=== PATIENT | male | born 1990 | race Caucasian/White ===

== ENCOUNTER 2021-03-04 08:39 | Outpatient (REF) | payer OTHER, SELFPAY ==
[2021-03-04 09:51] LABS: Glucose Fasting 116 mg/dL (60-99)
[2021-03-04 10:16] LABS: Estimated Average Glucose 126 mg/dL
== END 2021-03-04 08:40 | disposition home or self-care (01) ==
LOC: HO.LAB 08:39
PROVIDERS: PCP Internal Medicine; Visit Provider Internal Medicine
DX: E66.9 Obesity, unspecified (principal); R73.02 Impaired glucose tolerance (oral)
CPT/HCPCS: 36415; 82947; 83036

== ENCOUNTER 2021-03-21 11:45 | Emergency (ER) | payer OTHER, SELFPAY ==
--- NOTE | 2021-03-21 11:58 | ECG_ITS ---
Test Reason : ABNORMAL EKG Blood Pressure : / mmHG Vent. Rate : 103 BPM Atrial Rate : 103 BPM P-R Int : 164 ms QRS Dur : 098 ms QT Int : 376 ms P-R-T Axes : 051 034 012 degrees QTc Int : 492 ms Sinus tachycardia Possible Left atrial enlargement Borderline ECG No previous ECGs available Referred By: Generic ED Physician Electronically Signed By:Manuel Colon
[2021-03-21 12:03] VITALS: BP 166/102; PULSE 109; RESP 18; TEMP 36.9; O2SAT 96; BMI 35.3
[2021-03-21 14:35] LABS: MANUAL DIFF FLAG NO
[2021-03-21 14:45] LABS: Basophils Percent Auto 0.2 % (0-2); Eosinophils Absolute Auto 0.1 X10*3/uL (0.0-0.4); Eosinophils Percent Auto 0.7 % (0-4); Hematocrit 51.6 % (42-52); Hemoglobin 16.9 g/dl (14.0-18.0); Imm Gran Abs Auto 0.02 X10*3/uL (0.00-0.03); Imm Gran Pct Auto 0.2 % (0.0-0.4); Lymphocytes Absolute Auto 2.7 X10*3/uL (1.2-4.9); Lymphocytes Percent Auto 31.2 % (20-40); Mean Corpuscular HGB Conc 32.8 g/dl (31.0-36.0); Mean Corpuscular Volume 79.4 fL (80-98); Mean Platelet Volume 8.7 fL (9.4-12.4); Monocytes Absolute Auto 0.5 X10*3/uL (0.1-1.2); Monocytes Percent Auto 5.9 % (2-11); Neutrophils Absolute Auto 5.3 X10*3/uL (2.0-8.3); Neutrophils Percent Auto 61.8 % (45-73); Platelet Count 260 X10*3/uL (160-400); Red Cell Distribution Width 13.2 % (11.0-16.0); White Blood Count 8.6 X10*3/uL (4.8-10.8)
[2021-03-21 14:55] LABS: Anion Gap 12 (12-20); Blood Urea Nitrogen 15 mg/dL (9-16); Calcium 9.5 mg/dL (8.4-10.2); Carbon Dioxide 28 mmol/L (22-29); Chloride 106 mmol/L (96-108); Creatinine Clr Calc Pharmacy 129.4; Estimated Glomerular Filt Rate > 60; Glucose Random 100 mg/dL (60-115); Potassium 3.9 mmol/L (3.3-5.1); Sodium 142 mmol/L (135-145)
--- NOTE | 2021-03-21 15:23 | ED_ITS ---
HPI - General Adult General Chief complaint: Recheck/Abnormal Lab/Rx Stated complaint: abnormal EKG Time Seen by Provider: 03/21/21 15:07 Source: patient Mode of arrival: ambulatory Limitations: no limitations History of Present Illness HPI narrative: 30 y/o male with history of HTN and pre-diabetes presents to the ER from his PCP office with high blood pressure associated with intermittent left sided chest pain and abnormal EKG. He reports he was started on blood pressure medication 1 month ago. His SBP has ranged mid-150s since then. He is compliant with his medication. He has had intermittent chest pains and SOB for a long time and it only occurs when his blood pressure is elevated. No headaches or vision changes. He denies any significant weight gain or salt intake. He currently has no chest pain. EKG at [facility] showed prolonged QTc. Provider there sent him for evaluation of symptomatic hypertension. MD complaint: chest pain & HTN Onset (ago): week(s) Location: chest Radiation: non-radiation Severity: moderate Severity scale (1-10): 6 Quality: aching Pain Consistency: intermittent Relieving factors: rest Exacerbating factors: movement Associated symptoms: denies other symptoms Treatments prior to arrival: none Related Data Previous Rx's Medication Instructions Recorded amlodipine 5 mg PO DAILY #30 tab 03/21/21 Allergies Allergy/AdvReac Type Severity Reaction Status Date / Time No Known Allergies Allergy Verified 03/21/21 14:04 Review of Systems Review of Systems: Constitutional: No Fever, No Chills ENT/Mouth: No sore throat, No Rhinorrhea, No Swallowing Difficulty Eyes: No Eye Pain, No Swelling, No Redness, No vision changes Cardiovascular: + Chest Pain, + SOB, No Orthopnea, No Edema Respiratory: No Cough, No Sputum, No Wheezing, No dyspnea Gastrointestinal: No Nausea, No Vomiting, No Diarrhea, No abdominal Pain, No Hematochezia, No Melena Genitourinary: No Dysuria, No Urinary Frequency, No Hematuria Musculoskeletal: No joint pain, No Myalgias Skin: No Skin Lesions, No rash Neuro: No Weakness, No Numbness, No Dizziness, No Headache Psych: No Anxiety/Panic, No Depression Heme/Lymph: No Bruising, No Lymphadenopathy Endocrine: No Polyuria, No Polydipsia PMFSH Past Medical History Medical History (Updated 03/21/21 @ 17:03 by CARO Randolph) HTN (hypertension) Social History Social History Advance Directives: No Advance Directives Information Provided: Yes Physical Exam Vital Signs: Vital Signs: Last Vital Signs Temp 98.5 F 03/21/21 12:03 Pulse 98 03/21/21 16:36 Resp 18 03/21/21 12:03 BP 157/113 H 03/21/21 16:36 Pulse Ox 96 03/21/21 12:03 Body Mass Index 35.3 Appearance: Alert. Oriented X3. No acute distress. Eyes: Pupils equal, round and reactive to light. ENT: Pharynx normal. Neck: Normal inspection. Neck supple. CVS: Normal heart rate and rhythm. Pulses normal. Mild left sided chest wall tenderness. Respiratory: No respiratory distress. Breath sounds normal. Abdomen: Soft and nontender. +BS x4 Skin: Skin warm and dry. Normal skin color. Normal skin turgor. No rashes. Extremities: No lower extremity edema. Negative Mendez's sign Neuro: Oriented X 3. No motor deficit. No sensory deficit. Course Course Course Narrative: 30 y/o male presenting with intermittent chest pain and SOB x1 month in the setting of poorly controlled HTN. Upon medication review it looks like he was started on lisinopril 10/HCTZ 12.5 in January and then was changed to HCTZ 25 mg daily. He is slightly tachycardic on arrival, no reported chest pain or SOB at this time. BP 166/102. Will give dose of PO lisinopril now. Reevaluation(s) Reevaluation #1: Patient reports the lisinopril he was on was stopped because it was making him shakey. He continued on HCTZ 25 mg alone. His BP has been poorly controlled with this regimen. Troponin 17 --> 16.8. DDIMER negative. Patient remains chest pain free. BP 15 0/113. No headache or vision changes. Will plan to start amlodipine 5 mg daily and have him f/u with his PCP for further management. He will continue to monitor BP at home and come back to the ER if chest pain worsens or returns. Medical Decision Making Lab Data Result diagrams: 03/21/21 14:30 03/21/21 14:30 Labs: Lab Results 03/21/21 03/21/21 03/21/21 Range/Units 14:30 14:30 14:30 WBC 8.6 (4.8-10.8) X10*3/uL RBC 6.50 H (4.60-5.80) X10*6/uL Hgb 16.9 (14.0-18.0) g/dl Hct 51.6 (42-52) % MCV 79.4 L (80-98) fL MCH 26.0 L (27.0-33.0) pg MCHC 32.8 (31.0-36.0) g/dl RDW 13.2 (11.0-16.0) % Plt Count 260 (160-400) X10*3/uL MPV 8.7 L (9.4-12.4) fL Immature Gran % (Auto) 0.2 (0.0-0.4) % Neut % (Auto) 61.8 (45-73) % Lymph % (Auto) 31.2 (20-40) % [place] % (Auto) 5.9 (2-11) % Eos % (Auto) 0.7 (0-4) % Baso % (Auto) 0.2 (0-2) % Lymph # (Auto) 2.7 (1.2-4.9) X10*3/uL [place] # (Auto) 0.5 (0.1-1.2) X10*3/uL Eos # (Auto) 0.1 (0.0-0.4) X10*3/uL Baso # (Auto) 0.0 (0.0-0.2) X10*3/uL Abs Immat Gran (auto) 0.02 (0.00-0.03) X10*3/uL Absolute Neuts (auto) 5.3 (2.0-8.3) X10*3/uL Absolute Nucleated RBC 0.000 (0.0-0.012) X10*3/uL Nucleated RBC % (auto) 0.0 (0.0-0.2) /100WBC D-Dimer NG/ML Sodium 142 (135-145) mmol/L Potassium 3.9 (3.3-5.1) mmol/L Chloride 106 (96-108) mmol/L Carbon Dioxide 28 (22-29) mmol/L Anion Gap 12 (12-20) BUN 15 (9-16) mg/dL Creatinine 1.16 (0.5-1.4) mg/dL Estim Creat Clear Calc 129.4 Estimated GFR > 60 Random Glucose 100 (60-115) mg/dL Calcium 9.5 (8.4-10.2) mg/dL Troponin I High Sens 17.0 (<3.5-35.0) ng/L 03/21/21 03/21/21 Range/Units 16:11 16:11 WBC (4.8-10.8) X10*3/uL RBC (4.60-5.80) X10*6/uL Hgb (14.0-18.0) g/dl Hct (42-52) % MCV (80-98) fL MCH (27.0-33.0) pg MCHC (31.0-36.0) g/dl RDW (11.0-16.0) % Plt Count (160-400) X10*3/uL MPV (9.4-12.4) fL Immature Gran % (Auto) (0.0-0.4) % Neut % (Auto) (45-73) % Lymph % (Auto) (20-40) % [place] % (Auto) (2-11) % Eos % (Auto) (0-4) % Baso % (Auto) (0-2) % Lymph # (Auto) (1.2-4.9) X10*3/uL [place] # (Auto) (0.1-1.2) X10*3/uL Eos # (Auto) (0.0-0.4) X10*3/uL Baso # (Auto) (0.0-0.2) X10*3/uL Abs Immat Gran (auto) (0.00-0.03) X10*3/uL Absolute Neuts (auto) (2.0-8.3) X10*3/uL Absolute Nucleated RBC (0.0-0.012) X10*3/uL Nucleated RBC % (auto) (0.0-0.2) /100WBC D-Dimer < 200 NG/ML Sodium (135-145) mmol/L Potassium (3.3-5.1) mmol/L Chloride (96-108) mmol/L Carbon Dioxide (22-29) mmol/L Anion Gap (12-20) BUN (9-16) mg/dL Creatinine (0.5-1.4) mg/dL Estim Creat Clear Calc Estimated GFR Random Glucose (60-115) mg/dL Calcium (8.4-10.2) mg/dL Troponin I High Sens 16.8 (<3.5-35.0) ng/L ECG Data Attestation: I personally reviewed and interpreted this ECG as follows: Interpretation: sinus tachycardia, HR 103 bpm, normal [place] interval, prolonged QTc 492, inverted t-wave in lead III alone, no ST segment elevations or depressions. Discharge Plan Discharge Clinical Impression: Hypertension Qualifiers: Hypertension type: unspecified Qualified Code(s): I10 - Essential (primary) hypertension Patient Disposition: Home, Self-Care Instructions: DASH Eating Plan (ED), Hypertension (ED) Additional Instructions: Your blood workup today was unremarkable. Your blood pressure was elevated. Recommend uptitrating your home blood pressure medication and following up with your doctor this week. A new prescription for your blood pressure was sent to your pharmacy, start taking this tomorrow along with the medication from your doctor. Monitor your blood pressure at home and bring a record to your doctor. If you have recurrence of chest pain or any other new or concerning symptom call 911 or come back to the ER for further evaluation. Crow an?lisis de jesse de jaylen no tuvo nada especial. Crow presi?n arterial estaba elevada. Recomiende aumentar la dosis de bernarda medicamentos para la presi?n arterial en el hogar y hacer un seguimiento con crow m?dico esta semana. Se envi? deshawn nueva receta para crow presi?n arterial a crow farmacia, comience a tomarla ma?sean junto con el medicamento de crow m?dico. Controle crow presi?n arterial en casa y lleve un registro a crow m?dico. Si tiene dolor de pecho recurrente o cualquier otro s?ntoma nuevo o preocupante, llame al 911 o regrese a la tyra de emergencias para deshawn evaluaci?n adicional. Prescriptions: New amlodipine 5 mg tablet 5 mg PO DAILY Qty: 30 RF: 0 Referrals: Chance Georges MD [Primary Care Provider] - 1 week Stand Alone Forms: Work/School Release Print Language: Macanese
[2021-03-21 16:28] LABS: D Dimer < 200 NG/ML
[2021-03-21 16:36] VITALS: BP 157/113; PULSE 98
[2021-03-21] MEDS: lisinopriL 10 MG TABLET PO (16:36)
[2021-03-21 16:51] LABS: Troponin-I High Sensitivity 16.8 ng/L (<3.5-35.0)
[2021-03-21 17:41] VITALS: BP 150/98; PULSE 90; RESP 18; O2SAT 98
== END 2021-03-21 17:42 | disposition home or self-care (01) ==
PROVIDERS: Physician Assistant; Emergency Provider Emergency Medicine Emergency Medical Services; PCP Internal Medicine
DX: I10 Essential (primary) hypertension (principal); Z79.899 Other long term (current) drug therapy
CPT/HCPCS: 36415; 80048; 84484; 85025; 85379; 93005; 99283

== ENCOUNTER → 2021-11-23 14:40 | Outpatient (BNVA) | payer OTHER, SELFPAY | PROVIDERS: PCP Internal Medicine; Referring Provider Internal Medicine; Visit Provider Surgery ==

== ENCOUNTER 2021-11-30 08:16 | Outpatient (REF) | payer OTHER, SELFPAY ==
--- NOTE | ~2021-11-30 | US_ITS ---
EXAMINATION: US ABDOMEN LIMITED CLINICAL INFORMATION: Ventral hernia. COMPARISON: None TECHNIQUE: Real-time imaging of the right lower quadrant abdominal viscera. US/US abdomen limited FINDINGS/IMPRESSION: No hernia identified in the right lower quadrant. No masses Unremarkable exam.
== END 2021-11-30 08:17 | disposition home or self-care (01) ==
LOC: HO.US 08:16
PROVIDERS: Visit Provider Nurse Practitioner Primary Care
DX: K43.9 Ventral hernia without obstruction or gangrene (principal)
CPT/HCPCS: 76705

== ENCOUNTER 2022-10-18 14:48 | Outpatient (REF) | payer OTHER, SELFPAY ==
--- NOTE | ~2022-10-18 | US_ITS ---
EXAMINATION: US RETROPERITONEAL LIMITED (RENAL ONLY) CLINICAL INFORMATION: Microscopic hematuria. COMPARISON: Ultrasound abdomen limited 11/30/2021 TECHNIQUE: Real-time imaging of the kidneys. FINDINGS: RIGHT KIDNEY: 12.9 x 5.8 x 6.3 cm (SAG x AP x TRV). The kidney is normal in size, contour, and echogenicity. Renal cortical thickness is normal. No calculi or focal parenchymal lesions. No hydronephrosis. LEFT KIDNEY: 12.6 x 6.0 x 7.1 cm (SAG x AP x TRV). The kidney is normal in size, contour, and echogenicity. Renal cortical thickness is normal. No calculi or focal parenchymal lesions. No hydronephrosis. US/US renal BI IMPRESSION: Normal renal ultrasound. No kidney stone or hydronephrosis, no renal mass, no ultrasound explanation for patient's hematuria, if persisted may consider correlation with follow-up CT urogram.
== END 2022-10-18 14:49 | disposition home or self-care (01) ==
LOC: HO.US 14:48
PROVIDERS: PCP Internal Medicine; Visit Provider Internal Medicine
DX: R31.29 Other microscopic hematuria (principal)
CPT/HCPCS: 76775

== ENCOUNTER 2022-11-12 12:48 | Outpatient (REF) | payer OTHER, SELFPAY ==
[2022-11-12 16:02] LABS: Urine Cytology See Pathology rpt
== END 2022-11-12 12:49 | disposition home or self-care (01) ==
LOC: HO.LAB 12:48
PROVIDERS: PCP Internal Medicine; Visit Provider Nurse Practitioner Family
DX: R31.29 Other microscopic hematuria (principal); Z79.899 Other long term (current) drug therapy
CPT/HCPCS: 88112

== ENCOUNTER → 2023-01-02 14:38 | Outpatient (BNVA) | payer OTHER, SELFPAY | PROVIDERS: PCP Internal Medicine; Visit Provider Urology | DX: N30.31 Trigonitis with hematuria (principal) | CPT/HCPCS: 52000 ==

== ENCOUNTER 2023-09-15 16:22 | Inpatient (IN) | payer OTHER, SELFPAY ==
[2023-09-15] VITALS (14 sets, daily range): BP systolic 129–153; BP diastolic 86–106; PULSE 112–121; RESP 22–47; TEMP 36.3–37.6; O2SAT 82–100
--- NOTE | ~2023-09-15 | CT_ITS ---
EXAMINATION: CT ANGIOGRAM OF THE CHEST WITH AND WITHOUT CONTRAST (CT PULMONARY ANGIOGRAM FOR PE) CLINICAL INFORMATION: Reason for Exam tachycardic, hypoxic, dimer + COMPARISON: Chest radiograph 09/15/2023. TECHNIQUE: Prior to contrast administration, noncontrast localization images were obtained. Subsequently, multidetector volumetric imaging was performed from the thoracic inlet to below the diaphragms following the administration of 100 mL Omnipaque 350 intravenous contrast. No contrast reaction reported Sagittal, coronal, and MIP oblique sagittal reformatted images were obtained on the CT workstation, uploaded to PACS, and reviewed. This CT examination was performed using dose optimization techniques as appropriate, variously including the following: *Automated exposure control *Adjustment of mA and/or kV according to patient size (this includes techniques or standardized protocols for targeted exams where dose is matched to indication/reason for exam; i.e. extremities or head) *Use of iterative reconstruction technique Total exam dose-length product 500 mGy-cm FINDINGS: QUALITY OF STUDY/CONTRAST BOLUS: Satisfactory. PULMONARY ARTERIES: No pulmonary emboli. THORACIC AORTA: No aneurysm. LUNG: Mild groundglass opacities and minimal scattered alveolar airspace type opacities are present in the left lung base posteriorly. Additionally, minimal subpleural posterior dependent opacities are present in the left lung base may represent additional minimal dependent compressive atelectasis. No endobronchial lesions identified. Mild attenuation of the upper lung zone pulmonary parenchyma is noted suspicious for mild centrilobular emphysema. PLEURA: A trace right pleural effusion (0 Hounsfield unit) is noted. MEDIASTINUM: Normal heart size. No pericardial effusion. No hilar or mediastinal lymphadenopathy. No evidence of septal bowing or right heart strain. The left atrium measures 5.6 cm in AP dimension. The left ventricle measures 7.5 cm transverse dimension. The right atrium measures 5 cm in AP dimension. The right ventricle measures 3.7 cm in AP dimension. No focal left ventricular mural thickening noted or dystrophic calcifications identified. CORONARY ARTERY CALCIFICATION: None visualized on this study. CHEST WALL/AXILLA: No axillary or internal mammary lymphadenopathy. OSSEOUS STRUCTURES: No acute or suspicious osseous abnormality. UPPER ABDOMEN: Unremarkable. Minimal reflux of contrast into the intrahepatic segment of the inferior vena cava and immediately adjacent hepatic veins. The inferior most image demonstrates a 1 mm punctate calcification within the left renal pelvis. CT/CT angio chest PE protocol IMPRESSION: 1. CT pulmonary angiogram negative for pulmonary emboli. 2. Mild groundglass opacities and minimal scattered alveolar airspace type opacities in the left lung base suspicious for mild aspiration pneumonitis or infection. Additionally, a trace right pleural effusion is present. Findings could also represent resolving pulmonary edema with asymmetric residual edema within the left lung base. 3. Mild centrilobular emphysema. 4. Four-chamber cardiomegaly. Minimal reflux of contrast into the intrahepatic segment of the inferior vena cava and immediately adjacent hepatic veins. Findings are suspicious for mild right heart failure. No evidence of right heart strain. 5. Partially visualized 1 mm punctate calculus within the left renal pelvis. VTE: negative.
--- NOTE | ~2023-09-15 | XR_ITS ---
EXAMINATION: XR CHEST CLINICAL INFORMATION: Shortness of breath. Left-sided pneumonia? COMPARISON: None available. TECHNIQUE: Frontal view of the chest was obtained. FINDINGS: EKG wires overlie the chest. Lungs are adequately expanded. The retrocardiac area of the left lower lobe is suboptimally evaluated on this single view anteroposterior chest radiograph. Cardiac silhouette and central pulmonary vessels are prominent. There appears to be a trace amount of fluid within the minor fissure. No overt consolidation (i.e., no overt pneumonia). The visualized bones and upper abdomen are unremarkable. XR/XR chest 1V IMPRESSION: Cardiomegaly and pulmonary vascular congestion without overt edema. Query if the patient has previously undergone echocardiography evaluation.
--- NOTE | 2023-09-15 16:41 | ECG_ITS ---
Test Reason : SOB Blood Pressure : / mmHG Vent. Rate : 116 BPM Atrial Rate : 116 BPM P-R Int : 176 ms QRS Dur : 110 ms QT Int : 314 ms P-R-T Axes : 056 089 -28 degrees QTc Int : 436 ms Sinus tachycardia T wave abnormality, consider inferior ischemia Abnormal ECG When compared with ECG of 21-MAR-2021 12:02, T wave inversion more evident in Inferior leads Referred By: Ann Alexander Electronically Signed By:Manuel Colon
[2023-09-15 16:52] LABS: MANUAL DIFF FLAG NO
--- NOTE | 2023-09-15 16:53 | ED_ITS ---
HPI - SOB/Dyspnea General Chief Complaint: Dyspnea Stated Complaint: Hard time breathing Time Seen by Provider: 09/15/23 16:35 Source: patient Mode of arrival: ambulatory Limitations: no limitations History of Present Illness HPI Narrative: Patient comes to the emergency room complaining of severe shortness of breath. Patient states that he has been feeling short of breath for about a week now. However, today patient started feeling more short of breath. Patient states that he has been coughing a bit, no fever or chills, no recent known exposures to COVID/influenza. Patient states that he has never been diagnosed with asthma. Patient denies any cardiac history. Denies smoking. Related Data Home Medications Medication Instructions Recorded Confirmed nifedipine 60 mg tablet,extended 60 mg PO DAILY 11/12/22 01/02/23 release 24 hr Previous Rx's Medication Instructions Recorded amlodipine 5 mg tablet 5 mg PO DAILY #30 tabs 03/21/21 trimethoprim 100 mg tablet 100 mg PO DAILY 90 days #90 tabs 01/02/23 Allergies Allergy/AdvReac Type Severity Reaction Status Date / Time No Known Allergies Allergy Verified 09/15/23 16:28 Review of Systems 2 Review of Systems: Constitutional : No Weight loss, No Fever, No Chills, No Night Sweats, No Fatigue, No Malaise ENT/Mouth : No Hearing loss, No Ear Pain, No Nasal Congestion, No Sinus Pain, No Hoarseness, No sore throat, No Rhinorrhea, No Swallowing Difficulty Eyes: No Eye Pain, No Swelling, No Redness, No Foreign Body, No Discharge, No Vision Changes Cardiovascular : No Chest Pain, No SOB, No Dyspnea on Exertion, No Orthopnea, No Edema, No Palpitations Respiratory : Mild cough, complaining of shortness of breath Gastrointestinal : No Nausea, No Vomiting, No Diarrhea, No Constipation, No abdominal Pain, No Hematochezia, No Melena Genitourinary : no irregular bleeding, No Dysuria, No Urinary Frequency, No Hematuria, No Urinary Incontinence, No Urgency, No Flank Pain, No Urinary Flow Changes, No Hesitancy Musculoskeletal : No joint pain, No Myalgias, No Joint Swelling Skin : No Skin Lesions, No rash Neuro : No Weakness, No Numbness, No Paresthesias, No Loss of Consciousness, No Dizziness, No Headache Psych : No Anxiety/Panic, No Depression, No SI/HI/AH/VH, No Social Issues, Heme/Lymph: No Bruising, No Bleeding,No Lymphadenopathy Endocrine : No Polyuria, No Polydipsia, No Temperature Intolerance [facility] Past Medical History Medical History HTN (hypertension) Surgical History History of umbilical hernia repair Social History Social History Alcohol intake: never Patient Tobacco Use Status: Never used Tobacco Smoked in Last 30 Days: No Use of substances other than those prescribed or required for medical reasons: No Advance Directives: No Advance Directives Information Provided: No Physical Exam 2 Vital Signs: Vital Signs: Last Vital Signs Temp 99.7 F 09/15/23 21:59 Pulse 112 H 09/15/23 22:00 Resp 40 H 09/15/23 22:00 BP 137/86 09/15/23 21:59 Pulse Ox 95 09/15/23 22:00 O2 Del Method High Flow Nasal C annula 09/15/23 22:00 O2 Flow Rate 60 09/15/23 22:00 FiO2 100 09/15/23 17:02 BMI result Body Mass Index 20.0 Const: Other: Appearance: Alert. Oriented X3. No acute distress. Eyes: Pupils equal, round and reactive to light. ENT: Pharynx normal. Neck: Normal inspection. Neck supple. No lymph nodes noted. No crepitus CVS: Normal heart rate and rhythm. Pulses normal. Normal S1 and S2 Respiratory: Patient is tachypneic, oxygen saturation initially 82% on room air, put on non-rebreather, improved to 95%. Still tachypneic Abdomen: Soft and nontender. No rigidity. No distention. Skin: Skin warm and dry. Normal skin color. Normal skin turgor. Extremities: +2 pitting edema bilaterally. No Lacerations. No Rash Neuro: Oriented X 3. No motor deficit. No sensory deficit. Moving all extremities. No slurred speech. CN 2 through 12 grossly intact Psych: calm, cooperative, anxious Medications Administered Discontinued Medications Generic Name Dose Route Start Last Admin Trade Name Freq PRN Reason Stop Dose Admin Dexamethasone Sodium Phosphate 6 mg 09/15/23 22:21 09/15/23 22:46 Dexamethasone Sod Phosphate 4 Mg/Ml Vial IVPUSH 09/15/23 22:22 6 mg ONCE ONE Administration Furosemide 40 mg 09/15/23 17:02 09/15/23 17:12 Furosemide 40 Mg/4 Ml Vial IVPUSH 09/15/23 17:03 40 mg ONCE ONE Administration Protocol Piperacillin Sod/Tazobactam 50 mls @ 100 mls/hr 09/15/23 22:26 09/15/23 23:16 Sod 3.375 gm/ Sodium Chloride IV 09/15/23 22:55 Infused ONCE ONE Infusion Iohexol 100 ml 09/15/23 20:32 09/15/23 20:32 Iohexol 350 Mg/Ml 100 Ml Infus..Btl IV 09/15/23 20:33 75 ml ONCE ONE Administration Lorazepam 1 mg 09/15/23 17:56 09/15/23 18:05 Lorazepam 2 Mg/Ml Vial IVPUSH 09/15/23 17:57 1 mg ONCE ONE Administration Lorazepam 1 mg 09/15/23 21:02 09/15/23 21:13 Lorazepam 2 Mg/Ml Vial IVPUSH 09/15/23 21:03 1 mg ONCE ONE Administration Medical Decision Making Medical Decision Making MDM Narrative: -patient arrived to triage saturating 80% on room air. Patient was placed on a non-rebreather. -we tried weaning the patient down to nasal cannula. Oxygen saturation dropped to 84% on 5 L. patient has crackles on the left lung, likely pneumonia. Patient has no wheezing, good air movement, Patient was switched to high-flow, patient saturating 94%. -bedside chest x-ray my interpretation: cardiomegaly, possible pneumonia in the left lung, possible left lower lobe small pleural effusion. -while we wait for the results, patient being given Lasix 40 mg IV -my interpretation of labs, normal white blood cell count, lactic acid 2.2 likely secondary to hypoxia, no significant electrolyte abnormalities. BNP 721 -my interpretation of chest x-ray, cardiomegaly, question infiltrate on the left lung versus pleural effusion? -patient was scanned for pulmonary embolism, negative for PE, no overt pulmonary edema, possible right heart strain? -patient's blood pressure stable, no hypotensive events. Patient still significantly tachycardic, no fever, sepsis is not suspected It is unclear why the patient is hypoxic, could be new onset CHF, pulmonary hypertension, pneumonitis, pneumonia? Viral serology negative for COVID influenza, respiratory panel pending. -prophylactically, patient was treated with IV antibiotics and Lasix, even on CTA it is unclear if patient has pneumonia, if he does, likely viral, some ground-glass opacities seen with no obvious infiltrate -patient is currently on high-flow, 60 L, 75% FiO2 saturating 94- 100%, patient breathing comfortably, patient tachypneic in the 40s. Patient given Ativan for anxiety. -I discussed the patient with Dr. Patino, who requested an ICU consult. I discussed the patient with Dr. Venegas, looks like patient has new onset CHF. We will diurese the patient more, patient needs PEEP which patient is getting with high-flow. 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 09/15/23 16:47 09/15/23 16:47 Labs: Lab Results 09/15/23 09/15/23 09/15/23 Range/Units 16:47 16:53 16:59 WBC 9.1 (4.8-10.8) X10*3/uL RBC 5.65 (4.60-5.80) X10*6/uL Hgb 14.0 (14.0-18.0) g/dl Hct 44.0 (42.0-52.0) % MCV 77.9 L (80.0-98.0) fL MCH 24.8 L (27.0-33.0) pg MCHC 31.8 (31.0-36.0) g/dl RDW 14.3 (11.0-16.0) % Plt Count 334 (160-400) X10*3/uL MPV 8.5 L (9.4-12.4) fL Immature Gran % (Auto) 0.5 H (0.0-0.4) % Neut % (Auto) 80.1 H (45-73) % Lymph % (Auto) 14.8 L (20-40) % [place] % (Auto) 3.5 (2-11) % Eos % (Auto) 0.8 (0-4) % Baso % (Auto) 0.3 (0-2) % Lymph # (Auto) 1.4 (1.2-4.9) X10*3/uL [place] # (Auto) 0.3 (0.1-1.2) X10*3/uL Eos # (Auto) 0.1 (0.0-0.4) X10*3/uL Baso # (Auto) 0.0 (0.0-0.2) X10*3/uL Abs Immat Gran (auto) 0.05 H (0.00-0.03) X10*3/uL Absolute Neuts (auto) 7.3 (2.0-8.3) x10*3/uL Absolute Nucleated RBC 0.000 (0.0-0.012) X10*3/uL Nucleated RBC % (auto) 0.0 (0.0-0.2) /100WBC PT 18.0 H (11.1-13.3) SEC INR 1.5 H (0.9-1.1) D-Dimer High Sensitivty 420 NG/ML VBG pH 7.38 (7.32-7.43) VBG pCO2 37 mmHg VBG pO2 40 mmHg VBG HCO3 22 (22-26) mmol/L VBG O2 Saturation 61.0 % VBG Base Excess -2.1 mmol/L Sodium 141 (135-145) mmol/L Potassium 3.8 (3.3-5.1) mmol/L Chloride 109 H (96-108) mmol/L Carbon Dioxide 21 L (22-29) mmol/L Anion Gap 15 (12-20) BUN 18 H (9-16) mg/dL Creatinine 1.16 (0.5-1.4) mg/dL Estim Creat Clear Calc 92.1 Estimated GFR > 60 Random Glucose 216 H (60-115) mg/dL Lactic Acid 2.2 H* (0.5-2.0) mmol/L Lactic Acid F/U @ 2Hr (0.5-2.0) mmol/L Calcium 9.1 (8.4-10.2) mg/dL Total Bilirubin 0.8 (0.0-1.0) mg/dL Direct Bilirubin 0.4 (0.0-0.5) mg/dL AST 31 (5-37) U/L ALT 35 (0-40) U/L Alkaline Phosphatase 189 H (39-117) U/L Total Creatine Kinase 123 (38-174) U/L Troponin I High Sens 11.3 (<3.5-35.0) ng/L B-Natriuretic Peptide 721 H (<100) pg/mL Total Protein 7.9 (6.5-8.0) g/dL Albumin 3.7 (3.5-5.0) g/dL COVID-19 (GAGE) (Negative) COVID-19 Clin Com Influenza Type A (SKYLAR) (Negative) Influenza Type B (SKYLAR) (Negative) Influenza A & B Note 09/15/23 09/15/23 Range/Units 19:10 21:23 WBC (4.8-10.8) X10*3/uL RBC (4.60-5.80) X10*6/uL Hgb (14.0-18.0) g/dl Hct (42.0-52.0) % MCV (80.0-98.0) fL MCH (27.0-33.0) pg MCHC (31.0-36.0) g/dl RDW (11.0-16.0) % Plt Count (160-400) X10*3/uL MPV (9.4-12.4) fL Immature Gran % (Auto) (0.0-0.4) % Neut % (Auto) (45-73) % Lymph % (Auto) (20-40) % [place] % (Auto) (2-11) % Eos % (Auto) (0-4) % Baso % (Auto) (0-2) % Lymph # (Auto) (1.2-4.9) X10*3/uL [place] # (Auto) (0.1-1.2) X10*3/uL Eos # (Auto) (0.0-0.4) X10*3/uL Baso # (Auto) (0.0-0.2) X10*3/uL Abs Immat Gran (auto) (0.00-0.03) X10*3/uL Absolute Neuts (auto) (2.0-8.3) x10*3/uL Absolute Nucleated RBC (0.0-0.012) X10*3/uL Nucleated RBC % (auto) (0.0-0.2) /100WBC PT (11.1-13.3) SEC INR (0.9-1.1) D-Dimer High Sensitivty NG/ML VBG pH (7.32-7.43) VBG pCO2 mmHg VBG pO2 mmHg VBG HCO3 (22-26) mmol/L VBG O2 Saturation % VBG Base Excess mmol/L Sodium (135-145) mmol/L Potassium (3.3-5.1) mmol/L Chloride (96-108) mmol/L Carbon Dioxide (22-29) mmol/L Anion Gap (12-20) BUN (9-16) mg/dL Creatinine (0.5-1.4) mg/dL Estim Creat Clear Calc Estimated GFR Random Glucose (60-115) mg/dL Lactic Acid (0.5-2.0) mmol/L Lactic Acid F/U @ 2Hr 1.4 (0.5-2.0) mmol/L Calcium (8.4-10.2) mg/dL Total Bilirubin (0.0-1.0) mg/dL Direct Bilirubin (0.0-0.5) mg/dL AST (5-37) U/L ALT (0-40) U/L Alkaline Phosphatase (39-117) U/L Total Creatine Kinase (38-174) U/L Troponin I High Sens (<3.5-35.0) ng/L B-Natriuretic Peptide (<100) pg/mL Total Protein (6.5-8.0) g/dL Albumin (3.5-5.0) g/dL COVID-19 (GAGE) Negative (Negative) COVID-19 Clin Com See Note Influenza Type A (SKYLAR) Negative (Negative) Influenza Type B (SKYLAR) Negative (Negative) Influenza A & B Note See Note Independent Interpretation I performed an independent interpretation of an: EKG, Plain X-Ray and CT Scan (Interpretation of CTA: No obvious pulmonary embolism, no obvious infiltrate, ground-glass opacities especially on the left lower lobe) Radiology Impression Discussion of test interpretation with radiology: I have reviewed the radiologist's reading. Radiologist Impression: FINDINGS: QUALITY OF STUDY/CONTRAST BOLUS: Satisfactory. PULMONARY ARTERIES: No pulmonary emboli. THORACIC AORTA: No aneurysm. LUNG: Mild groundglass opacities and minimal scattered alveolar airspace type opacities are present in the left lung base posteriorly. Additionally, minimal subpleural posterior dependent opacities are present in the left lung base may represent additional minimal dependent compressive atelectasis. No endobronchial lesions identified. Mild attenuation of the upper lung zone pulmonary parenchyma is noted suspicious for mild centrilobular emphysema. PLEURA: A trace right pleural effusion (0 Hounsfield unit) is noted. MEDIASTINUM: Normal heart size. No pericardial effusion. No hilar or mediastinal lymphadenopathy. No evidence of septal bowing or right heart strain. The left atrium measures 5.6 cm in AP dimension. The left ventricle measures 7.5 cm transverse dimension. The right atrium measures 5 cm in AP dimension. The right ventricle measures 3.7 cm in AP dimension. No focal left ventricular mural thickening noted or dystrophic calcifications identified. CORONARY ARTERY CALCIFICATION: None visualized on this study. CHEST WALL/AXILLA: No axillary or internal mammary lymphadenopathy. OSSEOUS STRUCTURES: No acute or suspicious osseous abnormality. UPPER ABDOMEN: Unremarkable. Minimal reflux of contrast into the intrahepatic segment of the inferior vena cava and immediately adjacent hepatic veins. The inferior most image demonstrates a 1 mm punctate calcification within the left renal pelvis. CT/CT angio chest PE protocol IMPRESSION: 1. CT pulmonary angiogram negative for pulmonary emboli. 2. Mild groundglass opacities and minimal scattered alveolar airspace type opacities in the left lung base suspicious for mild aspiration pneumonitis or infection. Additionally, a trace right pleural effusion is present. Findings could also represent resolving pulmonary edema with asymmetric residual edema within the left lung base. 3. Mild centrilobular emphysema. 4. Four-chamber cardiomegaly. Minimal reflux of contrast into the intrahepatic segment of the inferior vena cava and immediately adjacent hepatic veins. Findings are suspicious for mild right heart failure. No evidence of right heart strain. 5. Partially visualized 1 mm punctate calculus within the left renal pelvis. VTE: negative. Critical Care Time Critical Care Time Critical Care Time: Yes Total Critical Care Time: 90 Attestation: I have personally provided critical care time. Time includes review of lab data, radiology results, discussion with consultants, and monitoring for potential decompensation. Intervention performed as documented. Discharge Plan Discharge Clinical Impression: Pneumonitis, CHF (congestive heart failure), Hypoxia Patient Disposition: Admitted As Inpatient
[2023-09-15 16:55] LABS: Basophils Percent Auto 0.3 % (0-2); Eosinophils Absolute Auto 0.1 X10*3/uL (0.0-0.4); Eosinophils Percent Auto 0.8 % (0-4); Imm Gran Abs Auto 0.05 X10*3/uL (0.00-0.03); Imm Gran Pct Auto 0.5 % (0.0-0.4); Lymphocytes Absolute Auto 1.4 X10*3/uL (1.2-4.9); Lymphocytes Percent Auto 14.8 % (20-40); Mean Corpuscular HGB Conc 31.8 g/dl (31.0-36.0); Mean Corpuscular Hemoglobin 24.8 pg (27.0-33.0); Mean Corpuscular Volume 77.9 fL (80.0-98.0); Mean Platelet Volume 8.5 fL (9.4-12.4); Monocytes Absolute Auto 0.3 X10*3/uL (0.1-1.2); Monocytes Percent Auto 3.5 % (2-11); Neutrophils Absolute Auto 7.3 x10*3/uL (2.0-8.3); Neutrophils Percent Auto 80.1 % (45-73); Platelet Count 334 X10*3/uL (160-400); Red Blood Count 5.65 X10*6/uL (4.60-5.80); Red Cell Distribution Width 14.3 % (11.0-16.0); White Blood Count 9.1 X10*3/uL (4.8-10.8)
[2023-09-15 16:58] LABS: VBG Base Excess -2.1 mmol/L; VBG HCO3 22 mmol/L (22-26); VBG pCO2 37 mmHg; VBG pH 7.38 (7.32-7.43); VBG pO2 40 mmHg
[2023-09-15 16:59] LABS: Venous Blood Gas Refer to POC result
[2023-09-15 17:04] LABS: INTERNATIONAL NORM RATIO 1.5 (0.9-1.1)
[2023-09-15] MEDS: Furosemide 40 MG/4 ML VIAL IVPUSH (17:12)
[2023-09-15 17:15] LABS: Alanine Aminotransferase 35 U/L (0-40); Albumin Level 3.7 g/dL (3.5-5.0); Alkaline Phosphatase 189 U/L (39-117); Anion Gap 15 (12-20); Aspartate Amino Transferase 31 U/L (5-37); Bilirubin Direct 0.4 mg/dL (0.0-0.5); Bilirubin Total 0.8 mg/dL (0.0-1.0); Blood Urea Nitrogen 18 mg/dL (9-16); Calcium 9.1 mg/dL (8.4-10.2); Carbon Dioxide 21 mmol/L (22-29); Chloride 109 mmol/L (96-108); Creatinine Clr Calc Pharmacy 92.1; Estimated Glomerular Filt Rate > 60; Glucose Random 216 mg/dL (60-115); Potassium 3.8 mmol/L (3.3-5.1); Sodium 141 mmol/L (135-145); Total Protein 7.9 g/dL (6.5-8.0)
[2023-09-15 17:19] LABS: Lactic Acid 2.2 mmol/L (0.5-2.0)
[2023-09-15 17:20] LABS: D Dimer High Sensitivity 420 NG/ML
[2023-09-15 17:20] LABS: B Type Natriuretic Peptide 721 pg/mL (<100)
[2023-09-15 17:24] LABS: Troponin-I High Sensitivity 11.3 ng/L (<3.5-35.0)
[2023-09-15] MEDS: LORazepam 2 MG/ML VIAL 1 MG IVPUSH ×2 (18:05→21:13)
[2023-09-15 18:50] LABS: Reflex Lactate? Lactic Acid Added
--- NOTE | 2023-09-15 19:24 | PC.NURSE ---
this rn assumed care of pt. pt currently has CPAP in place, o2 at 30%. pt sating between 96-98% on the CPAP. pt comfortable in stretcher and denies pain.
[2023-09-15 19:27] LABS: ~Lactic Acid-LAB USE ONLY 1.4 mmol/L (0.5-2.0)
--- NOTE | 2023-09-15 20:17 | PC.NURSE ---
respiratory at bedside to transport pt to cat scan on cpap at this time.
--- NOTE | 2023-09-15 20:25 | PC.NURSE ---
pt voided 900ml of yellow urine into urinal at this time.
[2023-09-15] MEDS: iohexoL 350 MG/ML 100 ML INFUS..BTL IV (20:32)
--- NOTE | 2023-09-15 21:21 | PC.NURSE ---
respiratory at bedside changing pt to high flow nasal cannula at this time.
--- NOTE | 2023-09-15 21:54 | PC.NURSE ---
pt noted to have increased work of breathing, respiratory at bedside increasing pt highflow to 60%. pt sating between 90-93.
[2023-09-15 22:10] LABS: IDNOW Serial# 08D9AD1C; Influenza A Negative (Negative); Influenza B2 Negative (Negative)
[2023-09-15 22:11] LABS: COVID-19 Test Negative (Negative); IDNOW Serial# BCCEAD1C
[2023-09-15] MEDS: Piperacillin Sodium/Tazobactam 3.375 GM in 0.9 % Sodium Chloride 50 ML IV (22:46)
[2023-09-15] MEDS: dexAMETHasone sod phosphate 4 MG/ML VIAL 6 MG IVPUSH (22:46)
--- NOTE | 2023-09-15 22:48 | PC.NURSE ---
pt medicated per mar.
[2023-09-15] MEDS: Furosemide 100 MG/10 ML VIAL 80 MG IVPUSH (23:41)
--- NOTE | 2023-09-15 23:54 | PM.IMHP ---
History of Present Illness Date of Service: 09/15/23 Attending physician on admission: Julian Patino Chief Complaint: Difficulty breathing x 4 days Patient is a 33 year old obese Japanese speaking male with history of hypertension (on Nifedipine) who comes to the emergency room complaining of progressively worsening difficulty breathing for the last 3 days with an associated mild dry cough but no associated fevers, chills, chest pain, nausea, vomiting or diaphoresis. He also denies having orthopnea or PND. His symptoms were worse today prompting his presentation. He is a non-smoker and denied any recent travel or exposures to sick individuals. Initial work up done in the ED was notable for a mildly elevated BNP at 721 pg/mL and elevated lactic acid at 2.2 mmol/L. A chest x-ray done showed cardiomegaly and pulmonary vascular congestion without overt edema. A CT angiogram done was negative for pulmonary emboli but showed mild ground-glass opacities and minimal scattered in alveolar airspace type opacities in the left lung base suspicious for mild aspiration pneumonitis or infection and trace right pleural effusion that could also represent resolving pulmonary edema. He also has four-chamber cardiomegaly with findings suspicious for mild right heart failure with no evidence of right heart strain. On initial presentation, he was hypoxic and required high amounts of oxygen (60%0 via HFNC to maintain his oxygen saturation above 94%. He was also persistently tachycardic and tachypneic but with normal blood pressure. He was started on intravenous diuretics for concerns of pulmonary edema and admission requested for continued care. Review of Systems Review of Systems: Yes all other systems are reviewed and are negative [facility] Medical History HTN (hypertension) Functional capacity: independent ambulation Pertinent family history: This was reviewed with the patient and is not pertinent to current admission. There is no family history of premature coronary artery disease. Surgical History History of umbilical hernia repair Social History Household Members Other:: Mom Housing: House Do you presently have visiting nurse or other home services: No Alcohol intake: never Patient Tobacco Use Status: Never used Tobacco Smoked in Last 30 Days: No Use of substances other than those prescribed or required for medical reasons: No Have you been hit, kicked, punched, or otherwise hurt by someone within the past year? If so, by whom?: No Do you feel safe in your current relationship?: Yes Is there a partner from a previous relationship who is making you feel unsafe now?: No Are you made to feel afraid or neglected: No Advance Directives: No Advance Directives Information Provided: No Do you have thoughts of harming others: None Do you have a plan to hurt others: No Plan Recently lost weight without trying: No How much weight loss: 24-33 pounds Eating poorly because of decreased appetite: Yes Nutrition screen score: 4 Nutrition Risks: No Nutritional Risk Poor oral hygiene: No Meds Allergies Allergy/AdvReac Type Severity Reaction Status Date / Time No Known Allergies Allergy Verified 09/15/23 16:28 Home Medications Medication Instructions Recorded Confirmed Last Taken Type nifedipine 60 mg tablet,extended 60 mg PO DAILY 11/12/22 09/16/23 Unknown History release 24 hr albuterol sulfate 90 mcg/actuation 2 puff inhalation Q6H PRN wheezing 09/16/23 09/16/23 Unknown History aerosol inhaler Physical Exam Vital Signs and Narrative: Vital Signs: Last Vital Signs Temp 98.7 F 09/15/23 23:40 Pulse 115 H 09/15/23 23:40 Resp 41 H 09/15/23 23:40 BP 134/93 H 09/15/23 23:40 Pulse Ox 95 09/15/23 23:40 O2 Del Method High Flow Nasal C annula 09/15/23 23:40 O2 Flow Rate 60 09/15/23 23:40 FiO2 100 09/15/23 17:02 BMI result Body Mass Index 32.0 General: Well nourished male who appears his stated age. Awake, alert and oriented x 4. No apparent distress Eyes: No pallor or jaundice. PERRLA, EOMI HENT: Moist oral mucus membranes. No oropharyngeal lesions. Neck: Supple. No cervical adenopathy. No JVD Cardiovascular: Tachycardic but regular. Normal s1/s2. No murmurs, rubs or gallops. No JVD. 2+ bipedal pitting edema. Respiratory: Normal respiratory effort with no accessory muscle use. Few bibasilar rales. No wheezing Gastrointestinal: Abdomen is soft, non-tender, non-distended. NABS. No hepatosplenomegaly Extremities: No edema. No calf tenderness. Good peripheral pulses Skin: Warm/Dry. No rashes. No mottling. Capillary refill is < 2 seconds Neurological: AAOx4. Intact speech & cognition. Normal gait & balance. CN II - XII grossly intact but not individually tested. No motor or sensory deficits Hematologic: No bleeding. No ecchymosis. No swollen or tender lymph nodes. Psychiatric: Cooperative. Appropriate mood and affect. Results Labs 09/15/23 16:47 09/15/23 16:47 Labs: Laboratory Results - last 24 hr 09/15/23 09/15/23 09/15/23 16:47 16:53 16:59 MCV 77.9 L MCH 24.8 L MCHC 31.8 RDW 14.3 Plt Count 334 MPV 8.5 L Immature Gran % (Auto) 0.5 H Neut % (Auto) 80.1 H Lymph % (Auto) 14.8 L [place] % (Auto) 3.5 Eos % (Auto) 0.8 Baso % (Auto) 0.3 Lymph # (Auto) 1.4 [place] # (Auto) 0.3 Eos # (Auto) 0.1 Baso # (Auto) 0.0 Abs Immat Gran (auto) 0.05 H Absolute Neuts (auto) 7.3 Absolute Nucleated RBC 0.000 Nucleated RBC % (auto) 0.0 PT 18.0 H INR 1.5 H D-Dimer High Sensitivty 420 VBG pH 7.38 VBG pCO2 37 VBG pO2 40 VBG HCO3 22 VBG O2 Saturation 61.0 VBG Base Excess -2.1 Anion Gap 15 Estim Creat Clear Calc 92.1 Estimated GFR > 60 Random Glucose 216 H Lactic Acid 2.2 H* Lactic Acid F/U @ 2Hr Calcium 9.1 Total Bilirubin 0.8 Direct Bilirubin 0.4 AST 31 ALT 35 Alkaline Phosphatase 189 H Total Creatine Kinase 123 B-Natriuretic Peptide 721 H Total Protein 7.9 Albumin 3.7 COVID-19 (GAGE) COVID-19 Clin Com Influenza Type A (SKYLAR) Influenza Type B (SKYLAR) Influenza A & B Note 09/15/23 09/15/23 19:10 21:23 MCV MCH MCHC RDW Plt Count MPV Immature Gran % (Auto) Neut % (Auto) Lymph % (Auto) [place] % (Auto) Eos % (Auto) Baso % (Auto) Lymph # (Auto) [place] # (Auto) Eos # (Auto) Baso # (Auto) Abs Immat Gran (auto) Absolute Neuts (auto) Absolute Nucleated RBC Nucleated RBC % (auto) PT INR D-Dimer High Sensitivty VBG pH VBG pCO2 VBG pO2 VBG HCO3 VBG O2 Saturation VBG Base Excess Anion Gap Estim Creat Clear Calc Estimated GFR Random Glucose Lactic Acid Lactic Acid F/U @ 2Hr 1.4 Calcium Total Bilirubin Direct Bilirubin AST ALT Alkaline Phosphatase Total Creatine Kinase B-Natriuretic Peptide Total Protein Albumin COVID-19 (GAGE) Negative COVID-19 Clin Com See Note Influenza Type A (SKYLAR) Negative Influenza Type B (SKYLAR) Negative Influenza A & B Note See Note ECG ECG interpretation date: 09/16/23 ECG interpretation time: 05:07 Prior ECG tracings: available for review Interpretation: Sinus tachycardia at 116 with no acute ischemic changes. Imaging Radiologist's Impressions: Impressions Chest X-Ray 09/15/23 16:59 IMPRESSION: Cardiomegaly and pulmonary vascular congestion without overt edema. Query if the patient has previously undergone echocardiography evaluation. Chest CTA 09/15/23 20:36 IMPRESSION: 1. CT pulmonary angiogram negative for pulmonary emboli. 2. Mild groundglass opacities and minimal scattered alveolar airspace type opacities in the left lung base suspicious for mild aspiration pneumonitis or infection. Additionally, a trace right pleural effusion is present. Findings could also represent resolving pulmonary edema with asymmetric residual edema within the left lung base. 3. Mild centrilobular emphysema. 4. Four-chamber cardiomegaly. Minimal reflux of contrast into the intrahepatic segment of the inferior vena cava and immediately adjacent hepatic veins. Findings are suspicious for mild right heart failure. No evidence of right heart strain. 5. Partially visualized 1 mm punctate calculus within the left renal pelvis. VTE: negative. Assessment and Plan (1) CHF (congestive heart failure): Status: Acute (2) Acute hypoxemic respiratory failure: Status: Acute Plan 33 year old obese Japanese speaking male with history of hypertension here with 1. Acute hypoxic respiratory failure - likely due to decompensated heart failure - stable on HFNC though still requiring increased amounts of oxygen 2. Acute Pulmonary edema - seems to improve on diuretics - plan for 2 D echo in AM - consider Cardiology consult 3. Hyperglycemia - random blood sugar 216 mg/dl - check HgbA1c 4. Hypertension - resume Nifedipine Total time managing care of this patient today: 75 minutes. Quality Stroke Does the patient have a stroke diagnosis?: No VTE Prior VTE?: No VTE Risk Level:: Medical - moderate - high VTE Device Contraindication: N/A - Device Ordered VTE Drug Contraindication: N/A - Med Ordered
[2023-09-16] VITALS (10 sets, daily range): BP systolic 123–160; BP diastolic 75–106; PULSE 92–115; RESP 17–32; TEMP 36.1–36.7; O2SAT 91–99; BMI 32.1; BMI 32.0
[2023-09-16] MEDS: 0.9 % Sodium Chloride Flush 3 ML SYRINGE IVFLUSH ×3 (00:32→17:04)
--- NOTE | 2023-09-16 01:12 | PC.NURSE ---
wheel buffer at bedside. pt reports home medications include nifedipine and albuterol.
--- NOTE | 2023-09-16 03:23 | PC.NURSE ---
this rn and respiratory at bedside to transport pt to floor.
--- NOTE | 2023-09-16 07:00 | CA_ITS ---
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 Severely dilated left ventricular cavity with severely reduced LV ejection fraction of 10-15% 2. Mild biatrial enlargement 3. [id number] eccentric mitral regurgitation due to annular dilatation 4. Normal measured RV systolic pressure was significantly elevated right atrial pressures 5. No gross pericardial effusion Findings Procedure Information Contrast agent, definity, is being given per protocol without apparent complications. Left Ventricle Severely increased left ventricular cavity size. There is normal left ventricular wall thickness. The left ventricular systolic function is severely decreased. The visually estimated ejection fraction is between 10 15%. There is severe global hypokinesis. Diastolic function is indeterminate on the basis of available data. Right Ventricle Mildly increased right ventricular cavity size. There is normal right ventricular systolic function. Atria The left atrium is mildly dilated. There is no evidence of interatrial shunt. The right atrium is mildly dilated. Aortic Valve Normal aortic valve structure and function. There is no aortic valve stenosis. There is no aortic valve regurgitation. Mitral Valve There is mild anterior and posterior mitral leaflet thickening. The anterior mitral leaflet has restricted mobility and the posterior mitral leaflet has restricted mobility. There is mild to moderate mitral valve regurgitation. The mitral regurgitation jet is directed posteriorly. There is no mitral valve stenosis. There is moderate mitral annular dilatation. there is increased E point septal separation suggestive of low stroke volume. Pulmonic Valve The pulmonic valve is likely normal. There is trace pulmonic valve regurgitation. Tricuspid Valve Normal tricuspid valve structure. There is mild tricuspid valve regurgitation. Significantly elevated right atrial pressure. There is no evidence of pulmonary hypertension. Great Vessels All visible segments of the aorta are normal in size. The pulmonary artery was not well visualized. Venous The inferior vena cava is moderately dilated and does not collapse with inspiration. Pericardium/Pleural There is no evidence of pericardial effusion. Prior Study Comparison No prior study available for comparison. Measurements 2D Linear Measurements IVSd: 0.61 0.6-0.9/0.6-1.0 cm LVIDd: 8.01 3.9-5.3/4.2-5.9 cm LVIDd Index: 3.30 2.4-3.2/2.2-3.1 cm/m2 LVIDs: 7.34 2.0-3.6 cm LVPWd: 0.98 0.7-1.1 cm Ao Root: 3.10 2.1-3.5 cm LA Diam: 5.00 2.7-3.8/3.0-4.0 cm LAIDs Index: 2.06 1.5-2.3 cm/m2 LV Mass: 384.50 67-162/88-224 g LV Mass Index: 158.23 43-95/49-115 g/m2 LVOT Diam: 2.20 3.0+(-)1.3 cm 2D Volumes LA Vol: 42.40 2D Systolic Function EF 4C: 10.00 >55% EF 2C: 4.76 >55% EF BiP: 13.70 >55% Mitral Valve MV Pk E: 1.06 MV PK A: 0.35 MV Decel Time: 109.00 E/A: 3.10 E'Lateral: 9.57 E'Medial: 3.26 E/E' Med: 32.50 E/E' Lat: 11.10 PHT: 32.00 MVA PHT: 6.88 Decel Tate: 9.65 Aortic Valve AoV Pk Basilio: 1.12 AoV Mn Basilio: 0.78 AoV VTI: 0.17 AoV Pk Grad: 5.00 Aov Mn Grad: 3.00 SATNAM Cont.VTI: 2.10 LVOT LVOT Pk Basilio: 0.73 LVOT Mn Basilio: 0.51 LVOT VTI: 0.09 LVOT Pk Grad: 2.00 LVOT Mn Grad: 1.00 LVOT Diam: 2.20 LVOT Area: 3.80 Diastolic Function MV Pk E: 1.06 MV Pk A: 0.35 E/A: 3.10 E'Medial: 3.26 E/E' Med: 32.50 E' Laterial: 9.57 E/E' Lat: 11.10 Right Ventricle TAPSE (mm): 20.00 TVS' Basilio: 8.00 Tricuspid Valve TR Pk Basilio: 2.00 TR Pk Grad: 16.00 RA Press: 15.00 RVSP: 31.00 Great Vessels Aorta Ao Root-2D: 3.10 2.0-3.7 cm Ao Asc: 3.40 2.1-3.4 cm Updated in Other Vendor System with Status of Final Ashish Voss MD electronically signed on 09/16/2023 2:36:58 PM with status of Final
[2023-09-16 07:41] LABS: Basophils Percent Auto 0.2 % (0-2); Hemoglobin 14.4 g/dl (14.0-18.0); Imm Gran Abs Auto 0.06 X10*3/uL (0.00-0.03); Imm Gran Pct Auto 0.5 % (0.0-0.4); Lymphocytes Absolute Auto 0.8 X10*3/uL (1.2-4.9); Lymphocytes Percent Auto 5.9 % (20-40); MANUAL DIFF FLAG SCAN; Mean Corpuscular Hemoglobin 24.4 pg (27.0-33.0); Mean Corpuscular Volume 76.1 fL (80.0-98.0); Mean Platelet Volume 8.3 fL (9.4-12.4); Monocytes Absolute Auto 0.3 X10*3/uL (0.1-1.2); Monocytes Percent Auto 2.6 % (2-11); Neutrophils Absolute Auto 12.1 x10*3/uL (2.0-8.3); Neutrophils Percent Auto 90.8 % (45-73); Platelet Count 322 X10*3/uL (160-400); Red Blood Count 5.91 X10*6/uL (4.60-5.80); Red Cell Distribution Width 14.3 % (11.0-16.0); SCAN SMEAR FLAG 1; White Blood Count 13.3 X10*3/uL (4.8-10.8)
[2023-09-16 07:58] LABS: Estimated Average Glucose 128 mg/dL; Hemoglobin A1c % 6.1 % (<6.0)
[2023-09-16 08:07] LABS: Anion Gap 15 (12-20); Blood Urea Nitrogen 17 mg/dL (9-16); Calcium 9.4 mg/dL (8.4-10.2); Carbon Dioxide 22 mmol/L (22-29); Chloride 107 mmol/L (96-108); Cholesterol 101 mg/dL (<200); Creatinine Clr Calc Pharmacy 141.5; Estimated Glomerular Filt Rate > 60; Glucose Random 150 mg/dL (60-115); HDL Cholesterol 38 mg/dL (>40); LDL Cholesterol Calculated 54 mg/dL (<100); Magnesium 1.9 mg/dL (1.6-2.6); Potassium 3.7 mmol/L (3.3-5.1); Sodium 140 mmol/L (135-145); Triglycerides 46 mg/dL (<150)
[2023-09-16 08:21] LABS: Thyroid Stimulating Hormone 1.89 uIU/mL (0.32-4.0)
--- NOTE | 2023-09-16 08:21 | MHC.CM.PN ---
CM met with Patient at bedside. Patient lives in a house with his Mother and he was functionally independent [employer]ICAL [employer]OOF[employer]ER. Home/self care is the goal and CM has initiated and will follow for dc planning. PCP is Dr. Georges.
[2023-09-16 08:35] LABS: SLIDE REVIEW VERIFIED
[2023-09-16] MEDS: Enoxaparin Sodium 40 MG/0.4 ML SYRINGE SUBCUT (08:47)
[2023-09-16] MEDS: Docusate Sodium 100 MG CAPSULE PO ×2 (08:47→19:37)
[2023-09-16 09:24] LABS: Adenovirus PCR Not Detected (Not Detect.); Bordetella parapertussis PCR Not Detected (Not Detect.); Bordetella pertussis PCR Not Detected (Not Detect.); Chlamydia pneumoniae PCR Not Detected (Not Detect.); Coronavirus 229E PCR Not Detected (Not Detect.); Coronavirus HKU1 PCR Not Detected (Not Detect.); Coronavirus NL63 PCR Not Detected (Not Detect.); Coronavirus OC43 PCR Not Detected (Not Detect.); Human metapneumovirus PCR Not Detected (Not Detect.); Influenza A PCR Not Detected (Not Detect.); Influenza B PCR Not Detected (Not Detect.); Mycoplasma pneumoniae PCR Not Detected (Not Detect.); Parainfluenza 1 PCR Not Detected (Not Detect.); Parainfluenza 2 PCR Not Detected (Not Detect.); Parainfluenza 3 PCR Not Detected (Not Detect.); Parainfluenza 4 PCR Not Detected (Not Detect.); RSV PCR Not Detected (Not Detect.); Rhino/Enterovirus PCR Not Detected (Not Detect.)
[2023-09-16 09:45] LABS: SARS-CoV-2 PCR Not Detected (Not Detect.)
--- NOTE | 2023-09-16 09:45 | P.CONCA_ITS ---
History of Present Illness History of Present Illness Date of Service: 09/16/23 Requesting physician: Steph Emerson Consult reason: congestive heart failure Chief complaint: New CHF Narrative: I was consulted to see Angel a 33-year-old male with no significant past medical history for new onset congestive heart failure. 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 Patient denies any recent viral illness. Denies any fever or chills. No cough productive of sputum no upper respiratory infection. Patient came to the hospital was noted to be in hypoxemic respiratory failure with elevated BNP in the 700 range. Patient has diuresed. Chest x-ray finding consistent with congestive heart failure with cardiomegaly. Patient has no prior cardiac history. Denies any drug use or alcohol use. Denies any vlei-naq-vfinfiv medications. No family history of congestive heart failure to his knowledge although grandmother has some heart condition which he could not further described. Patient denies any chest pain, lightheadedness, syncope, prolonged palpitation irregular heartbeat. Review of Systems 2 Constitutional: Constitutional: Reports no additional constitutional complaints Eyes: Eyes: Reports no additional eye complaints Cardiovascular: Cardiovascular: Reports Abdominal Distension, Denies chest pain, Reports leg edema, Denies lightheadedness, Denies Loss of Consciousness, Denies palpitations, Reports dyspnea on exertion and Reports orthopnea Respiratory: Respiratory: Reports no additional respiratory complaints and Reports dyspnea on exertion Gastrointestinal: Gastrointestinal: Reports no additional gastrointestinal complaints Genitourinary: Genitourinary: Reports no additional male genitourinary complaints Musculoskeletal: Musculoskeletal: Reports no additional musculoskeletal complaints Integumentary/Breasts: Skin/Breast: Reports system reviewed and no additional complaints, except as docu Neurologic: Reports system reviewed and no additional complaints, except as documented Psychiatric: Psychiatric: Reports no additional psychiatric complaints Endocrine: Endocrine: Reports no additional endocrine complaints and Denies palpitations Hematologic/Lymphatic: Hematologic/Lymphatic: Reports no additional hematologic/lymphatic complaints Allergic/Immunologic: Allergic/Immunologic: Reports no additional allergic/immunologic complaints PMFSH Past Medical History Medical History HTN (hypertension) Surgical History Surgical History History of umbilical hernia repair Social History Social History Household Members Other:: Mom Housing: House Do you presently have visiting nurse or other home services: No Alcohol intake: never Patient Tobacco Use Status: Never used Tobacco Smoked in Last 30 Days: No Use of substances other than those prescribed or required for medical reasons: No Have you been hit, kicked, punched, or otherwise hurt by someone within the past year? If so, by whom?: No Do you feel safe in your current relationship?: Yes Is there a partner from a previous relationship who is making you feel unsafe now?: No Are you made to feel afraid or neglected: No Advance Directives: No Advance Directives Information Provided: No Do you have thoughts of harming others: None Do you have a plan to hurt others: No Plan Recently lost weight without trying: No How much weight loss: 24-33 pounds Eating poorly because of decreased appetite: Yes Nutrition screen score: 4 Nutrition Risks: No Nutritional Risk Poor oral hygiene: No service: No Meds Allergies Allergy/AdvReac Type Severity Reaction Status Date / Time No Known Allergies Allergy Verified 09/15/23 16:28 Active Medications: Current Medications Acetaminophen (Acetaminophen 325 Mg Tablet) 650 mg PO Q6H PRN PRN Reason: Pain, Mild (Pain Scale 1-3) Benzonatate (Benzonatate 100 Mg Capsule) 100 mg PO TID PRN PRN Reason: Cough Docusate Sodium (Docusate Sodium 100 Mg Capsule) 100 mg PO BID [facility] Last Admin: 09/16/23 08:47 Dose: 100 mg Enoxaparin Sodium (Enoxaparin Sodium 40 Mg/0.4 Ml Syringe) 40 mg SUBCUT Q24H [facility] Last Admin: 09/16/23 08:47 Dose: 40 mg Melatonin (Melatonin 3 Mg Tablet) 6 mg PO BEDTIME PRN PRN Reason: Insomnia Ondansetron HCl (Ondansetron Hcl 4 Mg/2 Ml Vial) 4 mg IVPUSH Q8H PRN PRN Reason: Nausea and Vomiting Senna (Sennosides 8.6 Mg Tablet) 17.2 mg PO BEDTIME PRN PRN Reason: Constipation Sodium Chloride (0.9 % Sodium Chloride Flush 3 Ml Syringe) 3 ml IVFLUSH QSHIFT [facility] Last Admin: 09/16/23 08:47 Dose: 3 ml Home Medications Medication Instructions Recorded Confirmed Last Taken Type nifedipine 60 mg tablet,extended 60 mg PO DAILY 11/12/22 01/02/23 Unknown History release 24 hr albuterol sulfate 90 mcg/actuation 2 puff inhalation Q6H PRN wheezing 09/16/23 Unknown History aerosol inhaler losartan 50 mg tablet 50 mg PO QAM 09/16/23 Unknown History Physical Exam 2 Vital Signs: Vital Signs: Last Vital Signs Temp 97.0 F 09/16/23 07:38 Pulse 115 H 09/16/23 07:38 Resp 26 H 09/16/23 08:40 BP 142/94 H 09/16/23 07:38 Pulse Ox 97 09/16/23 07:38 O2 Del Method High Flow Nasal C annula 09/16/23 07:38 O2 Flow Rate 32 09/16/23 07:38 FiO2 51 09/16/23 07:38 BMI result Body Mass Index 32.0 Const: General: cooperative, well developed, alert, awake and in distress mild and respiratory Nutritional Appearance: well nourished and overweight O rientation/consciousness: patient oriented x3 HEENT: Head: Yes normocephalic and Yes atraumatic Neck: Neck: Yes trachea midline, Yes supple and Yes JVD Resp: Effort & Inspection: normal respiratory effort Auscultation: rales bilateral at the base Cardio: Jugular venous distension: JVD Palpation: abnormal PMI displaced PMI Rate: tachycardic Rhythm: regular rhythm Heart sounds: S1 normal heart sound present, S2 normal heart sound present, no click, Gallop heart sound present S3 gallop, no murmurs and no rubs GI: Inspection: Yes distended Auscultation: normal bowel sounds Skin: General skin exam: no rashes or lesions noted Neuro: General: patient oriented x3 and no focal motor deficits Extrem: General: No clubbing, No cyanosis and Yes edema (2+) Psych: Affect: Anxious affect present Objective Labs and Meds 09/16/23 07:28 09/16/23 07:28 Lab results: Laboratory Results - last 24 hr 09/15/23 09/15/2323 16:47 16:53 16:59 WBC 9.1 RBC 5.65 Hgb 14.0 Hct 44.0 MCV 77.9 L MCH 24.8 L MCHC 31.8 RDW 14.3 Plt Count 334 MPV 8.5 L Immature Gran % (Auto) 0.5 H Neut % (Auto) 80.1 H Lymph % (Auto) 14.8 L Rabun % (Auto) 3.5 Eos % (Auto) 0.8 Baso % (Auto) 0.3 Lymph # (Auto) 1.4 Rabun # (Auto) 0.3 Eos # (Auto) 0.1 Baso # (Auto) 0.0 Abs Immat Gran (auto) 0.05 H Absolute Neuts (auto) 7.3 Absolute Nucleated RBC 0.000 Nucleated RBC % (auto) 0.0 Smear Tech's Comments PT 18.0 H INR 1.5 H D-Dimer High Sensitivty 420 VBG pH 7.38 VBG pCO2 37 VBG pO2 40 VBG HCO3 22 VBG O2 Saturation 61.0 VBG Base Excess -2.1 Sodium 141 Potassium 3.8 Chloride 109 H Carbon Dioxide 21 L Anion Gap 15 BUN 18 H Creatinine 1.16 Estim Creat Clear Calc 92.1 Estimated GFR > 60 Random Glucose 216 H Estimat Average Glucose Hemoglobin A1c % Lactic Acid 2.2 H* Lactic Acid F/U @ 2Hr Calcium 9.1 Magnesium Total Bilirubin 0.8 Direct Bilirubin 0.4 AST 31 ALT 35 Alkaline Phosphatase 189 H Total Creatine Kinase 123 Troponin I High Sens 11.3 B-Natriuretic Peptide 721 H Total Protein 7.9 Albumin 3.7 Triglycerides Cholesterol LDL Cholesterol, Calc HDL Cholesterol TSH COVID-19 ([facility]) COVID-19 Clin Com Influenza Type A (SKYLAR) Influenza Type B (SKYLAR) Influenza A & B Note 09/15/23 09/15/23 09/16/23 19:10 21:23 07:28 WBC 13.3 H RBC 5.91 H Hgb 14.4 Hct 45.0 MCV 76.1 L MCH 24.4 L MCHC 32.0 RDW 14.3 Plt Count 322 MPV 8.3 L Immature Gran % (Auto) 0.5 H Neut % (Auto) 90.8 H Lymph % (Auto) 5.9 L Rabun % (Auto) 2.6 Eos % (Auto) 0.0 Baso % (Auto) 0.2 Lymph # (Auto) 0.8 L Rabun # (Auto) 0.3 Eos # (Auto) 0.0 Baso # (Auto) 0.0 Abs Immat Gran (auto) 0.06 H Absolute Neuts (auto) 12.1 H Absolute Nucleated RBC 0.000 Nucleated RBC % (auto) 0.0 Smear Tech's Comments VERIFIED PT INR D-Dimer High Sensitivty VBG pH VBG pCO2 VBG pO2 VBG HCO3 VBG O2 Saturation VBG Base Excess Sodium 140 Potassium 3.7 Chloride 107 Carbon Dioxide 22 Anion Gap 15 BUN 17 H Creatinine 1.01 Estim Creat Clear Calc 141.5 Estimated GFR > 60 Random Glucose 150 H Estimat Average Glucose 128 Hemoglobin A1c % 6.1 H Lactic Acid Lactic Acid F/U @ 2Hr 1.4 Calcium 9.4 Magnesium 1.9 Total Bilirubin Direct Bilirubin AST ALT Alkaline Phosphatase Total Creatine Kinase Troponin I High Sens B-Natriuretic Peptide Total Protein Albumin Triglycerides 46 Cholesterol 101 LDL Cholesterol, Calc 54 HDL Cholesterol 38 L TSH 1.89 COVID-19 ([facility]) Negative COVID-19 Clin Com See Note Influenza Type A (SKYLAR) Negative Influenza Type B (SKYLAR) Negative Influenza A & B Note See Note EKG shows sinus tachycardia with nonspecific ST T wave changes Imaging Radiologist's impression: Impressions Chest X-Ray 09/15/23 16:59 IMPRESSION: Cardiomegaly and pulmonary vascular congestion without overt edema. Query if the patient has previously undergone echocardiography evaluation. Chest CTA 09/15/23 20:36 IMPRESSION: 1. CT pulmonary angiogram negative for pulmonary emboli. 2. Mild groundglass opacities and minimal scattered alveolar airspace type opacities in the left lung base suspicious for mild aspiration pneumonitis or infection. Additionally, a trace right pleural effusion is present. Findings could also represent resolving pulmonary edema with asymmetric residual edema within the left lung base. 3. Mild centrilobular emphysema. 4. Four-chamber cardiomegaly. Minimal reflux of contrast into the intrahepatic segment of the inferior vena cava and immediately adjacent hepatic veins. Findings are suspicious for mild right heart failure. No evidence of right heart strain. 5. Partially visualized 1 mm punctate calculus within the left renal pelvis. VTE: negative. Assessment and Plan (1) Decompensated heart failure: Status: Acute Patient present with classic symptoms of decompensated congestive heart failure which appears to be secondary to systolic dysfunction probably related dilated cardiomyopathy unclear etiology. Clinically still appears to be in heart failure with still having shortness of breath. Continue IV diuresis Lasix. I would switch is blood pressure medication for neurohormonal modulation with Entresto 24-26 mg b.i.d.. Would hold off on adding beta-blockers as he still appears to be in decompensated congestive heart failure and once he is euvolemic will slowly add beta-blockers for neurohormonal modulation. Can hold low does spironolactone 12.5 mg to his regimen. Strict intake and output chart needs to be pursued. Follow will BMP and BNP tomorrow and replace electrolytes as needed. Will need echocardiogram which is being done at currently. Further treatment based on the findings. Will eventually require ischemic workup and further workup for cardiomyopathy. Check for HIV and Lyme titers as well as SUSANNAH. Patient denies any drug abuse as well as no clear family history for cardiomyopathy. Will continue to follow with him. Thank you for allowing us to partake in his care Procedures Date of Service Date of Service: 09/16/23
--- NOTE | 2023-09-16 12:33 | PHA.MEDREC ---
Pharmacy Consult ? Medication Reconciliation Pharmacy has completed the medication reconciliation. spoke with patient to confirm medications.
--- NOTE | 2023-09-16 13:01 | HO.PM.IMPN ---
Subjective Subjective Date of Service: 09/16/23 Interval History: Seen and evaluated this morning in respiratory distress requiring high flow O2 making good amount of urine Review of Systems Review of Systems: Yes all other systems are reviewed and are negative Physical Exam Vital Signs: Vital Signs: Last Vital Signs Temp 97.3 F 09/16/23 11:38 Pulse 115 H 09/16/23 11:38 Resp 17 09/16/23 11:38 BP 160/97 H 09/16/23 11:38 Pulse Ox 93 09/16/23 11:38 O2 Del Method High Flow Nasal C annula 09/16/23 11:38 O2 Flow Rate 32 09/16/23 11:38 FiO2 29.8 09/16/23 11:38 BMI result Body Mass Index 32.0 Const: Other: Constitutional : Awake, interactive, not in distress Neck : Normal inspection, Supple Cardiovascular : RRR, elevated JVP, +1 lower extremity edema Respiratory : good bilateral air entry, basal fine crackles, no wheezes or rhonchi Gastrointestinal: soft, lax, Normal bowel sounds, Non tender Skin : Warm, Dry Neurological : Alert & oriented x3, No focal deficit Objective Data Active Medications Acetaminophen (Acetaminophen 325 Mg Tablet) 650 mg PO Q6H PRN PRN Reason: Pain, Mild (Pain Scale 1-3) Benzonatate (Benzonatate 100 Mg Capsule) 100 mg PO TID PRN PRN Reason: Cough Docusate Sodium (Docusate Sodium 100 Mg Capsule) 100 mg PO BID [facility] Last Admin: 09/16/23 08:47 Dose: 100 mg Documented By: ESDRAS Enoxaparin Sodium (Enoxaparin Sodium 40 Mg/0.4 Ml Syringe) 40 mg SUBCUT Q24H [facility] Last Admin: 09/16/23 08:47 Dose: 40 mg Documented By: ESDRAS Melatonin (Melatonin 3 Mg Tablet) 6 mg PO BEDTIME PRN PRN Reason: Insomnia Ondansetron HCl (Ondansetron Hcl 4 Mg/2 Ml Vial) 4 mg IVPUSH Q8H PRN PRN Reason: Nausea and Vomiting Senna (Sennosides 8.6 Mg Tablet) 17.2 mg PO BEDTIME PRN PRN Reason: Constipation Sodium Chloride (0.9 % Sodium Chloride Flush 3 Ml Syringe) 3 ml IVFLUSH QSHIFT [facility] Last Admin: 09/16/23 08:47 Dose: 3 ml Documented By: ESDRAS Labs 09/16/23 07:28 09/16/23 07:28 Labs: Laboratory Results - last 24 hr 09/15/23 09/15/23 09/15/23 16:47 16:53 16:59 MCV 77.9 L MCH 24.8 L MCHC 31.8 RDW 14.3 Plt Count 334 MPV 8.5 L Immature Gran % (Auto) 0.5 H Neut % (Auto) 80.1 H Lymph % (Auto) 14.8 L [place] % (Auto) 3.5 Eos % (Auto) 0.8 Baso % (Auto) 0.3 Lymph # (Auto) 1.4 [place] # (Auto) 0.3 Eos # (Auto) 0.1 Baso # (Auto) 0.0 Abs Immat Gran (auto) 0.05 H Absolute Neuts (auto) 7.3 Absolute Nucleated RBC 0.000 Nucleated RBC % (auto) 0.0 Smear Tech's Comments PT 18.0 H INR 1.5 H D-Dimer High Sensitivty 420 VBG pH 7.38 VBG pCO2 37 VBG pO2 40 VBG HCO3 22 VBG O2 Saturation 61.0 VBG Base Excess -2.1 Anion Gap 15 Estim Creat Clear Calc 92.1 Estimated GFR > 60 Random Glucose 216 H Estimat Average Glucose Hemoglobin A1c % Lactic Acid 2.2 H* Lactic Acid F/U @ 2Hr Calcium 9.1 Magnesium Total Bilirubin 0.8 Direct Bilirubin 0.4 AST 31 ALT 35 Alkaline Phosphatase 189 H Total Creatine Kinase 123 B-Natriuretic Peptide 721 H Total Protein 7.9 Albumin 3.7 Triglycerides Cholesterol LDL Cholesterol, Calc HDL Cholesterol TSH Respiratory Panel Hair Adenovirus (Rapid PCR) B.pert (TEM-PCR) B.parapertussis DNA PCR C. pneumoniae DNA (PCR) Coronavirus OC43 (PCR) Coronavirus HKU1 (PCR) Coronavirus 229E (PCR) COVID-19 (GAGE) COVID-19 Clin Com Coronavirus NL63 (PCR) Human Metapneumovir PCR Influenza Type A (SKYLAR) Influenza A (RT-PCR) Influenza Type B (SKYLAR) Influenza B (RT-PCR) Influenza A & B Note M. pneumoniae (PCR) Parainfluenza 1 (PCR) Parainfluenza 2 (PCR) Parainfluenza 3 (PCR) Parainfluenza 4 (PCR) RSV (PCR) Entero/Rhino (PCR) SARS-CoV-2 RNA (RT-PCR) 09/15/23 09/15/23 09/16/23 19:10 : 07:00 MCV MCH MCHC RDW Plt Count MPV Immature Gran % (Auto) Neut % (Auto) Lymph % (Auto) [place] % (Auto) Eos % (Auto) Baso % (Auto) Lymph # (Auto) [place] # (Auto) Eos # (Auto) Baso # (Auto) Abs Immat Gran (auto) Absolute Neuts (auto) Absolute Nucleated RBC Nucleated RBC % (auto) Smear Tech's Comments PT INR D-Dimer High Sensitivty VBG pH VBG pCO2 VBG pO2 VBG HCO3 VBG O2 Saturation VBG Base Excess Anion Gap Estim Creat Clear Calc Estimated GFR Random Glucose Estimat Average Glucose Hemoglobin A1c % Lactic Acid Lactic Acid F/U @ 2Hr 1.4 Calcium Magnesium Total Bilirubin Direct Bilirubin AST ALT Alkaline Phosphatase Total Creatine Kinase B-Natriuretic Peptide Total Protein Albumin Triglycerides Cholesterol LDL Cholesterol, Calc HDL Cholesterol TSH Respiratory Panel Hair See Note Adenovirus (Rapid PCR) Not Detected B.pert (TEM-PCR) Not Detected B.parapertussis DNA PCR Not Detected C. pneumoniae DNA (PCR) Not Detected Coronavirus OC43 (PCR) Not Detected Coronavirus HKU1 (PCR) Not Detected Coronavirus 229E (PCR) Not Detected COVID-19 (GAGE) Negative COVID-19 Clin Com See Note Coronavirus NL63 (PCR) Not Detected Human Metapneumovir PCR Not Detected Influenza Type A (SKYLAR) Negative Influenza A (RT-PCR) Not Detected Influenza Type B (SKYLAR) Negative Influenza B (RT-PCR) Not Detected Influenza A & B Note See Note M. pneumoniae (PCR) Not Detected Parainfluenza 1 (PCR) Not Detected Parainfluenza 2 (PCR) Not Detected Parainfluenza 3 (PCR) Not Detected Parainfluenza 4 (PCR) Not Detected RSV (PCR) Not Detected Entero/Rhino (PCR) Not Detected SARS-CoV-2 RNA (RT-PCR) Not Detected 09/16/23 07:28 MCV 76.1 L MCH 24.4 L MCHC 32.0 RDW 14.3 Plt Count 322 MPV 8.3 L Immature Gran % (Auto) 0.5 H Neut % (Auto) 90.8 H Lymph % (Auto) 5.9 L [place] % (Auto) 2.6 Eos % (Auto) 0.0 Baso % (Auto) 0.2 Lymph # (Auto) 0.8 L [place] # (Auto) 0.3 Eos # (Auto) 0.0 Baso # (Auto) 0.0 Abs Immat Gran (auto) 0.06 H Absolute Neuts (auto) 12.1 H Absolute Nucleated RBC 0.000 Nucleated RBC % (auto) 0.0 Smear Tech's Comments VERIFIED PT INR D-Dimer High Sensitivty VBG pH VBG pCO2 VBG pO2 VBG HCO3 VBG O2 Saturation VBG Base Excess Anion Gap 15 Estim Creat Clear Calc 141.5 Estimated GFR > 60 Random Glucose 150 H Estimat Average Glucose 128 Hemoglobin A1c % 6.1 H Lactic Acid Lactic Acid F/U @ 2Hr Calcium 9.4 Magnesium 1.9 Total Bilirubin Direct Bilirubin AST ALT Alkaline Phosphatase Total Creatine Kinase B-Natriuretic Peptide Total Protein Albumin Triglycerides 46 Cholesterol 101 LDL Cholesterol, Calc 54 HDL Cholesterol 38 L TSH 1.89 Respiratory Panel Hair Adenovirus (Rapid PCR) B.pert (TEM-PCR) B.parapertussis DNA PCR C. pneumoniae DNA (PCR) Coronavirus OC43 (PCR) Coronavirus HKU1 (PCR) Coronavirus 229E (PCR) COVID-19 (GAGE) COVID-19 Clin Com Coronavirus NL63 (PCR) Human Metapneumovir PCR Influenza Type A (SKYLAR) Influenza A (RT-PCR) Influenza Type B (SKYLAR) Influenza B (RT-PCR) Influenza A & B Note M. pneumoniae (PCR) Parainfluenza 1 (PCR) Parainfluenza 2 (PCR) Parainfluenza 3 (PCR) Parainfluenza 4 (PCR) RSV (PCR) Entero/Rhino (PCR) SARS-CoV-2 RNA (RT-PCR) Assessment and Plan (1) Decompensated heart failure: Status: Acute (2) Acute hypoxemic respiratory failure: Status: Acute (3) Hypoxia: Status: Acute Plan 33 year old obese Bhutanese speaking male with history of hypertension here with # Acute hypoxic respiratory failure 2/2 Pulmonary edema in state of new Systolic CHF exacerbation CXR showing edema Elevated BNP On HFNC Echo showed dilated cardiomyopathy with low EF IV Lasix follow I\O Cardiology consult , Start Entresto and Spironolactone check HIV\lyme\SUSANNAH Wean O2 down as tolerated # Hyperglycemia HgbA1c of 6.1 # Hypertension Hold Nifedipine DVT PPx Lovenox The patient will need overnight hospital stay of treatment of heart failure exacerbation with hypoxia pending titration down O2 to room air. Quality Stroke Does the patient have a stroke diagnosis?: No VTE Prior VTE?: No VTE Risk Level:: Medical - moderate - high VTE Device Contraindication: N/A - Device Ordered VTE Drug Contraindication: N/A - Med Ordered
[2023-09-16] MEDS: Sacubitril/Valsartan 24/26 1 TAB TABLET PO ×2 (14:14→19:37)
[2023-09-16] MEDS: Furosemide 40 MG/4 ML VIAL IVPUSH (14:14)
[2023-09-16] MEDS: Acetaminophen 325 MG TABLET 650 MG PO (19:37)
[2023-09-16 20:47] LABS: Appearance Urine Clear; Color Urine Dark Yellow; Glucose Urine UA Negative (Negative); Leukocyte Esterase Urine Negative (Negative); Nitrite Urine Negative (Negative); Specific Gravity - Urine 1.025 (1.005-1.025); UMIC TRIGGER UA YES; Urine Blood Negative (Negative); Urine Ketones Negative (Negative); Urine Protein 100 (2+) mg/dL (Neg-Trace)
[2023-09-16 20:53] LABS: Bacteria Urine None Seen (None Seen); Hyaline Casts Urine 0-2 /LPF (0-2); RBC Urine 0-2 /HPF (0-2); Squamous Epithelial Cell Urine 0-2 /HPF (0-2); WBC Urine 0-5 /HPF (0-5)
[2023-09-17 03:02] VITALS: BP 118/79; PULSE 93; RESP 20; TEMP 36.1; O2SAT 95
[2023-09-17 04:31] LABS: HIV AB/AG Nonreactive (Nonreactive); HIV Num 1 0.06 S/CO (0.00-0.99)
[2023-09-17 06:00] VITALS: BMI 31.5
[2023-09-17 06:10] LABS: B Type Natriuretic Peptide 729 pg/mL (<100)
[2023-09-17 06:12] LABS: Anion Gap 15 (12-20); Blood Urea Nitrogen 19 mg/dL (9-16); Calcium 9.3 mg/dL (8.4-10.2); Carbon Dioxide 22 mmol/L (22-29); Chloride 109 mmol/L (96-108); Creatinine Clr Calc Pharmacy 168.1; Estimated Glomerular Filt Rate > 60; Glucose Random 126 mg/dL (60-115); Potassium 3.7 mmol/L (3.3-5.1); Sodium 142 mmol/L (135-145)
--- NOTE | 2023-09-17 07:36 | PC.RT ---
Pt assessed. 98% on 2 lpm n/c. HFNC on standby. RN aware.
[2023-09-17 07:52] VITALS: BP 132/94; PULSE 116; RESP 20; TEMP 36.4; O2SAT 99
[2023-09-17 09:09] LABS: Lyme Abs Screen <0.90 index
[2023-09-17] MEDS: Sacubitril/Valsartan 24/26 1 TAB TABLET PO (09:36)
[2023-09-17] MEDS: Docusate Sodium 100 MG CAPSULE PO ×2 (09:36→21:01)
[2023-09-17] MEDS: Spironolactone 25 MG TABLET 12.5 MG PO (09:36)
[2023-09-17] MEDS: Enoxaparin Sodium 40 MG/0.4 ML SYRINGE SUBCUT (09:37)
[2023-09-17] MEDS: Furosemide 40 MG/4 ML VIAL IVPUSH (09:37)
[2023-09-17] MEDS: 0.9 % Sodium Chloride Flush 3 ML SYRINGE IVFLUSH ×2 (09:40→21:01)
--- NOTE | 2023-09-17 11:05 | P.PNIM_ITS ---
Subjective Subjective Date of Service: 09/17/23 Interval History: Seen and evaluated this morning Improving respiratory status, weaned down to 3L O2 edema improving making good amount of urine Review of Systems Review of Systems: Yes all other systems are reviewed and are negative Physical Exam 2 Vital Signs: Vital Signs: Last Vital Signs Temp 97.5 F 09/17/23 07:52 Pulse 116 H 09/17/23 07:52 Resp 20 09/17/23 07:52 BP 132/94 H 09/17/23 07:52 Pulse Ox 99 09/17/23 07:52 O2 Del Method Nasal Cannula 09/17/23 07:52 O2 Flow Rate 2 09/17/23 07:52 FiO2 29.8 09/16/23 11:38 BMI result Body Mass Index 31.5 Const: Other: Constitutional : Awake, interactive, not in distress Neck : Normal inspection, Supple Cardiovascular : RRR, elevated JVP, +1 lower extremity edema Respiratory : good bilateral air entry, basal fine crackles, no wheezes or rhonchi Gastrointestinal: soft, lax, Normal bowel sounds, Non tender Skin : Warm, Dry Neurological : Alert & oriented x3, No focal deficit Objective Data Active Medications Acetaminophen (Acetaminophen 325 Mg Tablet) 650 mg PO Q6H PRN PRN Reason: Pain, Mild (Pain Scale 1-3) Last Admin: 09/16/23 19:37 Dose: 650 mg Documented By: ALEJANDRA Benzonatate (Benzonatate 100 Mg Capsule) 100 mg PO TID PRN PRN Reason: Cough Docusate Sodium (Docusate Sodium 100 Mg Capsule) 100 mg PO BID [facility] Last Admin: 09/17/23 09:36 Dose: 100 mg Documented By: JESSICA Enoxaparin Sodium (Enoxaparin Sodium 40 Mg/0.4 Ml Syringe) 40 mg SUBCUT Q24H [facility] Last Admin: 09/17/23 09:37 Dose: 40 mg Documented By: JESSICA Furosemide (Furosemide 40 Mg/4 Ml Vial) 40 mg IVPUSH DAILY [facility]; Protocol Last Admin: 09/17/23 09:37 Dose: 40 mg Documented By: JESSICA Melatonin (Melatonin 3 Mg Tablet) 6 mg PO BEDTIME PRN PRN Reason: Insomnia Ondansetron HCl (Ondansetron Hcl 4 Mg/2 Ml Vial) 4 mg IVPUSH Q8H PRN PRN Reason: Nausea and Vomiting Sacubitril/Valsartan (Sacubitril/Valsartan 1 Tab Tablet) 1 tab PO BID [facility]; Protocol Last Admin: 09/17/23 09:36 Dose: 1 tab Documented By: JESSICA Senna (Sennosides 8.6 Mg Tablet) 17.2 mg PO BEDTIME PRN PRN Reason: Constipation Sodium Chloride (0.9 % Sodium Chloride Flush 3 Ml Syringe) 3 ml IVFLUSH QSHIFT [facility] Last Admin: 09/17/23 09:40 Dose: 3 ml Documented By: JESSICA Spironolactone (Spironolactone 25 Mg Tablet) 12.5 mg PO DAILY [facility]; Protocol Last Admin: 09/17/23 09:36 Dose: 12.5 mg Documented By: JESSICA Labs 09/16/23 07:28 09/17/23 05:26 Labs: Laboratory Results - last 24 hr 09/16/23 09/16/23 09/17/23 13:14 20:40 05:26 Anion Gap 15 Estim Creat Clear Calc 168.1 Estimated GFR > 60 Random Glucose 126 H Calcium 9.3 B-Natriuretic Peptide 729 H Urine Color Dark Yellow Urine Appearance Clear Urine pH 6.0 Ur Specific [place] 1.025 Urine Protein 100 (2+) H Urine Glucose (UA) Negative Urine Ketones Negative Urine Blood Negative Urine Nitrite Negative Ur Leukocyte Esterase Negative Urine RBC 0-2 Urine WBC 0-5 Ur Squamous Epith Cells 0-2 Urine Bacteria None Seen Hyaline Casts 0-2 Lyme Screen IgG & IgM <0.90 HIV 1&2 Ab/P24 Ag 4thGn Nonreactive Microbiology Microbiology Results: Microbiology 09/15/23 16:59 Blood Culture - Preliminary Blood - Venous No growth after 24 hours. 09/15/23 16:59 Blood Culture - Preliminary Blood - Venous No growth after 24 hours. Assessment and Plan (1) Decompensated heart failure: Status: Acute (2) Acute hypoxemic respiratory failure: Status: Acute Plan 33 year old obese Libyan speaking male with history of hypertension here with # Acute hypoxic respiratory failure 2/2 Pulmonary edema in state of new Systolic CHF exacerbation CXR showing edema Elevated BNP Echo showed dilated cardiomyopathy with low EF of 10-15% Increase IV Lasix to 40 mg bid follow I\O Cardiology consult , Start Entresto and Spironolactone Negative HIV\lyme, pending SUSANNAH Wean O2 down as tolerated # Hyperglycemia HgbA1c of 6.1 # Hypertension Hold Nifedipine DVT PPx Lovenox The patient will need overnight hospital stay of treatment of heart failure exacerbation with hypoxia pending titration down O2 to room air. Quality Stroke Does the patient have a stroke diagnosis?: No VTE Prior VTE?: No VTE Risk Level:: Medical - moderate - high VTE Device Contraindication: N/A - Device Ordered VTE Drug Contraindication: N/A - Med Ordered
[2023-09-17 11:21] VITALS: BP 126/87; PULSE 107; RESP 18; TEMP 36.3; O2SAT 96
--- NOTE | 2023-09-17 11:44 | P.PNCA_ITS ---
Subjective Subjective Date of Service: 09/17/23 Principal diagnosis: Decompensated congestive heart failure Interval history: Echo shows markedly dilated left ventricle with significantly reduced LV ejection fraction. Patient remain short of breath. Overall negative balance of only 500 cc. Blood pressure is elevated. Patient says he is breathing better. Review of Systems Constitutional: Reports no additional constitutional complaints Cardiovascular: Denies chest pain, Reports leg edema, Denies lightheadedness, Denies Loss of Consciousness, Denies palpitations and Reports dyspnea on exertion Respiratory: Reports dyspnea on exertion Endocrine: Denies palpitations Physical Exam Vital Signs: Last Vital Signs Temp 97.3 F 09/17/23 11:21 Pulse 107 H 09/17/23 11:21 Resp 18 09/17/23 11:21 BP 126/87 09/17/23 11:21 Pulse Ox 96 09/17/23 11:21 O2 Del Method Nasal Cannula 09/17/23 11:21 O2 Flow Rate 1 09/17/23 11:21 FiO2 29.8 09/16/23 11:38 BMI result Body Mass Index 31.5 Const General: cooperative, well developed, alert, awake and in distress mild and respiratory Nutritional Appearance: well nourished and overweight Orientation/consciousness: patient oriented x3 HEENT Head: Yes normocephalic and Yes atraumatic Neck Neck: Yes trachea midline, Yes supple and Yes JVD Resp Effort & Inspection: normal respiratory effort Auscultation: rales bilateral at the base Cardio Jugular venous distension: JVD Palpation: abnormal PMI displaced PMI Rate: tachycardic Rhythm: regular rhythm Heart sounds: S1 normal heart sound present, S2 normal heart sound present, no click, Gallop heart sound present S3 gallop, no murmurs and no rubs GI Inspection: Yes distended Auscultation: normal bowel sounds Skin General skin exam: no rashes or lesions noted Neuro General: patient oriented x3 and no focal motor deficits Extrem General: No clubbing, No cyanosis and Yes edema (2+) Psych Affect: Anxious affect present Objective Labs and Meds 09/16/23 07:28 09/17/23 05:26 Lab results: Laboratory Results - last 24 hr 09/16/23 09/16/23 09/17/23 13:14 20:40 05:26 Sodium 142 Potassium 3.7 Chloride 109 H Carbon Dioxide 22 Anion Gap 15 BUN 19 H Creatinine 0.85 Estim Creat Clear Calc 168.1 Estimated GFR > 60 Random Glucose 126 H Calcium 9.3 B-Natriuretic Peptide 729 H Urine Color Dark Yellow Urine Appearance Clear Urine pH 6.0 Ur Specific [place] 1.025 Urine Protein 100 (2+) H Urine Glucose (UA) Negative Urine Ketones Negative Urine Blood Negative Urine Nitrite Negative Ur Leukocyte Esterase Negative Urine RBC 0-2 Urine WBC 0-5 Ur Squamous Epith Cells 0-2 Urine Bacteria None Seen Hyaline Casts 0-2 Lyme Screen IgG & IgM <0.90 HIV 1&2 Ab/P24 Ag 4thGn Nonreactive Progress Note: A&P Assessment and plan (1) Decompensated heart failure: Status: Acute Assessment and Plan: Decompensated systolic heart failure which appears to be related to dilated cardiomyopathy of unclear etiology at this point time. Will require further workup as outpatient although still appears to be in decompensation. Not responding adequately to IV boluses of Lasix. Will consider switching to IV drip of Lasix. Strict intake and output chart needs to be pursued. Blood pressure is elevated further maximize Entresto as well as increase spironolactone. Can also consider addition of Jardiance 10 mg to his regimen. 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 Would continue to follow with him Time Spent With Patient Time: Total time managing care of this patient today ____ minutes. Progress Note: Quality Stroke Does the patient have a stroke diagnosis?: No Procedures Date of Service Date of Service: 09/17/23
[2023-09-17] MEDS: Furosemide 200 MG in 0.9 % Sodium Chloride 80 ML IVCONT (14:30)
[2023-09-17 15:02] VITALS: BP 119/84; PULSE 97; RESP 19; TEMP 36.9; O2SAT 95
[2023-09-17 19:15] VITALS: BP 136/66; PULSE 98; RESP 18; TEMP 36.7; O2SAT 97
[2023-09-17 20:57] VITALS: BP 116/82; PULSE 102
[2023-09-17] MEDS: Sacubitril/Valsartan 49/51 1 TAB TABLET PO (21:01)
[2023-09-18] VITALS: BP 118/80; PULSE 99; RESP 20; TEMP 36.1; O2SAT 95
[2023-09-18 03:25] VITALS: BP 121/82; PULSE 99; RESP 20; TEMP 36.1; O2SAT 98
[2023-09-18 05:55] VITALS: BMI 31.4
[2023-09-18 06:57] LABS: Hemoglobin 16.2 g/dl (14.0-18.0); Mean Corpuscular HGB Conc 32.4 g/dl (31.0-36.0); Mean Corpuscular Hemoglobin 24.9 pg (27.0-33.0); Mean Corpuscular Volume 76.8 fL (80.0-98.0); Mean Platelet Volume 8.5 fL (9.4-12.4); Platelet Count 385 X10*3/uL (160-400); Red Blood Count 6.51 X10*6/uL (4.60-5.80); Red Cell Distribution Width 15.1 % (11.0-16.0); White Blood Count 7.8 X10*3/uL (4.8-10.8)
[2023-09-18 07:09] LABS: Anion Gap 14 (12-20); Blood Urea Nitrogen 20 mg/dL (9-16); Calcium 9.1 mg/dL (8.4-10.2); Carbon Dioxide 22 mmol/L (22-29); Chloride 107 mmol/L (96-108); Creatinine Clr Calc Pharmacy 146.2; Estimated Glomerular Filt Rate > 60; Glucose Random 121 mg/dL (60-115); Potassium 3.6 mmol/L (3.3-5.1); Sodium 139 mmol/L (135-145)
[2023-09-18 07:32] VITALS: BP 114/84; PULSE 109; RESP 18; TEMP 36.1; O2SAT 95
[2023-09-18] MEDS: Enoxaparin Sodium 40 MG/0.4 ML SYRINGE SUBCUT (08:07)
[2023-09-18] MEDS: Spironolactone 25 MG TABLET PO (08:08)
[2023-09-18] MEDS: Sacubitril/Valsartan 49/51 1 TAB TABLET PO (08:08)
[2023-09-18] MEDS: 0.9 % Sodium Chloride Flush 3 ML SYRINGE IVFLUSH ×2 (08:14→15:39)
--- NOTE | 2023-09-18 10:16 | MHC.CM.PN ---
Per ROUNDS discussion, Patient is on IV Lasix and is not yet medically cleared for dc. Home is the goal and CM will continue to follow.
--- NOTE | 2023-09-18 10:30 | PM.DS ---
DS: Providers Provider Date of Service: 09/18/23 Date of admission: 09/15/23 23:51 Primary care physician: Chance Georges MD Consults: 09/16/23 08:09 Consult to Cardiology Routine Consulting Provider: [facility] Reason for consultation: new onset CHF DS: Diagnosis Discharge Diagnosis (1) Decompensated heart failure: Status: Acute DS: Summary Hospital Course Hospital Course: from initial hpi: 33 year old obese Lao speaking male with history of hypertension (on Nifedipine) who comes to the emergency room complaining of progressively worsening difficulty breathing for the last 3 days with an associated mild dry cough but no associated fevers, chills, chest pain, nausea, vomiting or diaphoresis. He also denies having orthopnea or PND. His symptoms were worse today prompting his presentation. He is a non-smoker and denied any recent travel or exposures to sick individuals. Initial work up done in the ED was notable for a mildly elevated BNP at 721 pg/mL and elevated lactic acid at 2.2 mmol/L. A chest x-ray done showed cardiomegaly and pulmonary vascular congestion without overt edema. A CT angiogram done was negative for pulmonary emboli but showed mild ground-glass opacities and minimal scattered in alveolar airspace type opacities in the left lung base suspicious for mild aspiration pneumonitis or infection and trace right pleural effusion that could also represent resolving pulmonary edema. He also has four-chamber cardiomegaly with findings suspicious for mild right heart failure with no evidence of right heart strain. On initial presentation, he was hypoxic and required high amounts of oxygen (60%0 via HFNC to maintain his oxygen saturation above 94%. He was also persistently tachycardic and tachypneic but with normal blood pressure. He was started on intravenous diuretics for concerns of pulmonary edema and admission requested for continued care. hospital course: Patient was admitted for acute hypoxic respiratory failure secondary to acute systolic CHF (newly diagnosed), echo showed dilated cardiomyopathy with EF of 10-15%. Patient was given IV Lasix and diuresed well. Was able to be weaned off oxygen and shortness of breath significantly improved. He was seen by Cardiology was started Entresto, spironolactone, Jardiance, carvedilol and set up with lifevest. Patient tested negative for HIV, Lyme and SUSANNAH still pending. He will continue outpatient workup with Cardiology. For hypertension nifedipine was discontinued to make room for neural hormonal medications. Patient noted to have pre diabetes with hyperglycemia with an A1c of 6.1. This should be monitored as outpatient. He is feeling better will be discharged home. Time Attestation Discharge coordination time: Greater than 30 minutes Quality: Safe Use of Opioids Does Pt have an Active Cancer Diagnosis on the Problem List?: No Quality: Stroke Does the patient have a stroke diagnosis?: No Physical Exam Vital Signs: Vital Signs: Last Vital Signs Temp 97.0 F 09/18/23 07:32 Pulse 109 H 09/18/23 07:32 Resp 18 09/18/23 07:32 BP 114/84 09/18/23 07:32 Pulse Ox 95 09/18/23 07:32 O2 Del Method Room Air 09/18/23 07:32 O2 Flow Rate 1 09/18/23 03:25 FiO2 29.8 09/16/23 11:38 BMI result Body Mass Index 31.4 General: AO X 3, no acute distress Resp: CTA bilateral, no accessory muscles used CVS: S1,S2,RRR GI: soft, non tender, non distended Neuro: motor grossly intact, alert Psych: appropriate affect, appropriate insight DS: Data Data Completed and Pending Labs on day of discharge: Laboratory Results - last 24 hr 09/16/23 09/18/23 13:14 06:33 WBC 7.8 RBC 6.51 H Hgb 16.2 Hct 50.0 MCV 76.8 L MCH 24.9 L MCHC 32.4 RDW 15.1 Plt Count 385 MPV 8.5 L Absolute Nucleated RBC 0.000 Nucleated RBC % (auto) 0.0 Sodium 139 Potassium 3.6 Chloride 107 Carbon Dioxide 22 Anion Gap 14 BUN 20 H Creatinine 0.97 Estim Creat Clear Calc 146.2 Estimated GFR > 60 Random Glucose 121 H Calcium 9.1 Lyme Progressive Test TNP Preliminary micro results at discharge 09/15/23 16:59 Blood Culture - Preliminary Blood - Venous No growth after 48 hours. 09/15/23 16:59 Blood Culture - Preliminary Blood - Venous No growth after 48 hours. Discharge Plan Discharge Anticipated Discharge Date/Time: 09/18/23 10:27 Patient Disposition: Home, Self-Care Discharge Diagnosis: chf Referrals: Chance Georges MD [Primary Care Provider] - 1 Week Discharge Medications: New Entresto 49-51 mg Tablet 1 tab PO BID Qty: 60 0RF Protocol: Hold for SBP< HOLD for SBP < : 90 spironolactone 25 mg Tablet 25 mg PO DAILY Qty: 30 0RF Protocol: Hold for SBP< HOLD for SBP < : 90 furosemide 40 mg tablet 40 mg PO DAILY Qty: 30 0RF Jardiance 25 mg tablet 25 mg PO DAILY Qty: 30 0RF Continued albuterol sulfate 90 mcg/actuation HFA aerosol inhaler 2 puff INHALATION Q6H PRN (Reason: wheezing) melatonin 5 mg tablet 5 mg PO BEDTIME PRN (Reason: insomnia) Discontinued nifedipine 60 mg tablet extended release 24hr 60 mg PO DAILY Discharge Orders: Discharge Order (Routine); Ordered 09/18/23 Ordered By: Mao Khan Diet: Advance to usual diet Activity on Discharge: As tolerated Stand Alone Forms: Patient Portal Discharge page, Work/School Release Care Plan Goals: recovery Health Concerns: chf Plan of Treatment: medications as prescribed, follow up with cardiology to continue work up and treatment, use lifevest Assessment: see above Patient Instructions: Heart Failure (DC)
--- NOTE | 2023-09-18 10:51 | MHC.CM.PN ---
Patient has been medically cleared for dc to home today, self care.
--- NOTE | 2023-09-18 11:05 | PM.PNCARD ---
Subjective Subjective Date of Service: 09/18/23 Principal diagnosis: Decompensated congestive heart failure Interval history: Patient is breathing a lot better. Feeling well. Denies any shortness of breath. No chest pain lightheadedness. No arrhythmias. Heart rate has improved. Review of Systems Constitutional: Reports no additional constitutional complaints Cardiovascular: Reports no additional cardiovascular complaints Respiratory: Reports no additional respiratory complaints Musculoskeletal: Reports no additional musculoskeletal complaints Reports system reviewed and no additional complaints, except as documented Psychiatric: Reports no additional psychiatric complaints Endocrine: Reports no additional endocrine complaints Physical Exam Vital Signs: Last Vital Signs Temp 97.0 F 09/18/23 07:32 Pulse 109 H 09/18/23 07:32 Resp 18 09/18/23 07:32 BP 114/84 09/18/23 07:32 Pulse Ox 95 09/18/23 07:32 O2 Del Method Room Air 09/18/23 07:32 O2 Flow Rate 1 09/18/23 03:25 FiO2 29.8 09/16/23 11:38 BMI result Body Mass Index 31.4 Const General: cooperative, comfortable, no acute distress, alert and awake Nutritional Appearance: well nourished and overweight Orientation/consciousness: patient oriented x3 Limitations: no limitations Neck Neck: Yes trachea midline, Yes supple and Yes no JVD Resp Effort & Inspection: normal respiratory effort Auscultation: clear to auscultation bilaterally Cardio Jugular venous distension: no JVD Palpation: abnormal PMI displaced PMI Rate: tachycardic Rhythm: regular rhythm Heart sounds: S1 normal heart sound present, S2 normal heart sound present, no click, no gallops and no murmurs GI Auscultation: normal bowel sounds Neuro General: patient oriented x3 and no focal motor deficits Extrem General: Yes no clubbing, cyanosis or edema Objective Labs and Meds 09/18/23 06:33 09/18/23 06:33 Lab results: Laboratory Results - last 24 hr 09/16/23 09/18/23 13:14 06:33 WBC 7.8 RBC 6.51 H Hgb 16.2 Hct 50.0 MCV 76.8 L MCH 24.9 L MCHC 32.4 RDW 15.1 Plt Count 385 MPV 8.5 L Absolute Nucleated RBC 0.000 Nucleated RBC % (auto) 0.0 Sodium 139 Potassium 3.6 Chloride 107 Carbon Dioxide 22 Anion Gap 14 BUN 20 H Creatinine 0.97 Estim Creat Clear Calc 146.2 Estimated GFR > 60 Random Glucose 121 H Calcium 9.1 [place] Progressive Test TNP Progress Note: A&P Assessment and plan (1) Decompensated heart failure: Status: Acute Assessment and Plan: Decompensated congestive heart failure, euvolemic and well compensated feeling really well at this point time. He has tolerated is on neurohormonal modulation. Continue Entresto, Aldactone and Jardiance. Will switch him to p.o. Lasix 40 mg daily. CHF education needs to be provided. Would start him on Coreg 3.125 mg b.i.d.. Probably can be discharged home later today after he has Vest defibrillator attached to him. Out of bed to chair and ambulate today as tolerated. Will pursue outpatient workup with cardiac MRI and cardiac catheterization in the near future. Follow up in the clinic in 10 days. Thank you for allowing me to partake in his care Time Spent With Patient Time: Total time managing care of this patient today ____ minutes. Progress Note: Quality Stroke Does the patient have a stroke diagnosis?: No Procedures Date of Service Date of Service: 09/18/23
[2023-09-18 11:38] VITALS: BP 106/80; PULSE 99; RESP 18; TEMP 36.1; O2SAT 96
--- NOTE | 2023-09-18 13:51 | HO.PM.IMPN ---
Subjective Subjective Date of Service: 09/18/23 Interval History: much improved Physical Exam Vital Signs: Vital Signs: Last Vital Signs Temp 97.0 F 09/18/23 11:38 Pulse 99 09/18/23 11:38 Resp 18 09/18/23 11:38 BP 106/80 09/18/23 11:38 Pulse Ox 96 09/18/23 11:38 O2 Del Method Room Air 09/18/23 07:32 O2 Flow Rate 1 09/18/23 03:25 FiO2 29.8 09/16/23 11:38 BMI result Body Mass Index 31.4 General: AO X 3, no acute distress Resp: CTA bilateral, no accessory muscles used CVS: S1,S2,RRR GI: soft, non tender, non distended Neuro: motor grossly intact, alert Psych: appropriate affect, appropriate insight Objective Data Active Medications Acetaminophen (Acetaminophen 325 Mg Tablet) 650 mg PO Q6H PRN PRN Reason: Pain, Mild (Pain Scale 1-3) Last Admin: 09/16/23 19:37 Dose: 650 mg Documented By: ALEJANDRA Benzonatate (Benzonatate 100 Mg Capsule) 100 mg PO TID PRN PRN Reason: Cough Docusate Sodium (Docusate Sodium 100 Mg Capsule) 100 mg PO BID [facility] Last Admin: 09/18/23 08:09 Dose: Not Given Documented By: GENESIS Non-Admin Reason: Patient Refused Comments: Patient reports having BM 09/17, does not need today Enoxaparin Sodium (Enoxaparin Sodium 40 Mg/0.4 Ml Syringe) 40 mg SUBCUT Q24H [facility] Last Admin: 09/18/23 08:07 Dose: 40 mg Documented By: GENESIS Furosemide 200 mg/ Sodium (Chloride) 100 mls @ 2.5 mls/hr IVCONT .Q24H [facility] Last Infusion: 09/18/23 10:30 Dose: Infused Documented By: GENESIS Melatonin (Melatonin 3 Mg Tablet) 6 mg PO BEDTIME PRN PRN Reason: Insomnia Ondansetron HCl (Ondansetron Hcl 4 Mg/2 Ml Vial) 4 mg IVPUSH Q8H PRN PRN Reason: Nausea and Vomiting Sacubitril/Valsartan (Sacubitril/Valsartan 49/51 1 Tab Tablet) 1 tab PO BID [facility]; Protocol Last Admin: 09/18/23 08:08 Dose: 1 tab Documented By: GENESIS Senna (Sennosides 8.6 Mg Tablet) 17.2 mg PO BEDTIME PRN PRN Reason: Constipation Sodium Chloride (0.9 % Sodium Chloride Flush 3 Ml Syringe) 3 ml IVFLUSH QSHIFT BETH Last Admin: 09/18/23 08:14 Dose: 3 ml Documented By: GENESIS Spironolactone (Spironolactone 25 Mg Tablet) 25 mg PO DAILY [facility]; Protocol Last Admin: 09/18/23 08:08 Dose: 25 mg Documented By: GENESIS Labs 09/18/23 06:33 09/18/23 06:33 Labs: Laboratory Results - last 24 hr 09/18/23 06:33 MCV 76.8 L MCH 24.9 L MCHC 32.4 RDW 15.1 Plt Count 385 MPV 8.5 L Absolute Nucleated RBC 0.000 Nucleated RBC % (auto) 0.0 Anion Gap 14 Estim Creat Clear Calc 146.2 Estimated GFR > 60 Random Glucose 121 H Calcium 9.1 Microbiology Microbiology Results: Microbiology 09/15/23 16:59 Blood Culture - Preliminary Blood - Venous No growth after 48 hours. 09/15/23 16:59 Blood Culture - Preliminary Blood - Venous No growth after 48 hours. Assessment and Plan (1) Decompensated heart failure: Status: Acute (2) Acute hypoxemic respiratory failure: Status: Acute Plan 33M PMH HTN, obesity, presented with sob, found to have new acute chf with reduced EF Acute hypoxic respiratory failure 2/2 Pulmonary edema in state of new Systolic CHF exacerbation diuresed well, now on lasix 40mg po maintenance coreg, jardiance, aldactone, entresto plan for lifevest, outpatient ischemic work up preDM with Hyperglycemia HgbA1c of 6.1 Hypertension dced nefedipine to make room for neurohormonal meds DVT PPx Lovenox full code reason for continued hospitalization:awaiting auth for lifevest Quality Stroke Does the patient have a stroke diagnosis?: No VTE Prior VTE?: No VTE Risk Level:: Medical - moderate - high VTE Device Contraindication: N/A - Device Ordered VTE Drug Contraindication: N/A - Med Ordered
--- NOTE | 2023-09-18 14:03 | MHC.CM.PN ---
DC for today has been cancelled.
[2023-09-18 15:20] VITALS: BP 114/76; PULSE 102; RESP 18; TEMP 36.1; O2SAT 96
[2023-09-19 15:59] LABS: Anti Nuclear Antibody Screen POSITIVE (NEGATIVE)
== END 2023-09-18 18:15 | disposition home or self-care (01) | DRG 194 ==
LOC: HO.ED 22:33 → HO.EDOVER 23:55 → HO.IMC 09-16 02:12
PROVIDERS: Student in an Organized Health Care Education/Training Program; Admitting Provider Internal Medicine; Emergency Provider Emergency Medicine; PCP Internal Medicine; Visit Provider Internal Medicine
DX: I11.0 Hypertensive heart disease with heart failure (principal); J96.01 Acute respiratory failure with hypoxia; I42.0 Dilated cardiomyopathy; E66.9 Obesity, unspecified; R73.03 Prediabetes; Z68.31 Body mass index [BMI] 31.0-31.9, adult; I50.21 Acute systolic (congestive) heart failure; Z20.822 Contact with and (suspected) exposure to COVID-19; Z79.899 Other long term (current) drug therapy
CPT/HCPCS: 36415; 71045; 71275; 80048; 80061; 80076; 81001; 82550; 82803; 83036; 83605; 83735; 83880; 84443; 84484; 85025; 85027; 85379; 85610; 86038; 86039; 86617; 86618; 87040; 87389; 87502; 87633; 87635; 93005; 93306; 99285; J1100; J1650; J1940; J2060; J2543; Q9957; Q9967

== ENCOUNTER → 2023-09-15 16:41 | Outpatient (BNV) | payer OTHER, SELFPAY | PROVIDERS: Emergency Provider Emergency Medicine; PCP Internal Medicine; Visit Provider Internal Medicine Cardiovascular Disease | DX: R00.0 Tachycardia, unspecified (principal) | CPT/HCPCS: 93010 ==

== ENCOUNTER 2023-09-15 23:51 | Outpatient (BNV) | payer OTHER, SELFPAY | END 2023-09-16 07:00 | PROVIDERS: Admitting Provider Internal Medicine; Emergency Provider Emergency Medicine; PCP Internal Medicine; Visit Provider Internal Medicine Cardiovascular Disease | DX: J96.01 Acute respiratory failure with hypoxia (principal) | CPT/HCPCS: 93306 ==

== ENCOUNTER → 2023-09-15 23:51 | Outpatient (BNV) | payer OTHER, SELFPAY | PROVIDERS: Admitting Provider Internal Medicine; Emergency Provider Emergency Medicine; PCP Internal Medicine; Visit Provider Internal Medicine Cardiovascular Disease | DX: I50.9 Heart failure, unspecified (principal) | CPT/HCPCS: 99222; 99233 ==

== ENCOUNTER → 2023-09-15 23:51 | Outpatient (BNV) | payer OTHER, SELFPAY | PROVIDERS: Admitting Provider Internal Medicine; Emergency Provider Emergency Medicine; PCP Internal Medicine; Visit Provider Internal Medicine | DX: I50.9 Heart failure, unspecified (principal); J96.01 Acute respiratory failure with hypoxia | CPT/HCPCS: 99223; 99232; 99233; 99239 ==

== ENCOUNTER 2023-09-23 10:45 | Inpatient (IN) | payer OTHER, SELFPAY ==
[2023-09-23] VITALS (7 sets, daily range): BP systolic 122–143; BP diastolic 83–102; PULSE 93–106; RESP 17–28; TEMP 35.8–36.7; O2SAT 96–99; BMI 32.3; BMI 33.3
--- NOTE | ~2023-09-23 | XR_ITS ---
EXAMINATION: XR chest 2V CLINICAL INFORMATION: Reason for Exam SOB COMPARISON: 09/15/2023 TECHNIQUE: XR chest 2V, 2 Views Lungs and Dora: Mild prominence of the pulmonary vasculature without neil failure. Pleura: Normal. Costophrenic angles are sharp. No pneumothorax. Heart: The heart is enlarged. Mediastinum: The mediastinum is within normal limits.. Bones: Skeletal structures included are normal for patient's age. XR/XR chest 2V IMPRESSION: * Mild vascular congestion without neil failure. * No pleural effusion. * Cardiomegaly.
--- NOTE | ~2023-09-23 | CT_ITS ---
EXAMINATION: CT ABDOMEN AND PELVIS WITH CONTRAST CLINICAL INFORMATION: Right lower quadrant pain COMPARISON: Ultrasound abdomen 10/18/2022. TECHNIQUE: Multidetector volumetric images were obtained from the superior aspect of the liver through the pubic symphysis following administration 85 mL of Omnipaque 350 intravenous contrast. Sagittal and coronal reformatted images were obtained on the technologist's workstation. Oral contrast: No This CT examination was performed using dose optimization techniques as appropriate, variously including the following: *Automated exposure control *Adjustment of mA and/or kV according to patient size (this includes techniques or standardized protocols for targeted exams where dose is matched to indication/reason for exam; i.e. extremities or head) *Use of iterative reconstruction technique DLP: 861 mGy-cm FINDINGS: LUNG BASES: The visualized lung bases are unremarkable. LIVER, GALLBLADDER, AND BILIARY TREE: The liver is normal in size, shape, and attenuation. No focal hepatic lesion or biliary ductal dilatation is present. The gallbladder is unremarkable with no evidence of radiopaque gallstones, gallbladder wall thickening, or obvious pericholecystic inflammatory changes. There is mild fluids in the right perihepatic space and fluid surrounding the gallbladder. PANCREAS: Unremarkable. SPLEEN: Unremarkable. ADRENAL GLANDS: Unremarkable. KIDNEYS AND URETERS: The kidneys are normal in size, shape, and attenuation. No hydronephrosis, hydroureter, or calculi seen. No perinephric stranding. There is a punctate 1 mm hyperdensity in the midpole left kidney axial image 35/3 and 1 mm hyperdensity in the midpole right kidney axial image 39/3. These are likely punctate calyceal opacifications from excreted urinary contrast. Tiny stone cannot be excluded. BLADDER: Unremarkable. GASTROINTESTINAL TRACT: The small and large bowel are unremarkable. The appendix is unremarkable. There is minimal right pericolic fluid collection. Appendix is normal caliber. ABDOMINAL WALL: No significant hernia is appreciated. LYMPH NODES: Normal. VASCULAR: Unremarkable. PELVIC VISCERA: There is a small amount of free fluid in the pelvis. OSSEOUS STRUCTURES: Likely intraosseous cyst or Schmorl's nodule L4 vertebra. No aggressive lytic or sclerotic process seen CT/CT abdomen pelvis w IV con IMPRESSION: No acute intra-abdominal process seen. However there is a small amount of free fluid in pelvis, right perihepatic space and around the gallbladder. The appendix is normal. Fleischner guidelines were followed.
--- NOTE | 2023-09-23 10:48 | ED_ITS ---
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 He reports chills but denies any chest pain. Related Data Home Medications Medication Instructions Recorded Confirmed albuterol sulfate 90 mcg/actuation 2 puff inhalation Q6H PRN wheezing 09/16/23 09/16/23 aerosol inhaler melatonin 5 mg tablet 5 mg PO BEDTIME PRN insomnia 09/16/23 09/16/23 Previous Rx's Medication Instructions Recorded carvedilol 3.125 mg tablet 3.125 mg PO BID #60 tabs 09/18/23 empagliflozin 25 mg tablet 25 mg PO DAILY #30 tabs 09/18/23 (Jardiance) furosemide 40 mg tablet 40 mg PO DAILY #30 tabs 09/18/23 sacubitril 49 mg-valsartan 51 mg 1 tab PO BID #60 tabs 09/18/23 tablet (Entresto) spironolactone 25 mg tablet 25 mg PO DAILY #30 tabs 09/18/23 Allergies Allergy/AdvReac Type Severity Reaction Status Date / Time No Known Allergies Allergy Verified 09/23/23 10:47 Review of Systems 2 Review of Systems: Pertinent positives and negatives as stated in HPI [facility] Past Medical History Source: nursing notes reviewed Medical History HTN (hypertension) Surgical History History of umbilical hernia repair Social History Social History Household Members Other:: Mom Housing: House Do you presently have visiting nurse or other home services: No Alcohol intake: never Comment: pt no longer on/requiring high flow O2. Patient Tobacco Use Status: Never used Tobacco Smoked in Last 30 Days: No Use of substances other than those prescribed or required for medical reasons: No Advance Directives: No Advance Directives Information Provided: No service: No Physical Exam ED Vital Signs: Vital Signs - 24 hr 09/23/23 10:47 09/23/23 11:19 09/23/23 11:58 Temperature 98.0 F Pulse Rate 106 H 104 H 102 H Respiratory Rate 18 22 H 28 H Blood Pressure 134/97 H 127/98 H Pulse Oximetry 97 96 97 Oxygen Delivery Method Room Air Room Air Room Air BMI result Body Mass Index 32.3 VITAL SIGNS: Reviewed. GENERAL: Well developed, well nourished, in no acute distress. HEAD: Normocephalic/atraumatic EYES: PERRLA, EOMI EARS: Ext canals without abnormality, TMs non-bulging and non-erythematous NOSE: Nares patent bilateral OROPHARYNX: no oral lesions noted, posterior pharynx clear and non-erythematous without noted tonsillar enlargement/erythema/exudates NECK: Supple, no adenopathy LUNGS: Normal breath sounds. No adventitious sounds or accessory muscle use. SpO2<97> CARDIOVASCULAR: Regular rate and rhythm without noted murmurs, no JVD or lower extremity edema. ABDOMEN: Soft, tenderness to palpation at right periumbilical and right lower quadrant without rebound, non-distended with bowel sounds. MUSCULOSKELETAL: No tenderness, deformities, or effusions noted on gross inspection. EXTREMITIES: No cyanosis, clubbing or edema. SKIN: Inspection of the skin reveals no rashes NEUROLOGIC: Alert and oriented x 4. Strength and sensation to light touch were grossly intact x 4. Course Course Course Narrative: This is an RME: Additional HPI, ROS, PE not included below will be deferred to primary provider. 33-year-old male history of hypertension, obesity, CHF with reduced EF. presents with shortness of breath for 2 days, patient was recently hospitalized from 09/15-09/18 for acute hypoxic respiratory failure. Patient has been using treatments at home with little to no relief. Plan labs, EKG Medications Administered Discontinued Medications Generic Name Dose Route Start Last Admin Trade Name Freq PRN Reason Stop Dose Admin Acetaminophen 975 mg 09/23/23 11:58 09/23/23 12:07 Acetaminophen 325 Mg Tablet PO 09/23/23 11:59 975 mg ONCE ONE Administration Furosemide 80 mg 09/23/23 12:07 09/23/23 12:16 Furosemide 100 Mg/10 Ml Vial IVPUSH 09/23/23 12:08 80 mg ONCE ONE Administration Protocol Iohexol 100 ml 09/23/23 12:51 09/23/23 12:52 Iohexol 350 Mg/Ml 100 Ml Infus..Btl IV 09/23/23 12:52 85 ml ONCE ONE Administration Medical Decision Making Medical Decision Making [facility] Narrative: 1145: 33-year-old male with history and clinical presentation, DDX: Acute decompensated heart failure, concern for possible underlying renal colic/appendicitis but lower clinical suspicion for urinary tract infection. Will also rule out viral infection. I reviewed all investigations and hematologic indices do not demonstrate a leukocytosis or left shift and patient is not noted to be febrile, there is no anemia or thrombocytopenia. Coagulation studies are consistent with underlying medication history. Chemistry indices do not demonstrate an RENA nor is there electrolyte or elevation of bilirubin. Patient's ALT and alkaline phosphatase are chronically elevated. I sensitivity troponin is demonstrated be 19.1 and suspect that this is secondary to type II and appears to be flat in comparison to prior troponin levels. BNP is demonstrated to be significantly elevated and consistent with chest x-ray findings and patient will receive 80 mg of Lasix. In addition, due to suspicion of symptoms and clinical findings will evaluate with CT of abdomen and pelvis to rule out likelihood of renal colic or appendicitis. Viral testing is negative for COVID/influenza. 1111: I discussed case with inpatient hospitalist who tentatively accepts admission pending CT of abdomen and pelvis. 1222: I discussed the case with cardiology who agrees with current diuresis and also agrees with transfer if intra-abdominal infection noted given the complex state of the patient. 1326: Although fluid noted around the gallbladder and a small amount in the pelvis on CT scan the appendix appears to be normal, no evidence of ureterolithiasis and fluid around the hepatobiliary system is likely secondary to hepatic congestion as patient has no epigastric/right upper quadrant pain. 1326: I communicated the findings to the inpatient hospitalist who accepts admission. Differential Diagnosis Differential Diagnoses: The differential diagnosis associated with the presentation includes Please see the discussion above Admission/Observation Consideration of admission/observation: Escalation of care including admission/observation considered Please see the discussion above Consult Healthcare Provider Management of the patient was discussed with: Hospitalist Please see the discussion above Lab Data [facility] Lab Attestation statement: I reviewed the patient's lab results. Please see the discussion above 09/23/23 11:17 09/23/23 11:17 Labs: Lab Results 09/23/23 09/23/23 09/23/23 Range/Units 11:17 11:57 12:29 WBC 8.1 (4.8-10.8) X10*3/uL RBC 5.96 H (4.60-5.80) X10*6/uL Hgb 14.7 (14.0-18.0) g/dl Hct 45.7 (42.0-52.0) % MCV 76.7 L (80.0-98.0) fL MCH 24.7 L (27.0-33.0) pg MCHC 32.2 (31.0-36.0) g/dl RDW 14.7 (11.0-16.0) % Plt Count 336 (160-400) X10*3/uL MPV 8.7 L (9.4-12.4) fL Immature Gran % (Auto) 0.5 H (0.0-0.4) % Neut % (Auto) 66.3 (45-73) % Lymph % (Auto) 24.6 (20-40) % [place] % (Auto) 8.0 (2-11) % Eos % (Auto) 0.2 (0-4) % Baso % (Auto) 0.4 (0-2) % Lymph # (Auto) 2.0 (1.2-4.9) X10*3/uL [place] # (Auto) 0.7 (0.1-1.2) X10*3/uL Eos # (Auto) 0.0 (0.0-0.4) X10*3/uL Baso # (Auto) 0.0 (0.0-0.2) X10*3/uL Abs Immat Gran (auto) 0.04 H (0.00-0.03) X10*3/uL Absolute Neuts (auto) 5.4 (2.0-8.3) x10*3/uL Absolute Nucleated RBC 0.000 (0.0-0.012) X10*3/uL Nucleated RBC % (auto) 0.0 (0.0-0.2) /100WBC PT 18.6 H (11.1-13.3) SEC INR 1.5 H (0.9-1.1) Sodium 142 (135-145) mmol/L Potassium 4.0 (3.3-5.1) mmol/L Chloride 110 H (96-108) mmol/L Carbon Dioxide 20 L (22-29) mmol/L Anion Gap 16 (12-20) BUN 27 H (9-16) mg/dL Creatinine 1.29 (0.5-1.4) mg/dL Estim Creat Clear Calc 111.4 Estimated GFR > 60 Random Glucose 147 H (60-115) mg/dL Lactic Acid 1.3 (0.5-2.0) mmol/L Calcium 9.5 (8.4-10.2) mg/dL Magnesium 2.3 (1.6-2.6) mg/dL Total Bilirubin 1.0 (0.0-1.0) mg/dL AST 37 (5-37) U/L ALT 42 H (0-40) U/L Alkaline Phosphatase 139 H (39-117) U/L Troponin I High Sens 19.1 D (<3.5-35.0) ng/L B-Natriuretic Peptide 2040 H (<100) pg/mL Total Protein 7.5 (6.5-8.0) g/dL Albumin 3.8 (3.5-5.0) g/dL Urine Color Dark Yellow Urine Appearance Clear Urine pH 5.5 (5.0-9.0) Ur Specific [place] 1.020 (1.005-1.025) Urine Protein 300 (3+) H (Neg-Trace) mg/dL Urine Glucose (UA) Negative (Negative) mg/dL Urine Ketones Trace (Negative) mg/dL Urine Blood Small (1+) H (Negative) Urine Nitrite Negative (Negative) Ur Leukocyte Esterase Trace H (Negative) Urine RBC 0-2 (0-2) /HPF Urine WBC 0-5 (0-5) /HPF Ur Squamous Epith Cells 0-2 (0-2) /HPF Urine Bacteria None Seen (None Seen) Hyaline Casts 6-10 (0-2) /LPF COVID-19 (GAGE) Negative (Negative) COVID-19 Clin Com See Note Influenza Type A (KSYLAR) Negative (Negative) Influenza Type B (SKYLAR) Negative (Negative) Influenza A & B Note See Note Independent Interpretation I performed an independent interpretation of an: EKG Interpretation: Sinus tachycardia, HR-103, no STEMI, global ST depression that appears to be somewhat change from prior, RI-184, QRS-106, QT and QTC are mildly prolonged from prior. Radiology Impression Discussion of test interpretation with radiology: I have reviewed the radiologist's reading. Radiologist Impression: Please see the discussion above External Record Review External record reviewed: Outpatient record, Prior outpatient labs and Prior outpatient radiology Chronic Conditions Patient?s care impacted by: Other Heart failure Critical Care Time Critical Care Time Critical Care Time: Yes Total Critical Care Time: 60 Attestation: I personally attest to this time spent taking care of the patient. Discharge Plan Discharge Clinical Impression: Shortness of breath, CHF exacerbation, Acute right lower quadrant pain Patient Disposition: Admitted As Inpatient
--- NOTE | 2023-09-23 10:49 | ECG_ITS ---
Test Reason : DYSPNEA Blood Pressure : / mmHG Vent. Rate : 103 BPM Atrial Rate : 103 BPM P-R Int : 184 ms QRS Dur : 106 ms QT Int : 380 ms P-R-T Axes : 059 052 046 degrees QTc Int : 497 ms Sinus tachycardia Left atrial enlargement Anterior infarct , age undetermined Abnormal ECG When compared with ECG of 15-SEP-2023 17:03, T wave inversion no longer evident in Inferior leads Referred By: Linda Cm Electronically Signed By:DIMAS GUTHRIE
--- NOTE | 2023-09-23 11:26 | PC.NURSE ---
pt aox4, ambulatory. comes in reporting difficulty breathing as well as abdomen pain. Pt points to LUQ and RUQ when asked to localize pain. labs drawn, ekg done, NSR on tele, 97% o2 saturation, IV placed. plan of care ongoing
[2023-09-23 11:31] LABS: MANUAL DIFF FLAG NO
[2023-09-23 11:34] LABS: Basophils Percent Auto 0.4 % (0-2); Eosinophils Percent Auto 0.2 % (0-4); Hematocrit 45.7 % (42.0-52.0); Hemoglobin 14.7 g/dl (14.0-18.0); Imm Gran Abs Auto 0.04 X10*3/uL (0.00-0.03); Imm Gran Pct Auto 0.5 % (0.0-0.4); Lymphocytes Percent Auto 24.6 % (20-40); Mean Corpuscular HGB Conc 32.2 g/dl (31.0-36.0); Mean Corpuscular Hemoglobin 24.7 pg (27.0-33.0); Mean Corpuscular Volume 76.7 fL (80.0-98.0); Mean Platelet Volume 8.7 fL (9.4-12.4); Monocytes Absolute Auto 0.7 X10*3/uL (0.1-1.2); Neutrophils Absolute Auto 5.4 x10*3/uL (2.0-8.3); Neutrophils Percent Auto 66.3 % (45-73); Platelet Count 336 X10*3/uL (160-400); Red Blood Count 5.96 X10*6/uL (4.60-5.80); Red Cell Distribution Width 14.7 % (11.0-16.0); White Blood Count 8.1 X10*3/uL (4.8-10.8)
[2023-09-23 11:43] LABS: INTERNATIONAL NORM RATIO 1.5 (0.9-1.1); Prothrombin Time 18.6 SEC (11.1-13.3)
[2023-09-23 11:54] LABS: Alanine Aminotransferase 42 U/L (0-40); Albumin Level 3.8 g/dL (3.5-5.0); Alkaline Phosphatase 139 U/L (39-117); Anion Gap 16 (12-20); Aspartate Amino Transferase 37 U/L (5-37); Blood Urea Nitrogen 27 mg/dL (9-16); Calcium 9.5 mg/dL (8.4-10.2); Carbon Dioxide 20 mmol/L (22-29); Chloride 110 mmol/L (96-108); Creatinine Clr Calc Pharmacy 111.4; Estimated Glomerular Filt Rate > 60; Glucose Random 147 mg/dL (60-115); Magnesium 2.3 mg/dL (1.6-2.6); Sodium 142 mmol/L (135-145); Total Protein 7.5 g/dL (6.5-8.0)
[2023-09-23 12:00] LABS: B Type Natriuretic Peptide 2040 pg/mL (<100)
[2023-09-23 12:02] LABS: Troponin-I High Sensitivity 19.1 ng/L (<3.5-35.0)
[2023-09-23 12:03] LABS: COVID-19 Test Negative (Negative); IDNOW Serial# BCCEAD1C
[2023-09-23 12:04] LABS: IDNOW Serial# 9DB6401D; Influenza A Negative (Negative); Influenza B2 Negative (Negative)
[2023-09-23] MEDS: Acetaminophen 325 MG TABLET 975 MG PO (12:07)
[2023-09-23] MEDS: Furosemide 100 MG/10 ML VIAL 80 MG IVPUSH (12:16)
--- NOTE | 2023-09-23 12:22 | PC.NURSE ---
pt resting comfortably, without signs of distress. Pt reports that difficulty breathing has mostly resolved. no accessory muscle use, and O2 satts remain high (97%) LSC throughout. Pt is consistently mildly tachycardic (low 100s), with high respiratory rate (22). medicated with lasix per MAR. urinal provided at bedside, pt is familiar with its use. tech with patient at the moment drawing follow up labs and blood cultures. CT scan pending. call ervin within reach, family member at bedside, plan of care ongoing.
[2023-09-23 12:23] LABS: Appearance Urine Clear; Color Urine Dark Yellow; Glucose Urine UA Negative (Negative); Leukocyte Esterase Urine Trace (Negative); Nitrite Urine Negative (Negative); PH 5.5 (5.0-9.0); UMIC TRIGGER UACC YES; Urine Blood Small (1+) (Negative); Urine Ketones Trace mg/dL (Negative); Urine Protein 300 (3+) mg/dL (Neg-Trace)
[2023-09-23 12:40] LABS: Bacteria Urine None Seen (None Seen); RBC Urine 0-2 /HPF (0-2); Squamous Epithelial Cell Urine 0-2 /HPF (0-2); WBC Urine 0-5 /HPF (0-5)
[2023-09-23] MEDS: iohexoL 350 MG/ML 100 ML INFUS..BTL IV (12:52)
[2023-09-23 12:53] LABS: Lactic Acid 1.3 mmol/L (0.5-2.0)
[2023-09-23] MEDS: Piperacillin Sodium/Tazobactam 3.375 GM in 0.9 % Sodium Chloride 50 ML IV (13:20)
[2023-09-23 13:55] LABS: Amphetamine Screen Urine Not Detected (Not Detect); Barbiturates, Urine Not Detected (Not Detect); Benzodiazepines Screen Urine Not Detected (Not Detect); Cannabinoid Screen Urine Not Detected (Not Detect); Cocaine Screen Urine Not Detected (Not Detect); Fentanyl, urine Not Detected (Not Detect); Opiate Screen Urine Not Detected (Not Detect); Phencyclidine Screen Urine Not Detected (Not Detect)
--- NOTE | 2023-09-23 14:08 | PHA.MEDREC ---
Pharmacy Consult ? Medication Reconciliation Pharmacy has completed the medication reconciliation. Patient knew medications but doesn't take nifedipine anymore. They have not started/picked up the entresto as it requires a pa
--- NOTE | 2023-09-23 14:15 | PM.IMHP ---
History of Present Illness Date of Service: 09/23/23 Attending physician on admission: Urmila Webb Chief Complaint: SOB Pt is a 33-year-old male with a PMH significant for?dilated cardiomyopathy and recently diagnosed HFrEF who presents to the ED with?worsening SOB, dyspnea, and lower abdominal pain x2 days. Patient was recently admitted to the hospital on 09/15 -09/18 and treated for hypoxic respiratory failure in the setting of new onset CHF. Echocardiogram on 09/16/2023 found severely dilated left ventricular cavity with severely reduced LVEF of 10-15%, mild biatrial enlargement, [id number] eccentric mitral regurgitation, and significantly elevated right atrial pressures. Patient denied taking any home or prescription medications, any alcohol or drug use or any known family history of CHF. Workup included negative HIV and Lyme titers, negative respiratory panel. He did test positive for SUSANNAH with ratio of 1:80 with an SUSANNAH pattern A. He was discharged on Entresto, spironolactone, Jardiance, furosemide, and carvedilol. Patient was fitted with a LifeVest defibrillator, and plan was for him to have additional outpatient workup for cardiomyopathy with a cardiac MRI and cardiac catheterization. Patient states after discharge he felt well the the next two days, however, on Saturday began to notice an increase in SOB, NAJERA, and orthopnea. Was having difficulty sleeping and developed a dry cough. On Saturday symptoms worsened and he also developed lower abdominal pain. This morning patient says that abdominal pain was worse and he felt like he could not breathe at so he decided to re-presented to the emergency department. Also endorses occasion is feeling like his heart is ?racing?, intermittent headache, photophobia, and blurry vision since Saturday. Denies lower leg edema. No chest pain/pressure. Denies fever, chills, nausea, vomiting, diarrhea. Denies any history of significant skin rash or nodules. No history of joint pain. In the ED pt was afebrile, tachycardic up to 106, tachypneic up to 28, mildly hypertensive up to 134/97, and satting at 97% on RA. Labs were significant for BUN 27 with creatinine 1.29 (up from 0.97 on 09/18/23), and BNP 2040 (up from 729 on 09/17). CXR showed cardiomegaly with mild vascular congestion without neil failure and no pleural effusion seen. CT?of abdomen and pelvis found normal-looking appendix and no acute intra-abdominal process, but did show a small amount of free fluid in pelvis, right perihepatic space, and around the gallbladder. EKG demonstrated sinus tachycardia of 103 no evidence of significant ST elevations or depressions. Pt was treated with acetaminophen, furosemide 80 mg IV, and Zosyn. Pt will be admitted to the hospital for treatment and further evaluation of acute CHF exacerbation. Review of Systems Review of Systems: SOB, dyspnea Orthopnea Dry cough Lower abdominal pain Intermittent racing heart Intermittent photophobia and headache since Saturday Denies fever, chills, nausea, vomiting, diarrhea No chest pain/pressure Denies lower leg edema [facility] Medical History HTN (hypertension) Surgical History History of umbilical hernia repair Social History Household Members: Family Household Members Other:: Mom Housing: House Do you presently have visiting nurse or other home services: No Alcohol intake: never Comment: pt no longer on/requiring high flow O2. Patient Tobacco Use Status: Never used Tobacco service: No Meds Allergies Allergy/AdvReac Type Severity Reaction Status Date / Time No Known Allergies Allergy Verified 09/23/23 10:47 Home Medications Medication Instructions Recorded Confirmed Last Taken Type albuterol sulfate 90 mcg/actuation 2 puff inhalation Q6H PRN wheezing 09/16/23 09/23/23 Unknown History aerosol inhaler melatonin 5 mg tablet 5 mg PO BEDTIME PRN insomnia 09/16/23 09/23/23 Unknown History Physical Exam Vital Signs and Narrative: Vital Signs: Last Vital Signs Temp 98.0 F 09/23/23 10:47 Pulse 102 H 09/23/23 11:58 Resp 28 H 09/23/23 11:58 BP 127/98 H 09/23/23 11:58 Pulse Ox 97 09/23/23 11:58 O2 Del Method Room Air 09/23/23 11:58 BMI result Body Mass Index 32.3 Constitutional: Alert, in no acute distress. Mental Status: Oriented to person, place and time. Eyes: Pupils are equal, round, and reactive to light. Ear, Nose, and Throat: Oropharynx clear, mucous membranes moist. Ears and nose without deformities. Trachea midline. Respiratory: Clear to auscultation bilaterally. No wheezing, rales, or rhonchi. Cardiovascular: S1, S2 regular. No murmurs, rubs, or gallops. Gastrointestinal: Abdomen soft, non-distended, with mild LUQ tenderness. Normal bowel sounds. Neurologic: Cranial nerves II-XII are grossly intact bilaterally. No focal neurological deficits. Moves all extremities spontaneously. Skin: Warm, dry. Musculoskeletal: No cyanosis or clubbing. Extremities: No edema. Psychiatric: Normal mood and affect. Results Labs 09/23/23 11:17 09/23/23 11:17 Labs: Laboratory Results - last 24 hr 09/23/23 09/23/23 09/23/23 11:17 11:57 12:29 MCV 76.7 L MCH 24.7 L MCHC 32.2 RDW 14.7 Plt Count 336 MPV 8.7 L Immature Gran % (Auto) 0.5 H Neut % (Auto) 66.3 Lymph % (Auto) 24.6 [place] % (Auto) 8.0 Eos % (Auto) 0.2 Baso % (Auto) 0.4 Lymph # (Auto) 2.0 [place] # (Auto) 0.7 Eos # (Auto) 0.0 Baso # (Auto) 0.0 Abs Immat Gran (auto) 0.04 H Absolute Neuts (auto) 5.4 Absolute Nucleated RBC 0.000 Nucleated RBC % (auto) 0.0 PT 18.6 H INR 1.5 H Anion Gap 16 Estim Creat Clear Calc 111.4 Estimated GFR > 60 Random Glucose 147 H Lactic Acid 1.3 Calcium 9.5 Magnesium 2.3 Total Bilirubin 1.0 AST 37 ALT 42 H Alkaline Phosphatase 139 H B-Natriuretic Peptide 2040 H Total Protein 7.5 Albumin 3.8 Urine Color Dark Yellow Urine Appearance Clear Urine pH 5.5 Ur Specific [place] 1.020 Urine Protein 300 (3+) H Urine Glucose (UA) Negative Urine Ketones Trace Urine Blood Small (1+) H Urine Nitrite Negative Ur Leukocyte Esterase Trace H Urine RBC 0-2 Urine WBC 0-5 Ur Squamous Epith Cells 0-2 Urine Bacteria None Seen Hyaline Casts 6-10 Urine Opiates Screen Urine Fentanyl Screen Ur Barbiturates Screen Ur Phencyclidine Scrn Ur Amphetamines Screen U Benzodiazepines Scrn Urine Cocaine Screen U Marijuana (THC) Screen COVID-19 (GAGE) Negative COVID-19 Clin Com See Note Influenza Type A (SKYLAR) Negative Influenza Type B (SKYLAR) Negative Influenza A & B Note See Note 09/23/23 13:20 MCV MCH MCHC RDW Plt Count MPV Immature Gran % (Auto) Neut % (Auto) Lymph % (Auto) [place] % (Auto) Eos % (Auto) Baso % (Auto) Lymph # (Auto) [place] # (Auto) Eos # (Auto) Baso # (Auto) Abs Immat Gran (auto) Absolute Neuts (auto) Absolute Nucleated RBC Nucleated RBC % (auto) PT INR Anion Gap Estim Creat Clear Calc Estimated GFR Random Glucose Lactic Acid Calcium Magnesium Total Bilirubin AST ALT Alkaline Phosphatase B-Natriuretic Peptide Total Protein Albumin Urine Color Urine Appearance Urine pH Ur Specific [place] Urine Protein Urine Glucose (UA) Urine Ketones Urine Blood Urine Nitrite Ur Leukocyte Esterase Urine RBC Urine WBC Ur Squamous Epith Cells Urine Bacteria Hyaline Casts Urine Opiates Screen Not Detected Urine Fentanyl Screen Not Detected Ur Barbiturates Screen Not Detected Ur Phencyclidine Scrn Not Detected Ur Amphetamines Screen Not Detected U Benzodiazepines Scrn Not Detected Urine Cocaine Screen Not Detected U Marijuana (THC) Screen Not Detected COVID-19 (GAGE) COVID-19 Clin Com Influenza Type A (SKYLAR) Influenza Type B (SKYLAR) Influenza A & B Note Imaging Radiologist's Impressions: Impressions Chest X-Ray 09/23/23 11:30 IMPRESSION: * Mild vascular congestion without neil failure. * No pleural effusion. * Cardiomegaly. Abdomen/Pelvis CT 09/23/23 12:50 IMPRESSION: No acute intra-abdominal process seen. However there is a small amount of free fluid in pelvis, right perihepatic space and around the gallbladder. The appendix is normal. Fleischner guidelines were followed. Assessment and Plan (1) CHF exacerbation: Status: Acute Plan Pt is a 33-year-old male with a PMH significant for?dilated cardiomyopathy and recently diagnosed HFrEF who presents to the ED with?worsening SOB, dyspnea, and lower abdominal pain x2 days. Patient was recently admitted to the hospital on 09/15 -09/18 and treated for hypoxic respiratory failure in the setting of new onset CHF. Pt will be admitted to the hospital for treatment and further evaluation of acute CHF exacerbation. Acute decompensated HFrEF exacerbation Patient with increased SOB, dyspnea, orthopnea, CXR with evidence of vascular congestion; no edema Unclear etiology: pt states compliant with home meds, no hx of alcohol or drug use, no recent illness, no known arrhythmia Patient given 80 mg Lasix IV in ED Will treat with Lasix 40 mg IV b.i.d. starting tomorrow Hold carvedilol, home furosemide Continue Entresto, spironolactone, Jardiance Follow lytes, mag, I/O Daily weights, low-salt diet Cardiology consult Monitor on telemetry Abdominal pain Pt complains of lower abdominal pain, denies nausea, vomiting, diarrhea Unclear etiology: CT of abdomen and pelvis negative for acute intra-abdominal process Analgesics for pain management Patient received Zosyn in ED, but no indication of infectious process, no indication for further antibiotics at this time Will monitor Dilated cardiomyopathy Unclear etiology: Infectious vs arrhythmia vs valvular vs ischemic vs hemochromatosis cardiomyopathy Drug-induced less likely: pt denies alcohol, cigarette, recreational drug, previous prescription or OTC drug use Rheumatological less likely: Patient denies history of rash or nodules, no joint pain, no known family history of lupus, amyloidosis, sarcoidosis SUSANNAH mildly positive: 1:80 with type A pattern, though CRP WNL Will check serum immunofixation, iron studies/ferritin, hemochromatosis DNA analysis Full Code Attending:?Dr. Webb DVT Prophylaxis: Lovenox Pt will require a hospitalization of at least two nights for treatment of?acute decompensated HFrEF exacerbation. Patient be treated with IV Lasix and receive close laboratory and cardiac monitoring and specialist consultation. Quality Stroke Does the patient have a stroke diagnosis?: No VTE Prior VTE?: No VTE Risk Level:: Medical - moderate - high VTE Device Contraindication: Treatment Not Indicated VTE Drug Contraindication: N/A - Med Ordered
[2023-09-23] MEDS: Enoxaparin Sodium 40 MG/0.4 ML SYRINGE SUBCUT (16:32)
[2023-09-23] MEDS: 0.9 % Sodium Chloride Flush 3 ML SYRINGE IVFLUSH ×2 (16:33→19:58)
[2023-09-24] VITALS (8 sets, daily range): BP systolic 126–144; BP diastolic 74–107; PULSE 88–99; RESP 18–20; TEMP 36–36.5; O2SAT 84–100
[2023-09-24] MEDS: Benzonatate 100 MG CAPSULE PO (00:22)
[2023-09-24] MEDS: Melatonin 3 MG TABLET 6 MG PO (00:22)
[2023-09-24] MEDS: LORazepam 1 MG TABLET PO ×2 (00:51→13:32)
[2023-09-24] MEDS: Furosemide 40 MG/4 ML VIAL IVPUSH (08:04)
[2023-09-24] MEDS: 0.9 % Sodium Chloride Flush 3 ML SYRINGE IVFLUSH ×2 (08:05→15:03)
--- NOTE | 2023-09-24 08:57 | HO.PM.IMPN ---
Subjective Subjective Date of Service: 09/24/23 Interval History: sob Physical Exam Vital Signs: Vital Signs: Last Vital Signs Temp 97.5 F 09/24/23 07:18 Pulse 99 09/24/23 07:18 Resp 20 09/24/23 07:18 BP 141/107 H 09/24/23 07:18 Pulse Ox 100 09/24/23 07:18 O2 Del Method Room Air 09/24/23 07:18 BMI result Body Mass Index 33.3 General: AO X 3, appears in some resp discomfort Resp: CTA bilateral, mild accessory muscles used CVS: S1,S2,RRR GI: soft, non tender, non distended Neuro: motor grossly intact, alert Psych: appropriate affect, appropriate insight Objective Data Active Medications Acetaminophen (Acetaminophen 325 Mg Tablet) 650 mg PO Q6H PRN PRN Reason: Pain, Mild (Pain Scale 1-3) Benzonatate (Benzonatate 100 Mg Capsule) 100 mg PO TID PRN PRN Reason: Cough Last Admin: 09/24/23 00:22 Dose: 100 mg Documented By: SRUTHI Docusate Sodium (Docusate Sodium 100 Mg Capsule) 100 mg PO DAILY PRN PRN Reason: Constipation Enoxaparin Sodium (Enoxaparin Sodium 40 Mg/0.4 Ml Syringe) 40 mg SUBCUT Q24H [facility] Last Admin: 09/23/23 16:32 Dose: 40 mg Documented By: SUNDAY Furosemide (Furosemide 40 Mg/4 Ml Vial) 40 mg IVPUSH BID@0900,1800 BETH; Protocol Last Admin: 09/24/23 08:04 Dose: 40 mg Documented By: KEATON Melatonin (Melatonin 3 Mg Tablet) 6 mg PO BEDTIME PRN PRN Reason: Insomnia Last Admin: 09/24/23 00:22 Dose: 6 mg Documented By: SRUTHI Ondansetron HCl (Ondansetron Hcl 4 Mg/2 Ml Vial) 4 mg IVPUSH Q8H PRN PRN Reason: Nausea and Vomiting Sodium Chloride (0.9 % Sodium Chloride Flush 3 Ml Syringe) 3 ml IVFLUSH QSHIFT [facility] Last Admin: 09/24/23 08:05 Dose: 3 ml Documented By: KEATON Labs 09/23/23 11:17 09/23/23 11:17 Labs: Laboratory Results - last 24 hr 09/23/23 09/23/23 09/23/23 11:17 11:57 12:29 MCV 76.7 L MCH 24.7 L MCHC 32.2 RDW 14.7 Plt Count 336 MPV 8.7 L Immature Gran % (Auto) 0.5 H Neut % (Auto) 66.3 Lymph % (Auto) 24.6 [place] % (Auto) 8.0 Eos % (Auto) 0.2 Baso % (Auto) 0.4 Lymph # (Auto) 2.0 [place] # (Auto) 0.7 Eos # (Auto) 0.0 Baso # (Auto) 0.0 Abs Immat Gran (auto) 0.04 H Absolute Neuts (auto) 5.4 Absolute Nucleated RBC 0.000 Nucleated RBC % (auto) 0.0 PT 18.6 H INR 1.5 H Anion Gap 16 Estim Creat Clear Calc 111.4 Estimated GFR > 60 Random Glucose 147 H Lactic Acid 1.3 Calcium 9.5 Magnesium 2.3 Total Bilirubin 1.0 AST 37 ALT 42 H Alkaline Phosphatase 139 H B-Natriuretic Peptide 2040 H Total Protein 7.5 Albumin 3.8 Urine Color Dark Yellow Urine Appearance Clear Urine pH 5.5 Ur Specific [place] 1.020 Urine Protein 300 (3+) H Urine Glucose (UA) Negative Urine Ketones Trace Urine Blood Small (1+) H Urine Nitrite Negative Ur Leukocyte Esterase Trace H Urine RBC 0-2 Urine WBC 0-5 Ur Squamous Epith Cells 0-2 Urine Bacteria None Seen Hyaline Casts 6-10 Urine Opiates Screen Urine Fentanyl Screen Ur Barbiturates Screen Ur Phencyclidine Scrn Ur Amphetamines Screen U Benzodiazepines Scrn Urine Cocaine Screen U Marijuana (THC) Screen COVID-19 (GAGE) Negative COVID-19 Clin Com See Note Influenza Type A (SKYLAR) Negative Influenza Type B (SKYLAR) Negative Influenza A & B Note See Note 09/23/23 13:20 MCV MCH MCHC RDW Plt Count MPV Immature Gran % (Auto) Neut % (Auto) Lymph % (Auto) [place] % (Auto) Eos % (Auto) Baso % (Auto) Lymph # (Auto) [place] # (Auto) Eos # (Auto) Baso # (Auto) Abs Immat Gran (auto) Absolute Neuts (auto) Absolute Nucleated RBC Nucleated RBC % (auto) PT INR Anion Gap Estim Creat Clear Calc Estimated GFR Random Glucose Lactic Acid Calcium Magnesium Total Bilirubin AST ALT Alkaline Phosphatase B-Natriuretic Peptide Total Protein Albumin Urine Color Urine Appearance Urine pH Ur Specific [place] Urine Protein Urine Glucose (UA) Urine Ketones Urine Blood Urine Nitrite Ur Leukocyte Esterase Urine RBC Urine WBC Ur Squamous Epith Cells Urine Bacteria Hyaline Casts Urine Opiates Screen Not Detected Urine Fentanyl Screen Not Detected Ur Barbiturates Screen Not Detected Ur Phencyclidine Scrn Not Detected Ur Amphetamines Screen Not Detected U Benzodiazepines Scrn Not Detected Urine Cocaine Screen Not Detected U Marijuana (THC) Screen Not Detected COVID-19 (GAGE) COVID-19 Clin Com Influenza Type A (SKYLAR) Influenza Type B (SKYLAR) Influenza A & B Note Assessment and Plan (1) CHF exacerbation: Status: Acute Plan 33M PMH recently diagnosis dilated cardiomyopathy (EF 10%), HTN, presented with sob and abd pain. acute on chronic chf with reduced EF iv lasix, continue entresto, aldactone, jardiance holding coreg (?forward failure issue) cardio eval abd pain likely due to hepatic congestion due to above htn entresto, aldactone dvt prophylaxis - lovenox full code reason for continued hospitalization:iv diuresis, still very symptomatic Quality Stroke Does the patient have a stroke diagnosis?: No VTE Prior VTE?: No VTE Risk Level:: Medical - moderate - high VTE Device Contraindication: Treatment Not Indicated VTE Drug Contraindication: N/A - Med Ordered
--- NOTE | 2023-09-24 09:18 | P.CONCA_ITS ---
History of Present Illness History of Present Illness Date of Service: 09/24/23 Chief complaint: Acute HFrEF exacerbation Narrative: This is a cardiology consultation regarding congestive heart failure. Patient was recently seen in consultation by Dr. Nolen for the same reason. At that time, echocardiogram at shown severely dilated LV with ejection fraction 10-15%. Etiology is unclear. He was supposed to undergo cardiac catheterization as well as cardiac MRI for further evaluation. He is on appropriate guideline based medical therapy. Current admission is again for shortness of breath. He states that with activity, he is feeling short of breath. Additionally, he is also had some abdominal pain upon arrival but then today he states pain itself is gone. He has been admitted for further evaluation. Currently, he is sitting in a chair and otherwise seems comfortable. Review of Systems 2 Review of Systems: Yes all other systems are reviewed and are negative Constitutional: Constitutional: Reports as per HPI and Reports no additional constitutional complaints Eyes: Eyes: Reports as per HPI and Denies no additional eye complaints ENT: Denies system reviewed and no additional complaints, except as documented and Reports as per HPI Cardiovascular: Cardiovascular: Reports as per HPI, Reports no additional cardiovascular complaints, Denies acrocyanosis, Denies cool extremities, Denies chest pain, Denies leg edema, Denies lightheadedness, Denies palpitations and Reports dyspnea Respiratory: Respiratory: Reports as per HPI, Denies no additional respiratory complaints and Reports dyspnea Gastrointestinal: Gastrointestinal: Reports as per HPI and Denies no additional gastrointestinal complaints Genitourinary: Genitourinary: Reports no additional male genitourinary complaints and Reports as per HPI Musculoskeletal: Musculoskeletal: Reports no additional musculoskeletal complaints and Reports as per HPI Integumentary/Breasts: Skin/Breast: Reports system reviewed and no additional complaints, except as docu Neurologic: Reports system reviewed and no additional complaints, except as documented and Reports as per HPI Psychiatric: Psychiatric: Reports no additional psychiatric complaints and Reports as per HPI Endocrine: Endocrine: Reports no additional endocrine complaints, Reports as per HPI and Denies palpitations Hematologic/Lymphatic: Hematologic/Lymphatic: Reports no additional hematologic/lymphatic complaints and Reports as per HPI Allergic/Immunologic: Allergic/Immunologic: Reports no additional allergic/immunologic complaints and Reports as per HPI [facility] Past Medical History Medical History HTN (hypertension) Family History Family History (Updated 09/24/23 @ 09:21 by John James MD) Unknown Enlarged heart Surgical History Surgical History History of umbilical hernia repair Social History Social History Household Members: Family Household Members Other:: Mom Housing: House Do you presently have visiting nurse or other home services: No Alcohol intake: never Comment: pt no longer on/requiring high flow O2. Patient Tobacco Use Status: Never used Tobacco Smoked in Last 30 Days: No Use of substances other than those prescribed or required for medical reasons: No Currently Displaying Signs/Symptoms of Drug Intoxication Withdrawal: No Advance Directives: No Advance Directives Information Provided: No Do you have thoughts of harming others: None Do you have a plan to hurt others: No Plan Nutrition Risks: No Nutritional Risk Poor oral hygiene: No service: No Meds Allergies Allergy/AdvReac Type Severity Reaction Status Date / Time No Known Allergies Allergy Verified 09/23/23 10:47 Active Medications: Current Medications Acetaminophen (Acetaminophen 325 Mg Tablet) 650 mg PO Q6H PRN PRN Reason: Pain, Mild (Pain Scale 1-3) Benzonatate (Benzonatate 100 Mg Capsule) 100 mg PO TID PRN PRN Reason: Cough Last Admin: 09/24/23 00:22 Dose: 100 mg Docusate Sodium (Docusate Sodium 100 Mg Capsule) 100 mg PO DAILY PRN PRN Reason: Constipation Empagliflozin (Empagliflozin 25 Mg Tablet) 25 mg PO DAILY [facility] Enoxaparin Sodium (Enoxaparin Sodium 40 Mg/0.4 Ml Syringe) 40 mg SUBCUT Q24H [facility] Last Admin: 09/23/23 16:32 Dose: 40 mg Furosemide (Furosemide 40 Mg/4 Ml Vial) 40 mg IVPUSH BID@0900,1800 [facility]; Protocol Last Admin: 09/24/23 08:04 Dose: 40 mg Melatonin (Melatonin 3 Mg Tablet) 6 mg PO BEDTIME PRN PRN Reason: Insomnia Last Admin: 09/24/23 00:22 Dose: 6 mg Ondansetron HCl (Ondansetron Hcl 4 Mg/2 Ml Vial) 4 mg IVPUSH Q8H PRN PRN Reason: Nausea and Vomiting Sacubitril/Valsartan (Sacubitril/Valsartan 49/51 1 Tab Tablet) 1 tab PO BID BETH; Protocol Sodium Chloride (0.9 % Sodium Chloride Flush 3 Ml Syringe) 3 ml IVFLUSH QSHIFT [facility] Last Admin: 09/24/23 08:05 Dose: 3 ml Spironolactone (Spironolactone 25 Mg Tablet) 25 mg PO DAILY BETH; Protocol Home Medications Medication Instructions Recorded Confirmed Last Taken Type albuterol sulfate 90 mcg/actuation 2 puff inhalation Q6H PRN wheezing 09/16/23 09/23/23 Unknown History aerosol inhaler melatonin 5 mg tablet 5 mg PO BEDTIME PRN insomnia 09/16/23 09/23/23 Unknown History Physical Exam 2 Vital Signs: Vital Signs: Last Vital Signs Temp 97.5 F 09/24/23 07:18 Pulse 99 09/24/23 07:18 Resp 20 09/24/23 07:18 BP 141/107 H 09/24/23 07:18 Pulse Ox 100 09/24/23 07:18 O2 Del Method Room Air 09/24/23 07:18 BMI result Body Mass Index 33.3 Const: General: comfortable and no acute distress O rientation/consciousness: patient oriented x3 HEENT: Other: Unremarkable Head: Yes normal to inspection Neck: Neck: Yes normal visual inspection Chest: Chest palpation & inspection: normal inspection of the chest Resp: Other: Difficult to listen with life vest on. No overt crackles. Cardio: Other: Limited auscultation due to lifevest. Seems to have essentially normal heart sounds. GI: Palpation (GI): Soft to palpation Back/Spine/Pelvis: Other: unremarkable Skin: General skin exam: no rashes or lesions noted Neuro: General: patient oriented x3 Extrem: General: Yes normal to inspection Psych: Mental Status: mental status grossly normal Objective Labs and Meds 09/23/23 11:17 09/23/23 11:17 Lab results: Laboratory Results - last 24 hr 09/23/23 09/23/23 09/23/23 11:17 11:57 12:29 WBC 8.1 RBC 5.96 H Hgb 14.7 Hct 45.7 MCV 76.7 L MCH 24.7 L MCHC 32.2 RDW 14.7 Plt Count 336 MPV 8.7 L Immature Gran % (Auto) 0.5 H Neut % (Auto) 66.3 Lymph % (Auto) 24.6 [place] % (Auto) 8.0 Eos % (Auto) 0.2 Baso % (Auto) 0.4 Lymph # (Auto) 2.0 [place] # (Auto) 0.7 Eos # (Auto) 0.0 Baso # (Auto) 0.0 Abs Immat Gran (auto) 0.04 H Absolute Neuts (auto) 5.4 Absolute Nucleated RBC 0.000 Nucleated RBC % (auto) 0.0 PT 18.6 H INR 1.5 H Sodium 142 Potassium 4.0 Chloride 110 H Carbon Dioxide 20 L Anion Gap 16 BUN 27 H Creatinine 1.29 Estim Creat Clear Calc 111.4 Estimated GFR > 60 Random Glucose 147 H Lactic Acid 1.3 Calcium 9.5 Magnesium 2.3 Total Bilirubin 1.0 AST 37 ALT 42 H Alkaline Phosphatase 139 H Troponin I High Sens 19.1 D B-Natriuretic Peptide 2040 H Total Protein 7.5 Albumin 3.8 Urine Color Dark Yellow Urine Appearance Clear Urine pH 5.5 Ur Specific [place] 1.020 Urine Protein 300 (3+) H Urine Glucose (UA) Negative Urine Ketones Trace Urine Blood Small (1+) H Urine Nitrite Negative Ur Leukocyte Esterase Trace H Urine RBC 0-2 Urine WBC 0-5 Ur Squamous Epith Cells 0-2 Urine Bacteria None Seen Hyaline Casts 6-10 Urine Opiates Screen Urine Fentanyl Screen Ur Barbiturates Screen Ur Phencyclidine Scrn Ur Amphetamines Screen U Benzodiazepines Scrn Urine Cocaine Screen U Marijuana (THC) Screen COVID-19 (GAGE) Negative COVID-19 Clin Com See Note Influenza Type A (SKYLAR) Negative Influenza Type B (SKYLAR) Negative Influenza A & B Note See Note 09/23/23 13:20 WBC RBC Hgb Hct MCV MCH MCHC RDW Plt Count MPV Immature Gran % (Auto) Neut % (Auto) Lymph % (Auto) [place] % (Auto) Eos % (Auto) Baso % (Auto) Lymph # (Auto) [place] # (Auto) Eos # (Auto) Baso # (Auto) Abs Immat Gran (auto) Absolute Neuts (auto) Absolute Nucleated RBC Nucleated RBC % (auto) PT INR Sodium Potassium Chloride Carbon Dioxide Anion Gap BUN Creatinine Estim Creat Clear Calc Estimated GFR Random Glucose Lactic Acid Calcium Magnesium Total Bilirubin AST ALT Alkaline Phosphatase Troponin I High Sens B-Natriuretic Peptide Total Protein Albumin Urine Color Urine Appearance Urine pH Ur Specific [place] Urine Protein Urine Glucose (UA) Urine Ketones Urine Blood Urine Nitrite Ur Leukocyte Esterase Urine RBC Urine WBC Ur Squamous Epith Cells Urine Bacteria Hyaline Casts Urine Opiates Screen Not Detected Urine Fentanyl Screen Not Detected Ur Barbiturates Screen Not Detected Ur Phencyclidine Scrn Not Detected Ur Amphetamines Screen Not Detected U Benzodiazepines Scrn Not Detected Urine Cocaine Screen Not Detected U Marijuana (THC) Screen Not Detected COVID-19 (GAGE) COVID-19 Clin Com Influenza Type A (SKYLAR) Influenza Type B (SKYLAR) Influenza A & B Note ECG Interpretation: EKG shows sinus tachycardia 103/Min; biatrial enlargement; cannot exclude old anterior infarct and nonspecific ST-T changes. Prolongation of corrected QT. Imaging Radiologist's impression: Impressions Chest X-Ray 09/23/23 11:30 IMPRESSION: * Mild vascular congestion without neil failure. * No pleural effusion. * Cardiomegaly. Abdomen/Pelvis CT 09/23/23 12:50 IMPRESSION: No acute intra-abdominal process seen. However there is a small amount of free fluid in pelvis, right perihepatic space and around the gallbladder. The appendix is normal. Fleischner guidelines were followed. Assessment and Plan (1) Acute on chronic systolic (congestive) heart failure: Status: Acute Plan Cardiac BNP is 2040. This is much higher than last week when it was 729. High sensitive troponin 19.1 which is within limits. Echocardiogram last week with LVEF of 10-15%. Severely dilated size. Mild biatrial enlargement. [id number] mitral regurgitation. Dilated, non collapsing IVC. Chest x-ray with mild vascular congestion. Cardiomegaly. Toxicology screen is negative. Abdomen CT scan shows no acute intra-abdominal process. Small amount of free fluid in the pelvis/right perihepatic space and gallbladder. Overall, suspect acute on chronic systolic heart failure. Unknown etiology. Per outpatient schedule, it seems that he was supposed to get cardiac catheterization this . We might transfer him as an inpatient to get this done and also consider advanced heart failure consultation. Cardiac MRI is also in process an outpatient. Otherwise as the creatinine is borderline, avoid aggressive diuretics pending catheterization. Discussed with Dr. Khan. Procedures Date of Service Date of Service: 09/24/23
[2023-09-24 09:20] LABS: Anion Gap 14 (12-20); Blood Urea Nitrogen 27 mg/dL (9-16); Calcium 9.8 mg/dL (8.4-10.2); Carbon Dioxide 24 mmol/L (22-29); Chloride 107 mmol/L (96-108); Creatinine Clr Calc Pharmacy 105.5; Estimated Glomerular Filt Rate 59; Glucose Random 190 mg/dL (60-115); Iron 55 mcg/dL (45-160); Magnesium 2.1 mg/dL (1.6-2.6); Percent Iron Saturation 16 % (15-50); Sodium 141 mmol/L (135-145); Total Iron Binding Capacity 344 mcg/dL (228-428); Unsaturated Iron Binding 289 ug/dL
[2023-09-24] MEDS: Sacubitril/Valsartan 49/51 1 TAB TABLET PO ×2 (09:25→20:14)
[2023-09-24] MEDS: Empagliflozin 25 MG TABLET PO (09:25)
[2023-09-24] MEDS: Spironolactone 25 MG TABLET PO (09:25)
[2023-09-24 09:28] LABS: B Type Natriuretic Peptide 1384 pg/mL (<100)
[2023-09-24 09:40] LABS: Ferritin 273 ng/mL (20-250)
--- NOTE | 2023-09-24 12:20 | MHC.CM.PN ---
Pt lives at home with his mother who will transport him home. Pt is self-care, he declines to complete a HCP at this time. PCP: Dr. Chance Georges
[2023-09-24] MEDS: Enoxaparin Sodium 40 MG/0.4 ML SYRINGE SUBCUT (15:03)
--- NOTE | 2023-09-24 22:35 | PC.NURSE ---
oxygen saturation 84% when pt is sleeping , DR Patino was notified , oxygen order obtained ,Oxygen 2L via NC applied , O@ sat 99% on 2lvia NC now
[2023-09-25 03:53] VITALS: BP 138/92; PULSE 89; RESP 20; TEMP 36.3; O2SAT 98
[2023-09-25 07:03] VITALS: BP 131/86; PULSE 100; RESP 18; TEMP 36.3; O2SAT 97
[2023-09-25] MEDS: Furosemide 40 MG TABLET PO (09:21)
[2023-09-25] MEDS: Empagliflozin 25 MG TABLET PO (09:21)
[2023-09-25] MEDS: Sacubitril/Valsartan 49/51 1 TAB TABLET PO (09:22)
[2023-09-25] MEDS: Spironolactone 25 MG TABLET PO (09:22)
[2023-09-25] MEDS: 0.9 % Sodium Chloride Flush 3 ML SYRINGE IVFLUSH (09:22)
[2023-09-25 09:34] LABS: Hematocrit 51.8 % (42.0-52.0); Hemoglobin 16.4 g/dl (14.0-18.0); Mean Corpuscular HGB Conc 31.7 g/dl (31.0-36.0); Mean Corpuscular Hemoglobin 24.8 pg (27.0-33.0); Mean Corpuscular Volume 78.4 fL (80.0-98.0); Mean Platelet Volume 9.2 fL (9.4-12.4); NRBC Pct Auto 0.2 /100WBC (0.0-0.2); Platelet Count 391 X10*3/uL (160-400); Red Blood Count 6.61 X10*6/uL (4.60-5.80); Red Cell Distribution Width 16.7 % (11.0-16.0); White Blood Count 8.5 X10*3/uL (4.8-10.8)
[2023-09-25 09:53] LABS: Anion Gap 15 (12-20); Blood Urea Nitrogen 21 mg/dL (9-16); Calcium 9.3 mg/dL (8.4-10.2); Carbon Dioxide 25 mmol/L (22-29); Chloride 106 mmol/L (96-108); Creatinine Clr Calc Pharmacy 115.6; Estimated Glomerular Filt Rate > 60; Glucose Fasting 98 mg/dL (60-99); Glucose Random 98 mg/dL (60-115); Magnesium 2.2 mg/dL (1.6-2.6); Potassium 3.9 mmol/L (3.3-5.1); Sodium 142 mmol/L (135-145)
--- NOTE | 2023-09-25 09:59 | PM.PNCARD ---
Subjective Subjective Date of Service: 09/25/23 Interval history: He states that he is feeling better but he is also not doing much. Mainly in bed. Review of Systems Review of Systems Yes all other systems are reviewed and are negative Constitutional: Reports as per HPI and Reports no additional constitutional complaints Eyes: Reports as per HPI and Denies no additional eye complaints Denies system reviewed and no additional complaints, except as documented and Reports as per HPI Cardiovascular: Reports as per HPI, Reports no additional cardiovascular complaints, Denies acrocyanosis, Denies cool extremities, Denies chest pain, Denies leg edema, Denies lightheadedness, Denies palpitations and Reports dyspnea Respiratory: Reports as per HPI, Denies no additional respiratory complaints and Reports dyspnea Gastrointestinal: Reports as per HPI and Denies no additional gastrointestinal complaints Genitourinary: Reports no additional male genitourinary complaints and Reports as per HPI Musculoskeletal: Reports no additional musculoskeletal complaints and Reports as per HPI Skin/Breast: Reports system reviewed and no additional complaints, except as docu Reports system reviewed and no additional complaints, except as documented and Reports as per HPI Psychiatric: Reports no additional psychiatric complaints and Reports as per HPI Endocrine: Reports no additional endocrine complaints, Reports as per HPI and Denies palpitations Hematologic/Lymphatic: Reports no additional hematologic/lymphatic complaints and Reports as per HPI Allergic/Immunologic: Reports no additional allergic/immunologic complaints and Reports as per HPI Physical Exam Vital Signs: Last Vital Signs Temp 97.3 F 09/25/23 07:03 Pulse 100 09/25/23 07:03 Resp 18 09/25/23 07:03 BP 131/86 09/25/23 07:03 Pulse Ox 97 09/25/23 07:03 O2 Del Method Room Air 09/25/23 07:03 O2 Flow Rate 2 09/25/23 03:53 BMI result Body Mass Index 33.3 Const General: comfortable and no acute distress Orientation/consciousness: patient oriented x3 HEENT Other: Unremarkable Head: Yes normal to inspection Neck Neck: Yes normal visual inspection Chest Chest palpation & inspection: normal inspection of the chest Resp Other: Difficult to listen with life vest on. No overt crackles. Cardio Other: Limited auscultation due to lifevest. Seems to have essentially normal heart sounds. GI Palpation (GI): Soft to palpation Back/Spine/Pelvis Other: unremarkable Skin General skin exam: no rashes or lesions noted Neuro General: patient oriented x3 Extrem General: Yes normal to inspection Psych Mental Status: mental status grossly normal Objective Labs and Meds 09/25/23 08:09 09/25/23 08:09 Lab results: Laboratory Results - last 24 hr 09/25/23 08:09 WBC 8.5 RBC 6.61 H Hgb 16.4 Hct 51.8 MCV 78.4 L MCH 24.8 L MCHC 31.7 RDW 16.7 H Plt Count 391 MPV 9.2 L Absolute Nucleated RBC 0.020 H Nucleated RBC % (auto) 0.2 Sodium 142 Potassium 3.9 Chloride 106 Carbon Dioxide 25 Anion Gap 15 BUN 21 H Creatinine 1.26 Estim Creat Clear Calc 115.6 Estimated GFR > 60 Random Glucose 98 Fasting Glucose 98 Calcium 9.3 Magnesium 2.2 Progress Note: A&P Assessment and plan (1) Acute on chronic systolic (congestive) heart failure: Status: Acute Plan Cardiac BNP is 2040. This is much higher than last week when it was 729. High sensitive troponin 19.1 which is within limits. Echocardiogram last week with LVEF of 10-15%. Left ventricular diastolic size was almost 8 cm and even systolic was more than 7 cm. Overall, severely dilated. Mild biatrial enlargement. [id number] mitral regurgitation. Dilated, non collapsing IVC. Chest x-ray with mild vascular congestion. Cardiomegaly. Toxicology screen is negative. Abdomen CT scan shows no acute intra-abdominal process. Small amount of free fluid in the pelvis/right perihepatic space and gallbladder. Overall, suspect acute on chronic systolic heart failure. Unknown etiology. He was supposed to get outpatient cardiac catheterization-left and right tomorrow. We can do this inpatient and we can transferred to [facility]. Consider also getting consultation from advanced heart failure team. Otherwise, he is on a reasonable regimen including carvedilol, Entresto, spironolactone, Jardiance and diuretics after started last week and these will need to be optimized further in due course. Time Spent With Patient Time: Total time managing care of this patient today ____ minutes. Progress Note: Quality Stroke Does the patient have a stroke diagnosis?: No Procedures Date of Service Date of Service: 09/25/23
--- NOTE | 2023-09-25 10:25 | MHC.CM.PN ---
EMR reviewed and per MD rounds, pt will be medically transferred to [facility] today for cardiac cath.
--- NOTE | 2023-09-25 10:53 | PM.DS ---
DS: Providers Provider Date of Service: 09/25/23 Date of admission: 09/23/23 15:38 Primary care physician: Chance Georges MD Consults: 09/23/23 17:14 Consult to Cardiology Routine Consulting Provider: [facility] Reason for consultation: Acute HFrEF exacerbation, discharged just 5 days prior DS: Diagnosis Discharge Diagnosis (1) Acute on chronic systolic (congestive) heart failure: Status: Acute (2) CHF exacerbation: Status: Acute DS: Summary Hospital Course Hospital Course: Admission note HPI Pt is a 33-year-old male with a PMH significant for?dilated cardiomyopathy and recently diagnosed HFrEF who presents to the ED with?worsening SOB, dyspnea, and lower abdominal pain x2 days. Patient was recently admitted to the hospital on 09/15 -09/18 and treated for hypoxic respiratory failure in the setting of new onset CHF. Echocardiogram on 09/16/2023 found severely dilated left ventricular cavity with severely reduced LVEF of 10-15%, mild biatrial enlargement, [id number] eccentric mitral regurgitation, and significantly elevated right atrial pressures. Patient denied taking any home or prescription medications, any alcohol or drug use or any known family history of CHF. Workup included negative HIV and Lyme titers, negative respiratory panel. He did test positive for SUSANNAH with ratio of 1:80 with an SUSANNAH pattern A. He was discharged on Entresto, spironolactone, Jardiance, furosemide, and carvedilol. Patient was fitted with a LifeVest defibrillator, and plan was for him to have additional outpatient workup for cardiomyopathy with a cardiac MRI and cardiac catheterization. Patient states after discharge he felt well the the next two days, however, on Saturday began to notice an increase in SOB, NAJERA, and orthopnea. Was having difficulty sleeping and developed a dry cough. On Saturday symptoms worsened and he also developed lower abdominal pain. This morning patient says that abdominal pain was worse and he felt like he could not breathe at so he decided to re-presented to the emergency department. Also endorses occasion is feeling like his heart is ?racing?, intermittent headache, photophobia, and blurry vision since Saturday. Denies lower leg edema. No chest pain/pressure. Denies fever, chills, nausea, vomiting, diarrhea. Denies any history of significant skin rash or nodules. No history of joint pain. In the ED pt was afebrile, tachycardic up to 106, tachypneic up to 28, mildly hypertensive up to 134/97, and satting at 97% on RA. Labs were significant for BUN 27 with creatinine 1.29 (up from 0.97 on 09/18/23), and BNP 2040 (up from 729 on 09/17). CXR showed cardiomegaly with mild vascular congestion without neil failure and no pleural effusion seen. CT?of abdomen and pelvis found normal-looking appendix and no acute intra-abdominal process, but did show a small amount of free fluid in pelvis, right perihepatic space, and around the gallbladder. EKG demonstrated sinus tachycardia of 103 no evidence of significant ST elevations or depressions. Pt was treated with acetaminophen, furosemide 80 mg IV, and Zosyn. Pt will be admitted to the hospital for treatment and further evaluation of acute CHF exacerbation. Hospital course The patient was admitted for acute on chronic chf with reduced EF. 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 To resume same medications upon discharge. Consider also getting consultation from advanced heart failure team. He is on a reasonable regimen including carvedilol, Entresto, spironolactone, Jardiance and diuretics and these will need to be optimized further Time Attestation Discharge coordination time: Greater than 30 minutes Quality: Safe Use of Opioids Does Pt have an Active Cancer Diagnosis on the Problem List?: No Quality: Stroke Does the patient have a stroke diagnosis?: No Physical Exam Vital Signs: Vital Signs: Last Vital Signs Temp 97.3 F 09/25/23 07:03 Pulse 100 09/25/23 07:03 Resp 18 09/25/23 07:03 BP 131/86 09/25/23 07:03 Pulse Ox 97 09/25/23 07:03 O2 Del Method Room Air 09/25/23 07:03 O2 Flow Rate 2 09/25/23 03:53 BMI result Body Mass Index 33.3 Const: Other: Constitutional : Awake, interactive, not in distress Neck : Normal inspection, Supple Cardiovascular : RRR, elevated JVP, +1 lower extremity edema Respiratory : good bilateral air entry, basal fine crackles, no wheezes or rhonchi Gastrointestinal: soft, lax, Normal bowel sounds, Non tender Skin : Warm, Dry Neurological : Alert & oriented x3, No focal deficit DS: Data Data Completed and Pending Completed studies during hospitalization [Text1]: Procedures Assistance with Respiratory Ventilation, Less than 24 Consecutive Hours, Continuous Positive Airway Pressure (09/15/23) Labs on day of discharge: Laboratory Results - last 24 hr 09/25/23 08:09 WBC 8.5 RBC 6.61 H Hgb 16.4 Hct 51.8 MCV 78.4 L MCH 24.8 L MCHC 31.7 RDW 16.7 H Plt Count 391 MPV 9.2 L Absolute Nucleated RBC 0.020 H Nucleated RBC % (auto) 0.2 Sodium 142 Potassium 3.9 Chloride 106 Carbon Dioxide 25 Anion Gap 15 BUN 21 H Creatinine 1.26 Estim Creat Clear Calc 115.6 Estimated GFR > 60 Random Glucose 98 Fasting Glucose 98 Calcium 9.3 Magnesium 2.2 Preliminary micro results at discharge 09/23/23 12:57 Blood Culture - Preliminary Blood - Venous No growth after 24 hours. 09/23/23 12:29 Blood Culture - Preliminary Blood - Venous No growth after 24 hours. Imaging Chest x-ray: Radiologist's impression: ITS Impressions Chest X-Ray 09/23/23 11:30 IMPRESSION: * Mild vascular congestion without neil failure. * No pleural effusion. * Cardiomegaly. Abdomen/Pelvis CT 09/23/23 12:50 IMPRESSION: No acute intra-abdominal process seen. However there is a small amount of free fluid in pelvis, right perihepatic space and around the gallbladder. The appendix is normal. Fleischner guidelines were followed. Discharge Plan Discharge Anticipated Discharge Date/Time: 09/25/23 10:48 Patient Disposition: Xfer Acute [facility] Discharge Diagnosis: Heart failure Referrals: Chance Georges MD [Primary Care Provider] - 1 Week Discharge Medications: Continued albuterol sulfate 90 mcg/actuation HFA aerosol inhaler 2 puff INHALATION Q6H PRN (Reason: wheezing) melatonin 5 mg tablet 5 mg PO BEDTIME PRN (Reason: insomnia) Entresto 49-51 mg Tablet 1 tab PO BID Qty: 60 0RF Protocol: Hold for SBP< HOLD for SBP < : 90 spironolactone 25 mg Tablet 25 mg PO DAILY Qty: 30 0RF Protocol: Hold for SBP< HOLD for SBP < : 90 furosemide 40 mg tablet 40 mg PO DAILY Qty: 30 0RF Jardiance 25 mg tablet 25 mg PO DAILY Qty: 30 0RF carvedilol 3.125 mg tablet 3.125 mg PO BID Qty: 60 0RF Rx Instructions: must administer with a meal/food Discharge Orders: Discharge Order (Routine); Ordered 09/25/23 Ordered By: Steph Emerson Diet: Advance to usual diet Activity on Discharge: As tolerated Stand Alone Forms: Patient Portal Discharge page Care Plan Goals: Read below Health Concerns: Read below Plan of Treatment: Read below Assessment: You were admitted for treatment of heart failure exacerbation. seen by Auto Former Machine Operator who recommended transfer to [facility] for cardiac work up. Discharge Date/Time: 09/25/23 16:48
[2023-09-25 10:56] LABS: B Type Natriuretic Peptide 686 pg/mL (<100)
[2023-09-25 11:24] VITALS: BP 123/85; PULSE 85; RESP 18; TEMP 36; O2SAT 96
[2023-09-25] MEDS: Acetaminophen 325 MG TABLET 650 MG PO (14:01)
[2023-09-25 15:50] VITALS: BP 114/79; PULSE 91; RESP 12; TEMP 36.1; O2SAT 97
[2023-09-26 13:04] LABS: IgA 560 mg/dL (47-310); IgG 1412 mg/dL (600-1640); IgM 115 mg/dL (50-300)
== END 2023-09-25 16:48 | disposition short-term general hospital (02) | DRG 194 ==
LOC: HO.ED 12:25 → HO.EDOVER 15:51 → HO.IMC 16:05
PROVIDERS: Internal Medicine; Physician Assistant; Admitting Provider Student in an Organized Health Care Education/Training Program; Emergency Provider Student in an Organized Health Care Education/Training Program; PCP Internal Medicine; Visit Provider Student in an Organized Health Care Education/Training Program
DX: I11.0 Hypertensive heart disease with heart failure (principal); I42.0 Dilated cardiomyopathy; I50.23 Acute on chronic systolic (congestive) heart failure; I34.0 Nonrheumatic mitral (valve) insufficiency; R10.9 Unspecified abdominal pain; Z20.822 Contact with and (suspected) exposure to COVID-19; Z79.899 Other long term (current) drug therapy
CPT/HCPCS: 36415; 71046; 74177; 80048; 80053; 80307; 81001; 81256; 82728; 82784; 83540; 83605; 83735; 83880; 84484; 85025; 85027; 85610; 86334; 87040; 87502; 87635; 93005; 99285; J1650; J1940; J2543; Q9967

== ENCOUNTER → 2023-09-23 15:38 | Outpatient (BNV) | payer OTHER, SELFPAY | PROVIDERS: Admitting Provider Student in an Organized Health Care Education/Training Program; Emergency Provider Student in an Organized Health Care Education/Training Program; PCP Internal Medicine; Visit Provider Student in an Organized Health Care Education/Training Program | DX: I50.23 Acute on chronic systolic (congestive) heart failure (principal) | CPT/HCPCS: 99223; 99233; 99239 ==

== ENCOUNTER → 2023-09-23 15:38 | Outpatient (BNV) | payer OTHER, SELFPAY | PROVIDERS: Admitting Provider Student in an Organized Health Care Education/Training Program; Emergency Provider Student in an Organized Health Care Education/Training Program; PCP Internal Medicine; Visit Provider Internal Medicine | DX: I50.23 Acute on chronic systolic (congestive) heart failure (principal); R00.0 Tachycardia, unspecified; R94.31 Abnormal electrocardiogram [ECG] [EKG] | CPT/HCPCS: 93010; 99222; 99233 ==

== ENCOUNTER → 2023-09-26 23:59 | Outpatient (BNV) | payer OTHER, SELFPAY | PROVIDERS: PCP Internal Medicine; Visit Provider Internal Medicine Cardiovascular Disease | DX: I50.20 Unspecified systolic (congestive) heart failure (principal); I42.9 Cardiomyopathy, unspecified | CPT/HCPCS: 93460; 99152 ==

== ENCOUNTER 2023-10-10 14:42 | Outpatient (REF) | payer OTHER, SELFPAY ==
[2023-10-10 16:37] LABS: Prothrombin Time 12.4 SEC (11.1-13.3)
[2023-10-10 16:49] LABS: Anion Gap 12 (12-20); Blood Urea Nitrogen 21 mg/dL (9-16); Calcium 9.7 mg/dL (8.4-10.2); Carbon Dioxide 25 mmol/L (22-29); Chloride 108 mmol/L (96-108); Estimated Glomerular Filt Rate > 60; Glucose Random 111 mg/dL (60-115); Potassium 4.3 mmol/L (3.3-5.1); Sodium 141 mmol/L (135-145)
== END 2023-10-10 14:43 | disposition home or self-care (01) ==
LOC: HO.HHCL 14:42
PROVIDERS: Visit Provider Internal Medicine
DX: I11.0 Hypertensive heart disease with heart failure (principal); I50.21 Acute systolic (congestive) heart failure
CPT/HCPCS: 36415; 80048; 84443; 85610

== ENCOUNTER 2023-10-14 08:37 | Outpatient (AMB) | payer OTHER, SELFPAY ==
--- NOTE | 2023-10-14 08:39 | A.OFFVIS_ITS ---
Intake Vital Signs 10/14/23 08:40 Height 6 ft 3 in Weight 255 lb BMI 31.9 BP 130/78 Blood Pressure Location Lt brachial Position Sitting Pulse 82 Intake [place] [facility] [place] req by PCP/ CHF Intake Note: [place] [facility] [place]F has a lifevest and had cardiac cath feeling good Subassemblies Wirer: Subassemblies Wirer Present Accompanied by: Spouse Allergies No Known Allergies Allergy (Verified 09/23/23 10:47) Medication List - Last Reconciled 10/14/23 by Ashish Voss MD albuterol sulfate 90 mcg/actuation 2 puffs inhalation Q6H PRN carvedilol 3.125 mg PO BID empagliflozin (Jardiance) 25 mg PO DAILY furosemide 40 mg PO DAILY melatonin 5 mg PO BEDTIME PRN sacubitril-valsartan 49-51 mg (Entresto) 1 tab See Protocol PO BID spironolactone 25 mg See Protocol PO DAILY HPI HPI Comments History of Present Illness Details Angel comes for follow-up after recent hospitalization and cardiac catheterization. He was recently diagnosed with severe LV systolic dysfunction and subsequent cardiac catheterization shows normal coronary artery consistent with nonischemic cardiomyopathy. He has been doing very well. He does notice shortness of breath when he pushes himself slightly. NYHA class 2. Denies any worsening shortness of breath with limited activity and or orthopnea. No leg edema. Weight has remained stable, 255 lb. Blood pressures been stable. Denies any lightheadedness, syncope. No prolonged palpitation irregular heartbeat. No arrhythmias noted on the external defibrillator. [facility] Medical History Nonischemic cardiomyopathy Heart failure with reduced ejection fraction Acute on chronic systolic (congestive) heart failure HTN (hypertension) Surgical History History of umbilical hernia repair Family History Unknown Enlarged heart Social History Household Members: Family Household Members Other:: Mom Housing: House Do you presently have visiting nurse or other home services: No Alcohol intake: never Comment: pt no longer on/requiring high flow O2. Patient Tobacco Use Status: Never used Tobacco service: No Review of Systems Const Denies chills, Denies fatigue, Denies fever(s), Denies frequent falls, Denies weakness, Denies weight gain and Denies weight loss ENT Denies dizziness Card Denies chest pain, Denies leg edema, Denies lightheadedness, Denies palpitations, Denies dyspnea, Denies dyspnea on exertion, Denies orthopnea and Denies other (loss of consciousness) Resp Denies cough, Denies dyspnea and Denies dyspnea on exertion GI Denies hematochezia and Denies change in stool character Musc Denies abnormal gait, Denies muscle weakness, Denies numbness, Denies radiating pain into limb and Denies tingling Neuro Denies abnormal gait, Denies dizziness, Denies frequent falls, Denies numbness, Denies tingling and Denies weakness Endo Denies fatigue and Denies palpitations Physical Exam Vital Signs: Last Vital Signs Pulse 82 10/14/23 08:40 BP 130/78 10/14/23 08:40 BMI result Body Mass Index 31.9 Const General: cooperative, comfortable, no acute distress, alert, awake and Physically active Nutritional Appearance: obese Orientation/consciousness: patient oriented x3 Neck Neck: Yes trachea midline, Yes supple and Yes no JVD Resp Effort & Inspection: normal respiratory effort Auscultation: clear to auscultation bilaterally Cardio Jugular venous distension: no JVD Palpation: abnormal PMI displaced PMI Rate: regular rate Rhythm: regular rhythm Heart sounds: S1 normal heart sound present, S2 normal heart sound present, no click, no gallops and no murmurs GI Auscultation: normal bowel sounds Skin General skin exam: no rashes or lesions noted Neuro General: patient oriented x3 and no focal motor deficits Extrem General: Yes no clubbing, cyanosis or edema Assessment & Plan Assessment & Plan (1) Heart failure with reduced ejection fraction: Code(s): I50.20 - Unspecified systolic (congestive) heart failure Plan: Patient with severe LV systolic dysfunction secondary to nonischemic cardiomyopathy with heart failure with NYHA class 2 symptoms. Doing well. Will refer him to phase 2 cardiac rehabilitation. Meanwhile will also up titrate his neurohormonal modulation and increase Entresto to 97-103 mg b.i.d. and Coreg to 6.25 mg b.i.d.. Continue to maximize it. Heart failure management was discussed again. Daily weight monitoring getting and avoidance of salt loading was discussed additional diuretics as needed. Continue current diuretic dose. Also continue neurohormonal modulation with spironolactone and Jardiance. Lab work today and in 4 weeks. Will follow up in 4 weeks time. Schedule for echocardiogram in mid November to assess any improvement in LV systolic function. If not then will require ICD for primary prevention. This was discussed with him. He may return to work with restrictions. Will follow up in the clinic in 4 weeks time, sooner p.r.n.. Thank you for allowing me to partake in his care Orders: Orders Cardiac Rehab Today I50.20 - Unspecified systolic (congestive) heart failure Basic Metabolic Panel Today I50.20 - Unspecified systolic (congestive) heart failure B Type Natriuretic Peptide Today I50.20 - Unspecified systolic (congestive) heart failure Magnesium Today I50.20 - Unspecified systolic (congestive) heart failure RT home sleep study Today I50.20 - Unspecified systolic (congestive) heart failure, R40.0 - Somnolence Basic Metabolic Panel 4 Weeks I50.20 - Unspecified systolic (congestive) heart failure CA echo limited 2 Months I42.9 - Cardiomyopathy, unspecified, I50.20 - Unspecified systolic (congestive) heart failure Medications: New sacubitril-valsartan 97-103 mg (Entresto) 1 tab PO BID 60 tabs 3RF carvedilol (Coreg) must administer with a meal/food 6.25 mg PO BID 60 tabs 3RF Discontinued sacubitril-valsartan 49-51 mg (Entresto) Discontinued Reason: Doctor's Order 1 tab See Protocol PO BID 60 tabs 0RF carvedilol must administer with a meal/food Discontinued Reason: Doctor's Order 3.125 mg PO BID 60 tabs 0RF Coding Level of Care Code Est Pt Level 4 (17497) Diagnoses Heart failure with reduced ejection fraction I50.20
[2023-10-14 08:40] VITALS: BP 130/78; PULSE 82; BMI 31.9
== END 2023-10-14 09:02 | disposition home or self-care (01) ==
PROVIDERS: PCP Internal Medicine; Visit Provider Internal Medicine Cardiovascular Disease
DX: I50.20 Unspecified systolic (congestive) heart failure (principal)
CPT/HCPCS: 99214

== ENCOUNTER 2023-10-14 08:37 | Outpatient (REF) | payer OTHER, SELFPAY ==
[2023-10-14 10:15] LABS: B Type Natriuretic Peptide 215 pg/mL (<100)
[2023-10-14 10:36] LABS: Anion Gap 10 (12-20); Blood Urea Nitrogen 20 mg/dL (9-16); Calcium 9.7 mg/dL (8.4-10.2); Carbon Dioxide 25 mmol/L (22-29); Chloride 109 mmol/L (96-108); Estimated Glomerular Filt Rate > 60; Glucose Random 151 mg/dL (60-115); Magnesium 2.1 mg/dL (1.6-2.6); Potassium 4.3 mmol/L (3.3-5.1); Sodium 140 mmol/L (135-145)
== END 2023-10-14 08:38 | disposition home or self-care (01) ==
LOC: HO.LAB 08:37
PROVIDERS: PCP Internal Medicine; Visit Provider Internal Medicine Cardiovascular Disease
DX: I50.20 Unspecified systolic (congestive) heart failure (principal)
CPT/HCPCS: 36415; 80048; 83735; 83880

== ENCOUNTER 2023-10-23 11:48 | Outpatient (REF) | payer OTHER, SELFPAY ==
[2023-10-23 13:46] LABS: MANUAL DIFF FLAG NO
[2023-10-23 14:06] LABS: Basophils Percent Auto 0.2 % (0-2); Eosinophils Absolute Auto 0.1 X10*3/uL (0.0-0.4); Eosinophils Percent Auto 0.5 % (0-4); Hematocrit 52.8 % (42.0-52.0); Hemoglobin 16.9 g/dl (14.0-18.0); Imm Gran Abs Auto 0.04 X10*3/uL (0.00-0.03); Imm Gran Pct Auto 0.4 % (0.0-0.4); Lymphocytes Absolute Auto 2.5 X10*3/uL (1.2-4.9); Lymphocytes Percent Auto 25.3 % (20-40); Mean Corpuscular Volume 78.1 fL (80.0-98.0); Mean Platelet Volume 9.4 fL (9.4-12.4); Monocytes Absolute Auto 0.8 X10*3/uL (0.1-1.2); Monocytes Percent Auto 8.1 % (2-11); Neutrophils Absolute Auto 6.4 x10*3/uL (2.0-8.3); Neutrophils Percent Auto 65.5 % (45-73); Platelet Count 313 X10*3/uL (160-400); Red Blood Count 6.76 X10*6/uL (4.60-5.80); Red Cell Distribution Width 15.8 % (11.0-16.0); White Blood Count 9.8 X10*3/uL (4.8-10.8)
== END 2023-10-23 11:49 | disposition home or self-care (01) ==
LOC: HO.HHCL 11:48
PROVIDERS: Visit Provider Internal Medicine
DX: J10.1 Influenza due to other identified influenza virus with other respiratory manifestations (principal)
CPT/HCPCS: 36415; 85025

== ENCOUNTER → 2023-11-20 16:20 | Outpatient (REF) | payer OTHER, SELFPAY | LOC: HO.SL 16:20 | PROVIDERS: PCP Internal Medicine; Visit Provider Internal Medicine Cardiovascular Disease | DX: G47.33 Obstructive sleep apnea (adult) (pediatric) (principal); R40.0 Somnolence | CPT/HCPCS: 95806 ==

== ENCOUNTER → 2023-11-20 16:25 | Outpatient (BNV) | payer OTHER, SELFPAY | PROVIDERS: PCP Internal Medicine; Visit Provider Internal Medicine | DX: G47.33 Obstructive sleep apnea (adult) (pediatric) (principal) | CPT/HCPCS: 95806 ==

== ENCOUNTER 2023-11-28 09:57 | Outpatient (RCR) | payer OTHER, SELFPAY | END 2023-12-10 11:25 | disposition home or self-care (01) | LOC: HO.CR 09:57 | PROVIDERS: PCP Internal Medicine; Visit Provider Internal Medicine Cardiovascular Disease | DX: I50.20 Unspecified systolic (congestive) heart failure (principal) | CPT/HCPCS: 93798 ==

== ENCOUNTER → 2023-11-29 12:54 | Outpatient (REF) | payer OTHER, SELFPAY ==
--- NOTE | 2023-11-29 12:57 | CA_ITS ---
Transthoracic Echocardiogram Patient (Last, First, Middle): Angel Kee, Gender: Male Date of : 1990 Age: 33 Procedure Date: 11/29/2023 Procedure Type: Transthoracic Echocardiogram Location: OP Height: 190.5 cm Weight: 115.67 kg BSA: 2.43 m2 Heart Rate: bpm BP: 102 / 80 mmHg Clinical Operations Leader: TO Referring MD: Ashish Voss MD Symptoms: I42.9 - Cardiomyopathy, unspecified Study Quality: Fair/Contrast ECG Rhythm: Sinus Conclusions: - Severely increased left ventricular cavity size. The left ventricular systolic function is severely decreased. The calculated ejection fraction is 12% by biplane method. Findings Procedure Information Contrast agent, definity, is being given per protocol without apparent complications. Left Ventricle Severely increased left ventricular cavity size. The left ventricular systolic function is severely decreased. The calculated ejection fraction is 12% by biplane method. There is severe global hypokinesis. Venous The inferior vena cava is mildly dilated and collapses greater than 50% with inspiration. Prior Study Comparison No significant change compared to prior study dated: 09/16/2023. Measurements 2D Linear Measurements IVSd: 1.00 0.6-0.9/0.6-1.0 cm LVIDd: 8.01 3.9-5.3/4.2-5.9 cm LVIDd Index: 3.30 2.4-3.2/2.2-3.1 cm/m2 LVIDs: 7.58 2.0-3.6 cm LVPWd: 1.00 0.7-1.1 cm LV Mass: 508.02 67-162/88-224 g LV Mass Index: 209.06 43-95/49-115 g/m2 LVOT Diam: 2.20 3.0+(-)1.3 cm 2D Systolic Function EF 4C: 17.40 >55% EF 2C: 7.71 >55% EF BiP: 12.40 >55% LVOT LVOT Pk Basilio: 0.76 LVOT Mn Basilio: 0.52 LVOT VTI: 0.14 LVOT Pk Grad: 2.00 LVOT Mn Grad: 1.00 LVOT Diam: 2.20 LVOT Area: 3.80 Tricuspid Valve RA Press: 8.00 Updated in Other Vendor System with Status of Final John James MD electronically signed on 12/01/2023 8:02:12 AM with status of Final
== END ==
LOC: HO.CARD 12:54
PROVIDERS: PCP Internal Medicine; Visit Provider Internal Medicine Cardiovascular Disease
DX: I42.9 Cardiomyopathy, unspecified (principal); I50.20 Unspecified systolic (congestive) heart failure
CPT/HCPCS: 93308; Q9957

== ENCOUNTER → 2023-11-29 12:57 | Outpatient (BNV) | payer OTHER, SELFPAY | PROVIDERS: PCP Internal Medicine; Visit Provider Internal Medicine | DX: I42.9 Cardiomyopathy, unspecified (principal) | CPT/HCPCS: 93308 ==

== ENCOUNTER 2023-12-03 13:22 | Outpatient (AMB) | payer OTHER, SELFPAY ==
[2023-12-03 13:27] VITALS: BP 100/60; PULSE 78; BMI 33.0
--- NOTE | 2023-12-03 13:27 | A.OFFVIS_ITS ---
Intake Vital Signs 12/03/23 13:27 Height 6 ft 3 in Weight 264 lb 1.82 oz BMI 33.0 BP 100/60 Blood Pressure Location Lt brachial Pulse 78 Pulse Source Pulse Oximeter Intake Visit Reasons: f/u after testing Manager Of Program Required: Yes Manager Of Program Language: Tobacco Drier Operator Name: fifi Allergies No Known Allergies Allergy (Verified 12/03/23 13:29) Medication List - Last Reconciled 12/03/23 by Betsy Clark STUDY ABROAD COORDINATOR-C albuterol sulfate 90 mcg/actuation 2 puffs inhalation Q6H PRN carvedilol (Coreg) 6.25 mg PO BID 30 days empagliflozin (Jardiance) 25 mg PO DAILY furosemide 40 mg PO DAILY melatonin 5 mg PO BEDTIME PRN sacubitril-valsartan 97-103 mg (Entresto) 1 tab PO BID 30 days spironolactone 25 mg See Protocol PO DAILY HPI f/u after testing HPI Details Angel is a 33-year-old male with past medical history of hypertension, [place] [facility] [place] Congestive heart [place], finding of cardiomyopathy who was started on appropriate medical management then underwent cardiac catheterization and now presents for follow-up. Today he reports he has been feeling well since his last visit in September. He does have shortness of breath with walking distances and climbing stairs. He has no shortness of breath at rest. He denies having PND, orthopnea or edema. No chest discomfort at rest or with activity. No heart palpitations, lightheadedness, presyncope, syncope, falls. 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 Does not do exertional work. In all meds as directed. Having trouble getting to cardiac rehab with his work schedule. [facility] Medical History (Updated 12/03/23 @ 16:23 by Betsy Clark, STUDY ABROAD COORDINATOR-C) Nonischemic cardiomyopathy Heart failure with reduced ejection fraction Acute on chronic systolic (congestive) heart failure HTN (hypertension) Surgical History (Updated 12/03/23 @ 18:00 by Betsy Clark, GIBSON-C) History of umbilical hernia repair Family History Unknown Enlarged heart Social History Household Members: Family Household Members Other:: Mom Housing: House Do you presently have visiting nurse or other home services: No Alcohol intake: never Comment: pt no longer on/requiring high flow O2. Patient Tobacco Use Status: Never used Tobacco service: No Review of Systems Const All systems reviewed & are unremarkable except as noted in HPI and below ENT Denies dizziness Card Denies chest pain, Denies chest pain at rest, Denies chest pain with activity, Denies rapid heart rate, Denies pedal edema, Denies edema, Denies leg edema, Denies lightheadedness, Denies palpitations, Denies dyspnea, Reports dyspnea on exertion and Denies orthopnea Resp Denies cough, Denies dyspnea and Reports dyspnea on exertion GI Denies hematochezia and Denies change in stool character Musc Denies abnormal gait, Denies limited range of motion, Denies muscle cramps, Denies muscle weakness, Denies numbness, Denies radiating pain into limb, Denies stiffness and Denies tingling Neuro Denies abnormal gait, Denies dizziness, Denies numbness and Denies tingling Endo Denies palpitations Physical Exam Vital Signs: Last Vital Signs Pulse 78 12/03/23 13:27 BP 100/60 12/03/23 13:27 BMI result Body Mass Index 33.0 Const General: cooperative, healthy appearing, comfortable and no acute distress Orientation/consciousness: patient oriented x3 Neck Neck: Yes normal visual inspection and Yes no JVD Resp Effort & Inspection: normal respiratory effort Auscultation: clear to auscultation bilaterally, no crackles, no rales, no rhonchi and no wheezes Cardio Jugular venous distension: no JVD Rate: regular rate Rhythm: regular rhythm Heart sounds: S1 normal heart sound present, S2 normal heart sound present, no murmurs and no rubs Neuro General: patient oriented x3 Extrem General: Yes normal to inspection, No no pedal edema and No calf tenderness Psych Appearance: grossly normal Mental Status: mental status grossly normal Speech and movement: Normal speech and movement present Office Procedures EKG Details: Today, read by me, normal sinus rhythm, biatrial enlargement, anterior q waves, T wave abn V5-V6, rate 77, QTc 461ms [id number], Complete Assessment & Plan Assessment & Plan (1) Nonischemic cardiomyopathy: Comment: Cardiac catheterization showing normal coronary arteries Code(s): I42.8 - Other cardiomyopathies Plan: Newer finding of nonischemic cardiomyopathy on initial echo 09/16/2023 showing EF 10-15%. He was treated for heart failure during that hospital admission. He was seen by Dr. Voss in consultation and started on appropriate neurohormonal modulation. A cardiac catheterization was done on 09/26/2023 showing normal coronary arteries. A limited echo was done on 11/29/2023 showing EF 12%. Today he reports shortness of breath with stair climbing and walking distances. No PND, orthopnea or edema. He is on carvedilol and Entresto for neurohormonal modulation. He is also on Jardiance, Aldactone, furosemide. On examination he has no signs of fluid overload. NYHA class 2. Unable to further titrate medications at this time as his blood pressure is 100/60. His repeat limited echo was done over 2 weeks early. Will then need to have another limited echocardiogram done after 12/16 which will be officially 3 months since the start of medical management. If EF remains less than 35% then ICD is indicated. Spent time reviewing this with patient in detail and he states understanding. At this time will start the process and refer him to Dr. Chambers for ICD evaluation and placement. Cardiology office visit in 2-3 months, sooner if ne eded. (2) Heart failure with reduced ejection fraction: Code(s): I50.20 - Unspecified systolic (congestive) heart failure Plan: As above (3) HTN (hypertension): Code(s): I10 - Essential (primary) hypertension Plan: As above (4) Hx of cardiac cath: Comment: 09/26/2023 normal coronaries Code(s): Z98.890 - Other specified postprocedural states Plan Time spent on chart review, documentation, interview and assessment Orders: Orders CA echo limited 12/18/23 I42.8 - Other cardiomyopathies Referrals Cardiac Electrophysiology Referral I42.8 - Other cardiomyopathies Coding Level of Care Code Est Pt Level 4 (55241) Diagnoses Nonischemic cardiomyopathy I42.8 Heart failure with reduced ejection fraction I50.20 HTN (hypertension) I10 Hx of cardiac cath Z98.890 CPT Codes EKG - CPT: 75523-[id number], Complete ([id number]) Time Spent (min) 30
== END 2023-12-03 14:09 | disposition home or self-care (01) ==
PROVIDERS: PCP Internal Medicine; Visit Provider Nurse Practitioner Family
DX: I42.8 Other cardiomyopathies (principal); I50.20 Unspecified systolic (congestive) heart failure; I10 Essential (primary) hypertension; Z98.890 Other specified postprocedural states
CPT/HCPCS: 93010; 99214

== ENCOUNTER → 2023-12-03 13:22 | Outpatient (BNVA) | payer OTHER, SELFPAY | PROVIDERS: PCP Internal Medicine; Visit Provider Nurse Practitioner Family | DX: I42.8 Other cardiomyopathies (principal); I11.0 Hypertensive heart disease with heart failure; I50.20 Unspecified systolic (congestive) heart failure; Z79.899 Other long term (current) drug therapy | CPT/HCPCS: 93005 ==

== ENCOUNTER → 2023-12-25 12:58 | Outpatient (REF) | payer OTHER, SELFPAY ==
--- NOTE | 2023-12-25 13:00 | CA_ITS ---
Transthoracic Echocardiogram Patient (Last, First, Middle): Angel Kee, Gender: Male Date of : 1990 Age: 33 Procedure Date: 12/25/2023 Procedure Type: Transthoracic Echocardiogram Location: OP Height: 190.5 cm Weight: 117.94 kg BSA: 2.45 m2 Heart Rate: 67 bpm BP: 102 / 64 mmHg Web Design Intern: RADHA Referring MD: Betsy Clark ARBORERMusaC Police Worker: Ashish Voss MD Symptoms: I42.8 - Other cardiomyopathies Study Quality: Adequate w contrast ECG Rhythm: Sinus Conclusions: - Severely dilated left ventricle with severely reduced LV ejection fraction of 15-20% with impaired relaxation filling pattern Findings Procedure Information Contrast agent, definity, is being given per protocol without apparent complications. The quality of the study was technically difficult. The study quality is limited by patients body habitus. Left Ventricle Severely increased left ventricular cavity size. The visually estimated ejection fraction is between 15-20%. There is severe global hypokinesis. Spectral Doppler is indicative of an impaired relaxation filling pattern. E/E prime ratio is between 8 and 15 consistent with indeterminate filling pressures. Prior Study Comparison Changes noted compared to prior study dated: 11/29/2023. LV ejection fraction is marginally improved Measurements 2D Linear Measurements IVSd: 0.65 0.6-0.9/0.6-1.0 cm LVIDd: 8.46 3.9-5.3/4.2-5.9 cm LVIDd Index: 3.45 2.4-3.2/2.2-3.1 cm/m2 LVIDs: 7.56 2.0-3.6 cm LVPWd: 0.94 0.7-1.1 cm LV Mass: 426.91 67-162/88-224 g LV Mass Index: 174.25 43-95/49-115 g/m2 LVOT Diam: 2.30 3.0+(-)1.3 cm Mitral Valve MV Pk E: 0.46 MV PK A: 0.81 MV Decel Time: 143.00 E/A: 0.60 E'Lateral: 2.61 E'Medial: 3.59 E/E' Med: 12.80 E/E' Lat: 17.50 PHT: 42.00 MVA PHT: 5.24 Decel Gibson: 3.21 LVOT LVOT Pk Basilio: 0.60 LVOT Mn Basilio: 0.41 LVOT VTI: 0.10 LVOT Pk Grad: 1.00 LVOT Mn Grad: 1.00 LVOT Diam: 2.30 LVOT Area: 4.15 Diastolic Function MV Pk E: 0.46 MV Pk A: 0.81 E/A: 0.60 E'Medial: 3.59 E/E' Med: 12.80 E' Laterial: 2.61 E/E' Lat: 17.50 Tricuspid Valve RA Press: 3.00 Updated in Other Vendor System with Status of Final Ashish Voss MD electronically signed on 12/25/2023 2:47:29 PM with status of Final
== END ==
LOC: HO.CARD 12:58
PROVIDERS: PCP Internal Medicine; Visit Provider Internal Medicine Cardiovascular Disease
DX: I42.8 Other cardiomyopathies (principal)
CPT/HCPCS: 93308; Q9957

== ENCOUNTER → 2023-12-25 13:00 | Outpatient (BNV) | payer OTHER, SELFPAY | PROVIDERS: PCP Internal Medicine; Visit Provider Internal Medicine Cardiovascular Disease | DX: I42.0 Dilated cardiomyopathy (principal) | CPT/HCPCS: 93308; 93321; 93325 ==

== ENCOUNTER 2024-01-01 14:07 | Outpatient (AMB) | payer OTHER, SELFPAY ==
--- NOTE | 2024-01-01 14:19 | MHC.OFFVIS ---
Intake Intake Visit Reasons: 1y follow up Intake Note: Patient presents today for follow up microhematuria Urology Medications: none Blood Thinner: none Clinical Research Management Associate Required: Yes Clinical Research Management Associate Name: GLO HAYWARD Accompanied by: Self / Same As Patient Allergies No Known Allergies Allergy (Verified 01/01/24 14:34) Medication List - Last Reconciled 01/01/24 by ORLANDO Guzman albuterol sulfate 90 mcg/actuation 2 puffs inhalation Q6H PRN carvedilol (Coreg) 6.25 mg PO BID 30 days empagliflozin (Jardiance) 25 mg PO DAILY furosemide 40 mg PO DAILY melatonin 5 mg PO BEDTIME PRN sacubitril-valsartan 49-51 mg (Entresto) 1 tab PO BID spironolactone 25 mg See Protocol PO DAILY HPI HPI Comments History of Present Illness Details Angel is a very pleasant 33-year-old Maltese-speaking male patient of Dr. Higginbotham. He has a past medical history of nonischemic cardiomyopathy, heart failure with reduced ejection fracture, and hypertension. He presents to the office today for follow-up. Of note, approximately 1 year ago patient underwent an office cystoscopy with Dr. Allen for ongoing lower urinary tract symptoms as well as microscopic hematuria. Cystoscopy noted trigonitis at which time patient was put on a 3 month daily trimethoprim dose. In discussion with the patient today he reports to have completed daily trimethoprim as prescribed by Dr. Allen. He reports having had no urological issues or concerns. He denies urinary urgency, urinary frequency, incontinence, nocturia, hematuria, dysuria, foul smelling urine, changes to urinary stream, flank pain, fever, and or chills. He is happy with his current voiding parameters. In office urinalysis results reviewed with the patient today. He discusses his ongoing cardiac issues and possibly needing a pacemaker. He otherwise offers no other issues or concerns at this time. 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 Patient Tobacco Use Status: Never used Tobacco service: No Review of Systems Const Reports as per HPI Eyes Reports no additional complaints ENT Reports no additional complaints Card Reports as per HPI Resp Reports no additional complaints GI Reports no additional complaints Reports no additional complaints Musc Reports no additional complaints Neuro Reports no additional complaints Psych Reports no additional complaints Endo Reports as per HPI Inder/Lymph Reports no additional complaints Aller/Immun Reports no additional complaints Physical Exam Const General: cooperative, healthy appearing, comfortable, no acute distress, well developed, alert and awake Nutritional Appearance: overweight Orientation/consciousness: patient oriented x3 Limitations: no limitations HEENT Head: Yes normal to inspection, Yes normocephalic and Yes atraumatic Ears: hearing grossly normal bilaterally Eyes General: appearance normal, both eyes and all related structures Neck Neck: Yes normal visual inspection and Yes trachea midline Chest Chest palpation & inspection: normal inspection of the chest Resp Effort & Inspection: normal respiratory effort and able to speak in complete sentences Cardio Rate: regular rate GI Inspection: Yes normal to inspection General: Yes no CVA tenderness Back/Spine/Pelvis Back: no CVA tenderness Skin General skin exam: no rashes or lesions noted Neuro General: patient oriented x3 Extrem General: Yes normal to inspection and Yes full ROM Psych Appearance: grossly normal and well kempt Mental Status: mental status grossly normal Speech and movement: Normal speech and movement present and Clear speech present Affect: normal affect Attitude: cooperative Thought process: Normal thought process present Thought content: Normal thought content present Insight: Fair insight present (Psych) Judgement: Fair judgement present (Psych) Results AMB Urinalysis, Automated UA Leukoctes 0 Nga/uL Last Edit by Milana Pedersen on 01/01/24 14:31 UA Nitrite Negative Last Edit by Milana Pedersen on 01/01/24 14:31 UA Urobilinogen 0.2 mg/dL Last Edit by Milana Pedersen on 01/01/24 14:31 UA Protein 0 mg/dL Last Edit by Milana Pedersen on 01/01/24 14:31 UA pH 5.5 Last Edit by Milana Pedersen on 01/01/24 14:31 UA Blood 0 Artem/uL Last Edit by Milana Pedersen on 01/01/24 14:31 UA Specific [place] 1.020 Last Edit by Milana Peedrsen on 01/01/24 14:31 UA Ketone Negative Last Edit by Milana Pedersen on 01/01/24 14:31 UA Bilirubin 0 mg/dL Last Edit by Milana Pedersen on 01/01/24 14:31 UA Glucose 1000 mg/dL Last Edit by Milana Pedersen on 01/01/24 14:31 Results Reviewed Results Reviewed: Laboratory Last Values Urine pH (Auto) 5.5 01/01/24 14:22 Specific [place] (Auto) 1.020 01/01/24 14:22 Urine Protein (Auto) 0 mg/dL 01/01/24 14:22 Glucose (UA)(Auto) 1000 mg/dL 01/01/24 14:22 Urine Ketones (Auto) Negative 01/01/24 14:22 Urine Blood (Auto) 0 Artem/uL 01/01/24 14:22 Urine Nitrite (Auto) Negative 01/01/24 14:22 Urine Bilirubin (Auto) 0 mg/dL 01/01/24 14:22 Urine Urobilinogen (Auto) 0.2 mg/dL 01/01/24 14:22 Leukocyte Esterase (Auto) 0 Nga/uL 01/01/24 14:22 Assessment & Plan Assessment & Plan (1) Microscopic hematuria: Code(s): R31.29 - Other microscopic hematuria Plan In office urinalysis results reviewed with the patient today; as noted above. Patient currently denies any bothersome urinary issues or concerns. He is happy with current voiding parameters. No microscopic hematuria noted on urinalysis today. Discussed at length potential causes of microscopic hematuria. Follow-up in 1 year; or sooner with any issues, concerns, and or questions. Orders: Orders AMB Urinalysis Automated Today Z13.9 - Encounter for screening, unspecified Patient Instructions: The patient had an opportunity to ask questions regarding the treatment plan. All questions were answered. Physical exam, labs, and imaging were discussed and reviewed in detail. As well as risks, benefits, and discussion of treatment choices. No major barriers to understanding were identified. The patient expressed understanding and agreement with the above treatment plan. The patient was made aware they should contact our office by phone for worsening of their current condition, the appearance of new symptoms, or with any questions or concerns. Compliance is encouraged with any medications and follow up testing that is ordered. It is a privilege to be allowed the opportunity to participate in? your urological care.? Again, if you have any questions or concerns If you have any questions or concerns please do not hesitate to contact me. The office is [phone]. This note is constructed using voice recognition software. While every effort has been made to ensure accuracy windows systems architect errors may have been included. Yours sincerely, ORLANDO Guzman Coding Level of Care Code Est Pt Level 3 (91423) Diagnoses Microscopic hematuria R31.29
== END 2024-01-01 14:41 | disposition home or self-care (01) ==
PROVIDERS: Visit Provider Nurse Practitioner Family
DX: R31.29 Other microscopic hematuria (principal)
CPT/HCPCS: 99213

== ENCOUNTER → 2024-01-01 14:07 | Outpatient (BNVA) | payer OTHER, SELFPAY | PROVIDERS: Visit Provider Nurse Practitioner Family | DX: R31.29 Other microscopic hematuria (principal) | CPT/HCPCS: 81003 ==

== ENCOUNTER 2024-01-27 08:18 | Outpatient (REF) | payer MEDICAID, SELFPAY ==
[2024-01-27 11:16] LABS: B Type Natriuretic Peptide 45 pg/mL (<100)
[2024-01-27 11:26] LABS: Anion Gap 14 (12-20); Blood Urea Nitrogen 18 mg/dL (9-16); Calcium 10.1 mg/dL (8.4-10.2); Carbon Dioxide 25 mmol/L (22-29); Chloride 106 mmol/L (96-108); Estimated Glomerular Filt Rate > 60; Glucose Random 115 mg/dL (60-115); Potassium 3.9 mmol/L (3.3-5.1); Sodium 141 mmol/L (135-145)
== END 2024-01-27 08:19 | disposition home or self-care (01) ==
LOC: HO.LAB 08:18
PROVIDERS: PCP Internal Medicine; Visit Provider Internal Medicine Cardiovascular Disease
DX: I50.20 Unspecified systolic (congestive) heart failure (principal)
CPT/HCPCS: 36415; 80048; 83880; 93005

== ENCOUNTER 2024-01-27 08:18 | Outpatient (AMB) | payer OTHER, SELFPAY ==
[2024-01-27 08:31] VITALS: BP 108/64; PULSE 81; BMI 33.6
--- NOTE | 2024-01-27 08:31 | A.OFFVIS_ITS ---
Vital Signs 01/27/24 08:31 Height 6 ft 3 in Weight 268 lb 15.423 oz BMI 33.6 BP 108/64 Blood Pressure Location Lt brachial Position Sitting Pulse 81 Intake Visit Reasons: follow-up Intake Note: Follow-up c/o increased sob Senior Commissary Agent Required: Yes Senior Commissary Agent Name: [facility] Allergies No Known Allergies Allergy (Verified 01/01/24 14:34) Medication List - Last Reconciled 01/27/24 by Ashish Voss MD albuterol sulfate 90 mcg/actuation 2 puffs inhalation Q6H PRN carvedilol (Coreg) 6.25 mg PO BID 30 days empagliflozin (Jardiance) 25 mg PO DAILY furosemide 40 mg PO DAILY melatonin 5 mg PO BEDTIME PRN sacubitril-valsartan 49-51 mg (Entresto) 1 tab PO BID spironolactone 25 mg See Protocol PO DAILY HPI Comments Details: Angel comes for follow-up. He continues to have exertional chest discomfort when he does heavy work. Also has exertional shortness of breath especially lifting heavy weight. He has been taking all his medications. He denies any orthopnea, PND, leg edema. Has been gradually gaining weight but does not think this is fluid overload, mostly thinks this is related to better eating. Denies any palpitations, lightheadedness, syncope. Wearing external vest defibrillator without any events. Echocardiogram shows persistent severe LV systolic dysfunction with LVEF of 10-15%. [facility] Medical History (Updated 01/27/24 @ 09:22 by Ashish Voss MD) Decompensated heart failure Nonischemic cardiomyopathy Heart failure with reduced ejection fraction Acute on chronic systolic (congestive) heart failure HTN (hypertension) Surgical History History of umbilical hernia repair Family History Unknown Enlarged heart Social History Household Members: Family Household Members Other:: Mom Housing: House Do you presently have visiting nurse or other home services: No Alcohol intake: never Comment: pt no longer on/requiring high flow O2. Patient Tobacco Use Status: Never used Tobacco service: No Review of Systems Const Denies chills, Denies fatigue, Denies fever(s), Denies frequent falls, Denies weakness, Denies weight gain and Denies weight loss ENT Denies dizziness Card Denies chest pain, Denies leg edema, Denies lightheadedness, Denies palpitations, Denies dyspnea, Denies dyspnea on exertion, Denies orthopnea and Denies other (loss of consciousness) Resp Denies cough, Denies dyspnea and Denies dyspnea on exertion GI Denies hematochezia and Denies change in stool character Musc Denies abnormal gait, Denies muscle weakness, Denies numbness, Denies radiating pain into limb and Denies tingling Neuro Denies abnormal gait, Denies dizziness, Denies frequent falls, Denies numbness, Denies tingling and Denies weakness Endo Denies fatigue and Denies palpitations Physical Exam Vital Signs: Last Vital Signs Pulse 81 01/27/24 08:31 BP 108/64 01/27/24 08:31 BMI result Body Mass Index 33.6 Const General: cooperative, healthy appearing, comfortable and no acute distress Orientation/consciousness: patient oriented x3 Neck Neck: Yes normal visual inspection and Yes no JVD Resp Effort & Inspection: normal respiratory effort Auscultation: clear to auscultation bilaterally, no crackles, no rales, no rhonchi and no wheezes Cardio Jugular venous distension: no JVD Rate: regular rate Rhythm: regular rhythm Heart sounds: S1 normal heart sound present, S2 normal heart sound present, no murmurs and no rubs Neuro General: patient oriented x3 Extrem General: Yes normal to inspection, No no pedal edema and No calf tenderness Psych Appearance: grossly normal Mental Status: mental status grossly normal Speech and movement: Normal speech and movement present Office Procedures EKG Details: EKG shows normal sinus rhythm with 89 beats per minute rightward axis with poor R-wave progression as well as diffuse ST T wave changes suggestive of repolarization abnormality unchanged from before 12422-[id number], Complete Assessment & Plan Assessment & Plan (1) Heart failure with reduced ejection fraction: Code(s): I50.20 - Unspecified systolic (congestive) heart failure Category: Medical Plan: Heart failure with reduced ejection fraction with severe LV systolic dysfunction, persistent despite guideline based medical therapy. He is currently wearing a vest defibrillator. Continues to NYHA class 2 symptoms and chest discomfort. Discussed with him with help of plastic sheets supervisor the limitation associated with severe cardiomyopathy. I am going to further uptitrate his carvedilol to 12.5 mg b.i.d.. Clinically appears to be euvolemic and well compensated although has worsening symptoms slightly. Will check BMP and BNP. Further adjust dose of Lasix as need be. Daily weight monitoring avoidance of salt loading was discussed. Additional diuretics as need be. He understands agrees. Continue current dose of Entresto, Jardiance as well as spironolactone. Advised to participate in phase 2 cardiac rehabilitation to improve exercise capacity. Following that and after completion of program will set him up for regular treadmill stress test to evaluate exercise capacity. If his markedly diminished exercise capacity will refer him for evaluation of cardiac transplant. This was discussed with him. Given his persistent severe cardiomyopathy and persistent symptoms despite guideline based medical therapy will refer him for placement of single-chamber ICD given that he does not have any significant left bundle morphology on his baseline EKG. This was discussed with him. The risks, benefits, alternatives were discussed with him. He understands and agrees. He is agreeable to pursue with this management plan. (2) Nonischemic cardiomyopathy: Comment: Cardiac catheterization showing normal coronary arteries Code(s): I42.8 - Other cardiomyopathies Category: Medical Plan: Severe persistent nonischemic cardiomyopathy of unclear etiology. Discussed with him about management in details as above. Will follow up in the clinic after ICD placement for wound check in his 6 weeks after ICD placement for device check. Greater than 40 minutes was spent in managing his complex care. Orders: Orders Basic Metabolic Panel Today I50.20 - Unspecified systolic (congestive) heart failure Cardiac Rehab 4 Weeks I50.20 - Unspecified systolic (congestive) heart failure B Type Natriuretic Peptide Today I50.20 - Unspecified systolic (congestive) heart failure Referrals Cardiac Electrophysiology Referral I50.20 - Unspecified systolic (congestive) heart failure Medications: New carvedilol (Coreg) must administer with a meal/food 12.5 mg PO BID 60 tabs 5RF Refilled furosemide 40 mg PO DAILY 30 tabs 0RF Discontinued carvedilol (Coreg) must administer with a meal/food Dr. Higginbotham to Rx for 340B qualification (Cost reduction) Discontinued Reason: Doctor's Order 6.25 mg PO BID 30 days 60 tabs 5RF Coding Level of Care Code Est Pt Level 5 (46819) Diagnoses Heart failure with reduced ejection fraction I50.20 Nonischemic cardiomyopathy I42.8 CPT Codes EKG - CPT: 04518-[id number], Complete ([id number])
== END 2024-01-27 09:02 | disposition home or self-care (01) ==
PROVIDERS: PCP Internal Medicine; Visit Provider Internal Medicine Cardiovascular Disease
DX: I50.20 Unspecified systolic (congestive) heart failure (principal); I42.8 Other cardiomyopathies
CPT/HCPCS: 93010; 99215

== ENCOUNTER → 2024-02-13 09:59 | Outpatient (BNVA) | payer OTHER, MEDICAID, SELFPAY | PROVIDERS: PCP Internal Medicine; Visit Provider Internal Medicine Cardiovascular Disease ==

== ENCOUNTER 2024-02-14 11:22 | Day surgery (SDC) | payer OTHER, SELFPAY ==
[2024-02-14] VITALS (12 sets, daily range): BP systolic 101–149; BP diastolic 55–90; PULSE 71–86; RESP 14–20; TEMP 36.1–36.9; O2SAT 94–99; BMI 34.6; BMI 34.5
--- NOTE | ~2024-02-14 | FL_ITS ---
EXAMINATION: XR FLUOROSCOPY WITH IMAGES CLINICAL INFORMATION: ICD insertion. COMPARISON: None available. TECHNIQUE: Fluoroscopy Supervised By: Dr. Eliot Chambers. Fluoroscopy Time: 0.0 minutes. Cumulative Dose: 1.56 mGy. DAP: 0.425 Gy-cm2. Images: 1. FINDINGS: Intraoperative fluoroscopy and spot films were performed during a procedure in the OR. A lead from an ICD device is seen overlying the mid heart. Approach is from the left chest wall. Please see Dr. Eliot Chambers's report for complete details. FL/FL guidance in OR IMPRESSION: Intraoperative fluoroscopy and spot films were obtained. Please see Dr. Eliot Chambers's report for complete details.
--- NOTE | ~2024-02-14 | XR_ITS ---
EXAMINATION: XR CHEST CLINICAL INFORMATION: Follow-up ICD placement. COMPARISON: Most recent chest radiograph dated 09/23/2023. TECHNIQUE: 2 views of the chest were obtained. FINDINGS: Left chest wall AICD with its lead overlying the heart. No pleural effusion or pneumothorax. Stable cardiomegaly. No new airspace consolidation. XR/XR chest 2V IMPRESSION: 1. Left chest wall AICD with its lead overlying the heart. 2. Stable cardiomegaly.
[2024-02-14 12:57] LABS: Glucose, Whole Blood 112 mg/dL (60-115)
[2024-02-14] MEDS: Lactated Ringers 500 ML 20 ML IVCONT (13:01)
--- NOTE | 2024-02-14 13:30 | P.CONAN_ITS ---
Documented by User: Alyssa Ricardo NP 02/13/24 09:34 HPI - Anesthesia Eval Consult details Narrative: 33yo M for ICD insertion Nonischemic cardiomyopathy of unclear etiology. EF 15-20%, no improvement on entresto since 08/2023. Anesthesia Pre-Procedure Meds Is the patient on any of the following meds?: SGLT2 Inhib PMFSH Active Problems Active Problems: All Active Problems Hx of cardiac cath (Acute) HTN (hypertension) (Acute) Nonischemic cardiomyopathy (Acute) Heart failure with reduced ejection fraction (Acute) Acute right lower quadrant pain (Acute) Shortness of breath (Acute) Trigonitis with hematuria (Acute) Microscopic hematuria (Acute) Lipoma of abdominal wall (Acute) Right lower quadrant pain (Acute) Past Medical History Medical History (Updated 02/14/24 @ 12:32 by Natalia Mcarthur RN) Diabetes Asthma Nonischemic cardiomyopathy Heart failure with reduced ejection fraction Acute on chronic systolic (congestive) heart failure Decompensated heart failure HTN (hypertension) Family History Family History Unknown Enlarged heart Surgical History Surgical History History of umbilical hernia repair Social History Social History Household Members: Family Household Members Other:: Mom Housing: House Do you presently have visiting nurse or other home services: No Alcohol intake: never Comment: pt no longer on/requiring high flow O2. Patient Tobacco Use Status: Never used Tobacco Use of substances other than those prescribed or required for medical reasons: No Are you DNR?: No Advance Directives: No Advance Directives Information Provided: Yes service: No Meds Allergies Allergy/AdvReac Type Severity Reaction Status Date / Time No Known Allergies Allergy Verified 01/01/24 14:34 Home Medications ?Medication ?Instructions ?Recorded ?Confirmed ?Last Taken ?Type albuterol sulfate 90 mcg/actuation 2 puff inhalation Q6H PRN wheezing 09/16/23 02/14/24 Unknown History aerosol inhaler melatonin 5 mg tablet 5 mg PO BEDTIME PRN insomnia 09/16/23 02/14/24 Unknown History sacubitril 49 mg-valsartan 51 mg 1 tab PO BID 01/01/24 02/14/24 Unknown History tablet (Entresto) nifedipine 60 mg tablet,extended 60 mg PO DAILY 02/14/24 02/14/24 Unknown History release 24 hr spironolactone 25 mg tablet 103 mg PO DAILY 02/14/24 02/14/24 Unknown History Exam Pertinent Lab Results Pertinent Lab Results: Laboratory Tests 10/23/23 01/27/24 11:50 09:36 WBC 9.8 Hgb 16.9 Hct 52.8 H Plt Count 313 Sodium 141 Potassium 3.9 Chloride 106 Carbon Dioxide 25 Anion Gap 14 BUN 18 H Creatinine 1.25 B-Natriuretic Peptide 45 Narrative Narrative: EKG 12/2023 normal sinus rhythm with 89 beats per minute rightward axis with poor R-wave progression as well as diffuse ST T wave changes suggestive of repolarization abnormality unchanged from before ECHO 11/2023 Conclusions: - Severely dilated left ventricle with severely reduced LV ejection fraction of 15-20% with impaired relaxation filling pattern Assessment and Plan Assessment Anesthesia Assessment: Chart Reviewed Documented by User: Charo Gupta DO 02/14/24 13:35 HPI - Anesthesia Eval Anesthesia Pre-Procedure Meds Is the patient on any of the following meds?: SGLT2 Inhib (Jardiance - last dose 02/08/24) If yes to any meds - educate patient: Pt education - increased risk of aspiration and/or euvolemic DKA [facility] Past Medical History Medical History (Updated 02/14/24 @ 12:32 by Natalia Mcarthur RN) Diabetes Asthma Nonischemic cardiomyopathy Heart failure with reduced ejection fraction Acute on chronic systolic (congestive) heart failure Decompensated heart failure HTN (hypertension) Family History Family History Unknown Enlarged heart Family history of problems with anesthesia: No Surgical History Surgical History History of umbilical hernia repair History of Problems with Anesthesia: No Social History Social History Household Members: Family Household Members Other:: Mom Housing: House Do you presently have visiting nurse or other home services: No Alcohol intake: never Comment: pt no longer on/requiring high flow O2. Patient Tobacco Use Status: Never used Tobacco Use of substances other than those prescribed or required for medical reasons: No Are you DNR?: No Advance Directives: No Advance Directives Information Provided: Yes service: No Meds Allergies Allergy/AdvReac Type Severity Reaction Status Date / Time No Known Allergies Allergy Verified 01/01/24 14:34 Home Medications ?Medication ?Instructions ?Recorded ?Confirmed ?Last Taken ?Type albuterol sulfate 90 mcg/actuation 2 puff inhalation Q6H PRN wheezing 09/16/23 02/14/24 Unknown History aerosol inhaler melatonin 5 mg tablet 5 mg PO BEDTIME PRN insomnia 09/16/23 02/14/24 Unknown History sacubitril 49 mg-valsartan 51 mg 1 tab PO BID 01/01/24 02/14/24 Unknown History tablet (Entresto) nifedipine 60 mg tablet,extended 60 mg PO DAILY 02/14/24 02/14/24 Unknown History release 24 hr spironolactone 25 mg tablet 103 mg PO DAILY 02/14/24 02/14/24 Unknown History Exam Exam Date and Time: February 14, 2024 1330 Height,Weight and Vital Signs: Height 6 ft 3 in Weight 125.645 kg Vital Signs Temperature 97.4 F 02/14/24 12:51 Pulse Rate 79 02/14/24 12:51 Respiratory Rate 16 02/14/24 12:51 Blood Pressure 120/65 02/14/24 12:51 Pulse Oximetry 97 02/14/24 12:51 Oxygen Delivery Method Room Air 02/14/24 12:51 Temperature 97.4 F 02/14/24 12:51 Pulse Rate 79 02/14/24 12:51 Respiratory Rate 16 02/14/24 12:51 Blood Pressure 120/65 02/14/24 12:51 Pulse Oximetry 97 02/14/24 12:51 Oxygen Delivery Method Room Air 02/14/24 12:51 Airway Mallampati Class: I TM Dist: >3cm Neck ROM: Full Loose/Missing/Broken Teeth: Yes (some broken teeth but patient denies any loose teeth) Heart: S1S2 Lungs: CTAB Assessment and Plan Assessment Anesthesia Assessment: Anesthesia Plan Discussed and Chart Reviewed Final Anesthetic Review Family History of Problems with Anesthesia: No History of Problems with Anesthesia: No NPO: Yes ASA Class: IV Final Preanesthetic Review: No Changes in Pt Med Stat, Meds/Allgs Chart Reviewed, Consent Obtained/Reviewed and Anes Risks/Benef Reviewed Patient Risk: High Procedure Risk: High Anesthetic Plan Anesthetic Plan: MAC: and Agree w/ Assess. and Plan Disposition: Standard PACU
--- NOTE | 2024-02-14 16:28 | W.PM.OPN ---
Operative Note Operative Note Date of Service: 02/14/24 Narrative: NAME OF PROCEDURE: ? Subcutaneous?ICD? INDICATION FOR PROCEDURE:??Primary prevention ICD for systolic heart failure ? ? SEDATION:??General anesthesia Description of Procedure:??Patient was identified brought to the electrophysiology laboratory in a postabsorptive state.??The left sided chest region extending laterally to the left posterior axillary line and through the left axilla. was prepped and draped in usual sterile fashion,?The initial incision was made lateral to the left of the pectoralis major muscle in a diagonal approach and was carried to the level of the pectoralis fascia in a diagonal approach and was carried to the level of the muscle.? Dissection was then carried down posteriorly along the thoracic cage deep to the latissimus dorsi muscle, where hemostasis was assured inside the pocket to accommodate the?ICD?pulse generator. The patient received IV Antibiotics prior to the case for surgical prophylaxis. Hemostasis was obtained with electrocautery. Substernal pocket was made and the lead was tunneled into the pocket and towards the midline. The ICD?pulse generator was programmed and was attached to the lead, with the lead being appropriately and fully inserted into the header of the device and the set screw was tightened using the torque wrench.? The?ICD?was then placed into the?ICD?pocket with the lead posterior to the pulse generator.? The head of the?ICD?was secured to the latissimus dorsi fascia using Ethibond suture.? The pockets were then closed with 3 layers of absorbable sutures.?? Patient tolerated the procedure well.??There were no complications. ? IMPRESSION: ? Subcutaneous?ICD?placement ([employer]) PLAN: ? 1.?Routine postprocedure monitoring. 2. ? ?Pain control with percocet? Post-op instructions. Do not shower 3 days Keep bandage on 5 days Please do not remove steristrips. Let them fall by themselves. Restriction of activity 4-6 weeks.?
--- NOTE | 2024-02-14 17:05 | PHA.MEDREC ---
Pharmacy Consult ? Medication Reconciliation Pharmacy has completed the medication reconciliation. Reviewed med rec done by nursing
--- NOTE | 2024-02-14 17:25 | PM.IMHP ---
History of Present Illness Date of Service: 02/14/24 Chief Complaint: Post ICD placement A 33 years old male with PMH of NICM w EF of 10%, HTN who presents to the hospital for elective ICD placement for primary prevention for systolic heart failure. He was seen post op in PACU. feels well but still little sleepy. denies any chest pain, palpitations, SOB, nausea, vomiting, diarrhea or urinary symptoms. He will be monitored overnight. Review of Systems Review of Systems: No fever, chills or weakness No chest pain, palpitation No shortness of breath or coughing No abdominal pain, nausea or vomiting No urinary symptoms No any rash or wounds PMFSH Medical History Diabetes Asthma Nonischemic cardiomyopathy Heart failure with reduced ejection fraction Acute on chronic systolic (congestive) heart failure Decompensated heart failure HTN (hypertension) Family History Unknown Enlarged heart Surgical History History of umbilical hernia repair Social History Household Members: Family Household Members Other:: Mom Housing: House Do you presently have visiting nurse or other home services: No Alcohol intake: never Comment: pt no longer on/requiring high flow O2. Patient Tobacco Use Status: Never used Tobacco Use of substances other than those prescribed or required for medical reasons: No Currently Displaying Signs/Symptoms of Drug Intoxication Withdrawal: No Have you been hit, kicked, punched, or otherwise hurt by someone within the past year? If so, by whom?: No Do you feel safe in your current relationship?: Yes Is there a partner from a previous relationship who is making you feel unsafe now?: No Are you made to feel afraid or neglected: No Are you DNR?: No Advance Directives: No Advance Directives Information Provided: Yes Do you have a plan to hurt others: No Plan Recently lost weight without trying: No Nutrition Risks: No Nutritional Risk Poor oral hygiene: No service: No Meds Allergies Allergy/AdvReac Type Severity Reaction Status Date / Time No Known Allergies Allergy Verified 01/01/24 14:34 Active Medications: Current Medications Acetaminophen (Acetaminophen 325 Mg Tablet) 650 mg PO Q6H PRN PRN Reason: Pain, Mild (Pain Scale 1-3) Albuterol Sulfate (Albuterol Sulfate 90 Mcg 8 Gm Inhaler) 2 puff INHALE Q6H PRN PRN Reason: wheezing Carvedilol (Carvedilol 12.5 Mg Tablet) 12.5 mg PO BID BETH; Protocol Empagliflozin (Empagliflozin 25 Mg Tablet) 25 mg PO DAILY BETH Fentanyl (Fentanyl Citrate/Pf 100 Mcg/2 Ml Vial) 25 mcg IVPUSH Q5M PRN; Protocol PRN Reason: Pain, Moderate(Pain Scale 4-6) Stop: 02/14/24 21:02 Furosemide (Furosemide 40 Mg Tablet) 40 mg PO DAILY BETH; Protocol Haloperidol Lactate (Haloperidol Lactate 5 Mg/Ml Vial) 1 mg IVPUSH ONCE PRN PRN Reason: Nausea and Vomiting Hydromorphone HCl (Hydromorphone Hcl 0.5 Mg/0.5 Ml Syringe) 0.5 mg IVPUSH Q5M PRN; Protocol PRN Reason: Pain, Severe (Pain Scale 7-10) Stop: 02/14/24 21:02 Lactated Ringer's (Lr) 500 mls @ 20 mls/hr IVCONT .Q24H BETH Last Admin: 02/14/24 13:01 Dose: 20 mls/hr Nifedipine (Nifedipine Er 60 Mg Tab.Er.24) 60 mg PO DAILY BETH; Protocol Non-Formulary Medication (Melatonin) 5 mg PO BEDTIME PRN PRN Reason: insomnia Ondansetron HCl (Ondansetron Hcl 4 Mg/2 Ml Vial) 4 mg IVPUSH Q8H PRN PRN Reason: Nausea and Vomiting Oxycodone HCl (Oxycodone Hcl Immed Release 5 Mg Tablet) 5 mg PO Q6H PRN PRN Reason: Pain, Severe (Pain Scale 7-10) Sacubitril/Valsartan (Sacubitril/Valsartan 49/51 1 Tab Tablet) 1 tab PO BID BETH; Protocol Sodium Chloride (0.9 % Sodium Chloride Flush 3 Ml Syringe) 3 ml IVFLUSH QSHIFT [facility] Spironolactone (Spironolactone 25 Mg Tablet) 103 mg PO DAILY BETH; Protocol Home Medications ?Medication ?Instructions ?Recorded ?Confirmed ?Last Taken ?Type albuterol sulfate 90 mcg/actuation 2 puff inhalation Q6H PRN wheezing 09/16/23 02/14/24 Unknown History aerosol inhaler melatonin 5 mg tablet 5 mg PO BEDTIME PRN insomnia 09/16/23 02/14/24 Unknown History sacubitril 49 mg-valsartan 51 mg 1 tab PO BID 01/01/24 02/14/24 Unknown History tablet (Entresto) nifedipine 60 mg tablet,extended 60 mg PO DAILY 02/14/24 02/14/24 Unknown History release 24 hr spironolactone 25 mg tablet 103 mg PO DAILY 02/14/24 02/14/24 Unknown History Physical Exam Vital Signs and Narrative: Vital Signs: Last Vital Signs Temp 97 F 02/14/24 16:38 Pulse 80 02/14/24 17:08 Resp 15 02/14/24 17:08 BP 149/84 H 02/14/24 17:08 Pulse Ox 98 02/14/24 17:08 O2 Del Method Nasal Cannula 02/14/24 17:08 O2 Flow Rate 2 02/14/24 17:08 BMI result Body Mass Index 34.6 Const: Other: Constitutional : Awake, interactive, not in distress Neck : Normal inspection, Supple Cardiovascular : RRR, no JVP, no lower extremity edema Respiratory : good bilateral air entry, no crackles, wheezes or rhonchi Gastrointestinal: soft, lax, Normal bowel sounds, Non tender Skin : Warm, Dry, gynecomastia Neurological : Alert & oriented x3, No focal deficit , CN 2-12 within normal Results Labs Labs: Laboratory Results - last 24 hr 02/14/24 12:53 POC Glucose 112 Assessment and Plan (1) Nonischemic cardiomyopathy: Status: Acute Plan A 33 years old male with PMH of NICM w EF of 10%, HTN who presents to the hospital for elective ICD placement for primary prevention for systolic heart failure. NICM post ICD placement For primary prevention PRN Oxycodone for pain keep on Tele HFrEF Not in exacerbation Continue home medications HTN Nifedipine DVT PPx, early ambulation. Full code Quality Stroke Does the patient have a stroke diagnosis?: No VTE Prior VTE?: No VTE Risk Level:: Medical - low VTE Device Contraindication: Treatment Not Indicated VTE Drug Contraindication: Treatment Not Indicated
[2024-02-14] MEDS: ondansetron HCL 4 MG/2 ML VIAL IVPUSH (18:01)
[2024-02-14 18:20] LABS: Glucose, Whole Blood 132 mg/dL (60-115)
[2024-02-14] MEDS: oxyCODONE HCl Immed Release 5 MG TABLET PO (20:09)
[2024-02-14] MEDS: Sacubitril/Valsartan 49/51 1 TAB TABLET PO (20:10)
[2024-02-14] MEDS: 0.9 % Sodium Chloride Flush 3 ML SYRINGE IVFLUSH (20:15)
[2024-02-14] MEDS: carvediloL 12.5 MG TABLET PO (20:15)
[2024-02-15] VITALS: BP 107/91; PULSE 81; RESP 20; TEMP 36.6; O2SAT 96
[2024-02-15 03:39] VITALS: BP 97/57; PULSE 73; RESP 20; TEMP 36.6; O2SAT 96
[2024-02-15] MEDS: oxyCODONE HCl Immed Release 5 MG TABLET PO (06:19)
[2024-02-15 07:42] VITALS: BP 109/63; PULSE 75; RESP 20; TEMP 36.3; O2SAT 96
[2024-02-15 07:51] LABS: Glucose, Whole Blood 146 mg/dL (60-115)
--- NOTE | 2024-02-15 09:19 | MHC.CM.PN ---
Pt self-care, lives at home with his mother and brother. Family will transport him home at discharge. HCP completed with pt, now on file. PCP: Dr. Chance Georges
[2024-02-15] MEDS: Spironolactone 25 MG TABLET 100 MG PO (10:03)
[2024-02-15] MEDS: carvediloL 12.5 MG TABLET PO (10:03)
[2024-02-15] MEDS: NIFEdipine ER 60 MG TAB.ER.24 PO (10:04)
[2024-02-15] MEDS: Empagliflozin 25 MG TABLET PO (10:04)
[2024-02-15] MEDS: Sacubitril/Valsartan 49/51 1 TAB TABLET PO (10:04)
[2024-02-15] MEDS: Furosemide 40 MG TABLET PO (10:08)
[2024-02-15] MEDS: 0.9 % Sodium Chloride Flush 3 ML SYRINGE IVFLUSH (10:09)
--- NOTE | 2024-02-15 10:44 | PM.DS ---
DS: Providers Provider Date of Service: 02/15/24 Primary care physician: Chance Georges MD DS: Diagnosis Discharge Diagnosis (1) Nonischemic cardiomyopathy: Status: Acute (2) ICD (implantable cardioverter-defibrillator) in place: Status: Acute DS: Summary Hospital Course Hospital Course: Admission note HPI A 33 years old male with PMH of NICM w EF of 10%, HTN who presents to the hospital for elective ICD placement for primary prevention for systolic heart failure. He was seen post op in PACU. feels well but still little sleepy. denies any chest pain, palpitations, SOB, nausea, vomiting, diarrhea or urinary symptoms. He will be monitored overnight. Hospital course The patient was kept in the hospital overnight for observation for NICM post ICD placement on Telemetry as ICD was placed For primary prevention. PRN Oxycodone for pain. To follow with cardiology as outpatient. No changes to his home medicaitons. Discharge plan Do not shower 3 days Keep bandage on 5 days Please do not remove steristrips. Let them fall by themselves. Restriction of activity 4-6 weeks.? Time Attestation Discharge Coordination Time (in mins): 31 Quality: Safe Use of Opioids Does Pt have an Active Cancer Diagnosis on the Problem List?: No Quality: Stroke Does the patient have a stroke diagnosis?: No Physical Exam Vital Signs: Vital Signs: Last Vital Signs Temp 97.4 F 02/15/24 07:42 Pulse 75 02/15/24 07:42 Resp 20 02/15/24 07:42 BP 109/63 02/15/24 07:42 Pulse Ox 96 02/15/24 07:42 O2 Del Method Room Air 02/15/24 07:42 O2 Flow Rate 1 02/15/24 03:39 BMI result Body Mass Index 34.5 Const: Other: Constitutional : Awake, interactive, not in distress Neck : Normal inspection, Supple Cardiovascular : RRR, no JVP, no lower extremity edema Respiratory : good bilateral air entry, no crackles, wheezes or rhonchi Gastrointestinal: soft, lax, Normal bowel sounds, Non tender Skin : Warm, Dry, site of implant clean with no erythema or drainage. Neurological : Alert & oriented x3, No focal deficit , CN 2-12 within normal DS: Data Data Completed and Pending Completed studies during hospitalization [Text1]: Procedures Assistance with Respiratory Ventilation, Less than 24 Consecutive Hours, Continuous Positive Airway Pressure (09/15/23) Labs on day of discharge: Laboratory Results - last 24 hr 02/14/24 02/14/24 02/15/24 12:53 18:14 07:45 POC Glucose 112 132 H 146 H Imaging Chest x-ray: Radiologist's impression: ITS Impressions Chest X-Ray 02/15/24 11:30 IMPRESSION: 1. Left chest wall AICD with its lead overlying the heart. 2. Stable cardiomegaly. Discharge Plan Discharge Patient Disposition: Home, Self-Care Referrals: Chance Georges MD [Primary Care Provider] - 1 Week Discharge Medications: New oxycodone 5 mg Tablet 5 mg PO Q6H PRN (Reason: Pain, Severe (Pain Scale 7-10)) Qty: 10 0RF Rx Instructions: Partial Fill upon patient request. Continued Jardiance 25 mg tablet 25 mg PO DAILY Qty: 30 5RF Rx Instructions: Dr. Higginbotham to Rx for 340B qualification nifedipine 60 mg tablet extended release 24hr 60 mg PO DAILY spironolactone 25 mg tablet 103 mg PO DAILY Protocol: Hold for SBP< HOLD for SBP < : 90 albuterol sulfate 90 mcg/actuation HFA aerosol inhaler 2 puff INHALATION Q6H PRN (Reason: wheezing) melatonin 5 mg tablet 5 mg PO BEDTIME PRN (Reason: insomnia) furosemide 40 mg tablet 40 mg PO DAILY Qty: 30 0RF carvedilol [Coreg] 12.5 mg tablet 12.5 mg PO BID Qty: 60 5RF Rx Instructions: must administer with a meal/food Entresto 49-51 mg tablet 1 tab PO BID Discharge Orders: Discharge Order (Routine); Ordered 02/15/24 Ordered By: Steph Emerson Patient Instructions: Pacemaker (DC) Activity Restrictions/Additional Instructions: Do not shower 3 days Keep bandage on 5 days Please do not remove steristrips. Let them fall by themselves. Restriction of activity 4-6 weeks.? Print Language: Fijian Discharge Date/Time: 02/15/24 13:20
[2024-02-15 10:49] VITALS: BP 127/67; PULSE 78; RESP 20; TEMP 36.4; O2SAT 97
[2024-02-15 10:55] LABS: Glucose, Whole Blood 161 mg/dL (60-115)
--- NOTE | 2024-02-15 11:01 | MHC.CM.PN ---
Pt is medically cleared for discharge home self-care, pts family to transport him home.
--- NOTE | 2024-02-15 14:44 | HO.POSTANES ---
Post Anesthesia Evaluation Post Anesthesia Evaluation Date of Service: 02/14/24 Vital Signs: Vital Signs Temp Pulse Resp BP Pulse Ox O2 Del Method O2 Flow Rate 02/15/24 10:49 97.5 F 78 20 127/67 97 Room Air 02/15/24 07:42 97.4 F 75 20 109/63 96 Room Air 02/15/24 03:39 97.8 F 73 20 97/57 L 96 Nasal Cannula 1 Anesthesia: General Mental Status: Awake Pain Control: Satisfactory Nausea/Vomiting: None Hydration: Adequate Anesthesia-Related Issues: No Anes. Related Issues
== END 2024-02-15 13:20 | disposition home or self-care (01) ==
LOC: HO.SSS 11:24 → HO.IMC 17:37
PROVIDERS: Internal Medicine Cardiovascular Disease; PCP Internal Medicine; Visit Provider Student in an Organized Health Care Education/Training Program
PROC: (CPT 33270; principal; 2024-02-14 14:00)
DX: I11.0 Hypertensive heart disease with heart failure (principal); I50.23 Acute on chronic systolic (congestive) heart failure; I50.20 Unspecified systolic (congestive) heart failure; I42.8 Other cardiomyopathies; Z95.810 Presence of automatic (implantable) cardiac defibrillator; Z79.84 Long term (current) use of oral hypoglycemic drugs; Z79.899 Other long term (current) drug therapy; Z98.890 Other specified postprocedural states
CPT/HCPCS: 33270; 71046; 82947; C1722; C1894; C1896; J0131; J0690; J1170; J2250; J2371; J2405; J2704; J2795; J3010; J3370

== ENCOUNTER → 2024-02-14 11:22 | Outpatient (BNV) | payer OTHER, SELFPAY | PROVIDERS: PCP Internal Medicine; Visit Provider Student in an Organized Health Care Education/Training Program | DX: I42.8 Other cardiomyopathies (principal); Z95.810 Presence of automatic (implantable) cardiac defibrillator | CPT/HCPCS: 99222; 99238 ==

== ENCOUNTER 2024-02-20 15:25 | Emergency (ER) | payer OTHER, SELFPAY ==
--- NOTE | 2024-02-20 | ECG_ITS ---
Test Reason : CP Blood Pressure : / mmHG Vent. Rate : 073 BPM Atrial Rate : 073 BPM P-R Int : 166 ms QRS Dur : 100 ms QT Int : 424 ms P-R-T Axes : 030 021 031 degrees QTc Int : 467 ms Normal sinus rhythm Cannot rule out Anterior infarct (cited on or before 23-SEP-2023) Abnormal ECG When compared with ECG of 23-SEP-2023 11:00, Inverted T waves have replaced nonspecific T wave abnormality in Lateral leads Referred By: Generic ED Physician Electronically Signed By:Manuel Colon
--- NOTE | ~2024-02-20 | XR_ITS ---
EXAMINATION: XR CHEST CLINICAL INFORMATION: Reason for Exam chest pain COMPARISON: Chest radiograph 02/15/2024 TECHNIQUE: 2 views of the chest FINDINGS: Lines and tubes: Left chest wall AICD overlies the left parasternal mediastinum in similar position. Clear lungs. No pleural effusion. No pneumothorax. Normal cardiomediastinal silhouette. XR/XR chest 2V IMPRESSION: * Clear lungs.
--- NOTE | 2024-02-20 15:34 | ED_ITS ---
HPI - General Adult General Chief complaint: Chest Pain Stated complaint: Chest pain - surgery few days ago Time Seen by Provider: 02/20/24 17:45 History of Present Illness HPI narrative: The patient is a 33-year-old male who was found a few months ago to have a nonischemic cardiomyopathy. He presented to the emergency room here in August of 2023, approximately 6 months ago, and was very short of breath. He was in congestive heart failure. Ultimately he was found to have a very poor ejection fraction. He has had a cardiac catheterization that showed no coronary disease. He was treated with neural hormonal therapies for his cardiomyopathy but his ejection fraction remained poor and so it was decided he was an appropriate candidate for an ICD device. Six days ago last Saturday he had an ICD placed in his left chest by Dr. Chambers. Patient has been taking oxycodone for pain on the left chest. Today his girlfriend changed the dressing and was concerned that there was some bloody drainage and possibly some yellowish drainage from the surgical site. She brought him to the hospital for evaluation. He is also complained of dizziness and left-sided chest pain. No definite fevers. Related Data Home Medications ?Medication ?Instructions ?Recorded ?Confirmed albuterol sulfate 90 mcg/actuation 2 puff inhalation Q6H PRN wheezing 09/16/23 02/14/24 aerosol inhaler melatonin 5 mg tablet 5 mg PO BEDTIME PRN insomnia 09/16/23 02/14/24 sacubitril 49 mg-valsartan 51 mg 1 tab PO BID 01/01/24 02/14/24 tablet (Entresto) nifedipine 60 mg tablet,extended 60 mg PO DAILY 02/14/24 02/14/24 release 24 hr spironolactone 25 mg tablet 103 mg PO DAILY 02/14/24 02/14/24 Previous Rx's ?Medication ?Instructions ?Recorded empagliflozin 25 mg tablet 25 mg PO DAILY #30 tabs 11/28/23 (Jardiance) carvedilol 12.5 mg tablet (Coreg) 12.5 mg PO BID #60 tabs 01/27/24 furosemide 40 mg tablet 40 mg PO DAILY #30 tabs 01/27/24 oxycodone 5 mg tablet 5 mg PO Q6H PRN Pain, Severe (Pain 02/15/24 Scale 7-10) #10 tabs cephalexin 500 mg capsule 500 mg PO QID #20 caps 02/20/24 oxycodone 5 mg capsule 5 mg PO Q6H PRN pain #12 caps 02/20/24 Allergies Allergy/AdvReac Type Severity Reaction Status Date / Time No Known Allergies Allergy Verified 02/20/24 15:35 Review of Systems 2 Review of Systems: Yes all other systems are reviewed and are negative [facility] Past Medical History Medical History Diabetes Asthma Nonischemic cardiomyopathy Heart failure with reduced ejection fraction Acute on chronic systolic (congestive) heart failure Decompensated heart failure HTN (hypertension) Surgical History History of umbilical hernia repair Family History Family History Unknown Enlarged heart Social History Social History Household Members: Family Household Members Other:: Mom Housing: House Do you presently have visiting nurse or other home services: No Alcohol intake: never Comment: pt no longer on/requiring high flow O2. Patient Tobacco Use Status: Never used Tobacco Smoked in Last 30 Days: No Use of substances other than those prescribed or required for medical reasons: No Advance Directives: No Advance Directives Information Provided: No Do you have a plan to hurt others: No Plan service: No Physical Exam ED Vital Signs: Vital Signs - 24 hr 02/20/24 15:35 02/20/24 17:47 02/20/24 19:30 Temperature 98.0 F 98.7 F Pulse Rate 75 67 65 Respiratory Rate 18 22 H 26 H Blood Pressure 124/69 100/63 115/63 Pulse Oximetry 96 97 97 Oxygen Delivery Method Room Air Room Air Room Air 02/20/24 20:52 Temperature 98.2 F Pulse Rate 69 Respiratory Rate 16 Blood Pressure 122/62 Pulse Oximetry 96 Oxygen Delivery Method Room Air BMI result Body Mass Index 33.9 Const Other: The patient is a well-developed 33-year-old male who was awake and alert and who does not appear in acute distress or seem acutely ill. HENIL Other: Face is unremarkable, face is symmetrical, mucous membranes moist Eyes Other: Pupils are round equal, conjunctivae clear Neck Neck: Yes no JVD Chest Other: The patient has a surgical wound on the left side of his chest. The wound is closed with Steri-Strips. Two Steri-Strips which were in the midportion of the wound were partially off. I removed these. This revealed a small portion of the wound edges. There was no erythema or other sign of infection. I was not able to express any purulence. Resp Effort & Inspection: normal respiratory effort Auscultation: clear to auscultation bilaterally Cardio Rate: regular rate Rhythm: regular rhythm Heart sounds: S1 normal heart sound present and S2 normal heart sound present Skin Other: The skin in the region of the surgical wound on the left side of his chest is mostly covered by Steri-Strips. The small portion of the wound that was visible did not reveal any obvious erythema. Elsewhere in the body the skin is normal. Neuro Other: The patient is awake, alert, appropriate with a normal mental status and a normal gait. Extrem Other: No peripheral edema Course Course Course Narrative: This is a Rapid Medical Examination (RME) performed by Smooth Patterson PA-C in triage. Full HPI, ROS, assessment and treatment plan per primary provider in the Main ED. 33 yo male hx of HTN, nonischemic cardiomyopathy, HF with reduced ejection fraction here for eval s/p pacemaker placement on 02/14/24. reports dizziness, chest pain, and pain and yellow/ red discharged from incision site along left lateral chest wall. pain now radiating down left arm with assoc numbness. Called [facility] today and upon hearing symptoms, was advised to come to the ED for further eval for concern of post-op infection. on exam, incision site covered with steristrips, noted dried blood. Plan: labs, ekg, cxr Medications Administered Discontinued Medications Generic Name Dose Route Start Last Admin Trade Name Freq PRN Reason Stop Dose Admin Acetaminophen 975 mg 02/20/24 19:34 02/20/24 19:40 Acetaminophen 325 Mg Tablet PO 02/20/24 19:35 975 mg ONCE ONE Administration Cephalexin HCl 1,000 mg 02/20/24 20:32 02/20/24 20:49 Cephalexin 500 Mg Capsule PO 02/20/24 20:33 1,000 mg ONCE ONE Administration Oxycodone HCl 5 mg 02/20/24 19:34 02/20/24 19:40 Oxycodone Hcl Immed Release 5 Mg Tablet PO 02/20/24 19:35 5 mg ONCE ONE Administration Medical Decision Making Medical Decision Making [facility] Narrative: The patient presents to the emergency room at of concern about the possibility of an infection at the surgical site wound where he had an ICD device placed in his left chest 6 days ago. The patient has an unremarkable chest x-ray, unremarkable CBC, and basic metabolic panel. There has been no fever. No obvious signs of infection on my inspection of the wound. I was unable to express any pus from the wound. I consulted Dr. Chambers of Cardiology who performed the procedure. He emergency room to see the patient and reviewed the wound. The patient will be discharged on a 5 day course of cephalexin. He was also given a prescription for additional oxycodone tablets. He should follow up as an outpatient in 10 days. Lab Data 02/20/24 15:50 02/20/24 15:50 Labs: Lab Results 02/20/24 Range/Units 15:50 WBC 8.1 (4.8-10.8) X10*3/uL RBC 5.69 (4.60-5.80) X10*6/uL Hgb 16.2 (14.0-18.0) g/dl Hct 46.5 (42.0-52.0) % MCV 81.7 (80.0-98.0) fL MCH 28.5 (27.0-33.0) pg MCHC 34.8 (31.0-36.0) g/dl RDW 13.3 (11.0-16.0) % Plt Count 288 (160-400) X10*3/uL MPV 8.3 L (9.4-12.4) fL Immature Gran % (Auto) 0.5 H (0.0-0.4) % Neut % (Auto) 61.1 (45-73) % Lymph % (Auto) 26.3 (20-40) % Story % (Auto) 9.7 (2-11) % Eos % (Auto) 2.0 (0-4) % Baso % (Auto) 0.4 (0-2) % Lymph # (Auto) 2.1 (1.2-4.9) X10*3/uL Story # (Auto) 0.8 (0.1-1.2) X10*3/uL Eos # (Auto) 0.2 (0.0-0.4) X10*3/uL Baso # (Auto) 0.0 (0.0-0.2) X10*3/uL Abs Immat Gran (auto) 0.04 H (0.00-0.03) X10*3/uL Absolute Neuts (auto) 4.9 (2.0-8.3) x10*3/uL Absolute Nucleated RBC 0.000 (0.0-0.012) X10*3/uL Nucleated RBC % (auto) 0.0 (0.0-0.2) /100WBC Sodium 141 (135-145) mmol/L Potassium 4.1 (3.3-5.1) mmol/L Chloride 107 (96-108) mmol/L Carbon Dioxide 25 (22-29) mmol/L Anion Gap 13 (12-20) BUN 19 H (9-16) mg/dL Creatinine 1.32 (0.5-1.4) mg/dL Estim Creat Clear Calc 111.3 Estimated GFR > 60 Random Glucose 95 (60-115) mg/dL Calcium 9.6 (8.4-10.2) mg/dL Magnesium 2.2 (1.6-2.6) mg/dL Total Bilirubin 0.4 (0.0-1.0) mg/dL AST 20 (5-37) U/L ALT 21 (0-40) U/L Alkaline Phosphatase 103 (39-117) U/L Troponin I High Sens 4.1 D (<3.5-35.0) ng/L Total Protein 8.0 (6.5-8.0) g/dL Albumin 4.2 (3.5-5.0) g/dL Lipase 21 (8-78) U/L Discharge Plan Discharge Clinical Impression: Visit for wound check Patient Disposition: Home, Self-Care Additional Instructions: Please take the antibiotic prescribed 4 times a day, approximately every 6 hours. I have sent a prescription for oxycodone which you may use as needed for pain. You may also use acetaminophen. Please stay in touch with the experimental physicist, Dr. Chambers, for additional advice as needed. I believe he plans on getting you into his office in approximately 10 days for a recheck. If significantly worse please return to the emergency department. Prescriptions: New cephalexin 500 mg capsule 500 mg PO QID Qty: 20 0RF oxycodone 5 mg capsule 5 mg PO Q6H PRN (Reason: pain) Qty: 12 0RF Rx Instructions: Partial Fill upon patient request. No Action Jardiance 25 mg tablet 25 mg PO DAILY Qty: 30 5RF Rx Instructions: Dr. Higginbotham to Rx for 340B qualification nifedipine 60 mg tablet extended release 24hr 60 mg PO DAILY spironolactone 25 mg tablet 103 mg PO DAILY Protocol: Hold for SBP< HOLD for SBP < : 90 oxycodone 5 mg Tablet 5 mg PO Q6H PRN (Reason: Pain, Severe (Pain Scale 7-10)) Qty: 10 0RF Rx Instructions: Partial Fill upon patient request. albuterol sulfate 90 mcg/actuation HFA aerosol inhaler 2 puff INHALATION Q6H PRN (Reason: wheezing) melatonin 5 mg tablet 5 mg PO BEDTIME PRN (Reason: insomnia) furosemide 40 mg tablet 40 mg PO DAILY Qty: 30 0RF carvedilol [Coreg] 12.5 mg tablet 12.5 mg PO BID Qty: 60 5RF Rx Instructions: must administer with a meal/food Entresto 49-51 mg tablet 1 tab PO BID Referrals: Eliot Chambers MD [Physician] - (wound check for ICD device insertion site) Interventions: ED Discharge Assessment Last Done: 02/20/24 20:52 Discharge Date/Time: 02/20/24 20:53 Print Language: Khmer
[2024-02-20 15:35] VITALS: BP 124/69; PULSE 75; RESP 18; TEMP 36.7; O2SAT 96; BMI 33.9
[2024-02-20 15:54] LABS: MANUAL DIFF FLAG NO
[2024-02-20 15:55] LABS: Basophils Percent Auto 0.4 % (0-2); Eosinophils Absolute Auto 0.2 X10*3/uL (0.0-0.4); Hematocrit 46.5 % (42.0-52.0); Hemoglobin 16.2 g/dl (14.0-18.0); Imm Gran Abs Auto 0.04 X10*3/uL (0.00-0.03); Imm Gran Pct Auto 0.5 % (0.0-0.4); Lymphocytes Absolute Auto 2.1 X10*3/uL (1.2-4.9); Lymphocytes Percent Auto 26.3 % (20-40); Mean Corpuscular HGB Conc 34.8 g/dl (31.0-36.0); Mean Corpuscular Hemoglobin 28.5 pg (27.0-33.0); Mean Corpuscular Volume 81.7 fL (80.0-98.0); Mean Platelet Volume 8.3 fL (9.4-12.4); Monocytes Absolute Auto 0.8 X10*3/uL (0.1-1.2); Monocytes Percent Auto 9.7 % (2-11); Neutrophils Absolute Auto 4.9 x10*3/uL (2.0-8.3); Neutrophils Percent Auto 61.1 % (45-73); Platelet Count 288 X10*3/uL (160-400); Red Blood Count 5.69 X10*6/uL (4.60-5.80); Red Cell Distribution Width 13.3 % (11.0-16.0); White Blood Count 8.1 X10*3/uL (4.8-10.8)
[2024-02-20 16:12] LABS: Alanine Aminotransferase 21 U/L (0-40); Albumin Level 4.2 g/dL (3.5-5.0); Alkaline Phosphatase 103 U/L (39-117); Anion Gap 13 (12-20); Aspartate Amino Transferase 20 U/L (5-37); Bilirubin Total 0.4 mg/dL (0.0-1.0); Blood Urea Nitrogen 19 mg/dL (9-16); Calcium 9.6 mg/dL (8.4-10.2); Carbon Dioxide 25 mmol/L (22-29); Chloride 107 mmol/L (96-108); Creatinine Clr Calc Pharmacy 111.3; Estimated Glomerular Filt Rate > 60; Glucose Random 95 mg/dL (60-115); Lipase 21 U/L (8-78); Magnesium 2.2 mg/dL (1.6-2.6); Potassium 4.1 mmol/L (3.3-5.1); Sodium 141 mmol/L (135-145)
[2024-02-20 16:19] LABS: Troponin-I High Sensitivity 4.1 ng/L (<3.5-35.0)
[2024-02-20 17:47] VITALS: BP 100/63; PULSE 67; RESP 22; O2SAT 97
--- NOTE | 2024-02-20 18:18 | PC.NURSE ---
met with pt and significant other at bedside, pt reporting 9/10pain at surgical sites (left anterior medial chest and left lateral chest) steri strips in tact over anterior chest, one seri strip on lateral chest removed by MD Burk, no active bleeding at this time, no drainage or foul smelling odor. pt on table attendant vss at this time.
[2024-02-20 19:30] VITALS: BP 115/63; PULSE 65; RESP 26; TEMP 37.1; O2SAT 97
--- NOTE | 2024-02-20 19:34 | PC.NURSE ---
Pt alert and oriented. Skin warm and dry, incision site of left lateral chest open, and partly bandaged. PT on equipment monitor phototypesetting 65bpm, NSR. PT reporting 9/10 pain. VSS. Girlfriend at bedside. Discussed pain mediation order with MD Ortiz. Awaiting new orders.
[2024-02-20] MEDS: oxyCODONE HCl Immed Release 5 MG TABLET PO (19:40)
[2024-02-20] MEDS: Acetaminophen 325 MG TABLET 975 MG PO (19:40)
[2024-02-20] MEDS: cephALEXin 500 MG CAPSULE 1000 MG PO (20:49)
[2024-02-20 20:52] VITALS: BP 122/62; PULSE 69; RESP 16; TEMP 36.8; O2SAT 96
== END 2024-02-20 20:53 | disposition home or self-care (01) ==
PROVIDERS: Physician Assistant Medical; Emergency Provider Emergency Medicine; PCP Internal Medicine
DX: R06.02 Shortness of breath (principal); R07.9 Chest pain, unspecified; I11.0 Hypertensive heart disease with heart failure; I50.23 Acute on chronic systolic (congestive) heart failure; E11.9 Type 2 diabetes mellitus without complications; Z95.0 Presence of cardiac pacemaker; Z48.00 Encounter for change or removal of nonsurgical wound dressing
CPT/HCPCS: 36415; 71046; 80053; 83690; 83735; 84484; 85025; 87040; 93005; 99283; 99285

== ENCOUNTER → 2024-02-20 15:29 | Outpatient (BNV) | payer OTHER, SELFPAY | PROVIDERS: Emergency Provider Emergency Medicine; PCP Internal Medicine; Visit Provider Internal Medicine Cardiovascular Disease | DX: R94.31 Abnormal electrocardiogram [ECG] [EKG] (principal) | CPT/HCPCS: 93010 ==

== ENCOUNTER 2024-03-05 15:04 | Outpatient (AMB) | payer OTHER, SELFPAY ==
--- NOTE | 2024-03-05 15:09 | MHC.OFFVIS ---
Vital Signs 03/05/24 15:11 Height 6 ft 3 in Weight 275 lb 9.245 oz BMI 34.4 BP 120/76 Blood Pressure Location Lt brachial Position Sitting Pulse 62 Intake Visit Reasons: 3 mth f/up/wound ck Intake Note: 3 month follow-up after implant [facility] Multiple Knife Edge Trimmer Operator Required: Yes Multiple Knife Edge Trimmer Operator Name: Nito calix Allergies No Known Allergies Allergy (Verified 02/20/24 15:35) Medication List - Last Reconciled 03/05/24 by Ashish Voss MD carvedilol (Coreg) 12.5 mg PO BID empagliflozin (Jardiance) 25 mg PO DAILY furosemide 40 mg PO DAILY melatonin 5 mg PO BEDTIME PRN nifedipine ER 60 mg PO DAILY oxycodone 5 mg PO Q6H PRN sacubitril-valsartan 49-51 mg (Entresto) 1 tab PO BID spironolactone 25 mg See Protocol PO DAILY HPI Comments Details: Angel comes for follow-up. History obtained with help of aerial photograph interpreter. Patient had recent subcutaneous ICD placement. Had some wound day since. He is being followed by Dr. Chambers. Besides some local pain he has no fever or chills. No wound discharge. Denies any heart failure symptoms. Takes all his medications regularly. Blood pressures been well optimized. No orthopnea, PND, leg edema, lightheadedness, syncope, palpitations. [facility] Medical History Diabetes Asthma Nonischemic cardiomyopathy Heart failure with reduced ejection fraction Acute on chronic systolic (congestive) heart failure Decompensated heart failure HTN (hypertension) Surgical History History of umbilical hernia repair Family History Unknown Enlarged heart Social History Household Members: Family Household Members Other:: Mom Housing: House Do you presently have visiting nurse or other home services: No Alcohol intake: never Comment: pt no longer on/requiring high flow O2. Patient Tobacco Use Status: Never used Tobacco service: No Review of Systems Const Denies chills, Denies fatigue, Denies fever(s), Denies frequent falls, Denies weakness, Denies weight gain and Denies weight loss ENT Denies dizziness Card Denies chest pain, Denies leg edema, Denies lightheadedness, Denies palpitations, Denies dyspnea, Denies dyspnea on exertion, Denies orthopnea and Denies other (loss of consciousness) Resp Denies cough, Denies dyspnea and Denies dyspnea on exertion GI Denies hematochezia and Denies change in stool character Musc Denies abnormal gait, Denies muscle weakness, Denies numbness, Denies radiating pain into limb and Denies tingling Neuro Denies abnormal gait, Denies dizziness, Denies frequent falls, Denies numbness, Denies tingling and Denies weakness Endo Denies fatigue and Denies palpitations Physical Exam Vital Signs: Last Vital Signs Pulse 62 03/05/24 15:11 BP 120/76 03/05/24 15:11 BMI result Body Mass Index 34.4 Const General: cooperative, healthy appearing, comfortable and no acute distress Orientation/consciousness: patient oriented x3 Neck Neck: Yes normal visual inspection and Yes no JVD Chest Chest palpation & inspection: other (Left thoracic cage defibrillator site appears stable with mild tenderness) Resp Effort & Inspection: normal respiratory effort Auscultation: clear to auscultation bilaterally, no crackles, no rales, no rhonchi and no wheezes Cardio Jugular venous distension: no JVD Rate: regular rate Rhythm: regular rhythm Heart sounds: S1 normal heart sound present, S2 normal heart sound present, no murmurs and no rubs Neuro General: patient oriented x3 Extrem General: Yes normal to inspection, No no pedal edema and No calf tenderness Psych Appearance: grossly normal Mental Status: mental status grossly normal Speech and movement: Normal speech and movement present Assessment & Plan Assessment & Plan (1) Heart failure with reduced ejection fraction: Code(s): I50.20 - Unspecified systolic (congestive) heart failure Category: Medical Plan: Heart failure with reduced ejection fraction with severe persistent LV systolic dysfunction. Will further uptitrate carvedilol to 25 mg b.i.d. and Entresto to 97-103 mg b.i.d. for neurohormonal modulation. Meanwhile will discontinue nifedipine therapy. Advised to monitor blood pressure at home maintain a log. Goal blood pressure less than 130/84. Continue current spironolactone therapy. Continue current diuretic regimen. Continue Jardiance therapy. Management of heart failure was discussed again. Daily weight monitoring avoidance of salt loading was discussed. Advised to call me with any worsening symptoms. (2) ICD (implantable cardioverter-defibrillator) in place: Code(s): Z95.810 - Presence of automatic (implantable) cardiac defibrillator Category: Medical Plan: ICD in place, subcutaneous [employer] ICD in place for primary prevention. ICD site appears adequate at this point time. No obvious signs of infection at this point time. Follow-up in office in next 6 weeks. Will monitor remotely as well. Follow up in the clinic in 6 weeks Medications: New carvedilol (Coreg) must administer with a meal/food 25 mg PO Q12H 60 tabs 5RF sacubitril-valsartan 97-103 mg (Entresto) 1 tab PO BID 60 tabs 5RF Changed From spironolactone 103 mg See Protocol PO DAILY To spironolactone 25 mg See Protocol PO DAILY Discontinued carvedilol (Coreg) must administer with a meal/food Discontinued Reason: Doctor's Order 12.5 mg PO BID 60 tabs 5RF Coding Level of Care Code Est Pt Level 4 (14380) Diagnoses Heart failure with reduced ejection fraction I50.20 ICD (implantable cardioverter-defibrillator) in place Z95.810
[2024-03-05 15:11] VITALS: BP 120/76; PULSE 62; BMI 34.4
== END 2024-03-05 15:32 | disposition home or self-care (01) ==
PROVIDERS: PCP Internal Medicine; Visit Provider Internal Medicine Cardiovascular Disease
DX: I50.20 Unspecified systolic (congestive) heart failure (principal); Z95.810 Presence of automatic (implantable) cardiac defibrillator
CPT/HCPCS: 99214

== ENCOUNTER → 2024-03-05 15:04 | Outpatient (BNVA) | payer OTHER, SELFPAY | PROVIDERS: PCP Internal Medicine; Visit Provider Internal Medicine Cardiovascular Disease ==

== ENCOUNTER 2024-03-07 22:33 | Inpatient (IN) | payer MEDICAID, SELFPAY ==
--- NOTE | 2024-03-07 | ECG_ITS ---
Test Reason : ARRHYTHMIA Blood Pressure : / mmHG Vent. Rate : 069 BPM Atrial Rate : 069 BPM P-R Int : 200 ms QRS Dur : 114 ms QT Int : 434 ms P-R-T Axes : 049 005 059 degrees QTc Int : 465 ms Normal sinus rhythm Anterior infarct (cited on or before 23-SEP-2023) Abnormal ECG When compared with ECG of 20-FEB-2024 15:29, No significant change was found Referred By: Generic ED Physician Electronically Signed By:DIMAS GUTHRIE
--- NOTE | ~2024-03-07 | XR_ITS ---
EXAMINATION: XR CHEST CLINICAL INFORMATION: ICD wire evaluation COMPARISON: 02/20/2024 TECHNIQUE: 2 views of the chest were obtained. FINDINGS: Generator device is present in the lateral left chest wall with lead extending along the anterior chest just to the left of midline, similar to prior. The lungs are clear with no focal consolidation. No evidence of pneumothorax, pulmonary edema, or pleural effusions. Cardiac silhouette appears mildly enlarged for technique. No acute osseous findings are seen. XR/XR chest 2V IMPRESSION: Generator device in the left chest wall with lead extending along the anterior chest just to the left of midline, similar to prior.
[2024-03-07 22:36] VITALS: BP 124/81; PULSE 73; RESP 20; TEMP 36.4; O2SAT 96; BMI 32.5
[2024-03-07 23:06] LABS: Basophils Percent Auto 0.3 % (0-2); Eosinophils Absolute Auto 0.1 X10*3/uL (0.0-0.4); Eosinophils Percent Auto 1.5 % (0-4); Hematocrit 45.8 % (42.0-52.0); Hemoglobin 15.9 g/dl (14.0-18.0); Imm Gran Abs Auto 0.04 X10*3/uL (0.00-0.03); Imm Gran Pct Auto 0.4 % (0.0-0.4); Lymphocytes Absolute Auto 3.3 X10*3/uL (1.2-4.9); Lymphocytes Percent Auto 36.8 % (20-40); MANUAL DIFF FLAG SCAN; Mean Corpuscular HGB Conc 34.7 g/dl (31.0-36.0); Mean Corpuscular Hemoglobin 28.2 pg (27.0-33.0); Mean Corpuscular Volume 81.2 fL (80.0-98.0); Mean Platelet Volume 8.4 fL (9.4-12.4); Monocytes Absolute Auto 0.7 X10*3/uL (0.1-1.2); Monocytes Percent Auto 7.7 % (2-11); Neutrophils Absolute Auto 4.7 x10*3/uL (2.0-8.3); Neutrophils Percent Auto 53.3 % (45-73); Platelet Count 260 X10*3/uL (160-400); Red Blood Count 5.64 X10*6/uL (4.60-5.80); Red Cell Distribution Width 12.8 % (11.0-16.0); SCAN SMEAR FLAG 1; White Blood Count 8.9 X10*3/uL (4.8-10.8)
--- NOTE | 2024-03-07 23:13 | PC.NURSE ---
Pt ca&ox4, no signs of distress Pt reports 6/10 mid chest pain, denies n/v reports dizziness Pt reports burning sensation in midchest onset 6am after getting back to bed from the bathroom. Pts family at bedside. Plan of care ongoing.
[2024-03-07 23:18] LABS: Alanine Aminotransferase 25 U/L (0-40); Albumin Level 4.3 g/dL (3.5-5.0); Alkaline Phosphatase 107 U/L (39-117); Anion Gap 14 (12-20); Aspartate Amino Transferase 22 U/L (5-37); Bilirubin Total 0.3 mg/dL (0.0-1.0); Blood Urea Nitrogen 21 mg/dL (9-16); Calcium 9.9 mg/dL (8.4-10.2); Carbon Dioxide 22 mmol/L (22-29); Chloride 109 mmol/L (96-108); Estimated Glomerular Filt Rate 43; Glucose Random 106 mg/dL (60-115); Sodium 141 mmol/L (135-145); Total Protein 7.9 g/dL (6.5-8.0)
[2024-03-07 23:25] LABS: Troponin-I High Sensitivity 6.4 ng/L (<3.5-35.0)
[2024-03-07 23:30] LABS: SLIDE REVIEW VERIFIED
[2024-03-07 23:33] LABS: Atypical Lymph Absolute Manual 0.6 x10*3/uL; Atypical Lymphs Percent Manual 7 % (0-6); Band Neutrophils Percent 1 % (3-5); Basophils Abs Manual 0.1 X10*3/uL (0.0-0.2); Basophils Percent Manual 1 % (0-2); Eosinophils Absolute Manual 0.1 X10*3/uL (0.0-0.4); Eosinophils Percent Manual 1 % (0-4); Lymphocytes Absolute Manual 2.1 X10*3/uL (1.2-4.9); Lymphocytes Percent Manual 24 % (20-40); Monocytes Absolute Manual 0.6 X10*3/uL (0.1-1.2); Monocytes Percent Manual 7 % (2-11); Neutrophils Absolute Manual 5.3 X10*3/uL (2.0-8.3); Neutrophils Percent Manual 59 % (45-73); Platelet Estimate NORMAL (NORMAL); RBC Morphology NOTED
[2024-03-07 23:34] LABS: Platelet Morphology Comment NORMAL; Rouleau PRESENT
--- NOTE | 2024-03-08 00:39 | ED_ITS ---
HPI - Arrhythmia/Palpitations General Chief Complaint: Arrhythmia/Palpitations Stated Complaint: pain from new pacemaker Time Seen by Provider: 03/07/24 23:09 Source: patient Mode of arrival: ambulatory History of Present Illness ED Provider: Dr Mortensen Related Data Home Medications ?Medication ?Instructions ?Recorded ?Confirmed melatonin 5 mg tablet 5 mg PO BEDTIME PRN insomnia 09/16/23 03/05/24 spironolactone 25 mg tablet 25 mg PO DAILY 03/05/24 03/05/24 Previous Rx's ?Medication ?Instructions ?Recorded empagliflozin 25 mg tablet 25 mg PO DAILY #30 tabs 11/28/23 (Jardiance) furosemide 40 mg tablet 40 mg PO DAILY #30 tabs 01/27/24 oxycodone 5 mg capsule 5 mg PO Q6H PRN pain #12 caps 02/20/24 carvedilol 25 mg tablet (Coreg) 25 mg PO Q12H #60 tabs 03/05/24 sacubitril 97 mg-valsartan 103 mg 1 tab PO BID #60 tabs 03/05/24 tablet (Entresto) Allergies Allergy/AdvReac Type Severity Reaction Status Date / Time No Known Allergies Allergy Verified 03/07/24 22:39 [facility] Past Medical History Medical History Diabetes Asthma Nonischemic cardiomyopathy Heart failure with reduced ejection fraction Acute on chronic systolic (congestive) heart failure Decompensated heart failure HTN (hypertension) Surgical History History of umbilical hernia repair Family History Family History Unknown Enlarged heart Social History Social History Household Members: Family Household Members Other:: Mom Housing: House Do you presently have visiting nurse or other home services: No Alcohol intake: never Comment: pt no longer on/requiring high flow O2. Patient Tobacco Use Status: Never used Tobacco Smoked in Last 30 Days: No Use of substances other than those prescribed or required for medical reasons: No Advance Directives: No Advance Directives Information Provided: No service: No Physical Exam 2 Vital Signs: Vital Signs: Last Vital Signs Temp 97.6 F 03/07/24 22:36 Pulse 73 06/08/24 22:36 Resp 20 03/07/24 22:36 BP 124/81 03/07/24 22:36 Pulse Ox 96 03/07/24 22:36 O2 Del Method Room Air 03/07/24 22:36 BMI result Body Mass Index 32.5 Medical Decision Making Medical Decision Making MDM Narrative: 33-year-old male with history and clinical presentation, DDX: Aberrant shock delivery, physiologic shock delivery. I was able to get the patient's ICD to communicate with his home lab to device and subsequently the data was transmitted to [employer]. However, patient states that when he attempted to do that this morning he got yellow lights and so came into the emergency room. 0139: I spoke with [employer] who informs me that our interrogation device here at [facility] does not support the latitude device that the patient contains, however the customer service representative teller states that she will have the emergency electromyographic technician return my call to inform me whether or not the patient actually received a shock this morning. 0143: [employer] reports that patient did receive improper shock this morning and needs to be re-evaluated, needs 2V to focus on the lead header connection, I spoke to Daina Johnson and needs to be seen by cmm programmer and alternate vector chosen...consider secondary because all other vectors share the same pin...thinking may be under inserted lead as number 1 possibility. I reviewed all investigations and hematologic indices are negative for leukocytosis/anemia/thrombocytopenia. Chemistry indices are demonstrating an RENA without electrolyte or liver enzyme derangements. I sensitivity troponin is detectable but not significantly elevated and patient has no chest pain. 0205: I discussed case with inpatient hospitalist who accepts admission. 0208: I discussed with Cardiology who has no further recommendations at this time and agrees with [employer] current recommendations for reassessment by cmm programmer from [employer] but does not feel that patient needs admission for this evaluation and that he is able to be discharged. However, patient also has an RENA and I did discuss this further with the inpatient hospitalist who accepts admission. Differential Diagnosis Differential Diagnoses: The differential diagnosis associated with the presentation includes Please see the discussion of Admission/Observation Consideration of admission/observation: Escalation of care including admission/observation considered Please see the discussion above Consult Healthcare Provider Management of the patient was discussed with: Hospitalist and Full Stack Software Engineer Please see the discussion above Lab Data [facility] Lab Attestation statement: I reviewed the patient's lab results. Please see the discussion above 03/07/24 22:56 03/07/24 22:56 Labs: Lab Results 03/07/24 Range/Units 22:56 WBC 8.9 (4.8-10.8) X10*3/uL RBC 5.64 (4.60-5.80) X10*6/uL Hgb 15.9 (14.0-18.0) g/dl Hct 45.8 (42.0-52.0) % MCV 81.2 (80.0-98.0) fL MCH 28.2 (27.0-33.0) pg MCHC 34.7 (31.0-36.0) g/dl RDW 12.8 (11.0-16.0) % Plt Count 260 (160-400) X10*3/uL MPV 8.4 L (9.4-12.4) fL Immature Gran % (Auto) 0.4 (0.0-0.4) % Neut % (Auto) 53.3 (45-73) % Lymph % (Auto) 36.8 (20-40) % Esmer[place]da % (Auto) 7.7 (2-11) % Eos % (Auto) 1.5 (0-4) % Baso % (Auto) 0.3 (0-2) % Lymph # (Auto) 3.3 (1.2-4.9) X10*3/uL Esmeralda # (Auto) 0.7 (0.1-1.2) X10*3/uL Eos # (Auto) 0.1 (0.0-0.4) X10*3/uL Baso # (Auto) 0.0 (0.0-0.2) X10*3/uL Abs Immat Gran (auto) 0.04 H (0.00-0.03) X10*3/uL Absolute Neuts (auto) 4.7 (2.0-8.3) x10*3/uL Absolute Nucleated RBC 0.000 (0.0-0.012) X10*3/uL Nucleated RBC % (auto) 0.0 (0.0-0.2) /100WBC Neutrophils % (Manual) 59 (45-73) % Band Neutrophils % 1 L (3-5) % Lymphocytes % (Manual) 24 (20-40) % Atypical Lymphs % (Man) 7 H (0-6) % Monocytes % (Manual) 7 (2-11) % Eosinophils % (Manual) 1 (0-4) % Basophils % (Manual) 1 (0-2) % Abs Neuts (Manual) 5.3 (2.0-8.3) X10*3/uL Lymphocytes # (Manual) 2.1 (1.2-4.9) X10*3/uL Atyp Lymphs # (Manual) 0.6 x10*3/uL Monocytes # (Manual) 0.6 (0.1-1.2) X10*3/uL Eosinophils # (Manual) 0.1 (0.0-0.4) X10*3/uL Basophils # (Manual) 0.1 (0.0-0.2) X10*3/uL Platelet Estimate NORMAL (NORMAL) Plt Morphology Comment NORMAL RBC Morphology NOTED Rouleaux PRESENT Smear Tech's Comments VERIFIED Sodium 141 (135-145) mmol/L Potassium 4.0 (3.3-5.1) mmol/L Chloride 109 H (96-108) mmol/L Carbon Dioxide 22 (22-29) mmol/L Anion Gap 14 (12-20) BUN 21 H (9-16) mg/dL Creatinine 1.80 H (0.5-1.4) mg/dL Estim Creat Clear Calc 80.0 Estimated GFR 43 Random Glucose 106 (60-115) mg/dL Calcium 9.9 (8.4-10.2) mg/dL Total Bilirubin 0.3 (0.0-1.0) mg/dL AST 22 (5-37) U/L ALT 25 (0-40) U/L Alkaline Phosphatase 107 (39-117) U/L Troponin I High Sens 6.4 D (<3.5-35.0) ng/L Total Protein 7.9 (6.5-8.0) g/dL Albumin 4.3 (3.5-5.0) g/dL Independent Interpretation I performed an independent interpretation of an: EKG Interpretation: Normal sinus rhythm, HR-69, no STEMI, NM/QTC are within normal limits. Radiology Impression Discussion of test interpretation with radiology: I have reviewed the radiologist's reading. External Record Review External record reviewed: Inpatient record, Outpatient record, Prior outpatient labs and Prior outpatient radiology Chronic Conditions Patient?s care impacted by: Hypertension Cardiomyopathy Critical Care Time Critical Care Time Critical Care Time: Yes Total Critical Care Time: 60 Attestation: I personally attest to this time spent taking care of the patient. Discharge Plan Discharge Clinical Impression: RENA (acute kidney injury), ICD (implantable cardioverter-defibrillator) malfunction Patient Disposition: Admitted As Inpatient Prescriptions: No Action Jardiance 25 mg tablet 25 mg PO DAILY Qty: 30 5RF Rx Instructions: Dr. Higginbotham to Rx for 340B qualification melatonin 5 mg tablet 5 mg PO BEDTIME PRN (Reason: insomnia) oxycodone 5 mg capsule 5 mg PO Q6H PRN (Reason: pain) Qty: 12 0RF Rx Instructions: Partial Fill upon patient request. spironolactone 25 mg tablet 25 mg PO DAILY Protocol: Hold for SBP< HOLD for SBP < : 90 Entresto 97-103 mg tablet 1 tab PO BID Qty: 60 5RF carvedilol [Coreg] 25 mg tablet 25 mg PO Q12H Qty: 60 5RF Rx Instructions: must administer with a meal/food furosemide 40 mg tablet 40 mg PO DAILY Qty: 30 0RF Print Language: Indonesian
--- NOTE | 2024-03-08 02:27 | PM.IMHP ---
History of Present Illness Date of Service: 03/08/24 Chief Complaint: Pacemaker issue This is a 33-year-old male with pertinent history of congestive heart failure with reduced ejection fraction status post ICD presents to the emergency department after aberrant shock from ICD. Patient states this happened on the day of presentation in a.m.. He has no other complaints. No dyspnea, orthopnea or PND. He is compliant with his medications. Fever, chills, nausea, vomiting. Adequate p.o. intake. His ICD was placed about a month ago. [employer] was contacted from the ER and they did say that patient received improper shock in the morning. Patient was also noted to have elevated creatinine and hospital medicine team contacted for admission. Review of Systems Constitutional: Constitutional: Reports no additional constitutional complaints Cardiovascular: Cardiovascular: Reports no additional cardiovascular complaints Respiratory: Respiratory: Reports no additional respiratory complaints Gastrointestinal: Gastrointestinal: Reports no additional gastrointestinal complaints Genitourinary: Genitourinary: Reports no additional male genitourinary complaints ON LICENSE OF [facility] Medical History Diabetes Asthma Nonischemic cardiomyopathy Heart failure with reduced ejection fraction Acute on chronic systolic (congestive) heart failure Decompensated heart failure HTN (hypertension) Family History Unknown Enlarged heart Surgical History History of umbilical hernia repair Social History Household Members: Family Household Members Other:: Mom Housing: House Do you presently have visiting nurse or other home services: No Alcohol intake: never Comment: pt no longer on/requiring high flow O2. Patient Tobacco Use Status: Never used Tobacco Smoked in Last 30 Days: No Use of substances other than those prescribed or required for medical reasons: No Advance Directives: No Advance Directives Information Provided: No service: No Meds Allergies Allergy/AdvReac Type Severity Reaction Status Date / Time No Known Allergies Allergy Verified 03/07/24 22:39 Home Medications ?Medication ?Instructions ?Recorded ?Confirmed ?Last Taken ?Type melatonin 5 mg tablet 5 mg PO BEDTIME PRN insomnia 09/16/23 03/05/24 Unknown History spironolactone 25 mg tablet 25 mg PO DAILY 03/05/24 03/05/24 Unknown History Physical Exam Vital Signs and Narrative: Vital Signs: Last Vital Signs Temp 97.6 F 03/07/24 22:36 Pulse 73 03/07/24 22:36 Resp 20 03/07/24 22:36 BP 124/81 03/07/24 22:36 Pulse Ox 96 03/07/24 22:36 O2 Del Method Room Air 03/07/24 22:36 BMI result Body Mass Index 32.5 Middle-aged male lying in bed in no distress Neck supple, no JVD Regular rate and rhythm, S1-S2 heard Regular breath sounds bilaterally, no wheezing or crackles appreciated Abdomen soft nontender, no guarding, no rigidity Patient is awake, alert and oriented to self, place, time and person ; no focal motor deficit Psych: Normal mood No pedal edema Results Labs 03/07/24 22:56 03/07/24 22:56 Labs: Laboratory Results - last 24 hr 03/07/24 22:56 MCV 81.2 MCH 28.2 MCHC 34.7 RDW 12.8 Plt Count 260 MPV 8.4 L Immature Gran % (Auto) 0.4 Neut % (Auto) 53.3 Lymph % (Auto) 36.8 [place] % (Auto) 7.7 Eos % (Auto) 1.5 Baso % (Auto) 0.3 Lymph # (Auto) 3.3 [place] # (Auto) 0.7 Eos # (Auto) 0.1 Baso # (Auto) 0.0 Abs Immat Gran (auto) 0.04 H Absolute Neuts (auto) 4.7 Absolute Nucleated RBC 0.000 Nucleated RBC % (auto) 0.0 Neutrophils % (Manual) 59 Band Neutrophils % 1 L Lymphocytes % (Manual) 24 Atypical Lymphs % (Man) 7 H Monocytes % (Manual) 7 Eosinophils % (Manual) 1 Basophils % (Manual) 1 Abs Neuts (Manual) 5.3 Lymphocytes # (Manual) 2.1 Atyp Lymphs # (Manual) 0.6 Monocytes # (Manual) 0.6 Eosinophils # (Manual) 0.1 Basophils # (Manual) 0.1 Platelet Estimate NORMAL Plt Morphology Comment NORMAL RBC Morphology NOTED Rouleaux PRESENT Smear Tech's Comments VERIFIED Anion Gap 14 Estim Creat Clear Calc 80.0 Estimated GFR 43 Random Glucose 106 Calcium 9.9 Total Bilirubin 0.3 AST 22 ALT 25 Alkaline Phosphatase 107 Troponin I High Sens 6.4 D Total Protein 7.9 Albumin 4.3 Assessment and Plan (1) RENA (acute kidney injury): Status: Acute (2) ICD (implantable cardioverter-defibrillator) malfunction: Status: Acute Plan This is a 33-year-old male with pertinent history of congestive heart failure with reduced ejection fraction status post ICD presents to the emergency department after aberrant shock from ICD. #. Acute kidney injury stage I, nonoliguric: Will resuscitate with IV crystalloids and hold diuretics. Urine studies pending. Avoid nephrotoxins #. Inappropriate ICD shock: [employer] was contacted from the ER who did report that patient received in proper shock in the morning. It is likely due to under inserted lead and will need to be seen by a linux programmer. Chest x-ray pending. Cardiology was consulted from the ER to arrange this. #. Congestive heart failure with reduced ejection fraction: No decompensation during admission. Hold diuretics the setting of RENA. On beta-obdulia, SGOT 2, ARB and aldosterone antagonist Med rec pending DVT prophylaxis: Lovenox Full code Admit as inpatient and will require two night minimum hospital stay for monitoring of kidney function (as above), which is not possible in a lesser acute setting. Quality Stroke Does the patient have a stroke diagnosis?: No VTE Prior VTE?: No VTE Risk Level:: Medical - moderate - high VTE Device Contraindication: Treatment Not Indicated VTE Drug Contraindication: N/A - Med Ordered
[2024-03-08] MEDS: 0.9 % Sodium Chloride 500 ML IV (02:59)
--- NOTE | 2024-03-08 03:07 | PC.NURSE ---
Pt medicated per nov. Pt requested and given pillow and lights dimmed. Plan of care ongoing.
[2024-03-08] MEDS: Enoxaparin Sodium 40 MG/0.4 ML SYRINGE SUBCUT (03:29)
--- NOTE | 2024-03-08 03:30 | PC.NURSE ---
Pt medicated per nov. Plan of care ongoing.
[2024-03-08 05:48] LABS: Basophils Percent Auto 0.4 % (0-2); Eosinophils Absolute Auto 0.2 X10*3/uL (0.0-0.4); Eosinophils Percent Auto 1.8 % (0-4); Hematocrit 44.9 % (42.0-52.0); Hemoglobin 15.2 g/dl (14.0-18.0); Imm Gran Abs Auto 0.04 X10*3/uL (0.00-0.03); Imm Gran Pct Auto 0.5 % (0.0-0.4); Lymphocytes Percent Auto 34.9 % (20-40); MANUAL DIFF FLAG SCAN; Mean Corpuscular HGB Conc 33.9 g/dl (31.0-36.0); Mean Corpuscular Hemoglobin 28.1 pg (27.0-33.0); Mean Platelet Volume 8.7 fL (9.4-12.4); Monocytes Absolute Auto 0.7 X10*3/uL (0.1-1.2); Monocytes Percent Auto 8.7 % (2-11); Neutrophils Absolute Auto 4.6 x10*3/uL (2.0-8.3); Neutrophils Percent Auto 53.7 % (45-73); Platelet Count 257 X10*3/uL (160-400); Red Blood Count 5.41 X10*6/uL (4.60-5.80); SCAN SMEAR FLAG 1; White Blood Count 8.5 X10*3/uL (4.8-10.8)
[2024-03-08 05:59] LABS: Anion Gap 10 (12-20); Blood Urea Nitrogen 25 mg/dL (9-16); Calcium 9.4 mg/dL (8.4-10.2); Carbon Dioxide 24 mmol/L (22-29); Chloride 110 mmol/L (96-108); Creatinine Clr Calc Pharmacy 108.3; Estimated Glomerular Filt Rate > 60; Glucose Random 111 mg/dL (60-115); Potassium 3.9 mmol/L (3.3-5.1); Sodium 140 mmol/L (135-145)
[2024-03-08 06:15] VITALS: BP 109/66; PULSE 63; RESP 18; TEMP 36.6; O2SAT 96
[2024-03-08 07:29] VITALS: BP 126/89; PULSE 72; RESP 19; O2SAT 99
--- NOTE | 2024-03-08 07:52 | PC.NURSE ---
patient is awake and alert, ambulated to bathroom for morning ADLS. patient respiration equal and unlabored, skin dry and intact. VSS
--- NOTE | 2024-03-08 07:56 | MHC.EDTECH ---
Patient ambulated to bathroom to wash up . Changed patient lines . patient am care done .
--- NOTE | 2024-03-08 08:57 | PHA.MEDREC ---
Pharmacy Consult ? Medication Reconciliation Pharmacy has completed the medication reconciliation. spoke with patient to confirm medications. He reports he has a new prescription for carvedilol 25mg BID at pharmacy but has not picked up yet (confirmed with [facility] as well), he is currently taking 12.5mg BID still. Patient last took linezolid yesterday and the rest of his medications on Saturday.
--- NOTE | 2024-03-08 09:36 | P.EN_ITS ---
Event Note Date of Service: 03/08/24 Event Note: Day hospitalist update S: no further shocks, SCr normalized, no chest pain or dyspnea This history was taken in Faroese from the patient. O: Temp Pulse Resp BP Pulse Ox O2 Del Method 97.9 F 72 19 126/89 99 Room Air 03/08/24 06:15 03/08/24 07:29 03/08/24 07:29 03/08/24 07:29 03/08/24 07:29 03/08/24 07:29 Gen: in no acute distress HEENT: sclera anicteric, moist mucus membranes Neck: supple Lungs: clear to auscultation bilaterally Heart: regular rate and rhythm, no murmurs Abd: soft, non-tender, non-distended Ext: no edema Skin: warm/well-perfused Neuro: alert and oriented x3, no focal findings Psych: appropriate affect A/P: d1 33yo M with dCM, HFrEF, recent AICD placement, admitted for inappropriate AICD shock AICD discharge - Cardiology consult/[employer] programming consult pending AICD site infection - continue linezolid HFrEF, chronic - continue carvedilol, empagliflozin, furosemide, Entresto, spironolactone VTE ppx - LMWH dispo - eventual home In my clinical judgment, the patient requires continued hospitalization for the following reasons: inappropriate AICD dshock Time Spent With Patient Time: Total time managing care of this patient today ____ minutes.
[2024-03-08] MEDS: Furosemide 40 MG TABLET PO (11:00)
[2024-03-08] MEDS: Sacubitril/Valsartan 97/103 1 TAB TABLET PO (11:00)
[2024-03-08] MEDS: Linezolid 600 MG TABLET PO (11:00)
[2024-03-08] MEDS: Empagliflozin 25 MG TABLET PO (11:00)
[2024-03-08] MEDS: carvediloL 12.5 MG TABLET PO (11:00)
[2024-03-08] MEDS: Spironolactone 25 MG TABLET PO (11:01)
--- NOTE | 2024-03-08 12:53 | PM.DS ---
DS: Providers Provider Date of Service: 03/08/24 Date of admission: 03/08/24 02:26 Date of discharge: 03/08/24 Primary care physician: Chance Georges MD Consults: 03/08/24 03:51 Consult to Cardiology Routine Consulting Provider: [facility] Reason for consultation: Inappropriate shock from ICD DS: Diagnosis Discharge Diagnosis (1) RENA (acute kidney injury): Status: Acute (2) ICD (implantable cardioverter-defibrillator) malfunction: Status: Acute DS: Summary Hospital Course Hospital Course: From the history and physical by the admitting hospitalist, Rito Negro MD, 03/08/24: This is a 33-year-old male with pertinent history of congestive heart failure with reduced ejection fraction status post ICD presents to the emergency department after aberrant shock from ICD. Patient states this happened on the day of presentation in a.m.. He has no other complaints. No dyspnea, orthopnea or PND. He is compliant with his medications. Fever, chills, nausea, vomiting. Adequate p.o. intake. His ICD was placed about a month ago. [employer] was contacted from the ER and they did say that patient received improper shock in the morning. Patient was also noted to have elevated creatinine and hospital medicine team contacted for admission. No further ICD shocks. Creatinine normalized after gentle IV hydration. Likely as his neurohormonal modulation kicks in, he does not need as much diuresis. Furosemide dose decreased from 40 to 20 mg daily. Entresto also decrease from 97/103 to 49/51 mg twice daily. Cardiology consulted and will arrange device reprogramming in-person through [employer] 03/09/24. It seems he had inappropriate ICD discharge related to either sensing issue, which would require reprogramming, or lead disconnection, which would require reoperation. He was discharged home with the above medication changes. It seems like by remote monitoring and checked by device company patient had inappropriate ICD discharge probably related to sensing issue or lead disconnection or inappropriate vector. ICD will need to be evaluated in person to evaluate for exact issue and then consider either reprogramming and/or re surgery to correct electrode situation. Time Attestation Discharge Coordination Time (in mins): 35 Quality: Safe Use of Opioids Does Pt have an Active Cancer Diagnosis on the Problem List?: No Quality: Stroke Does the patient have a stroke diagnosis?: No Physical Exam Vital Signs: Vital Signs: Last Vital Signs Temp 97.9 F 03/08/24 06:15 Pulse 72 03/08/24 07:29 Resp 19 03/08/24 07:29 BP 126/89 03/08/24 07:29 Pulse Ox 99 03/08/24 07:29 O2 Del Method Room Air 03/08/24 07:29 BMI result Body Mass Index 32.5 Gen: in no acute distress HEENT: sclera anicteric, moist mucus membranes Neck: supple Lungs: clear to auscultation bilaterally Heart: regular rate and rhythm, no murmurs Abd: soft, non-tender, non-distended Ext: no edema Skin: warm/well-perfused Neuro: alert and oriented x3, no focal findings Psych: appropriate affect DS: Data Data Completed and Pending Completed studies during hospitalization [Text1]: Laboratory Results - last 24 hr 03/07/24 03/08/24 22:56 05:19 WBC 8.9 8.5 RBC 5.64 5.41 Hgb 15.9 15.2 Hct 45.8 44.9 MCV 81.2 83.0 MCH 28.2 28.1 MCHC 34.7 33.9 RDW 12.8 13.0 Plt Count 260 257 MPV 8.4 L 8.7 L Immature Gran % (Auto) 0.4 0.5 H Neut % (Auto) 53.3 53.7 Lymph % (Auto) 36.8 34.9 [place] % (Auto) 7.7 8.7 Eos % (Auto) 1.5 1.8 Baso % (Auto) 0.3 0.4 Lymph # (Auto) 3.3 3.0 [place] # (Auto) 0.7 0.7 Eos # (Auto) 0.1 0.2 Baso # (Auto) 0.0 0.0 Abs Immat Gran (auto) 0.04 H 0.04 H Absolute Neuts (auto) 4.7 4.6 Absolute Nucleated RBC 0.000 0.000 Nucleated RBC % (auto) 0.0 0.0 Neutrophils % (Manual) 59 Band Neutrophils % 1 L Lymphocytes % (Manual) 24 Atypical Lymphs % (Man) 7 H Monocytes % (Manual) 7 Eosinophils % (Manual) 1 Basophils % (Manual) 1 Abs Neuts (Manual) 5.3 Lymphocytes # (Manual) 2.1 Atyp Lymphs # (Manual) 0.6 Monocytes # (Manual) 0.6 Eosinophils # (Manual) 0.1 Basophils # (Manual) 0.1 Platelet Estimate NORMAL Plt Morphology Comment NORMAL RBC Morphology NOTED Rouleaux PRESENT Smear Tech's Comments VERIFIED Sodium 141 140 Potassium 4.0 3.9 Chloride 109 H 110 H Carbon Dioxide 22 24 Anion Gap 14 10 L BUN 21 H 25 H Creatinine 1.80 H 1.33 Estim Creat Clear Calc 80.0 108.3 Estimated GFR 43 > 60 Random Glucose 106 111 Calcium 9.9 9.4 Total Bilirubin 0.3 AST 22 ALT 25 Alkaline Phosphatase 107 Troponin I High Sens 6.4 D Total Protein 7.9 Albumin 4.3 Discharge Plan Discharge Anticipated Discharge Date/Time: 03/08/24 12:49 Patient Disposition: Home, Self-Care Discharge Diagnosis: AICD malfunction acute kidney injury Referrals: Chance Georges MD [Primary Care Provider] - 1 Week Discharge Medications: New Entresto 49-51 mg tablet 1 tab PO BID Qty: 60 0RF Rx Instructions: Replaces prior dose of 97/103 mg twice daily furosemide 20 mg tablet 20 mg PO DAILY Qty: 30 0RF Rx Instructions: replaces prior dose of 40 mg daily Continued Jardiance 25 mg tablet 25 mg PO DAILY Qty: 30 5RF Rx Instructions: Dr. Higginbotham to Rx for 340B qualification oxycodone-acetaminophen 10-325 mg tablet 1 tab PO Q6H PRN (Reason: pain) linezolid 600 mg tablet 600 mg PO BID betamethasone, augmented 0.05 % ointment 1 appl topical BID albuterol sulfate 90 mcg/actuation HFA aerosol inhaler 2 puff INHALATION Q6H PRN (Reason: wheezing) carvedilol 12.5 mg tablet 12.5 mg PO BID spironolactone 25 mg tablet 25 mg PO DAILY Protocol: Hold for SBP< HOLD for SBP < : 90 Discontinued Entresto 97-103 mg tablet 1 tab PO BID Qty: 60 5RF furosemide 40 mg tablet 40 mg PO DAILY Qty: 30 0RF Discharge Orders: Discharge Order (Routine); Ordered 03/08/24 Ordered By: Zenaida Arroyo Diet: Low salt diet Activity on Discharge: As tolerated Stand Alone Forms: Patient Portal Discharge page Print Language: Indian Care Plan Goals: AICD functioning cardiac health Health Concerns: AICD malfunction acute kidney injury Plan of Treatment: Cardiology will arrange device reprogramming through [employer] 03/09/24 decrease furosemide from 40 to 20 mg daily decrease Entresto from 97/103 to 49/51 mg twice daily follow up with Cardiology in 1 week Please follow up with your primary care doctor within 1 week. Return to the hospital if you experience recurrent or worsening symptoms. Assessment: See Discharge Summary.
--- NOTE | 2024-03-08 13:09 | P.CONCA_ITS ---
History of Present Illness History of Present Illness Date of Service: 03/08/24 Requesting physician: Zenaida Arroyo Consult reason: congestive heart failure and other (ICD discharge) Chief complaint: pacemaker issue Narrative: I was consulted to see Angel in cardiology consultation today for ICD discharge. This has this happened yesterday, patient felt it. There was no reported palpitations, lightheadedness, syncope prior to it. Patient came to the emergency room and was anxious about it. Also was noted to have acute kidney injury. ED attending try to obtain device interrogation although this was only obtain remotely and was felt that there was inappropriate shock related to possibly inappropriate sensing. Requires full device interrogation, although being weekend this is not available. Patient has RENA improved with IV fluid. Recently I saw him in the office and had increased his Entresto and carvedilol which she has done and has stopped his nifedipine therapy. However he notice that at home his blood pressure was on the low side and he was lightheaded. He denies any other heart failure symptoms. He is anxious to go home Review of Systems 2 Constitutional: Constitutional: Reports no additional constitutional complaints Eyes: Eyes: Reports no additional eye complaints Cardiovascular: Cardiovascular: Denies chest pain, Denies syncope, Denies leg edema, Reports lightheadedness, Denies palpitations, Denies dyspnea and Reports other (ICD discharge) Respiratory: Respiratory: Reports no additional respiratory complaints and Denies dyspnea Musculoskeletal: Musculoskeletal: Reports other (Pain at the surgical site) Neurologic: Denies syncope Endocrine: Endocrine: Denies palpitations PMFSH Past Medical History Medical History Diabetes Asthma Nonischemic cardiomyopathy Heart failure with reduced ejection fraction Acute on chronic systolic (congestive) heart failure Decompensated heart failure HTN (hypertension) Family History Family History Unknown Enlarged heart Surgical History Surgical History History of umbilical hernia repair Social History Social History Household Members: Family Household Members Other:: Mom Housing: House Do you presently have visiting nurse or other home services: No Alcohol intake: never Comment: pt no longer on/requiring high flow O2. Patient Tobacco Use Status: Never used Tobacco Smoked in Last 30 Days: No Use of substances other than those prescribed or required for medical reasons: No Advance Directives: No Advance Directives Information Provided: No service: No Meds Allergies Allergy/AdvReac Type Severity Reaction Status Date / Time No Known Allergies Allergy Verified 03/07/24 22:39 Active Medications: Current Medications Acetaminophen (Acetaminophen 325 Mg Tablet) 650 mg PO Q6H PRN PRN Reason: Pain, Mild (Pain Scale 1-3) Albuterol Sulfate (Albuterol Sulfate 90 Mcg 8 Gm Inhaler) 2 puff INHALE Q6H PRN PRN Reason: wheezing Carvedilol (Carvedilol 12.5 Mg Tablet) 12.5 mg PO BID [facility]; Protocol Last Admin: 03/08/24 11:00 Dose: 12.5 mg Empagliflozin (Empagliflozin 25 Mg Tablet) 25 mg PO DAILY [facility] Last Admin: 03/08/24 11:00 Dose: 25 mg Enoxaparin Sodium (Enoxaparin Sodium 40 Mg/0.4 Ml Syringe) 40 mg SUBCUT Q24H [facility] Last Admin: 03/08/24 03:29 Dose: 40 mg Furosemide (Furosemide 40 Mg Tablet) 40 mg PO DAILY [facility]; Protocol Last Admin: 03/08/24 11:00 Dose: 40 mg Linezolid (Linezolid 600 Mg Tablet) 600 mg PO BID [facility] Last Admin: 03/08/24 11:00 Dose: 600 mg Melatonin (Melatonin 3 Mg Tablet) 6 mg PO BEDTIME PRN PRN Reason: Insomnia Ondansetron HCl (Ondansetron Hcl 4 Mg/2 Ml Vial) 4 mg IVPUSH Q8H PRN PRN Reason: Nausea and Vomiting Sacubitril/Valsartan (Sacubitril/Valsartan 97/103 1 Tab Tablet) 1 tab PO BID [facility]; Protocol Last Admin: 03/08/24 11:00 Dose: 1 tab Sodium Chloride (0.9 % Sodium Chloride Flush 3 Ml Syringe) 3 ml IVFLUSH QSHIFT [facility] Last Admin: 03/08/24 07:17 Dose: Not Given Spironolactone (Spironolactone 25 Mg Tablet) 25 mg PO DAILY [facility]; Protocol Last Admin: 03/08/24 11:01 Dose: 25 mg Home Medications ?Medication ?Instructions ?Recorded ?Confirmed ?Last Taken ?Type spironolactone 25 mg tablet 25 mg PO DAILY 03/05/24 03/08/24 03/06/24 History albuterol sulfate 90 mcg/actuation 2 puff inhalation Q6H PRN wheezing 03/08/24 03/08/24 Unknown History aerosol inhaler betamethasone, augmented 0.05 % 1 appl topical BID 03/08/24 03/08/24 03/06/24 History topical ointment carvedilol 12.5 mg tablet 12.5 mg PO BID 03/08/24 03/08/24 03/06/24 History linezolid 600 mg tablet 600 mg PO BID 03/08/24 03/08/24 03/07/24 History oxycodone-acetaminophen 10 mg-325 1 tab PO Q6H PRN pain 03/08/24 03/08/24 Unknown History mg tablet Physical Exam 2 Vital Signs: Vital Signs: Last Vital Signs Temp 97.9 F 03/08/24 06:15 Pulse 72 03/08/24 07:29 Resp 19 03/08/24 07:29 BP 126/89 03/08/24 07:29 Pulse Ox 99 03/08/24 07:29 O2 Del Method Room Air 03/08/24 07:29 BMI result Body Mass Index 32.5 Const: General: cooperative, comfortable, no acute distress, alert and awake Nutritional Appearance: overweight Orientation/consciousness: patient oriented x3 Limitations: no limitations HEENT: Head: Yes normocephalic and Yes atraumatic Neck: Neck: Yes trachea midline, Yes supple and Yes no JVD Resp: Effort & Inspection: normal respiratory effort Auscultation: clear to auscultation bilaterally Cardio: Jugular venous distension: no JVD Palpation: abnormal PMI displaced PMI Rate: regular rate Rhythm: regular rhythm Heart sounds: S1 normal heart sound present, S2 normal heart sound present, no click, no gallops, no murmurs and no rubs GI: Auscultation: normal bowel sounds Skin: General skin exam: no rashes or lesions noted Neuro: General: patient oriented x3 and no focal motor deficits Extrem: General: Yes no clubbing, cyanosis or edema Objective Labs and Meds 03/08/24 05:19 03/08/24 05:19 Lab results: Laboratory Results - last 24 hr 03/07/24 03/08/24 22:56 05:19 WBC 8.9 8.5 RBC 5.64 5.41 Hgb 15.9 15.2 Hct 45.8 44.9 MCV 81.2 83.0 MCH 28.2 28.1 MCHC 34.7 33.9 RDW 12.8 13.0 Plt Count 260 257 MPV 8.4 L 8.7 L Immature Gran % (Auto) 0.4 0.5 H Neut % (Auto) 53.3 53.7 Lymph % (Auto) 36.8 34.9 [place] % (Auto) 7.7 8.7 Eos % (Auto) 1.5 1.8 Baso % (Auto) 0.3 0.4 Lymph # (Auto) 3.3 3.0 [place] # (Auto) 0.7 0.7 Eos # (Auto) 0.1 0.2 Baso # (Auto) 0.0 0.0 Abs Immat Gran (auto) 0.04 H 0.04 H Absolute Neuts (auto) 4.7 4.6 Absolute Nucleated RBC 0.000 0.000 Nucleated RBC % (auto) 0.0 0.0 Neutrophils % (Manual) 59 Band Neutrophils % 1 L Lymphocytes % (Manual) 24 Atypical Lymphs % (Man) 7 H Monocytes % (Manual) 7 Eosinophils % (Manual) 1 Basophils % (Manual) 1 Abs Neuts (Manual) 5.3 Lymphocytes # (Manual) 2.1 Atyp Lymphs # (Manual) 0.6 Monocytes # (Manual) 0.6 Eosinophils # (Manual) 0.1 Basophils # (Manual) 0.1 Platelet Estimate NORMAL Plt Morphology Comment NORMAL RBC Morphology NOTED Rouleaux PRESENT Smear Tech's Comments VERIFIED Sodium 141 140 Potassium 4.0 3.9 Chloride 109 H 110 H Carbon Dioxide 22 24 Anion Gap 14 10 L BUN 21 H 25 H Creatinine 1.80 H 1.33 Estim Creat Clear Calc 80.0 108.3 Estimated GFR 43 > 60 Random Glucose 106 111 Calcium 9.9 9.4 Total Bilirubin 0.3 AST 22 ALT 25 Alkaline Phosphatase 107 Troponin I High Sens 6.4 D Total Protein 7.9 Albumin 4.3 Imaging Radiologist's impression: Impressions Chest X-Ray 03/08/24 02:10 IMPRESSION: Generator device in the left chest wall with lead extending along the anterior chest just to the left of midline, similar to prior. Assessment and Plan (1) Inappropriate shocks from ICD (implantable cardioverter-defibrillator): Status: Acute It seems like by remote monitoring and checked by device company patient had inappropriate ICD discharge probably related to sensing issue or lead disconnection or inappropriate vector. ICD will need to be evaluated in person to evaluate for exact issue and then consider either reprogramming and/or re surgery to correct electrode situation. (2) Heart failure with reduced ejection fraction: Status: Acute Heart failure with reduced ejection fraction with severe LV systolic dysfunction related to severe nonischemic cardiomyopathy. Recent increase in Entresto led to low blood pressure and lightheadedness probably causing his RENA. Will reduce Entresto back to 49-51 mg b.i.d.. Continue carvedilol as well as Jardiance and Lasix therapy. Heart failure management was discussed. Patient wants to proceed to be discharged home. Will schedule follow-up tomorrow in the clinic for device check Procedures Date of Service Date of Service: 03/08/24
--- NOTE | 2024-03-08 13:46 | MHC.CM.PN ---
Patient lives in a home w/ mother & siblings. Functionally independent. Denies use of services or DME. Reports he has a pacemaker. PCP Chance Dozier MD HCP on file and verified. DP: Medically cleared for dc home self care. Sister at beside to transport.
== END 2024-03-08 14:10 | disposition home or self-care (01) | DRG 206 ==
LOC: HO.ED 03-08 02:27 → HO.EDOVER 03-08 02:30
PROVIDERS: Admitting Provider Student in an Organized Health Care Education/Training Program; Emergency Provider Student in an Organized Health Care Education/Training Program; PCP Internal Medicine; Visit Provider Family Medicine
DX: T82.897A Other specified complication of cardiac prosthetic devices, implants and grafts, initial encounter (principal); I42.8 Other cardiomyopathies; N17.9 Acute kidney failure, unspecified; I50.22 Chronic systolic (congestive) heart failure; I11.0 Hypertensive heart disease with heart failure; Y71.8 Miscellaneous cardiovascular devices associated with adverse incidents, not elsewhere classified; Z79.899 Other long term (current) drug therapy
CPT/HCPCS: 36415; 71046; 80048; 80053; 84484; 85007; 85025; 93005; 99221; 99285; J1650

== ENCOUNTER → 2024-03-07 22:45 | Outpatient (BNV) | payer MEDICAID, SELFPAY | PROVIDERS: Admitting Provider Student in an Organized Health Care Education/Training Program; Emergency Provider Student in an Organized Health Care Education/Training Program; PCP Internal Medicine; Visit Provider Internal Medicine | DX: R94.31 Abnormal electrocardiogram [ECG] [EKG] (principal) | CPT/HCPCS: 93010 ==

== ENCOUNTER → 2024-03-08 02:26 | Outpatient (BNV) | payer MEDICAID, SELFPAY | PROVIDERS: Admitting Provider Student in an Organized Health Care Education/Training Program; Emergency Provider Student in an Organized Health Care Education/Training Program; PCP Internal Medicine; Visit Provider Internal Medicine Cardiovascular Disease | DX: T82.198A Other mechanical complication of other cardiac electronic device, initial encounter (principal); I50.20 Unspecified systolic (congestive) heart failure | CPT/HCPCS: 99222 ==

== ENCOUNTER → 2024-03-08 02:26 | Outpatient (BNV) | payer MEDICAID, SELFPAY | PROVIDERS: Admitting Provider Student in an Organized Health Care Education/Training Program; Emergency Provider Student in an Organized Health Care Education/Training Program; PCP Internal Medicine; Visit Provider Student in an Organized Health Care Education/Training Program | DX: N17.9 Acute kidney failure, unspecified (principal); T82.118A Breakdown (mechanical) of other cardiac electronic device, initial encounter | CPT/HCPCS: 99235; 99499 ==

== ENCOUNTER → 2024-03-09 14:05 | Outpatient (BNVA) | payer MEDICAID, SELFPAY | PROVIDERS: PCP Internal Medicine; Visit Provider Internal Medicine Cardiovascular Disease ==

== ENCOUNTER 2024-03-31 10:47 | Outpatient (REF) | payer MEDICAID, SELFPAY ==
[2024-03-31 13:40] LABS: Anion Gap 13 (12-20); Blood Urea Nitrogen 17 mg/dL (9-16); Calcium 10.1 mg/dL (8.4-10.2); Carbon Dioxide 25 mmol/L (22-29); Chloride 107 mmol/L (96-108); Estimated Glomerular Filt Rate > 60; Glucose Random 146 mg/dL (60-115); Sodium 141 mmol/L (135-145)
[2024-03-31 14:00] LABS: TSH reflex Free T4 2.02 uIU/mL (0.32-4.0)
== END 2024-03-31 10:48 | disposition home or self-care (01) ==
LOC: HO.HHCL 10:47
PROVIDERS: Visit Provider Internal Medicine
DX: I10 Essential (primary) hypertension (principal); F41.9 Anxiety disorder, unspecified
CPT/HCPCS: 36415; 80048; 84443

== ENCOUNTER 2024-04-13 13:29 | Outpatient (AMB) | payer OTHER, SELFPAY ==
--- NOTE | 2024-04-13 13:57 | MHC.OFFVIS ---
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 History was obtained with help of diplomatic interpreter/translator. Patient says he has been doing well. His shortness of breath is improved. He also denies any orthopnea, PND, leg edema. Weight has remained stable. Tolerating all his medications. Comes for device check. Denies any palpitation ICD discharge. No lightheadedness, syncope. Back to work. [facility] Medical History (Updated 04/13/24 @ 14:47 by Ashish Voss MD) ICD (implantable cardioverter-defibrillator) malfunction Inappropriate shocks from ICD (implantable cardioverter-defibrillator) Diabetes Asthma Nonischemic cardiomyopathy Heart failure with reduced ejection fraction Acute on chronic systolic (congestive) heart failure Decompensated heart failure HTN (hypertension) Surgical History History of umbilical hernia repair Family History Unknown Enlarged heart Social History Household Members: Family Household Members Other:: Mom Housing: House Do you presently have visiting nurse or other home services: No Alcohol intake: never Comment: pt no longer on/requiring high flow O2. Patient Tobacco Use Status: Never used Tobacco service: No Review of Systems Const Denies chills, Denies fatigue, Denies fever(s), Denies frequent falls, Denies weakness, Denies weight gain and Denies weight loss ENT Denies dizziness Card Denies chest pain, Denies leg edema, Denies lightheadedness, Denies palpitations, Denies dyspnea, Denies dyspnea on exertion, Denies orthopnea and Denies other (loss of consciousness) Resp Denies cough, Denies dyspnea and Denies dyspnea on exertion GI Denies hematochezia and Denies change in stool character Musc Denies abnormal gait, Denies muscle weakness, Denies numbness, Denies radiating pain into limb and Denies tingling Neuro Denies abnormal gait, Denies dizziness, Denies frequent falls, Denies numbness, Denies tingling and Denies weakness Endo Denies fatigue and Denies palpitations Physical Exam Vital Signs: Last Vital Signs Pulse 77 04/13/24 14:20 BP 118/60 04/13/24 14:20 BMI result Body Mass Index 33.1 Const General: cooperative, healthy appearing, comfortable and no acute distress Orientation/consciousness: patient oriented x3 Neck Neck: Yes normal visual inspection and Yes no JVD Chest Chest palpation & inspection: other (Left thoracic cage defibrillator site appears stable with Well-healed sca) Resp Effort & Inspection: normal respiratory effort Auscultation: clear to auscultation bilaterally, no crackles, no rales, no rhonchi and no wheezes Cardio Jugular venous distension: no JVD Rate: regular rate Rhythm: regular rhythm Heart sounds: S1 normal heart sound present, S2 normal heart sound present, no murmurs and no rubs Neuro General: patient oriented x3 Extrem General: Yes normal to inspection, No no pedal edema and No calf tenderness Psych Appearance: grossly normal Mental Status: mental status grossly normal Speech and movement: Normal speech and movement present Office Procedures Cardiac Device Check Cardiac Device Check Details: [place] scientific subcutaneous ICD noted battery life is excellent at 98%. Sensing through the secondary vector is excellent. No arrhythmias detected. [id number] Device Interrogation, implantable defibrillator Procedure code (CPT) selection complete Assessment & Plan Assessment & Plan (1) Heart failure with reduced ejection fraction: Code(s): I50.20 - Unspecified systolic (congestive) heart failure Category: Medical Plan: heart failure with reduced ejection fraction with much improved symptoms on current medications and has remained clinically euvolemic. Will taper down furosemide to 3 times a week and eventually discontinue. Continue maximize Entresto to 103-97 mg b.i.d.. Continue carvedilol, Jardiance as well as spironolactone therapy. Signs and symptoms of heart failure were discussed. He understands agrees. Goals of therapy were discussed. He understands and agrees. Encouraged to continue to participate in regular physical activity and weight loss program. (2) ICD (implantable cardioverter-defibrillator) in place: Code(s): Z95.810 - Presence of automatic (implantable) cardiac defibrillator Category: Medical Plan: ICD in place, subcutaneous ICD with no recurrent inappropriate discharges. This was related to abnormality of the primary sensing vector still under investigation by the company. However with the secondary sensing vector, he sensing well without any recurrent events. Will follow up in the clinic in 3 months time, sooner p.r.n.. Thank you for allowing me to partake in his care Medications: New sacubitril-valsartan 97-103 mg (Entresto) 1 tab PO BID 60 tabs 5RF Changed From furosemide replaces prior dose of 40 mg daily 20 mg PO DAILY 30 tabs 0RF To furosemide replaces prior dose of 40 mg daily 20 mg PO .three times a week 30 tabs 0RF Coding Level of Care Code Est Pt Level 4 (23277) Diagnoses Heart failure with reduced ejection fraction I50.20 ICD (implantable cardioverter-defibrillator) in place Z95.810 CPT Codes Cardiac Device Check - Cardiac Device 9: [id number] Device Interrogation, implantable defibrillator ([id number])
[2024-04-13 14:20] VITALS: BP 118/60; PULSE 77; BMI 33.1
== END 2024-04-13 14:43 | disposition home or self-care (01) ==
PROVIDERS: PCP Internal Medicine; Visit Provider Internal Medicine Cardiovascular Disease
DX: I50.20 Unspecified systolic (congestive) heart failure (principal); Z95.810 Presence of automatic (implantable) cardiac defibrillator
CPT/HCPCS: 93260; 99214

== ENCOUNTER → 2024-04-13 13:29 | Outpatient (BNVA) | payer OTHER, SELFPAY | PROVIDERS: PCP Internal Medicine; Visit Provider Internal Medicine Cardiovascular Disease ==

== ENCOUNTER → 2024-06-08 23:59 | Outpatient (BNV) | payer OTHER, SELFPAY ==
--- NOTE | 2024-06-10 15:36 | MHC.OFFVIS ---
Intake Visit Reasons: Remote Device ICD CK-[employer] Allergies No Known Allergies Allergy (Verified 03/07/24 22:39) [facility] Medical History (Updated 04/13/24 @ 14:47 by Ashish Voss MD) ICD (implantable cardioverter-defibrillator) malfunction Inappropriate shocks from ICD (implantable cardioverter-defibrillator) Diabetes Asthma Nonischemic cardiomyopathy Heart failure with reduced ejection fraction Acute on chronic systolic (congestive) heart failure Decompensated heart failure HTN (hypertension) Surgical History History of umbilical hernia repair Family History Unknown Enlarged heart Social History Household Members: Family Household Members Other:: Mom Housing: House Do you presently have visiting nurse or other home services: No Alcohol intake: never Comment: pt no longer on/requiring high flow O2. Patient Tobacco Use Status: Never used Tobacco service: No Office Procedures Cardiac Device Check Cardiac Device Check Details: Remote ICD report generated 06/08/2024. ICD function is adequate. System impedance within normal limits. No arrhythmias detected [id number] Cardiac Interrogation, implant defibrillator w/interim Procedure code (CPT) selection complete Assessment & Plan Assessment & Plan (1) ICD (implantable cardioverter-defibrillator) in place: Code(s): Z95.810 - Presence of automatic (implantable) cardiac defibrillator Category: Medical Plan: See above Coding Level of Care Code Procedure Only Diagnoses ICD (implantable cardioverter-defibrillator) in place Z95.810 CPT Codes Cardiac Device Check - Cardiac Device 13: [id number] Cardiac Interrogation, implant defibrillator w/interim ([id number])
== END ==
PROVIDERS: PCP Internal Medicine; Visit Provider Internal Medicine Cardiovascular Disease
DX: Z95.810 Presence of automatic (implantable) cardiac defibrillator (principal)
CPT/HCPCS: 93295

== ENCOUNTER 2024-07-09 13:56 | Outpatient (AMB) | payer MEDICAID, SELFPAY ==
--- NOTE | 2024-07-09 14:05 | A.OFFVIS_ITS ---
Vital Signs 07/09/24 14:06 Height 6 ft 3 in Weight 279 lb 15.793 oz BMI 35.0 BP 120/70 Blood Pressure Location Lt brachial Position Sitting Pulse 76 Pulse Source Pulse Oximeter Intake Visit Reasons: 3 mth f/up med chgs Cardiology Specialist Required: Yes Cardiology Specialist Name: [id number] Allergies No Known Allergies Allergy (Verified 03/07/24 22:39) Medication List - Last Reconciled 07/09/24 by Ashish Voss MD carvedilol (Coreg) 25 mg PO BID empagliflozin (Jardiance) 25 mg PO DAILY furosemide 20 mg PO .three times a week linezolid 600 mg PO BID sacubitril-valsartan 97-103 mg (Entresto) 1 tab PO BID HPI Comments Details: Angel comes for 3 month follow-up. He is currently on maximal Entresto as well as carvedilol therapy. He is also on Jardiance. History was obtained with help of sat act instructor. He said he has been getting more short of breath recently over the last couple of weeks. He also has some cold-like symptoms. No wheezing. No cough productive of phlegm. Also complains of shortness of breath when he lies down. He also complains of discomfort at the defibrillator generator site and in the retrosternal area with a lead is placed. There is no clear open wound or discharge. No fever or chills. Patient denies any prolonged palpitations, syncope or ICD discharge. He said he occasionally feels lightheaded when he is upright and moving around. 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 Patient Tobacco Use Status: Never used Tobacco service: No Review of Systems Const Denies weakness ENT Denies dizziness Card Denies chest pain, Denies chest pain with activity, Denies syncope, Denies rapid heart rate, Denies pedal edema, Denies edema, Denies leg edema, Denies lightheadedness, Denies palpitations, Denies dyspnea, Denies dyspnea on exertion and Denies orthopnea Resp Denies cough, Denies dyspnea and Denies dyspnea on exertion GI Denies hematochezia and Denies change in stool character Musc Denies abnormal gait, Denies muscle cramps, Denies muscle weakness, Denies numbness, Denies radiating pain into limb and Denies tingling Neuro Denies abnormal gait, Denies dizziness, Denies syncope, Denies numbness, Denies tingling and Denies weakness Endo Denies palpitations Physical Exam Vital Signs: Last Vital Signs Pulse 76 07/09/24 14:06 BP 120/70 07/09/24 14:06 BMI result Body Mass Index 35.0 Const General: cooperative, healthy appearing, comfortable and no acute distress Orientation/consciousness: patient oriented x3 Neck Neck: Yes normal visual inspection and Yes no JVD Chest Chest palpation & inspection: other (Left thoracic cage defibrillator site appears stable with Well-healed sca) Resp Effort & Inspection: normal respiratory effort Auscultation: clear to auscultation bilaterally, no crackles, no rales, no rhonchi and no wheezes Cardio Jugular venous distension: no JVD Rate: regular rate Rhythm: regular rhythm Heart sounds: S1 normal heart sound present, S2 normal heart sound present, no murmurs and no rubs Neuro General: patient oriented x3 Extrem General: Yes normal to inspection, No no pedal edema and No calf tenderness Psych Appearance: grossly normal Mental Status: mental status grossly normal Speech and movement: Normal speech and movement present Assessment & Plan Assessment & Plan (1) Heart failure with reduced ejection fraction: Code(s): I50.20 - Unspecified systolic (congestive) heart failure Category: Medical Plan: Heart failure with reduced ejection fraction with significant nonischemic cardiomyopathy related LV systolic dysfunction. Increased symptoms of shortness of breath might suggest increased filling pressures. Clinically does appear to be fluid overloaded. However will obtain BMP and BNP today. I have advised him to increase his Lasix to 20 mg daily and call me in 1-2 weeks to see if his symptoms have improved. Continue current neurohormonal modulation with carvedilol, Jardiance and Entresto. Will check potassium level may consider adding spironolactone if there is adequate blood pressure. (2) ICD (implantable cardioverter-defibrillator) in place: Code(s): Z95.810 - Presence of automatic (implantable) cardiac defibrillator Category: Medical Plan: Subcutaneous ICD in place for primary prevention. Working well. Following remotely. Follow up in the clinic in 3 months time. (3) Dizziness: Code(s): R42 - Dizziness and giddiness Category: Medical Plan: Dizziness could be related to intravascular volume depletion. Advised to increase his water intake. Advised to monitor blood pressure at home and maintain a log and give me a call if blood pressure remains there was then systolic 100 might have to readjust his Entresto dosing. Will follow up in the clinic in 3 months time, sooner p.r.n.. Thank you for allowing me to partake in his care Orders: Orders Basic Metabolic Panel Today I50.20 - Unspecified systolic (congestive) heart failure B Type Natriuretic Peptide Today I50.20 - Unspecified systolic (congestive) heart failure Medications: Changed From furosemide replaces prior dose of 40 mg daily 20 mg PO .three times a week 30 tabs 1RF I50.20 - Unspecified systolic (congestive) heart failure To furosemide replaces prior dose of 40 mg daily 20 mg PO DAILY 30 tabs 5RF I50.20 - Unspecified systolic (congestive) heart failure Coding Level of Care Code Est Pt Level 4 (48588) Complex EM visit Add On G2211 Diagnoses Heart failure with reduced ejection fraction I50.20 ICD (implantable cardioverter-defibrillator) in place Z95.810 Dizziness R42
[2024-07-09 14:06] VITALS: BP 120/70; PULSE 76; BMI 35.0
== END 2024-07-09 14:24 | disposition home or self-care (01) ==
PROVIDERS: PCP Internal Medicine; Visit Provider Internal Medicine Cardiovascular Disease
DX: I50.20 Unspecified systolic (congestive) heart failure (principal); Z95.810 Presence of automatic (implantable) cardiac defibrillator; R42 Dizziness and giddiness
CPT/HCPCS: 99214

== ENCOUNTER → 2024-07-09 13:56 | Outpatient (BNVA) | payer MEDICAID, SELFPAY | PROVIDERS: PCP Internal Medicine; Visit Provider Internal Medicine Cardiovascular Disease | DX: I11.0 Hypertensive heart disease with heart failure (principal); I50.23 Acute on chronic systolic (congestive) heart failure; R42 Dizziness and giddiness; T82.897A Other specified complication of cardiac prosthetic devices, implants and grafts, initial encounter; Z95.810 Presence of automatic (implantable) cardiac defibrillator | CPT/HCPCS: 99212 ==

== ENCOUNTER 2024-07-24 09:54 | Outpatient (REF) | payer MEDICAID, SELFPAY ==
[2024-07-24 11:23] LABS: B Type Natriuretic Peptide 11 pg/mL (<100)
[2024-07-24 11:36] LABS: Alanine Aminotransferase 43 U/L (0-40); Albumin Level 4.4 g/dL (3.5-5.0); Alkaline Phosphatase 113 U/L (39-117); Anion Gap 11 (12-20); Aspartate Amino Transferase 32 U/L (5-37); Bilirubin Total 0.6 mg/dL (0.0-1.0); Blood Urea Nitrogen 16 mg/dL (9-16); Calcium 9.8 mg/dL (8.4-10.2); Carbon Dioxide 25 mmol/L (22-29); Chloride 108 mmol/L (96-108); Cholesterol 197 mg/dL (<200); Estimated Glomerular Filt Rate > 60; Glucose Random 124 mg/dL (60-115); HDL Cholesterol 48 mg/dL (>40); LDL Cholesterol Calculated 117 mg/dL (<100); Potassium 4.4 mmol/L (3.3-5.1); Sodium 140 mmol/L (135-145); Total Protein 8.1 g/dL (6.5-8.0); Triglycerides 162 mg/dL (<150)
== END 2024-07-24 09:55 | disposition home or self-care (01) ==
LOC: HO.HHCL 09:54
PROVIDERS: PCP Internal Medicine; Referring Provider Internal Medicine Cardiovascular Disease; Visit Provider Internal Medicine
DX: I11.0 Hypertensive heart disease with heart failure (principal); I50.22 Chronic systolic (congestive) heart failure; I50.20 Unspecified systolic (congestive) heart failure
CPT/HCPCS: 36415; 80053; 80061; 83880

== ENCOUNTER → 2024-09-09 14:29 | Outpatient (BNVA) | payer MEDICAID, SELFPAY | PROVIDERS: PCP Internal Medicine; Visit Provider Nurse Practitioner Family | DX: I50.20 Unspecified systolic (congestive) heart failure (principal); R06.02 Shortness of breath; R42 Dizziness and giddiness | CPT/HCPCS: 93005 ==

== ENCOUNTER → 2024-12-07 23:59 | Outpatient (BNV) | payer MEDICAID, SELFPAY ==
--- NOTE | 2024-12-09 15:02 | MHC.OFFVIS ---
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 Patient Tobacco Use Status: Never used Tobacco service: No Office Procedures Cardiac Device Check Cardiac Device Check Details: Remote ICD report generated 12/07/2024. Battery life is excellent. Sensing configuration normal. No arrhythmias detected [id number] Cardiac Interrogation, implant defibrillator w/interim Procedure code (CPT) selection complete Assessment & Plan Assessment & Plan (1) ICD (implantable cardioverter-defibrillator) in place: Code(s): Z95.810 - Presence of automatic (implantable) cardiac defibrillator Category: Medical Plan: See above Coding Level of Care Code Procedure Only Diagnoses ICD (implantable cardioverter-defibrillator) in place Z95.810 CPT Codes Cardiac Device Check - Cardiac Device 13: [id number] Cardiac Interrogation, implant defibrillator w/interim ([id number])
== END ==
PROVIDERS: PCP Internal Medicine; Visit Provider Internal Medicine Cardiovascular Disease
DX: Z45.02 Encounter for adjustment and management of automatic implantable cardiac defibrillator (principal)
CPT/HCPCS: 93295

== ENCOUNTER 2024-12-31 15:01 | Outpatient (AMB) | payer OTHER, SELFPAY ==
--- NOTE | 2024-12-31 15:15 | A.OFFVIS_ITS ---
Intake Visit Reasons: 1 YR PVR- Intake Note: Patient presents today for follow up on: microhematuria Urology Medications: none Blood Thinner: none PVR: 71ml's Director Of Community Education Required: Yes Director Of Community Education Name: [id number] Accompanied by: Self / Same As Patient Allergies No Known Allergies Allergy (Verified 12/31/24 15:30) Medication List - Last Reconciled 12/31/24 by TIMO Guzman-BERTIN carvedilol 25 mg PO BID empagliflozin (Jardiance) 25 mg PO DAILY linezolid 600 mg PO BID sacubitril-valsartan 97-103 mg (Entresto) 1 tab PO BID HPI Comments Details: Angel is a very pleasant 34-year-old Irish-speaking male patient of Dr. Higginbotham. He has a past medical history of nonischemic cardiomyopathy, heart failure with reduced ejection fracture, and hypertension. He presents to the office today for follow-up of his microscopic hematuria. In discussion with the patient today he denies having had any bothersome urinary issues or concerns since his last office visit here. He does however report having had insertion of defibrillator since his last office visit here. He continues to follow-up with cardiology as planned. Of note, patient has undergone in office cystoscopy with Dr. Allen 01/20 that noted trigonitis at which time patient was put on a 3 month daily trimethoprim dose. He denies urinary urgency, urinary frequency, incontinence, nocturia, hematuria, dysuria, foul smelling urine, changes to urinary stream, flank pain, fever, and or chills. He is happy with his current voiding parameters. In office urinalysis results reviewed with the patient today. He otherwise offers no other issues or concerns at this time. Urine cytology 11/22 Negative for high-grade urothelial carcinoma. Plan The approach for the patient's microscopic hematuria is surveillance monitoring. No further interventions or tests are scheduled unless new symptoms arise. The patient is instructed to continue regular cardiology follow-ups for his defibrillator and is counseled to inform the office of any notable changes in his condition. If stability in urinary findings persists, a follow-up will occur in one year. Patient was informed and verbally consented to the use of an ambient scribe for clinic note documentation during this visit. Discussion Notes I discussed with the patient the ongoing management of microscopic hematuria. We decided on continued observation with repeat evaluation in a year unless symptoms change. 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 Patient Tobacco Use Status: Never used Tobacco service: No Review of Systems Const Reports as per HPI Eyes Reports no additional complaints ENT Reports no additional complaints Card Reports as per HPI Resp Reports no additional complaints GI Reports no additional complaints Reports no additional complaints Musc Reports no additional complaints Neuro Reports no additional complaints Psych Reports no additional complaints Endo Reports as per HPI Inder/Lymph Reports no additional complaints Aller/Immun Reports no additional complaints Physical Exam Const General: cooperative, healthy appearing, comfortable, no acute distress, well developed, alert and awake Nutritional Appearance: overweight Orientation/consciousness: patient oriented x3 Limitations: no limitations HEENT Head: Yes normal to inspection, Yes normocephalic and Yes atraumatic Ears: hearing grossly normal bilaterally Eyes General: appearance normal, both eyes and all related structures Neck Neck: Yes normal visual inspection and Yes trachea midline Chest Chest palpation & inspection: normal inspection of the chest Resp Effort & Inspection: normal respiratory effort and able to speak in complete sentences Cardio Rate: regular rate GI Inspection: Yes normal to inspection General: Yes no CVA tenderness Back/Spine/Pelvis Back: no CVA tenderness Skin General skin exam: no rashes or lesions noted Neuro General: patient oriented x3 Extrem General: Yes normal to inspection and Yes full ROM Psych Appearance: grossly normal and well kempt Mental Status: mental status grossly normal Speech and movement: Normal speech and movement present and Clear speech present Affect: normal affect Attitude: cooperative Thought process: Normal thought process present Thought content: Normal thought content present Insight: Fair insight present (Psych) Judgement: Fair judgement present (Psych) Office Procedures Post Void Residual Post Residual Void Post Void Residual (PVR): 71 [id number] Void Residual by ultrasound Results AMB Urinalysis, Automated UA Leukoctes 0 Nga/uL Last Edit by [employer] Carolynsuzy on 12/31/24 15:26 UA Nitrite Last Edit by Maintenance Assistantcarmen Leonsuzy on 12/31/24 15:26 UA Urobilinogen 0.2 mg/dL Last Edit by [employer] Carolynsuzy on 12/31/24 15:26 UA Protein 15 mg/dL Last Edit by [employer] Carolynsuzy on 12/31/24 15:26 UA pH 5.5 Last Edit by Maintenance Assistantcarmen Leonsuzy on 12/31/24 15:26 UA Blood 25 Artem/uL Last Edit by [employer] on 12/31/24 15:26 UA Specific Falls 1.025 Last Edit by [employer] Carolynsuzy on 12/31/24 15:26 UA Ketone Last Edit by [employer] Carolynsuzy on 12/31/24 15:26 UA Bilirubin 0 mg/dL Last Edit by [employer] on 12/31/24 15:26 UA Glucose 1000 mg/dL Last Edit by [employer] on 12/31/24 15:26 Results Reviewed Results Reviewed: Laboratory Last Values Urine pH (Auto) 5.5 12/31/24 15:25 Specific Falls (Auto) 1.025 12/31/24 15:25 Urine Protein (Auto) 15 mg/dL 12/31/24 15:25 Glucose (UA)(Auto) 1000 mg/dL 12/31/24 15:25 Urine Blood (Auto) 25 Artem/uL 12/31/24 15:25 Urine Bilirubin (Auto) 0 mg/dL 12/31/24 15:25 Urine Urobilinogen (Auto) 0.2 mg/dL 12/31/24 15:25 Leukocyte Esterase (Auto) 0 Nga/uL 12/31/24 15:25 Assessment & Plan Assessment & Plan (1) Trigonitis with hematuria: Code(s): N30.31 - Trigonitis with hematuria Category: Medical (2) Microscopic hematuria: Code(s): R31.29 - Other microscopic hematuria Category: Medical Plan In office urinalysis results reviewed with the patient today; as noted above; will send for urine cytology. PVR 71 mLs We discussed at length potential causes of microscopic hematuria Will continue with surveillance monitoring. Patient currently denies any bothersome urinary issues or concerns. Reports be happy with current voiding parameters. Follow-up in 1 year; or sooner with any issues, concerns, and or questions. Orders: Orders AMB Urinalysis Automated Today Z13.9 - Encounter for screening, unspecified AMB Post Void Residual by ultrasound Today N30.31 - Trigonitis with hematuria Urine Cytology Today R31.29 - Other microscopic hematuria Patient Instructions: The patient had an opportunity to ask questions regarding the treatment plan. All questions were answered. Physical exam, labs, and imaging were discussed and reviewed in detail. As well as risks, benefits, and discussion of treatment choices. No major barriers to understanding were identified. The patient expressed understanding and agreement with the above treatment plan. The patient was made aware they should contact our office by phone for worsening of their current condition, the appearance of new symptoms, or with any questions or concerns. Compliance is encouraged with any medications and follow up testing that is ordered. It is a privilege to be allowed the opportunity to participate in? your urological care.? Again, if you have any questions or concerns If you have any questions or concerns please do not hesitate to contact me. The office is [phone]. This note is constructed using voice recognition software. While every effort has been made to ensure accuracy oil producer errors may have been included. Yours sincerely, ORLANDO Guzman Coding Level of Care Code Est Pt Level 3 (11875) Diagnoses Trigonitis with hematuria N30.31 Microscopic hematuria R31.29 CPT Codes Post Residual Void - PVR CPT Code: 26114-Ourq Void Residual by ultrasound ([id number])
--- OUTSIDE RECORDS SUMMARY | 2024-12-31 16:34 | XMS_ITS | Clinical Summary ---
Author Organization [employer] Address [address] [place] [address] [address] [place] [address] Care Team Providers Care Home Health Registered Nurse Name Role Phone Chance Adhikari MD Primary Care Provide r Allergies No known active allergies Medications * This document contains information received from the source organization and may not represent a complete record from that organization. betamethasone, augmented, (Diprolene) 0.05 % ointmentIndica tions:Psoriasi s Apply topically 2 times daily. For 2 weeks then patient should take a break for 1 week before resume. 50 g 5 02/21/20 24 Active carvedilol (Coreg) 25 MG tablet Take 25 mg by mouth with breakfast and with evening meal. 03/19/20 24 Active furosemide (Lasix) 20 MG tablet Take 20 mg by mouth in the morning. 03/17/20 24 Active Entresto 49-51 MG tablet TAKE 1 TABLET BY MOUTH TWICE DAILY IN THE MORNING AND AT BEDTIME 03/17/20 24 Active empagliflozin (Jardiance) 25 MG TAKE 1 TABLET BY MOUTH EVERY MORNING 30 tablet 5 12/02/19 25 Active spironolactone (Aldactone) 25 MG tabletIndicati ons:Acute systolic heart failure (CMS/HCC) TAKE 1 TABLET BY MOUTH EVERY MORNING 30 tablet 5 12/02/19 25 Active hydrOXYzine pamoate (Vistaril) 25 MG capsuleIndicat ions:Anxiety TAKE 1 CAPSULE BY MOUTH EVERY TWELVE HOURS NEEDED FOR ANXIETY 30 capsule 3 12/23/19 25 Active hydrOXYzine pamoate (Vistaril) 25 MG capsuleIndicat ions:Anxiety TAKE 1 CAPSULE BY MOUTH EVERY TWELVE HOURS NEEDED FOR ANXIETY 30 capsule 3 07/14/20 24 025 Discontinued Active Problems Problem Noted Date Diagnosed Date Lipoma 06/30/2024 Assessment & Plan (06/30/2024 2:22 PM EDT): Patient with a superficial fatty mass lower back Exam suggestive of a Lipoma. Patient was not aware of it Plan: Will refer to general surgery for evaluation Adjustment disorder with mixed anxiety and depre ssed mood 03/31/2024 Assessment & Plan (03/31/2024 9:38 AM EDT): Patient c/o feeling anxious all the time, particularly in social situations or when surrounded by many people Plan: To be evaluated by our clinician Obtain TSH. Hydroxyzine PRN Lipoma of abdominal wall 03/30/2024 ICD (implantable cardioverter-defibrillator) in place 03/30/2024 Assessment & Plan (06/30/2024 2:17 PM EDT): Last checked by Cardiology 06/14/2024 Assessment & Plan (03/31/2024 9:29 AM EDT): Patient here for a follow up after a recent hospitalization due to improper shock and RENA on 03/08/2024. ICD device reprogramming was scheduled and patient confirms was completed by keypunch operators supervisor. Furosemide and Entresto doses were reduced due to RENA and suspected reduced need for diuresis. Follow up cardiology visit scheduled for 05/22/2024. Patient reports he is doing well. Taking medications as directed Will repeat a BMP Hx of cardiac cath 03/30/2024 IVCD (intraventricular conduction defect) 2023 Overview (03/30/2024): Last Assessment & Plan: QRS duration 120 ms. No evidence of left bundle branch block. Routine physical examination 11/21/2023 Assessment & Plan (11/21/2023 9:58 AM EST): Physical exam today within normal limits. Chronic systolic heart failure 10/10/2023 Assessment & Plan (06/30/2024 2:16 PM EDT): Pt here for a follow up Admitted to [facility] (09/15/23 - 09/18/23) with c/o shortness of breath and dry cough. Initial workup notable for BMP elevation to 721pg/mL and elevated lactic acid to 2.2mmol/L. Chest x-ray demonstrated cardiomegaly and pulmonary vascular congestion without overt edema. Negative for PE, but mild ground-glass opacities in left lung suspicious for aspiration pneumonitis. Patient hypoxic to 60% and required HFNC. Echo showed EF of 10-15%. Newly diagnosed with acute systolic congestive heart failure. Given IV Lasix. Cardio consulted and patient started on Entresto, Jardiance, spironolactone and carvedilol, and patient was fitted with a LifeVest defibrillator Pt subsequently readmitted to [facility] (09/23/23 - 09/25/23) after he presented with worsening shortness of breath, dyspnea and lower abdominal pain. Also reported feeling like their heart was ? racing? , headache and blurry vision. Patient tachycardic to 106 bpm, tachypneic to 28 rpm. Labs significant for elevated creatinine to 1.29mg/dL. Continued on home medications and treated with IV Lasix for slight fluid overload. Cardio consulted who recommended transfer to [facility] for [place]. Pt arrived at [facility] (09/25/23 - 09/27/23) Underwent Cardiac cath showed non ischemic disease and angiographically normal coronary arteries. Patient switched from [facility] to [facility] due to insurance requirements. TSH elevated to 6.22 uIU/mL and INR elevated to 1.3, both unclear etiology. He is now under the care of Dr. Voss seen 04/13/2024. Pt is now s/p ICD placement ICD device checked last 06/10/2024 Dr Voss recommended: That he will taper down furosemide to 3 times a week and eventually discontinue. Continue maximize Entresto to 103-97 mg b.i.d.. Continue carvedilol, Jardiance as well as spironolactone therapy. Assessment & Plan (03/31/2024 9:28 AM EDT): Pt here for a follow up Initially admitted to [facility] (09/15/23 - 09/18/23) with c/o shortness of breath and dry cough. Initial workup notable for BMP elevation to 721pg/mL and elevated lactic acid to 2.2mmol/L. Chest x-ray demonstrated cardiomegaly and pulmonary vascular congestion without overt edema. Negative for PE, but mild ground-glass opacities in left lung suspicious for aspiration pneumonitis. Patient hypoxic to 60% and required HFNC. Echo showed EF of 10-15%. Newly diagnosed with acute systolic congestive heart failure. Given IV Lasix. Cardio consulted and patient started on Entresto, Jardiance, spironolactone and carvedilol, and patient was fitted with a LifeVest defibrillator Pt subsequently readmitted to [facility] (09/23/23 - 09/25/23) after he presented with worsening shortness of breath, dyspnea and lower abdominal pain. Also reported feeling like their heart was ? racing? , headache and blurry vision. Patient tachycardic to 106 bpm, tachypneic to 28 rpm. Labs significant for elevated creatinine to 1.29mg/dL. Continued on home medications and treated with IV Lasix for slight fluid overload. Cardio consulted who recommended transfer to [facility] for angiogram. Pt arrived at [facility] (09/25/23 - 09/27/23) Underwent Cardiac cath showed non ischemic disease and angiographically normal coronary arteries. Patient switched from [facility] to [facility] due to insurance requirements. TSH elevated to 6.22 uIU/mL and INR elevated to 1.3, both unclear etiology. He is now under the care of Dr. Voss seen 03/05/2024. Pt is now s/p ICD placement Patient here for a follow up after a recent hospitalization due to improper shock and RENA on 03/08/2024. ICD device reprogramming was scheduled and patient confirms was completed by keypunch operators supervisor. Furosemide and Entresto doses were reduced due to RENA and suspected reduced need for diuresis. Follow up cardiology visit scheduled for 05/22/2024. Patient reports he is doing well. Taking medications as directed Will repeat a BMP Assessment & Plan (12/24/2023 1:54 PM EDT): Pt here for a follow up Initially admitted to [facility] (09/15/23 - 09/18/23) with c/o shortness of breath and dry cough. Initial workup notable for BMP elevation to 721pg/mL and elevated lactic acid to 2.2mmol/L. Chest x-ray demonstrated cardiomegaly and pulmonary vascular congestion without overt edema. Negative for PE, but mild ground-glass opacities in left lung suspicious for aspiration pneumonitis. Patient hypoxic to 60% and required HFNC. Echo showed EF of 10-15%. Newly diagnosed with acute systolic congestive heart failure. Given IV Lasix. Cardio consulted and patient started on Entresto, Jardiance, spironolactone and carvedilol, and patient was fitted with a LifeVest defibrillator Pt subsequently readmitted to [facility] (09/23/23 - 09/25/23) after he presented with worsening shortness of breath, dyspnea and lower abdominal pain. Also reported feeling like their heart was ? racing? , headache and blurry vision. Patient tachycardic to 106 bpm, tachypneic to 28 rpm. Labs significant for elevated creatinine to 1.29mg/dL. Continued on home medications and treated with IV Lasix for slight fluid overload. Cardio consulted who recommended transfer to [facility] for angiogram. Pt arrived at [facility] (09/25/23 - 09/27/23) Underwent Cardiac cath showed non ischemic disease and angiographically normal coronary arteries. Patient switched from [facility] to [facility] due to insurance requirements. TSH elevated to 6.22 uIU/mL and INR elevated to 1.3, both unclear etiology. Patient discharged home, to follow- up with cardiology w/ possible cardiac MRI He is now under the care of Dr. Voss seen 09/2023. In his note he mentioned he increased his Entresto to 107-93 and his Carvedilol to 6.25 BID. He was seen again by Cardiology office 11/2023 A limited Echo was done on 11/29/2023 showing EF 12%. On examination he has no signs of fluid overload. NYHA class 2. Per cardiology note pt to have another limited echocardiogram done after 12/16 which will be officially 3 months since the start of medical management. If EF remains less than 35% then ICD is indicated. Cardiology started the process to refer him to Dr. Chambers for ICD evaluation and placement. Has a follow up with Cardiology in 2-3 months Assessment & Plan (11/21/2023 9:57 AM EST): Pt here for a follow up Initially admitted to [facility] (09/15/23 - 09/18/23) with c/o shortness of breath and dry cough. Initial workup notable for BMP elevation to 721pg/mL and elevated lactic acid to 2.2mmol/L. Chest x-ray demonstrated cardiomegaly and pulmonary vascular congestion without overt edema. Negative for PE, but mild ground-glass opacities in left lung suspicious for aspiration pneumonitis. Patient hypoxic to 60% and required HFNC. Echo showed EF of 10-15%. Newly diagnosed with acute systolic congestive heart failure. Given IV Lasix. Cardio consulted and patient started on Entresto, Jardiance, spironolactone and carvedilol, and patient was fitted with a LifeVest defibrillator Pt subsequently readmitted to [facility] (09/23/23 - 09/25/23) after he presented with worsening shortness of breath, dyspnea and lower abdominal pain. Also reported feeling like their heart was ? racing? , headache and blurry vision. Patient tachycardic to 106 bpm, tachypneic to 28 rpm. Labs significant for elevated creatinine to 1.29mg/dL. Continued on home medications and treated with IV Lasix for slight fluid overload. Cardio consulted who recommended transfer to [facility] for angiogram. Pt arrived at [facility] (09/25/23 - 09/27/23) Underwent Cardiac cath showed non ischemic disease and angiographically normal coronary arteries. Patient switched from [facility] to [facility] due to insurance requirements. TSH elevated to 6.22 uIU/mL and INR elevated to 1.3, both unclear etiology. Patient discharged home, to follow- up with cardiology w/ possible cardiac MRI He is now under the care of Dr. Voss last seen 09/2023. In his note he mentioned he increased his Entresto to 107-93 and his Carvedilol to 6.25 BID. I contacted [facility] it appears they never received the scripts ( scripts were sent to [facility] instead ). Pharmacy will contact Dr. Voss to get both scripts sent to [facility] Assessment & Plan (10/10/2023 3:58 PM EST): Pt here for a HDF Initially admitted to [facility] (09/15/23 - 09/18/23) with c/o shortness of breath and dry cough. Initial workup notable for BMP elevation to 721pg/mL and elevated lactic acid to 2.2mmol/L. Chest x-ray demonstrated cardiomegaly and pulmonary vascular congestion without overt edema. Negative for PE, but mild ground-glass opacities in left lung suspicious for aspiration pneumonitis. Patient hypoxic to 60% and required HFNC. Echo showed EF of 10-15%. Newly diagnosed with acute systolic congestive heart failure. Given IV Lasix. Cardio consulted and patient started on Entresto, Jardiance, spironolactone and carvedilol, and patient was fitted with a LifeVest defibrillator Pt subsequently readmitted to [facility] (09/23/23 - 09/25/23) after he presented with worsening shortness of breath, dyspnea and lower abdominal pain. Also reported feeling like their heart was ? racing? , headache and blurry vision. Patient tachycardic to 106 bpm, tachypneic to 28 rpm. Labs significant for elevated creatinine to 1.29mg/dL. Continued on home medications and treated with IV Lasix for slight fluid overload. Cardio consulted who recommended transfer to [facility] for angiogram. Pt arrived at [facility] (09/25/23 - 09/27/23) Underwent Cardiac cath showed non ischemic disease and angiographically normal coronary arteries. Patient switched from [facility] to [facility] due to insurance requirements. TSH elevated to 6.22 uIU/mL and INR elevated to 1.3, both unclear etiology. Patient discharged home, to follow- up with cardiology w/ possible cardiac MRI We had placed a referral to [facility] but they do not have any appointments available until November 2023. We were able to get him an appointment with Dr. Saeed a lot sooner 10/23/2023. After his appointment keypunch operators supervisor will decide if need for a cardiac MRI Primary insomnia 10/09/2022 Assessment & Plan (10/09/2022 2:13 PM EST): Pt c/o new onset of insomnia Denies any stressors, sleeping 4 to 5 hrs at best Plan: Melatonin PRN Sleep study to r/o DION Obesity (BMI 30-39.9) 10/04/2022 Assessment & Plan (08/15/2023 2:49 PM EST): Patient has been counseled and educated about diet and exercise. Personal goal of weight loss discussedPatient has comorbidity of: HTN Assessment & Plan (11/27/2022 2:10 PM EST): Discussed diet and exercise offered evaluation by our rn clinical in the past, declined 10 lb personal weight loss goal between now and next visit Assessment & Plan (10/09/2022 2:10 PM EST): Discussed diet and exercise offered evaluation by our rn clinical in the past Pre-diabetes 10/04/2022 Assessment & Plan (06/30/2024 2:25 PM EDT): Repeat FBS 10/26/2022 was 121 , last Hgb A1c 6.0 Pt has a strong family Hx of DM Referred to [facility] in the past, declined Discussed need to loose weight, exercise and adhere to a low carbohydrate diet He was started on farxiga while in the Hospital Will repeat FBS Assessment & Plan (10/10/2023 3:56 PM EST): Repeat FBS 10/26/2022 was 121 , last Hgb A1c 6.0 Pt has a strong family Hx of DM Referred to [facility] in the past, declined Discussed need to loose weight, exercise and adhere to a low carbohydrate diet He was started on farxiga while in the Hospital Assessment & Plan (08/15/2023 2:50 PM EST): Repeat FBS 10/26/2022 was 121 , last Hgb A1c 6.1 Pt has a strong family Hx of DM Referred to [facility] in the past, declined Discussed need to loose weight, exercise and adhere to a low carbohydrate diet will continue to monitor Assessment & Plan (11/27/2022 2:10 PM EST): Repeat FBS 10/26/2022 was 121 , Hgb A1c 6.4 Pt has a strong family Hx of DM Referred to [facility] in the past, declined Today A1c down to 6.1 Discussed need to loose weight, exercise and adhere to a low carbohydrate diet will continue to monitor Assessment & Plan (10/09/2022 2:09 PM EST): FBS 108 Pt has a strong family Hx of DM Referred to [facility] in the past will continue to monitor BMP ordered today Assessment & Plan (10/04/2022 9:26 AM EST): 02/2021 FBS 116. Hgb A1c: 6 Pt has a strong family Hx of DM Pt referred to [facility] will continue to monitor will repeat BMP today Psoriasis 10/04/2022 Assessment & Plan (11/21/2023 10:03 AM EST): Diagnosed with psoriasis in [place], mainly affecting his elbows and legs He is also c/o some sort of hypersensitivity to the sun, he describes becoming very itchy when under the sun Uses Clobetasol to apply to affected areas of body except face Pt was referred to outside Dermatology in the past, his insurance would not cover this per his report. Will refer to our [facility] Assessment & Plan (10/09/2022 2:08 PM EST): Diagnosed with psoriasis in [place], mainly affecting his elbows and legs He is also c/o some sort of hypersensitivity to the sun, he describes becoming very itchy when under the sun Uses Clobetasol to apply to affected areas of body except face Pt was referred to outside Dermatology in the past Assessment & Plan (10/04/2022 9:27 AM EST): Pt reports having been diagnosed with psoriasis in [place], mainly affecting his elbows and legs He is also c/o some sort of hypersensitivity to the sun, he describes becoming very itchy when under the sun Continue Clobetasol to apply to affected areas of body except face Pt was referred to outside dermatology Microscopic hematuria 10/04/2022 Assessment & Plan (08/15/2023 2:48 PM EST): Previous U/A showed microscopic hematuria, Renal US 09/2022 showed: Normal renal ultrasound. No kidney stone or hydronephrosis, no renal mass, no ultrasound explanation for patient's hematuria Pt was seen by Urology, Cystoscopy 01/02/2023 showed trigonitis only Assessment & Plan (11/27/2022 2:00 PM EST): Previous U/A showed microscopic hematuria, Renal US 09/2022 showed: Normal renal ultrasound. No kidney stone or hydronephrosis, no renal mass, no ultrasound explanation for patient's hematuria Pt was seen by Urology, Cystoscopy ordered Assessment & Plan (10/09/2022 2:11 PM EST): Previous U/A showed microscopic hematuria, I had ordered a renal US pt did not have it done Pt tells me he is scheduled for the US on 10/17/2021 Pt was also referred to Urology Assessment & Plan (10/04/2022 9:50 AM EST): Previous U/A showed microscopic hematuria, I had ordered a renal US pt did not have it done Today I ordered again Urology referral Hypertension 06/08/2021 Assessment & Plan (06/30/2024 2:16 PM EDT): On Carvedilol 6.25 BID (prescribed by Cardiology ) Lasix dosed reduced to 3 times / week Spironolactone 25 mg daily Assessment & Plan (03/31/2024 9:28 AM EDT): On Carvedilol 6.25 BID (prescribed by Cardiology ) Lasix dosed reduced to 20 mg daily Spironolactone 25 mg daily Assessment & Plan (12/24/2023 1:51 PM EDT): On Carvedilol 6.25 BID (prescribed by Cardiology ) Lasix 40 mg daily Spironolactone 25 mg daily Assessment & Plan (11/21/2023 9:56 AM EST): On Carvedilol 6.25 BID (prescribed by Cardiology ) Lasix 40 mg daily Spironolactone 25 mg daily Assessment & Plan (10/10/2023 1:51 PM EST): On Carvedilol 3.125 BID Lasix 40 mg daily Spironolactone 25 mg daily Assessment & Plan (08/15/2023 3:00 PM EST): Patient here for a f/u BP controlled Previously he was on Lisinopril/Hctz stopped medication c/o Felling tremulous. patient advised to adhere to a low sodium diet, encouraged about medication compliance, counseled about weight loss.Seen by Nephrology,who started him on Nifedipine 60 he developed LE edema,Pt never followed up. Seen by Dr Scott recently who switched him to Losartan 50 mg po daily due to c/o LE edema Today pt tells me he is still taking the Nifedioine because his BP went up again while on the Losartan Plan: Obtain ECHOCARDIOGRAM Assessment & Plan (11/27/2022 1:49 PM EST): Patient here for a f/u BP controlled Previously he was on Lisinopril/Hctz combination but previous visit he told me since he started taking the medication he felt tremulous. patient advised to adhere to a low sodium diet, encouraged about medication compliance, counseled about weight loss. Pt was seen in the ER 03/21/2021 after he started to c/o chest pressure, work up was unremarkable, r/o for ACS Pt was referred to Nephrology, they started him on Nifedipine 90 mg po daily, but since he has been taking that dose he developed LE edema, the edema goes away when he does not take it. Pt never followed up Plan: Continue Nifedipine XR to 60 mg po daily Pt gives a strong fam Hx of HTN, I suspect his obesity is also contributing, doubt secondary causes Assessment & Plan (10/09/2022 2:11 PM EST): Patient here for a f/u BP controlled Previously he was on Lisinopril/Hctz combination but previous visit he told me since he started taking the medication he felt tremulous. patient advised to adhere to a low sodium diet, encouraged about medication compliance, counseled about weight loss. Pt was seen in the ER 03/21/2021 after he started to c/o chest pressure, work up was unremarkable, r/o for ACS Pt was referred to Nephrology, they started him on Nifedipine 90 mg po daily, but since he has been taking that dose he developed LE edema, the edema goes away when he does not take it. Pt never followed up I prompted him to do so Plan: Continue Nifedipine XR to 60 mg po daily Pt gives a strong fam Hx of HTN, I suspect his obesity is also contributing, doubt secondary causes Assessment & Plan (10/04/2022 9:46 AM EST): Patient here for a f/u BP elevated due to acute illness Previously he was on Lisinopril/Hctz combination but previous visit he told me since he started taking the medication he felt tremulous. patient advised to adhere to a low sodium diet, encouraged about medication compliance, counseled about weight loss. Pt was seen in the ER 03/21/2021 after he started to c/o chest pressure, work up was unremarkable, r/o for ACS Pt was referred to Nephrology, they started him on Nifedipine 90 mg po daily, but since he has been taking that dose he developed LE edema, the edema goes away when he does not take it. Pt never followed up I prompted him to do so Plan: Continue Nifedipine XR to 60 mg po daily Pt gives a strong fam Hx of HTN, I suspect his obesity is also contributing, doubt secondary causes Resolved Problems Problem Noted Date Diagnosed Date Resolved Date Tachycardia 2023 12/24/2023 Assessment & Plan (2023 6:26 PM EDT): Noted today HR 108x' checked manually <---previous apts as well HR 106 and 104 Pt states gets anxious ,denies any CVs, Osat is wnl ,pulse is regular -advised pt to bring home BP and HR readings maryanne upcoming visit w PCP COVID-19 10/04/2022 10/09/2022 Assessment & Plan (10/04/2022 9:47 AM EST): Supportive measures Paxlovid x 5 days Exam unremarkable Encounters Date Type Department Care Team Description 12/19/2024 Refill [facility] [address] [place] [address] Chance Adhikari MD Anxiety 11/25/2024 Refill [facility] [address] [place], [place] [id number] Chance Adhikari MD Acute systolic heart failure (CMS/HCC) 11/11/2024 Telephone [facility] [address] [facility] [place] [address] Chance Adhikari MD Chart Prep 11/11/2024 Patient Outreach [facility] [address] [facility] [place] [address] Chance Adhikari MD Pre-visit Planning (Pre-visit planning - LVM ) from Last 3 Months Immunizations Name Administration Dates Next Due HepB-CpG 03/30/2024,02/28/2024 Pneumococcal Conjugate PCV 20 02/28/2024 Td (adult), unspecified 05/06/2009 Tdap 03/30/2024 Social History Tobacco Use Types Packs/Day Years Used Date Smoking Tobacco: Never Passive Smoke Exposure: Never Smokeless Tobacco: Never Tobacco Cessation:Counseling Given: Not Answered Alcohol Use Standard Drinks/Week Comments Never 0 (1 standard drink = 0.6 oz pur e alcohol) Depression Answer Date Recorded Patient Health Questionnaire-9 Score 12 03/31/2024 Patient Health Questionnaire-9 Score 12 03/31/2024 Last PHQ-9: Questionnaire Data Not on file 0 03/31/2024 Housing Stability Answer Date Recorded What is your housing situation today? I have mirna mcclellan 10/07/[address] you li ve. Do you have problems with any of the following? None of the above 10/07/2023 Food Insecurity Answer Date Recorded Within the past 12 months, y ou worried that your food would run out before you got money to buy more: Never True 07/16/2023 Within the past 12 months,th e food you bought just didn't last and you didn't have enough money to get more: Never True Transportation Answer Date Recorded In the past 12 months, has l ack of transportation kept you from medical appts, meetings, work or from getting things needed for daily living? No 07/16/2023 Utilities Answer Date Recorded In the past 12 months, has t he electric, gas, oil or water company threatened to shut off services in your home? No 07/16/2023 Depression Answer Date Recorded Patient Health Questionnaire-2 Score 3 03/31/2024 Sex and Gender Information Value Date Recorded Sex Assigned at Male 07/30/2022 10:38 AM EDT Legal Sex Male 10:38 AM EDT Gender Identity Male 07/30/2022 10:38 AM EDT Sexual Orientation Straight 07/30/2022 10 :38 AM EDT Last Filed Vital Signs Vital Sign Reading Time Taken Comments Blood Pressure 132/82 06/30/2024 2:01 PM EDT Pulse 62 06/30/2024 2:01 PM EDT Temperature 36.1 ??C (96.9 ??F) 06/30/2024 2:01 PM ED T Respiratory Rate 20 06/30/2024 2:01 PM EDT Oxygen Saturation 98% 06/30/2024 2:01 PM EDT Inhaled Oxygen Concentration - - Weight 128 kg (282 lb 12.8 oz) 06/30/2024 2:01 P M EDT Height 190.5 cm (6' 3 ) 06/30/2024 2:01 PM EDT Body Mass Index 35.35 06/30/2024 2:01 PM EDT Plan of Treatment Health Maintenance Due Date Last Done Comments HIV Screening 1989 Alcohol/Substance Use Screening 2001 Family Planning (PISQ) 2004 Hepatitis C Screening 2007 COVID-19 Vaccine (2023-2 5 season) 2024 02/20/2021, 01/30/2021 Influenza Vaccine (#1) 2024 Depression Monitoring (PHQ-9) 10/01/2024, 03/31/2024 SDOH Screening 10/07/2024 10/07/2023 Depression Screening 03/31/2025 03/31/2024, 03/31/2024 Tobacco Screening 06/30/2025 06/30/2024 Lipid Panel 07/24/2029 07/24/2024, 02/21/2021 DTaP/Tdap/Td Vaccines (2 - T d or Tdap) 03/30/2034 03/30/2024, 05/06/2009 Zoster Vaccines (1 of 2) 2039 RSV Patients and Patients Aged 60 years or older (1 - 1-dose 75+ series) 2064 Pneumococcal Vaccine: Pediatrics (0 to 5 Years) and At-Risk Patients (6 to 49) Years) Completed 02/28/2024 Hepatitis B Vaccines Completed 03/30/2024, 02/28/2024 HIB Vaccines Aged Out No longer eligi ble based on patient's age to complete this topic HPV Vaccines Aged Out No longer eligi ble based on patient's age to complete this topic Hepatitis A Vaccines Aged Out No long er eligible based on patient's age to complete this topic IPV Vaccines Aged Out No longer eligi ble based on patient's age to complete this topic Meningococcal Vaccine Aged Out No sabra obey eligible based on patient's age to complete this topic RSV under 20 months Aged Out No longe r eligible based on patient's age to complete this topic Rotavirus Vaccines Aged Out No longer eligible based on patient's age to complete this topic Goals Goal Patient Goal Type Associated Problems Recent Progress Patient-Stated? Author Blood Pressure < 140/90 Blood Pressure 132/82( 024 2:01 PM EDT) No Urbano Mukherjee Procedures Procedure Name Priority Date/Time Associated Diagnosis Comments LIPID PANEL, STANDARD Routine 07/24/2024 9:58 AM EDT Primary hypertension Chronic systolic heart failure (CMS/HCC) from Last 3 Months or Most Recently Relevant to Health Maintenance Results * (ABNORMAL) Lipid Panel, Standard (07/24/2024 9:58 AM EDT) Triglycerides 162(H) <150 mg/dL [facility] Comment:Desirable Triglyceri de: less than 150 mg/dLBorderline High Triglyceride 150-199 mg/dLHigh Triglyceride: 200-499 mg/dLVery High Triglyceride: greater than or equal to 5OO mg/dL Cholesterol 197 <200 mg/dL [facility] Comment:Desirable Cholestero l: less than 200 mg/dLBorderline High Cholesterol: 200-239 mg/dLHigh Cholesterol: greater than 239 mg/dL LDL Cholesterol Calculated 117(H) <100 mg/dL [facility] Comment:Desirable LDL: less than 100 mg/dLNear Optimal/Above Optimal LDL: 110- 129 mg/dLBorderline High LDL: 130-159 mg/dLHigh LDL: 160-189 mg/dLVery High LDL: greater than or equal to 190 mg/dL HDL Cholesterol 48 >40 mg/dL [facility] Comment:Desirable HDL: great er than 40 mg/dL Note: This HDL assay may give artificially low results in patients with liver disease. Blood Venous blood specimen / Unknown 07/24/2024 9:58 AM EDT 07/24/2024 11:11 AM EDT Chance Dozier MD LAB BLOOD ORDERABLES Final Result [facility] [address] [place] [phone] from Last 3 Months or Most Recently Relevant to Health Maintenance Insurance [employer] [facility] Care Teams Home Health Registered Nurse Relationship Specialty Start Date End Date Chance Adhikari MD [address] [place] [id number] PCP - General Internal Medicine 02/14/21
--- OUTSIDE RECORDS SUMMARY | 2024-12-31 16:34 | XMS_ITS | Encounter Summary ---
Author Organization [employer] Address [address] [facility] [address] [place] [address] Care Team Providers Care Welding Setter Name Role Phone Chance Adhikari MD Primary Care Provide r Encounter Details Date Type Department Care Team ([facility] st Contact Info) Description 09/19/2023 Abstract [facility] MEDICINE [address] [place], [place] [phone] Chance Adhikari MD [address] [place], [place] [phone] Social History Tobacco Use Types Packs/Day Years Used Date Smoking Tobacco: Never Passive Smoke Exposure: Never Smokeless Tobacco: Never Alcohol Use Standard Drinks/Week Comments Never 0 (1 standard drink = 0.6 oz pur e alcohol) Housing Stability Answer Date Recorded What is your housing situation today? I have housing today, but I am worried about losing housing in the future 07/16/[address] you li ve. Do you have problems with any of the following? None of the above 07/16/2023 Food Insecurity Answer Date Recorded Within the [...] Answer Date Recorded Patient Health Questionnaire-2 Score 4 10/09/2022 Sex and Gender Information Value Date Recorded Sex Assigned at Male 07/30/2022 10:38 AM EDT Legal Sex Male 10:38 AM EDT Gender Identity Male 07/30/2022 10:38 AM EDT Sexual Orientation Straight 07/30/2022 10 :38 AM EDT documented as of this encounter Plan of Treatment Not on file documented as of this encounter Visit Diagnoses Not on filedocumented in this encounter Care Teams Welding Setter Relationship Specialty Start Date End Date Chance Adhikari MD [address] [place] [id number] PCP - General Internal Medicine 02/14/21 documented as of this encounter
--- OUTSIDE RECORDS SUMMARY | 2024-12-31 16:34 | XMS_ITS ---
Author Name [facility] Organization Unknown Care Team Organization Name Specialty Phone Email Start Date End [facility] NO PCP Primary Care 02/10/2024
--- OUTSIDE RECORDS SUMMARY | 2024-12-31 16:34 | XMS_ITS | Encounter Summary ---
Author Organization [facility] Address [address] [facility] 7t [place] [address] Care Team Providers Care Parts Counter Representative Name Role Phone Chance Adhikari MD Primary Care Provide r Encounter Details Date Type Department Care Team (Late st Contact Info) Description 09/28/2022 Abstract [facility] MEDICINE [address] [place], [place] [phone] Chance Adhikari MD [address] [place], [place] [phone] Social History Tobacco Use Types Packs/Day Years Used Date Smoking Tobacco: Never Assessed Sex and Gender Information Value Date Recorded Sex Assigned at Male 07/30/2022 10:38 AM EDT Legal Sex Male 10:38 AM EDT Gender Identity Male 07/30/2022 10:38 AM EDT Sexual Orientation Straight 07/30/2022 10 :38 AM EDT documented as of this encounter Plan of Treatment Not on file documented as of this encounter Visit Diagnoses Not on filedocumented in this encounter Care Teams Parts Counter Representative Relationship Specialty Start Date End Date Chance Adhikari MD [address] [place], [place] [phone] PCP - General Internal Medicine 02/14/21 documented as of this encounter
--- OUTSIDE RECORDS SUMMARY | 2024-12-31 16:34 | XMS_ITS | Encounter Summary ---
Author Organization [employer] Address [address] [facility] 7t [place] [address] Care Team Providers Care Bag Adjuster Name Role Phone Chance Adhikari MD Primary Care Provide r Reason for Visit * Reason Onset Date Comments Nurse Triage 02/20/2024 Encounter Details Date Type Department Care Team ([facility] st Contact Info) Description 02/20/2024 Telephone [facility] MEDICINE [address] [place], [place] [phone] Chance Adhikari MD [address] [place], [place] [phone] Nurse Triage Social History Tobacco Use Types Packs/Day Years Used Date Smoking Tobacco: Never Passive Smoke Exposure: Never Smokeless Tobacco: Never Alcohol Use Standard Drinks/Week Comments Never 0 (1 standard drink = 0.6 oz pur e alcohol) Depression Answer Date Recorded Patient Health Questionnaire-9 Score 5 11/21/2023 Patient Health Questionnaire-9 Score 5 11/21/2023 Last PHQ-9: Questionnaire Data Not on file 0 11/21/2023 Housing Stability Answer Date Recorded What is [...] Date Recorded Patient Health Questionnaire-2 Score 3 11/21/2023 Sex and Gender Information Value Date Recorded Sex Assigned at Male 07/30/2022 10:38 AM EDT Legal Sex Male 10:38 AM EDT Gender Identity Male 07/30/2022 10:38 AM EDT Sexual Orientation Straight 07/30/2022 10 :38 AM EDT documented as of this encounter Miscellaneous Notes * Telephone Encounter - Corina Jeff RN - 02/20/2024 2:41 PM EDT T/C with pt and his sister Amarily who was helping certified ophthalmic technologist who states that pt had a pacemaker [place] [facility] [place]. He has since developed a yellow/milky discharge from the insertion site under his left arm. Pt also states that the area is red, swollen and hot to the touch. Pt is complaining of 10/10 pain at insertion site and states that yesterday he was experiencing dizziness, fever, and sweating. None reported today but while on the phone pt reports new onset left arm numbness. At this time RN offers to call an ambulance for pt due to the above symptoms but pt declines at this timeand his sister states that she will drive him back to [facility]. RN reiterates that these symptoms arevery concerning and RN is able to call an ambulance for pt, but pt and sister again decline. RN calls [facility] and spoke with charge nurse there about patient disposition, who states they will be awaiting patients arrival. Will forward to PCP as FYI * Telephone Encounter - Kelin Lema - 02/20/2024 2:34 PM EDT Symptom: Wound Infection - Caller Reports Outcome: Schedule a same-day appointment or talk to a nurse or provider today Reason: Caller denied all higher acuity questions The caller accepted this outcome Greek speaker documented in this encounter Plan of Treatment Not on file documented as of this encounter Visit Diagnoses Not on filedocumented in this encounter Additional Health Concerns Assessment Noted Time PHQ-9 Depression Total Score: 5 11/21/19 24 9:35 AM EST documented as of this encounter Care Teams Bag Adjuster Relationship Specialty Start Date End Date Chance Adhikari MD [address] [place] [id number] PCP - General Internal Medicine 02/14/21 documented as of this encounter
--- OUTSIDE RECORDS SUMMARY | 2024-12-31 16:34 | XMS_ITS | Clinical Summary ---
Author Organization [facility] Address [address] [place] [address] Care Team Providers Care Door Clamper Name Role Phone Pcp, No Primary Care Provider Unavailabl e Social History Tobacco Use Types Packs/Day Years Used Date Smoking Tobacco: Never Assessed Sex and Gender Information Value Date Recorded Sex Assigned at Not on file Gender Identity Not on file Sexual Orientation Not on file Plan of Treatment Health Maintenance Due Date Last Done Comments Hepatitis C Virus Screening 1989 HIV Screening 2002 DTaP/Tdap/Td Vaccines (1 - Tdap) 2008 Hepatitis B Vaccines (1 of 3 - 19+ 3-dose series) 2008 Influenza Vaccine 04/30/2024 COVID-19 Vaccine ( - 2023-2 5 season) 2024 HPV Vaccines Aged Out No longer eligi ble based on patient's age to complete this topic Pneumococcal Vaccine: Pediat nam (0-5 Years) and At-Risk Patients (6 to 49 Years) Aged Out No longer eligible b ased on patient's age to complete this topic Care Teams Door Clamper Relationship Specialty Start Date End Date Pcp, No PCP - General General Medicine 02/10/24
== END 2024-12-31 15:42 | disposition home or self-care (01) ==
PROVIDERS: PCP Internal Medicine; Visit Provider Nurse Practitioner Family
DX: N30.31 Trigonitis with hematuria (principal); R31.29 Other microscopic hematuria; Z13.9 Encounter for screening, unspecified
CPT/HCPCS: 99213

== ENCOUNTER 2024-12-31 15:01 | Outpatient (REF) | payer OTHER, SELFPAY ==
[2024-12-31 17:07] LABS: Urine Cytology See Pathology rpt
--- OUTSIDE RECORDS SUMMARY | 2024-12-31 17:11 | XMS_ITS | Clinical Summary ---
Author Organization [facility] Address [address] [place] [address] Care Team Providers Care Security System Engineer Name Role Phone Pcp, No Primary Care [...] age to complete this topic Care Teams Security System Engineer Relationship Specialty Start Date End Date Pcp, No PCP - General General Medicine 02/10/24
--- OUTSIDE RECORDS SUMMARY | 2024-12-31 17:11 | XMS_ITS | Encounter Summary ---
Author Organization [employer] Address [address] [place] [address] Care Team Providers Care Massage Operator Name Role Phone Chance Adhikari MD Primary Care Provide r Encounter Details Date Type Department Care Team ([facility] st Contact Info) Description 09/19/2023 Abstract [facility] MEDICINE [address] [place], [place] [phone] Chance Adhikari MD [address] [place], [place] [phone] Social History Tobacco Use Types Packs/Day Years [...] on filedocumented in this encounter Care Teams Massage Operator Relationship Specialty Start Date End Date Chance Adhikari MD [address] [place] [phone] PCP - General Internal Medicine 02/14/21 documented as of this encounter
--- OUTSIDE RECORDS SUMMARY | 2024-12-31 17:11 | XMS_ITS | Encounter Summary ---
Author Organization [employer] Address [address] [facility] 7t [place] [address] Care Team Providers Care Prospect Manager Name Role Phone Chance Adhikari MD Primary Care Provide r Reason for Visit * Reason Onset Date Comments Nurse Triage 02/20/2024 Encounter Details Date Type Department Care Team ([facility] st Contact Info) Description 02/20/2024 Telephone [facility] MEDICINE [address] [place], [place] [phone] Chance Adhikari MD [address] [place], [place] [phone] Nurse Triage Social History Tobacco Use Types [...] and his sister Amarily who was helping winch operator who states that pt had a pacemaker placed at [facility] on 02/14[place]24. He has since developed a [...] that she will drive him back to [facility]. RN reiterates that these symptoms arevery concerning and RN is able to call an ambulance for pt, but pt and sister again decline. RN calls [facility] ED and spoke with charge nurse there [...] acuity questions The caller accepted this outcome Vietnamese speaker documented in this encounter Plan of Treatment Not on file documented as of this encounter Visit Diagnoses Not on filedocumented in this encounter Additional Health Concerns Assessment Noted Time PHQ-9 Depression Total Score: 5 11/21/19 24 9:35 AM EST documented as of this encounter Care Teams Prospect Manager Relationship Specialty Start Date End Date Chance Adhikari MD [address] [place] [phone] PCP - General Internal Medicine 02/14/21 documented as of this encounter
--- OUTSIDE RECORDS SUMMARY | 2024-12-31 17:11 | XMS_ITS | Clinical Summary ---
Author Organization [employer] Address [address] [place] [address] [address] [place] [address] Care Team Providers Care Bookkeeping Machine Mechanic Name Role Phone Chance Adhikari MD Primary [...] scheduled and patient confirms was completed by senior credit officer. Furosemide and Entresto doses were reduced due [...] here for a follow up Admitted to [facility] (09/15/23 - 09/18/23) with c/o shortness of [...] a LifeVest defibrillator Pt subsequently readmitted to [facility] (09/23/23 - 09/25/23) after he presented with [...] Cardio consulted who recommended transfer to [facility] for angiogram. Pt arrived at [facility] (09/25/23 - 09/27/23) Underwent Cardiac cath showed non ischemic disease and angiographically normal coronary arteries. Patient switched from [facility] to [facility] due to insurance requirements. TSH elevated to [...] for a follow up Initially admitted to [facility] (09/15/23 - 09/18/23) with c/o shortness of [...] a LifeVest defibrillator Pt subsequently readmitted to [facility] (09/23/23 - 09/25/23) after he presented with [...] Cardio consulted who recommended transfer to [facility] for angiogram. Pt arrived at [facility] (09/25/23 - 09/27/23) Underwent Cardiac cath showed non ischemic disease and angiographically normal coronary arteries. Patient switched from [facility] to [facility] due to insurance requirements. TSH elevated to 6.22 uIU/mL and INR elevated to 1.3, both unclear etiology. He is now under the care of Dr. Voss seen 03/05/2024. Pt is now s/p ICD placement Patient here for a follow up after a recent hospitalization due to improper shock and RENA on 03/08/2024. ICD device reprogramming was scheduled and patient confirms was completed by senior credit officer. Furosemide and Entresto doses were reduced due to RENA and suspected reduced need for diuresis. Follow up cardiology visit scheduled for 05/22/2024. Patient reports he is doing well. Taking medications as directed Will repeat a BMP Assessment & Plan (12/24/2023 1:54 PM EDT): Pt here for a follow up Initially admitted to [facility] (09/15/23 - 09/18/23) with c/o shortness of [...] a LifeVest defibrillator Pt subsequently readmitted to [facility] (09/23/23 - 09/25/23) after he presented with [...] Cardio consulted who recommended transfer to [facility] for angiogram. Pt arrived at [facility] (09/25/23 - 09/27/23) Underwent Cardiac cath showed non ischemic disease and angiographically normal coronary arteries. Patient switched from [facility] to [facility] due to insurance requirements. TSH elevated to [...] for a follow up Initially admitted to [facility] (09/15/23 - 09/18/23) with c/o shortness of [...] a LifeVest defibrillator Pt subsequently readmitted to [facility] (09/23/23 - 09/25/23) after he presented with [...] Cardio consulted who recommended transfer to [facility] for angiogram. Pt arrived at [facility] (09/25/23 - 09/27/23) Underwent Cardiac cath showed non ischemic disease and angiographically normal coronary arteries. Patient switched from [facility] to [facility] due to insurance requirements. TSH elevated to 6.22 uIU/mL and INR elevated to 1.3, both unclear etiology. Patient discharged home, to follow- up with cardiology w/ possible cardiac MRI He is now under the care of Dr. Voss last seen 09/2023. In his note he mentioned he increased his Entresto to 107-93 and his Carvedilol to 6.25 BID. I contacted [facility] it appears they never received the scripts ( scripts were sent to [facility] instead ). Pharmacy will contact Dr. Voss to get both scripts sent to [facility] Assessment & Plan (10/10/2023 3:58 PM EST): Pt here for a HDF Initially admitted to [facility] (09/15/23 - 09/18/23) with c/o shortness of [...] a LifeVest defibrillator Pt subsequently readmitted to [facility] (09/23/23 - 09/25/23) after he presented with [...] Cardio consulted who recommended transfer to [facility] for angiogram. Pt arrived at [facility] (09/25/23 - 09/27/23) Underwent Cardiac cath showed non ischemic disease and angiographically normal coronary arteries. Patient switched from [facility] to [facility] due to insurance requirements. TSH elevated to 6.22 uIU/mL and INR elevated to 1.3, both unclear etiology. Patient discharged home, to follow- up with cardiology w/ possible cardiac MRI We had placed a referral to [facility] Cardiology but they do not have any appointments available until November 2023. We were able to get him an appointment with Dr. Saeed a lot sooner 10/23/2023. After his appointment senior credit officer will decide if need for a cardiac [...] diet and exercise offered evaluation by our centrifugal operator in the past, declined 10 lb personal weight loss goal between now and next visit Assessment & Plan (10/09/2022 2:10 PM EST): Discussed diet and exercise offered evaluation by our centrifugal operator in the past Pre-diabetes 10/04/2022 Assessment & Plan (06/30/2024 2:25 PM EDT): Repeat FBS 10/26/2022 was 121 , last Hgb A1c 6.0 Pt has a strong family Hx of DM Referred to [facility] in the past, declined Discussed need to loose weight, exercise and adhere to a low carbohydrate diet He was started on farxiga while in the Hospital Will repeat FBS Assessment & Plan (10/10/2023 3:56 PM EST): Repeat FBS 10/26/2022 was 121 , last Hgb A1c 6.0 Pt has a strong family Hx of DM Referred to [facility] in the past, declined Discussed need to loose weight, exercise and adhere to a low carbohydrate diet He was started on farxiga while in the Hospital Assessment & Plan (08/15/2023 2:50 PM EST): Repeat FBS 10/26/2022 was 121 , last Hgb A1c 6.1 Pt has a strong family Hx of DM Referred to [facility] in the past, declined Discussed need to loose weight, exercise and adhere to a low carbohydrate diet will continue to monitor Assessment & Plan (11/27/2022 2:10 PM EST): Repeat FBS 10/26/2022 was 121 , Hgb A1c 6.4 Pt has a strong family Hx of DM Referred to [facility] in the past, declined Today A1c down to 6.1 Discussed need to loose weight, exercise and adhere to a low carbohydrate diet will continue to monitor Assessment & Plan (10/09/2022 2:09 PM EST): FBS 108 Pt has a strong family Hx of DM Referred to [facility] in the past will continue to monitor BMP ordered today Assessment & Plan (10/04/2022 9:26 AM EST): 02/2021 FBS 116. Hgb A1c: 6 Pt has a strong family Hx of DM Pt referred to [facility] will continue to monitor will repeat BMP [...] per his report. Will refer to our [facility] Assessment & Plan (10/09/2022 2:08 [...] Type Department Care Team Description 12/19/2024 Refill [facility] [address] [place] [address] Chance Adhikari MD Anxiety 11/25/2024 Refill [facility] [address] [place], [place] [phone] Chance Adhikari MD Acute systolic heart failure (CMS/HCC) 11/11/2024 Telephone [facility] [address] [facility] [place] [address] Chance Adhikari MD Chart Prep 11/11/2024 Patient Outreach [facility] [address] [facility] [place] [address] Chance Adhikari MD Pre-visit Planning (Pre-visit planning [...] 9:58 AM EDT) Triglycerides 162(H) <150 mg/dL [facility] Comment:Desirable Triglyceri de: less than 150 mg/dLBorderline High Triglyceride 150-199 mg/dLHigh Triglyceride: 200-499 mg/dLVery High Triglyceride: greater than or equal to 5OO mg/dL Cholesterol 197 <200 mg/dL [facility] Comment:Desirable Cholestero l: less than 200 mg/dLBorderline High Cholesterol: 200-239 mg/dLHigh Cholesterol: greater than 239 mg/dL LDL Cholesterol Calculated 117(H) <100 mg/dL [facility] Comment:Desirable LDL: less than 100 mg/dLNear Optimal/Above Optimal LDL: 110- 129 mg/dLBorderline High LDL: 130-159 mg/dLHigh LDL: 160-189 mg/dLVery High LDL: greater than or equal to 190 mg/dL HDL Cholesterol 48 >40 mg/dL [facility] Comment:Desirable HDL: great er than 40 mg/dL Note: This HDL assay may give artificially low results in patients with liver disease. Blood Venous blood specimen / Unknown 07/24/2024 9:58 AM EDT 07/24/2024 11:11 AM EDT Chance Dozier MD LAB BLOOD ORDERABLES Final Result [facility] [address] [place] [address] [phone] from Last 3 Months or Most Recently Relevant to Health Maintenance Insurance [employer] [facility] Care Teams Bookkeeping Machine Mechanic Relationship Specialty Start Date End Date Chance Adhikari MD [address] [place] [phone] PCP - General Internal Medicine 02/14/21
--- OUTSIDE RECORDS SUMMARY | 2024-12-31 17:11 | XMS_ITS | Encounter Summary ---
Author Organization [employer] [facility] Address [address]t [place] [address] Care Team Providers Care Air Pollution Control Engineer Name Role Phone Chance Adhikari MD Primary Care Provide r Encounter Details Date Type Department Care Team (Late st Contact Info) Description 09/28/2022 Abstract [facility] [address] [place], [place] [phone] Chance Adhikari MD [address] [place], [place] [phone] Social History Tobacco Use Types Packs/Day Years [...] on filedocumented in this encounter Care Teams Air Pollution Control Engineer Relationship Specialty Start Date End Date Chance Adhikari MD [address] [place], [place] [phone] PCP - General Internal Medicine 02/14/21 documented as of this encounter
== END 2024-12-31 15:02 | disposition home or self-care (01) ==
LOC: HO.LNP 15:01
PROVIDERS: PCP Internal Medicine; Visit Provider Nurse Practitioner Family
DX: R31.29 Other microscopic hematuria (principal); N30.31 Trigonitis with hematuria; Z13.9 Encounter for screening, unspecified
CPT/HCPCS: 51798; 81003; 88112; 99212

== ENCOUNTER 2025-02-15 13:31 | Outpatient (AMB) | payer MEDICAID, SELFPAY ==
--- OUTSIDE RECORDS SUMMARY | 2025-02-15 13:34 | XMS_ITS | Encounter Summary ---
Author Organization [employer] Address [address] [place] [address] Care Team Providers Care Medical Director Name Role Phone Chance Adhikari MD Primary Care Provide r Encounter Details Date Type Department Care Team ([facility] st Contact Info) Description 09/19/2023 Abstract [facility] [address] [place], [place] [phone] Chance Adhikari MD [address] [place], [place] [phone] Social History Tobacco Use Types Packs/Day Years [...] the past 12 months, has t he [employer], [employer], oil or water company threatened to shut [...] as of this encounter Plan of Treatment Upcoming Encounters Date Type Department Care Team (Late st Contact Info) Description 04/15/2025 2:30 PM EDT Office Visit [facility] [address] [place] [address] Chance Adhikari MD [address] [place] [address] documented as of this encounter Visit Diagnoses Not on filedocumented in this encounter Care Teams Medical Director Relationship Specialty Start Date End Date Chance Adhikari MD [address] [place] [phone] PCP - General Internal Medicine 02/14/21 documented as of this encounter
--- OUTSIDE RECORDS SUMMARY | 2025-02-15 13:34 | XMS_ITS | Clinical Summary ---
Author Organization [facility] Address [address] [place] [address] Care Team Providers Care Media Analytics Manager Name Role Phone Pcp, No Primary Care Provider Unavailabl e Social History Tobacco Use Types Packs/Day Years Used Date Smoking Tobacco: Never Assessed Sex and Gender Information Value Date Recorded Sex Assigned at Not on file Legal Sex Male 11:44 AM EDT Gender Identity Not on file Sexual Orientation Not on file Plan of Treatment Health Maintenance Due Date Last Done Comments Hepatitis C Virus Screening 1989 HIV Screening 2002 DTaP/Tdap/Td Vaccines (1 - Tdap) 2008 Hepatitis B Vaccines (1 of 3 - 19+ 3-dose series) 2008 COVID-19 Vaccine ( - 2023-2 5 season) 2024 Influenza Vaccine 04/30/2025 HPV Vaccines Aged Out No longer eligi ble based on patient's age to complete this topic Pneumococcal Vaccine: Pediat nam (0-5 Years) and At-Risk Patients (6 to 49 Years) Aged Out No longer eligible b ased on patient's age to complete this topic Insurance [facility] Member Subscriber Plan / Payer (Ef fective 2023-Present) Name:Angel Muñoz Relation to Subscriber:Self Name:Angel Muñoz Payer ID:Not on file Group ID:Not on file Type:Not on file Address: [facility] [id number] [place] [id number] [place] [address] Care Teams Media Analytics Manager Relationship Specialty Start Date End Date Pcp, No PCP - General General Medicine 02/10/24
--- OUTSIDE RECORDS SUMMARY | 2025-02-15 13:34 | XMS_ITS | Encounter Summary ---
Author Organization [employer] Address [address] [place] [address] [address] [place] [address] Care Team Providers Care Switchboard Manager Name Role Phone Chance Adhikari MD Primary Care Provide r Encounter Details Date Type Department Care Team (Late st Contact Info) Description 09/28/2022 Abstract [facility] [address] [place] [address] [phone] Chance Adhikari MD [address] [place] [address] [phone] Social History Tobacco Use Types Packs/Day Years [...] Description 04/15/2025 2:30 PM EDT Office Visit [facility] [address] [place] [phone] Chance Adhikari MD [address] [place], [place] [phone] documented as of this encounter Visit Diagnoses Not on filedocumented in this encounter Care Teams Switchboard Manager Relationship Specialty Start Date End Date Chance Adhikari MD [address] [place] [address] [phone] PCP - General Internal Medicine 02/14/21 documented as of this encounter
--- OUTSIDE RECORDS SUMMARY | 2025-02-15 13:34 | XMS_ITS | Clinical Summary ---
Author Organization [employer] Address [address] [place] [address] Care Team Providers Care Base Brander Name Role Phone Chance Adhikari MD Primary Care Provide r Allergies No known active allergies Medications * This document contains information received from the source organization and may not represent a complete record from that organization. betamethasone, augmented, (Diprolene) 0.05 % ointmentIndicat ions:Psoriasis Apply topically 2 times daily. For 2 weeks then patient should take a break for 1 week before resume. 50 g 5 4 Active carvedilol (Coreg) 25 MG tablet Take 25 mg by mouth with breakfast and with evening meal. 4 Active furosemide (Lasix) 20 MG tablet Take 20 mg by mouth in the morning. 4 Active Entresto 49-51 MG tablet TAKE 1 TABLET BY MOUTH TWICE DAILY IN THE MORNING AND AT BEDTIME 4 Active empagliflozin (Jardiance) 25 MG TAKE 1 TABLET BY MOUTH EVERY MORNING 30 tablet 5 5 Active spironolactone (Aldactone) 25 MG tabletIndicatio ns:Acute systolic heart failure (CMS/HCC) TAKE 1 TABLET BY MOUTH EVERY MORNING 30 tablet 5 5 Active hydrOXYzine pamoate (Vistaril) 25 MG capsuleIndicati ons:Anxiety TAKE 1 CAPSULE BY MOUTH EVERY TWELVE HOURS NEEDED FOR ANXIETY 30 capsule 3 5 Active Active Problems Problem Noted Date Diagnosed Date [...] scheduled and patient confirms was completed by clay modeler. Furosemide and Entresto doses were reduced due [...] here for a follow up Ad[facility] [place] [facility] [place]09/15/23 - 09/18/23) with c/o shortness of [...] a LifeVest defibrillator Pt subsequently readmitted to [facility] (09/23/23 - 09/25/23) after he presented with [...] overload. Cardio consulted who recommended transfer to [facility] for angiogram. Pt arrived at [facility] (09/25/23 - 09/27/23) Underwent Cardiac cath showed non ischemic disease and angiographically normal coronary arteries. Patient switched from [facility] to [facility] due to insurance requirements. TSH elevated [...] for a follow up Initially admitted to [facility] (09/15/23 - 09/18/23) with c/o shortness of [...] a LifeVest defibrillator Pt subsequently readmitted to [facility] (09/23/23 - 09/25/23) after he presented with [...] overload. Cardio consulted who recommended transfer to [facility] for angiogram. Pt arrived at [facility] (09/25/23 - 09/27/23) Underwent Cardiac cath showed non ischemic disease and angiographically normal coronary arteries. Patient switched from [facility] to [facility] due to insurance requirements. TSH elevated [...] scheduled and patient confirms was completed by clay modeler. Furosemide and Entresto doses were reduced due to RENA and suspected reduced need for diuresis. Follow up cardiology visit scheduled for 05/22/2024. Patient reports he is doing well. Taking medications as directed Will repeat a BMP Assessment & Plan (12/24/2023 1:54 PM EDT): Pt here for a follow up Initially admitted to [facility] (09/15/23 - 09/18/23) with c/o shortness of [...] a LifeVest defibrillator Pt subsequently readmitted to [facility] (09/23/23 - 09/25/23) after he presented with [...] overload. Cardio consulted who recommended transfer to [facility] for angiogram. Pt arrived at [facility] (09/25/23 - 09/27/23) Underwent Cardiac cath showed non ischemic disease and angiographically normal coronary arteries. Patient switched from [facility] to [facility] due to insurance requirements. TSH elevated [...] for a follow up Initially admitted to [facility] (09/15/23 - 09/18/23) with c/o shortness of [...] a LifeVest defibrillator Pt subsequently readmitted to [facility] (09/23/23 - 09/25/23) after he presented with [...] overload. Cardio consulted who recommended transfer to [facility] for angiogram. Pt arrived at [facility] (09/25/23 - 09/27/23) Underwent Cardiac cath showed non ischemic disease and angiographically normal coronary arteries. Patient switched from [facility] to [facility] due to insurance requirements. TSH elevated to 6.22 uIU/mL and INR elevated to 1.3, both unclear etiology. Patient discharged home, to follow- up with cardiology w/ possible cardiac MRI He is now under the care of Dr. Voss last seen 09/2023. In his note he mentioned he increased his Entresto to 107-93 and his Carvedilol to 6.25 BID. I contacted [facility] it appears they never received the scripts ( scripts were sent to [facility] instead ). Pharmacy will contact Dr. Voss to get both scripts sent to [facility] Assessment & Plan (10/10/2023 3:58 PM EST): Pt here for a HDF Initially admitted to [facility] (09/15/23 - 09/18/23) with c/o shortness of [...] a LifeVest defibrillator Pt subsequently readmitted to [facility] (09/23/23 - 09/25/23) after he presented with [...] overload. Cardio consulted who recommended transfer to [facility] for angiogram. Pt arrived at [facility] (09/25/23 - 09/27/23) Underwent Cardiac cath showed non ischemic disease and angiographically normal coronary arteries. Patient switched from [facility] to [facility] due to insurance requirements. TSH elevated to 6.22 uIU/mL and INR elevated to 1.3, both unclear etiology. Patient discharged home, to follow- up with cardiology w/ possible cardiac MRI We had placed a referral to [facility] but they do not have any appointments available until November 2023. We were able to get him an appointment with Dr. Saeed a lot sooner 10/23/2023. After his appointment clay modeler will decide if need for a cardiac [...] diet and exercise offered evaluation by our pharmacognosist in the past, declined 10 lb personal weight loss goal between now and next visit Assessment & Plan (10/09/2022 2:10 PM EST): Discussed diet and exercise offered evaluation by our pharmacognosist in the past Pre-diabetes 10/04/2022 Assessment & Plan (06/30/2024 2:25 PM EDT): Repeat FBS 10/26/2022 was 121 , last Hgb A1c 6.0 Pt has a strong family Hx of DM Referred to [facility] in the past, declined Discussed need to loose weight, exercise and adhere to a low carbohydrate diet He was started on farxiga while in the Hospital Will repeat FBS Assessment & Plan (10/10/2023 3:56 PM EST): Repeat FBS 10/26/2022 was 121 , last Hgb A1c 6.0 Pt has a strong family Hx of DM Referred to [facility] in the past, declined Discussed need to loose weight, exercise and adhere to a low carbohydrate diet He was started on farxiga while in the Hospital Assessment & Plan (08/15/2023 2:50 PM EST): Repeat FBS 10/26/2022 was 121 , last Hgb A1c 6.1 Pt has a strong family Hx of DM Referred to [facility] in the past, declined Discussed need to loose weight, exercise and adhere to a low carbohydrate diet will continue to monitor Assessment & Plan (11/27/2022 2:10 PM EST): Repeat FBS 10/26/2022 was 121 , Hgb A1c 6.4 Pt has a strong family Hx of DM Referred to [facility] in the past, declined Today A1c down to 6.1 Discussed need to loose weight, exercise and adhere to a low carbohydrate diet will continue to monitor Assessment & Plan (10/09/2022 2:09 PM EST): FBS 108 Pt has a strong family Hx of DM Referred to [facility] in the past will continue to monitor BMP ordered today Assessment & Plan (10/04/2022 9:26 AM EST): 02/2021 FBS 116. Hgb A1c: 6 Pt has a strong family Hx of DM Pt referred to [facility] will continue to monitor will repeat BMP today Psoriasis 10/04/2022 Assessment & Plan (11/21/2023 10:03 AM EST): Diagnosed with psoriasis in [place], mainly affecting his elbows and legs He is also c/o some sort of hypersensitivity to the sun, he describes becoming very itchy when under the sun Uses Clobetasol to apply to affected areas of body except face Pt was referred to outside Dermatology in the past, his insurance would not cover this per his report. Will refer to our [facility] Assessment & Plan (10/09/2022 2:08 PM EST): Diagnosed with psoriasis in [place], mainly affecting his elbows and legs He is also c/o some sort of hypersensitivity to the sun, he describes becoming very itchy when under the sun Uses Clobetasol to apply to affected areas of body except face Pt was referred to outside Dermatology in the past Assessment & Plan (10/04/2022 9:27 AM EST): Pt reports having been diagnosed with psoriasis in [place], mainly affecting his elbows and legs He [...] Encounters Date Type Department Care Team Description 12/31/2024 Orders Only GENERIC EXTERNAL DATA DEPARTMENT Provider, Generic External Data 12/19/2024 Refill [facility] [address] [facility], [place] [phone] Chance Adhikari MD Anxiety 11/25/2024 Refill [facility] [address] [place] [address] Chance Adhikari MD Acute systolic heart failure (CMS/HCC) from Last 3 Months Immunizations Immunization Administration Dates Next Due HepB-CpG 03/30/2024,02/28/2024 Pneumococcal [...] 06/30/2024 2:01 PM EDT Plan of Treatment Upcoming Encounters Date Type Department Care Team (Late st Contact Info) Description 04/15/2025 2:30 PM EDT Office Visit [facility] [address] [place], [place] [phone] Chance Adhikari MD [address] [place] [address] Health Maintenance Due Date Last Done Comments HIV Screening 1989 Alcohol/Substance Use Screening 2001 Family Planning (PISQ) 2004 Hepatitis C Screening 2007 COVID-19 Vaccine (2023-2 5 season) 2024 02/20/2021, 01/30/2021 Influenza Vaccine (#1) 2024 SDOH Screening 10/07/2024 10/07/2023 Depression Screening 03/31/2025 [...] patient's age to complete this topic Meningococcal B Vaccine Aged Out No l onger eligible based on patient's age to complete [...] Procedure Name Priority Date/Time Associated Diagnosis Comments CYTOPATH-CELL ENHANCED Routine 12/31/2024 5:06 PM EDT LIPID PANEL, STANDARD Routine 07/24/2024 9:58 AM EDT Primary hypertension Chronic systolic heart failure (CMS/HCC) from Last 3 Months or Most Recently Relevant to Health Maintenance Results * Cytopath-cell enhanced (12/31/2024 5:06 PM EDT) 12/31/2024 5:06 PM EDT 01/01/2025 7:15 AM EDT [facility] - 01/03/2025 9:39 AM EDT ----- ------- Name: Angel Kee ? Age/Sex: 34/M ? : 1990 Unit#: [id number] ?? Attend Dr: Chantelle Evans PROBATION AGENT-BC ?Re12/31/24 ?Status: DEP REF ? Location: HO.LNP ?Disch: ? ----- ------- SPEC : [id number] ? RECD: 01/01/25 ? STATUS: ??SOUT ? REQ NUM: [id number] ? HANSEL: 12/31/24-170 ? SUBM DR: Chantelle Evans PROBATION AGENT-BC ? ENTERED: ??01/01/25 ?SP TYPE: Cytology ? OTHR DR: Chance Georges MD ?? ORDERED: ??Cyto-enhanced ? Diagnosis ?? Urine: ??Negative for high-grade urothelial carcinoma. ??See comment. ? COMMENT: Cellular specimen consisting of single urothelial cells, squamous cells, red ?? blood cells, crystals and few mixed inflammatory cells. ?Clinical History Microscopic hematuria ? Material Received ?? Urine ? Gross Description Received is 45 cc of very cloudy yellow fluid from which a ThinPrep slide is prepared. Copies To: ?? Chance Georges MD ?? [facility] ?? [address] ?? [place] [address] ?? [phone] ?? Chantelle Evans [facility]- ?? [facility] ?? [address] ?? [place] ?? [phone] ?? [email or web address] ----- ------- Signed (signature on file) Hany Harrison MD 01/03/25 0939 ? ----- ------- ? END OF REPORT ? us Generic External Data Provider LAB CYTOLOGY DHRUVE JUNIOR Final Result [facility] [address] [place] [address] [phone] * (ABNORMAL) Lipid Panel, Standard (07/24/2024 9:58 AM EDT) Triglycerides 162(H) <150 mg/dL [facility] Comment:Desirable Triglyceri de: less than 150 mg/dLBorderline High Triglyceride 150-199 mg/dLHigh Triglyceride: 200-499 mg/dLVery High Triglyceride: greater than or equal to 5OO mg/dL Cholesterol 197 <200 mg/dL [facility] Comment:Desirable Cholestero l: less than 200 mg/dLBorderline High Cholesterol: 200-239 mg/dLHigh Cholesterol: greater than 239 mg/dL LDL Cholesterol Calculated 117(H) <100 mg/dL [facility] Comment:Desirable LDL: less than 100 mg/dLNear Optimal/Above Optimal LDL: 110- 129 mg/dLBorderline High LDL: 130-159 mg/dLHigh LDL: 160-189 mg/dLVery High LDL: greater than or equal to 190 mg/dL HDL Cholesterol 48 >40 mg/dL [facility] Comment:Desirable HDL: great er than 40 mg/dL Note: This HDL assay may give artificially low results in patients with liver disease. Blood Venous blood specimen / Unknown 07/24/2024 9:58 AM EDT 07/24/2024 11:11 AM EDT Chance Dozier MD LAB BLOOD ORDERABLES Final Result [facility] [address] [place] [address] [phone] from Last 3 Months or Most Recently Relevant to Health Maintenance Insurance [id number] Care Teams Base Brander Relationship Specialty Start Date End Date Chance Adhikari MD [address] [place] [id number] PCP - General Internal Medicine 02/14/21
--- OUTSIDE RECORDS SUMMARY | 2025-02-15 13:35 | XMS_ITS | Encounter Summary ---
Author Organization [employer] Address [address] [facility] [address] [place] [address] Care Team Providers Care Poultry Hatchery Laborer Name Role Phone Chance Adhikari MD Primary Care Provide r Reason for Visit * Reason Onset Date Comments Nurse Triage 02/20/2024 Encounter Details Date Type Department Care Team ([facility] st Contact Info) Description 02/20/2024 Telephone [facility] [address] [place], [place] [phone] Chance Adhikari MD [address] [place] [address] Nurse Triage Social History Tobacco Use Types [...] and his sister Amarily who was helping grain oilseed or pasture grower who states that pt had a pacemaker [place] [facility] [place]. He has since developed a [...] that she will drive him back to [facility]. RN reiterates that these symptoms arevery concerning and RN is able to call an ambulance for pt, but pt and sister again decline. RN calls [facility] and spoke with charge nurse there about patient disposition, who states they will be awaiting patients arrival. Will forward to PCP as CHIQUIS * Telephone Encounter - Kelin Lema - 02/20/2024 2:34 PM EDT Symptom: Wound Infection - Caller Reports Outcome: Schedule a same-day appointment or talk to a nurse or provider today Reason: Caller denied all higher acuity questions The caller accepted this outcome Occitan speaker documented in this encounter Plan of Treatment Upcoming Encounters Date Type Department Care Team (Late st Contact Info) Description 04/15/2025 2:30 PM EDT Office Visit [facility] [address] [place] [address] Chance Adhikari MD [address] [place], [place] [phone] documented as of this encounter Visit Diagnoses Not on filedocumented in this encounter Additional Health Concerns Assessment Noted Time PHQ-9 Depression Total Score: 5 11/21/19 24 9:35 AM EST documented as of this encounter Care Teams Poultry Hatchery Laborer Relationship Specialty Start Date End Date Chance Adhikari MD [address] [place], [place] [phone] PCP - General Internal Medicine 02/14/21 documented as of this encounter
--- NOTE | 2025-02-15 13:59 | MHC.OFFVIS ---
Vital Signs 02/15/25 14:01 Height 6 ft 3 in Weight 284 lb 6.341 oz BMI 35.5 BP 118/72 Blood Pressure Location Rt brachial Position Sitting Pulse 65 Pulse Source Pulse Oximeter Intake Visit Reasons: r[facility] fu w/ device check Snowboard Designer Required: Yes Snowboard Designer Language: Semiconductor Lab Technician Name: voice [id number] Allergies No Known Allergies Allergy (Verified 02/15/25 14:00) Medication List - Last Reconciled 02/15/25 by Betsy Clark NP-C carvedilol 25 mg PO BID empagliflozin (Jardiance) 25 mg PO DAILY linezolid 600 mg PO BID sacubitril-valsartan 97-103 mg (Entresto) 1 tab PO BID HPI HPI r/s3 [facility] fu w/ device check: Details: Angel is a 34-year-old male with past medical history of hypertension, systolic heart failure, nonischemic cardiomyopathy, subcutaneous ICD who presents for follow-up. Today he reports he has been feeling generally well since his last visit in June. He has had some mild discomfort in the left upper chest region which occurs randomly, mostly at rest. He has not had discomfort brought on or worsened by exertion. No shortness of breath, PND, orthopnea or edema. No heart palpitations, lightheadedness, presyncope, syncope. He has not had any ICD shocks. He is taking meds as directed. 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 He says he is tolerating his work well at this time. [facility] Medical History ICD (implantable cardioverter-defibrillator) malfunction Inappropriate shocks from ICD (implantable cardioverter-defibrillator) Diabetes Asthma Nonischemic cardiomyopathy Heart failure with reduced ejection fraction Acute on chronic systolic (congestive) heart failure Decompensated heart failure HTN (hypertension) Surgical History History of umbilical hernia repair Family History Unknown Enlarged heart Social History Household Members: Family Household Members Other:: Mom Housing: House Do you presently have visiting nurse or other home services: No Alcohol intake: never Comment: pt no longer on/requiring high flow O2. Patient Tobacco Use Status: Never used Tobacco service: No Review of Systems Const All systems reviewed & are unremarkable except as noted in HPI and below ENT Denies dizziness Card Denies chest pain, Denies chest pain at rest, Denies chest pain with activity, Denies rapid heart rate, Denies pedal edema, Denies edema, Denies leg edema, Denies lightheadedness, Denies palpitations, Denies dyspnea, Denies dyspnea on exertion and Denies orthopnea Resp Denies cough, Denies dyspnea and Denies dyspnea on exertion GI Denies hematochezia and Denies change in stool character Musc Denies abnormal gait, Denies limited range of motion, Denies muscle cramps, Denies muscle weakness, Denies numbness, Denies radiating pain into limb, Denies stiffness and Denies tingling Neuro Denies abnormal gait, Denies dizziness, Denies numbness and Denies tingling Endo Denies palpitations Physical Exam Vital Signs: Last Vital Signs Pulse 65 02/15/25 14:01 BP 118/72 02/15/25 14:01 BMI result Body Mass Index 35.5 Const General: cooperative, healthy appearing, comfortable and no acute distress Orientation/consciousness: patient oriented x3 Neck Neck: Yes normal visual inspection Resp Effort & Inspection: normal respiratory effort Auscultation: clear to auscultation bilaterally, no rales, no rhonchi and no wheezes Cardio Rate: regular rate Rhythm: regular rhythm Heart sounds: S1 normal heart sound present, S2 normal heart sound present, no murmurs and no rubs Neuro General: patient oriented x3 Extrem General: Yes normal to inspection and No no pedal edema Psych Appearance: grossly normal Mental Status: mental status grossly normal Speech and movement: Normal speech and movement present Office Procedures Cardiac Device Check Cardiac Device Check Details: Epworth scientific subcutaneous ICD interrogation today, battery 89% secondary mode shock impedance normal 1 brief AFib episode then will 2019 no ICD shocks since last follow-up [id number] Device Interrogation, implantable defibrillator Procedure code (CPT) selection complete Assessment & Plan Assessment & Plan (1) Heart failure with reduced ejection fraction: Code(s): I50.20 - Unspecified systolic (congestive) heart failure Category: Medical Plan: Heart failure with reduced ejection fraction with significant nonischemic cardiomyopathy related LV systolic dysfunction. Last echocardiogram from 12/25/2023 shows EF 15-20%, impaired relaxation. He does not appear fluid overloaded on exam today. Continue carvedilol, Entresto and Jardiance for neurohormonal modulation, continue low-dose Lasix. Blood pressure 118/72. Labs from 07/24/2024 showed creatinine 1.07, BNP 11. Signs and symptoms of heart failure reviewed with him. Will recheck echo prior to next visit. Cardiology follow-up 6 months, sooner if needed. (2) ICD (implantable cardioverter-defibrillator) in place: Code(s): Z95.810 - Presence of automatic (implantable) cardiac defibrillator Category: Medical Plan: Subcutaneous ICD in place for primary prevention. Device interrogation today shows it is functioning normally. (3) Cardiomyopathy: Code(s): I42.9 - Cardiomyopathy, unspecified Category: Medical Plan: As above Plan Continue managing heart failure with ongoing use of Furosemide, carvedilol, entresto and jardiance. Follow-up echocardiography will be scheduled to reassess ventricular function. ICD functioning to be routinely interrogated. Routine follow-up in six months to evaluate clinical condition and update echocardiography. During the consultation, we reviewed the patient's clinical condition, emphasizing heart failure management. The beneficial outcomes of current pharmacotherapy were discussed, with no medication changes needed due to stable vital signs. We engaged in a conversation about future echocardiography to monitor cardiac status. Reviewed risks of heavy lifting and endorsed restricted physical exertion at his workplace. The patient was informed of the need for routine follow-up in six months, and reassured concerning cardiac catheterization findings which confirmed patent coronary arteries. Patient was informed and verbally consented to the use of an ambient scribe for clinic note documentation during this visit. Time spent on chart review, documentation, interview and assessment Orders: Orders CA echo transthoracic complete 08/09/25 I42.9 - Cardiomyopathy, unspecified, I50.20 - Unspecified systolic (congestive) heart failure Patient Instructions: - Continue taking all prescribed medications - Monitor for any new or worsening symptoms such as new chest pain, leg edema or shortness of breath. - Limit heavy lifting and strenuous activities. - Attend follow-up appointment in six months or sooner if recommended. - Notify healthcare provider if experiencing significant changes in symptoms or functioning. Coding Level of Care Code Est Pt Level 4 (83982) Complex EM visit Add On G2211 Diagnoses Heart failure with reduced ejection fraction I50.20 ICD (implantable cardioverter-defibrillator) in place Z95.810 Cardiomyopathy I42.9 CPT Codes Cardiac Device Check - Cardiac Device 9: [id number] Device Interrogation, implantable defibrillator ([id number]) Time Spent (min) 30
[2025-02-15 14:01] VITALS: BP 118/72; PULSE 65; BMI 35.5
== END 2025-02-15 14:32 | disposition home or self-care (01) ==
LOC: HO.HCS 13:31
PROVIDERS: PCP Internal Medicine; Visit Provider Nurse Practitioner Family
DX: I50.20 Unspecified systolic (congestive) heart failure (principal); Z95.810 Presence of automatic (implantable) cardiac defibrillator; I42.9 Cardiomyopathy, unspecified
CPT/HCPCS: 93260; 99214

== ENCOUNTER → 2025-02-15 13:31 | Outpatient (BNVA) | payer MEDICAID, SELFPAY | PROVIDERS: PCP Internal Medicine; Visit Provider Nurse Practitioner Family | DX: Z45.02 Encounter for adjustment and management of automatic implantable cardiac defibrillator (principal); I50.20 Unspecified systolic (congestive) heart failure; I42.9 Cardiomyopathy, unspecified | CPT/HCPCS: 99212 ==

== ENCOUNTER → 2025-03-09 23:59 | Outpatient (BNV) | payer MEDICAID, SELFPAY ==
--- NOTE | 2025-03-10 16:51 | A.OFFVIS_ITS ---
Intake Visit Reasons: Remote Device ICD [facility]-[place] Allergies No Known Allergies Allergy (Verified 02/15/25 14:00) [facility] Medical History ICD (implantable cardioverter-defibrillator) malfunction Inappropriate shocks from ICD (implantable cardioverter-defibrillator) Diabetes Asthma Nonischemic cardiomyopathy Heart failure with reduced ejection fraction Acute on chronic systolic (congestive) heart failure Decompensated heart failure HTN (hypertension) Surgical History History of umbilical hernia repair Family History Unknown Enlarged heart Social History Household Members: Family Household Members Other:: Mom Housing: House Do you presently have visiting nurse or other home services: No Alcohol intake: never Comment: pt no longer on/requiring high flow O2. Patient Tobacco Use Status: Never used Tobacco service: No Office Procedures Cardiac Device Check Cardiac Device Check Details: Remote ICD report generated 03/08/2025. ICD function is adequate. Battery life is at 87% [id number] Cardiac Interrogation, implant defibrillator w/interim Procedure code (CPT) selection complete Assessment & Plan Assessment & Plan (1) ICD (implantable cardioverter-defibrillator) in place: Code(s): Z95.810 - Presence of automatic (implantable) cardiac defibrillator Category: Medical Plan: See above Coding Level of Care Code Procedure Only Diagnoses ICD (implantable cardioverter-defibrillator) in place Z95.810 CPT Codes Cardiac Device Check - Cardiac Device 13: [id number] Cardiac Interrogation, implant defibrillator w/interim ([id number])
== END ==
PROVIDERS: PCP Internal Medicine; Visit Provider Internal Medicine Cardiovascular Disease
DX: Z45.02 Encounter for adjustment and management of automatic implantable cardiac defibrillator (principal)
CPT/HCPCS: 93295

== ENCOUNTER 2025-05-06 07:56 | Outpatient (REF) | payer OTHER, SELFPAY ==
--- OUTSIDE RECORDS SUMMARY | 2025-05-06 08:01 | XMS_ITS | Encounter Summary ---
Author Organization [employer] Address [address] [place] [address] Care Team Providers Care Photographer Name Role Phone Chance Adhikari MD Primary Care Provide r Encounter Details Date Type Department Care Team (Late st Contact Info) Description 09/19/2023 Abstract [facility] MEDICINE [address] [place], [place] [phone] Chance Adhikari MD [address] [place], [place] [phone] Social History Tobacco Use Types Packs/Day Years [...] the past 12 months, has t he [employer], [employer], oil or water company threatened to shut [...] on filedocumented in this encounter Care Teams Photographer Relationship Specialty Start Date End Date Chance Adhikari MD [address] [place] [phone] PCP - General Internal Medicine 02/14/21 documented as of this encounter
--- OUTSIDE RECORDS SUMMARY | 2025-05-06 08:01 | XMS_ITS | Clinical Summary ---
Author Organization [facility] Address [address] [place] [address] Care Team Providers Care Lean Engineer Name Role Phone Pcp, No Primary [...] patient's age to complete this topic Insurance [facility] Member Subscriber Plan / Payer (Ef fective 2023-Present) Name:Angel Muñoz Relation to Subscriber:Self Name:Angel Muñoz Payer ID:Not on file Group ID:Not on file Type:Not on file Address: [facility] [id number] [place] [id number] [place] [address] Care Teams Lean Engineer Relationship Specialty Start Date End Date Pcp, No PCP - General General Medicine 02/10/24
--- OUTSIDE RECORDS SUMMARY | 2025-05-06 08:01 | XMS_ITS ---
Author Name [facility] Organization Unknown Care Team Organization Name Specialty Phone Email Start Date End [facility] NO PCP Primary Care 02/10/2024
--- OUTSIDE RECORDS SUMMARY | 2025-05-06 08:01 | XMS_ITS | Clinical Summary ---
Author Organization [facility] Address [address] [place] [phone] Phone Care Team Providers Care Foot Gatherer Name Role Phone Chance Georges MD Primary Care Provide r Allergies No known active allergies Medications ENTRESTO 97-103 mg per tablet Take 1 tablet by mouth 2 (two) times a day. Active albuterol 90 mcg/actuation inhaler Inhale 2 puffs into the lungs every 6 (six) hours as needed. 4 Active carvedilol (COREG) 12.5 MG tablet Take 12.5 mg by mouth 2 (two) times a day with meals. 4 Active JARDIANCE 25 mg tablet Take 25 mg by mouth every morning. Active furosemide (LASIX) 40 MG tablet Take 1 tablet by mouth every morning. 4 Active triamcinolone acetonide 0.1 % cream Apply topically 2 (two) times a day as needed. 4 Active Active Problems Problem Noted Date Diagnosed Date S/P ICD (internal cardiac defibrillator) procedu re 08/03/2024 Assessment & Plan (08/03/2024 3:35 PM EST): Status post ICD. Device interrogation within normal limits.. Pain at device site has come down. Site is healing well. Patient can follow-up with primary branch manager. Chronic systolic heart failure 02/07/2024 Assessment & Plan (08/03/2024 3:34 PM EST): Continue GDMT. Assessment & Plan (02/07/2024 1:26 PM EDT): Patient is on GDMT for more than 3 months and ejection fraction continues to be low. Is currently wearing LifeVest. Will proceed with primary prevention ICD. Will check with [employer] rep's whether he is a candidate for subcutaneous ICD as patient is young will prefer subcutaneous ICD over transvenous ICD. Risk and benefits of the procedure were discussed in detail. IVCD (intraventricular conduction defect) 2023 Assessment & Plan (02/07/2024 1:27 PM EDT): QRS duration 120 ms. No evidence of left bundle branch block. Social History Tobacco Use Types Packs/Day Years Used Date Smoking Tobacco: Never Smokeless Tobacco: Never Tobacco Cessation:Counseling Given: Not Answered Alcohol Use Standard Drinks/Week Comments Never 0 (1 standard drink = 0.6 oz pur e alcohol) Education Answer Date Recorded Are you interested in more education? Not on kalie e 12/16/2023 Are you concerned about learning? Not on file 12/16/2023 No 12/16/2023 No 12/16/2023 Digital Access Answer Date Recorded No 12/16/2023 No 12/16/2023 Reliable internet access at home? Not on file 12/16/2023 Device with a working camera? Not on file Sex and Gender Information Value Date Recorded Sex Assigned at Not on file Legal Sex Male 12:54 PM EDT Gender Identity Not on file Sexual Orientation Not on file Last Filed Vital Signs Vital Sign Reading Time Taken Comments Blood Pressure 120/88 08/03/2024 2:47 PM EST Pulse 68 08/03/2024 2:47 PM EST Temperature - - Respiratory Rate - - Oxygen Saturation 98% 08/03/2024 2:47 PM EST Inhaled Oxygen Concentration - - Weight 127.9 kg (282 lb) 08/03/2024 2:47 PM EST Height 190.5 cm (6' 3 ) 08/03/2024 2:47 PM EST Body Mass Index 35.25 08/03/2024 2:47 PM EST Plan of Treatment Health Maintenance Due Date Last Done Comments DEPRESSION SCREENING 2001 HEPATITIS C SCREENING 2007 HIV ONE-TIME SCREENING (18-6 5 YEARS) 2007 PNEUMOCOCCAL VACCINES (0-49 years) (1 of 2 - PCV) 2008 COVID-19 VACCINE (2023-2 5 season) 2024 SCREENING FOR DIABETES 2024 LIPID PANEL 07/24/2029 07/24/2024 Adult Td,Tdap Booster 03/30/2034 03/30/2024 SMOKING STATUS SCREENING (On ce After 26 Yrs) Completed 08/03/2024 HEPATITIS A VACCINES Aged Out No long er eligible based on patient's age to complete this topic HIB VACCINES Aged Out No longer eligi ble based on patient's age to complete this topic MENINGOCOCCAL VACCINES (ACWY) Aged Out No longer eligible based on patient's age to complete this topic MENINGOCOCCAL VACCINES (B) Aged Out N o longer eligible based on patient's age to complete this topic Medical Devices Not on file Insurance C3 ACO C3 ACO C3 ACO C3 ACO C3 ACO [facility] C3 ACO Care Teams Foot Gatherer Relationship Specialty Start Date End Date Chance Georges MD [address] [place] [address] [address] [place] [address] [email or web address] PCP - General Internal Medicine 12/09/23 Additional Source Comments The information contained in this document represents components of the legal health record. It is not the complete legal health record.[facility]
[2025-05-06 11:45] LABS: Alanine Aminotransferase 56 U/L (0-40); Albumin Level 4.5 g/dL (3.5-5.0); Alkaline Phosphatase 131 U/L (39-117); Anion Gap 14 (12-20); Aspartate Amino Transferase 34 U/L (5-37); Blood Urea Nitrogen 17 mg/dL (9-16); Calcium 9.5 mg/dL (8.4-10.2); Carbon Dioxide 27 mmol/L (22-29); Chloride 106 mmol/L (96-108); Cholesterol 198 mg/dL (<200); Estimated Glomerular Filt Rate > 60; HDL Cholesterol 42 mg/dL (>40); Potassium 4.1 mmol/L (3.3-5.1); Sodium 143 mmol/L (135-145); Total Protein 7.8 g/dL (6.5-8.0); Triglycerides 209 mg/dL (<150)
[2025-05-06 12:07] LABS: ~HepC Num1 0.13 S/CO (0.00-0.79); ~Hepatitis C Antibody Nonreactive (Nonreactive)
[2025-05-06 12:15] LABS: B Type Natriuretic Peptide < 10 pg/mL (<100)
== END 2025-05-06 07:57 | disposition home or self-care (01) ==
LOC: HO.HHCL 07:56
PROVIDERS: Nurse Practitioner Family; PCP Internal Medicine; Visit Provider Internal Medicine
DX: Z00.00 Encounter for general adult medical examination without abnormal findings (principal); Z11.59 Encounter for screening for other viral diseases; I11.0 Hypertensive heart disease with heart failure; I50.22 Chronic systolic (congestive) heart failure
CPT/HCPCS: 36415; 80053; 80061; 83880; 86803

== ENCOUNTER → 2025-06-07 23:59 | Outpatient (BNV) | payer OTHER, SELFPAY ==
--- NOTE | 2025-06-15 09:51 | A.OFFVIS_ITS ---
Intake Visit Reasons: Remote Device ICD [facility]-[place] Allergies No Known Allergies Allergy (Verified 02/15/25 14:00) [facility] Medical History ICD (implantable cardioverter-defibrillator) malfunction Inappropriate shocks from ICD (implantable cardioverter-defibrillator) Diabetes Asthma Nonischemic cardiomyopathy Heart failure with reduced ejection fraction Acute on chronic systolic (congestive) heart failure Decompensated heart failure HTN (hypertension) Surgical History History of umbilical hernia repair Family History Unknown Enlarged heart Social History Household Members: Family Household Members Other:: Mom Housing: House Do you presently have visiting nurse or other home services: No Alcohol intake: never Comment: pt no longer on/requiring high flow O2. Patient Tobacco Use Status: Never used Tobacco service: No Office Procedures Cardiac Device Check Cardiac Device Check Details: Remote subcutaneous ICD report generated 06/07/2025. No arrhythmias detected. Battery life is adequate [id number] Cardiac Interrogation, implant defibrillator w/interim Procedure code (CPT) selection complete Assessment & Plan Assessment & Plan (1) ICD (implantable cardioverter-defibrillator) in place: Code(s): Z95.810 - Presence of automatic (implantable) cardiac defibrillator Category: Medical Plan: See above Coding Level of Care Code Procedure Only Diagnoses ICD (implantable cardioverter-defibrillator) in place Z95.810 CPT Codes Cardiac Device Check - Cardiac Device 13: [id number] Cardiac Interrogation, implant defibrillator w/interim ([id number])
== END ==
PROVIDERS: PCP Internal Medicine; Visit Provider Internal Medicine Cardiovascular Disease
DX: Z45.02 Encounter for adjustment and management of automatic implantable cardiac defibrillator (principal)
CPT/HCPCS: 93295

== ENCOUNTER → 2025-08-09 09:47 | Outpatient (REF) | payer OTHER, SELFPAY ==
--- NOTE | 2025-08-09 09:53 | CA_ITS ---
Transthoracic Echocardiogram Patient (Last, First, Middle): Angel Kee, Gender: M Date of : 1990 Age: 35 Procedure Date: 08/09/2025 Procedure Type: Transthoracic Echocardiogram Location: OP Height: 190.5 cm Weight: 128.82 kg BSA: 2.55 m2 Heart Rate: bpm BP: 130 / 90 mmHg Putty Mixer: LYNDA Referring MD: Betsy Clark ROUGHENER-[employer]: Ashish Voss MD Symptoms: I50.20 - Unspecified systolic (congestive) heart failure Study Quality: Adequate ECG Rhythm: Sinus Conclusions: - 1. Moderately dilated left ventricle with moderate to severe LV systolic dysfunction with LVEF of 30-35% with grade 1 diastolic dysfunction 2. Normal cardiac valvular Dopplers 3. Normal RV systolic pressure 4. No gross pericardial effusion Findings Left Ventricle Moderately increased left ventricular cavity size. There is mildly increased left ventricular wall thickness. The left ventricular systolic function is moderate to severely decreased. The visually estimated ejection fraction is between 30-35%. There is severe global hypokinesis. Spectral Doppler is indicative of an impaired relaxation filling pattern. E/E prime ratio is <8, consistent with normal filling pressures. Evidence suggests grade I (mild) diastolic dysfunction. Right Ventricle Mildly increased right ventricular cavity size. There is normal right ventricular systolic function. Atria The left atrium is likely dilated. There is no evidence of interatrial shunt. The right atrium is normal in size. Aortic Valve Normal aortic valve structure and function. There is no aortic valve stenosis. There is no aortic valve regurgitation. Mitral Valve Normal mitral valve structure and function. There is trace mitral valve regurgitation. There is no mitral valve stenosis. Pulmonic Valve The pulmonic valve is likely normal. Tricuspid Valve Normal tricuspid valve structure. There is trace tricuspid valve regurgitation. The right ventricular systolic pressure is normal. The right ventricular systolic pressure is 16 mmHg. Normal right atrial pressure. There is no evidence of pulmonary hypertension. Great Vessels All visible segments of the aorta are normal in size. The pulmonary artery was not well visualized. There is no dilatation of the ascending aorta measuring 3.00 cm. Venous The inferior vena cava is normal in size and collapses greater than 50% with inspiration. Pericardium/Pleural There is no evidence of pericardial effusion. Prior Study Comparison Changes noted compared to prior study dated: 12/24/2024. LV ejection fraction has improved Measurements 2D Linear Measurements IVSd: 1.21 0.6-0.9/0.6-1.0 cm LVIDd: 6.41 3.9-5.3/4.2-5.9 cm LVIDd Index: 2.51 2.4-3.2/2.2-3.1 cm/m2 LVIDs: 5.20 2.0-3.6 cm LVPWd: 1.23 0.7-1.1 cm Ao Root: 3.30 2.1-3.5 cm LA Diam: 4.10 2.7-3.8/3.0-4.0 cm LAIDs Index: 1.61 1.5-2.3 cm/m2 LV Mass: 446.97 67-162/88-224 g LV Mass Index: 175.28 43-95/49-115 g/m2 LVOT Diam: 2.40 3.0+(-)1.3 cm 2D Systolic Function EF 4C: 32.20 >55% EF 2C: 34.90 >55% EF BiP: 33.20 >55% Mitral Valve MV Pk E: 0.46 MV PK A: 0.71 MV Decel Time: 114.00 E/A: 0.60 E'Lateral: 5.00 E'Medial: 5.22 E/E' Med: 8.80 E/E' Lat: 9.20 PHT: 33.00 MVA PHT: 6.67 Decel Rawlins: 4.04 Aortic Valve AoV Pk Basilio: 1.10 AoV Mn Basilio: 0.81 AoV VTI: 0.25 AoV Pk Grad: 5.00 Aov Mn Grad: 3.00 SATNAM Cont.VTI: 3.44 LVOT LVOT Pk Basilio: 0.98 LVOT Mn Basilio: 0.68 LVOT VTI: 0.19 LVOT Pk Grad: 4.00 LVOT Mn Grad: 2.00 LVOT Diam: 2.40 LVOT Area: 4.52 Diastolic Function MV Pk E: 0.46 MV Pk A: 0.71 E/A: 0.60 E'Medial: 5.22 E/E' Med: 8.80 E' Laterial: 5.00 E/E' Lat: 9.20 Right Ventricle TAPSE (mm): 20.00 TVS' Basilio: 11.00 Tricuspid Valve TR Pk Basilio: 1.77 TR Pk Grad: 13.00 RA Press: 3.00 RVSP: 16.00 Great Vessels Aorta Ao Root-2D: 3.30 2.0-3.7 cm Ao Asc: 3.00 2.1-3.4 cm Pulmonary Veins Pulm Vein S/D 0.60 Pulmonary Valve PV Pk Basilio: 0.90 Peak PV Grad: 3.00 Updated in Other Vendor System with Status of Final Ashish Voss MD electronically signed on 08/10/2025 11:20:11 AM with status of Final
--- OUTSIDE RECORDS SUMMARY | 2025-08-09 11:12 | XMS_ITS | Encounter Summary ---
Author Organization [employer] Address [address] [place] [address] Care Team Providers Care Bilingual Kindergarten Teacher Name Role Phone Chance Adhikari MD Primary Care Provide r Encounter Details Date Type Department Care Team (Late st Contact Info) Description 09/28/2022 Abstract [facility] MEDICINE [address] [place], [place] [phone] Chance Adhikari MD [address] [place] [address] Social History Tobacco Use Types Packs/Day Years [...] on filedocumented in this encounter Care Teams Bilingual Kindergarten Teacher Relationship Specialty Start Date End Date Chance Adhikari MD [address] [place], [place] [phone] PCP - General Internal Medicine 02/14/21 documented as of this encounter
--- OUTSIDE RECORDS SUMMARY | 2025-08-09 11:12 | XMS_ITS | Clinical Summary ---
Author Organization [employer] Address [address] [place] [address] Care Team Providers Care Gear Shaper Name Role Phone Chance Adhikari MD Primary Care Provide r Allergies No known active allergies Medications * This document contains information received from the source organization and may not represent a complete record from that organization. carvedilol (Coreg) 25 MG tablet Take 25 mg by mouth with breakfast and with evening meal. 03/19/20 24 Active furosemide (Lasix) 20 MG tablet Take 20 mg by mouth in the morning. 03/17/20 24 Active Entresto 49-51 MG tablet TAKE 1 TABLET BY MOUTH TWICE DAILY IN THE MORNING AND AT BEDTIME 03/17/20 24 Active hydrOXYzine pamoate (Vistaril) 25 MG capsuleIndicat ions:Anxiety TAKE 1 CAPSULE BY MOUTH EVERY TWELVE HOURS NEEDED FOR ANXIETY 30 capsule 3 04/27/20 25 Active FREESTYLE LITE test stripIndicatio ns:Type 2 diabetes mellitus without complication, without long-term current use of insulin (HCC) Use to test blood sugar 1 times daily 100 each 12 06/15/20 25 026 Active Lancets miscIndication s:Type 2 diabetes mellitus without complication, without long-term current use of insulin (HCC) Use to test blood sugar 1 times daily 100 each 06/15/20 25 Active Alcohol Swabs 70 % padsIndication s:Type 2 diabetes mellitus without complication, without long-term current use of insulin (HCC) Use to test blood sugar 1 times daily 100 each 06/15/20 25 Active Blood Glucose Monitoring Suppl (FreeStyle [place] Lite) w/Device kitIndications :Type 2 diabetes mellitus without complication, without long-term current use of insulin (HCC) Use to test blood sugar 1 times daily 1 kit 06/15/20 25 Active betamethasone, augmented, (Diprolene) 0.05 % ointmentIndica tions:Psoriasi s Apply topically 2 times daily. For 2 weeks then patient should take a break for 1 week before resume. 50 g 5 08/03/20 25 Active Dulaglutide (Trulicity) 0.75 MG/0.5ML solution auto-injectorI ndications:Typ e 2 diabetes mellitus without complication, without long-term current use of insulin (HCC) Inject 0.75 mg under the skin 1 (one) time per week. 0.5 mL 3 08/03/20 25 Active empagliflozin (Jardiance) 25 MG TAKE 1 TABLET BY MOUTH EVERY MORNING 30 tablet 5 12/02/19 25 025 Discontinued(Th erapy completed) betamethasone, augmented, (Diprolene) 0.05 % ointmentIndica tions:Psoriasi s Apply topically 2 times daily. For 2 weeks then patient should take a break for 1 week before resume. 50 g 5 05/04/20 25 025 Discontinued(Re order (will not trigger notification to Pharmacy)) Dulaglutide (Trulicity) 0.75 MG/0.5ML solution auto-injectorI ndications:Typ e 2 diabetes mellitus without complication, without long-term current use of insulin (HCC) Inject 0.75 mg under the skin 1 (one) time per week. 0.5 mL 1 06/15/20 25 025 Discontinued(Re order (will not trigger notification to Pharmacy)) Active Problems Problem Noted Date Diagnosed Date [...] cardioverter-defibrillator) in place 03/30/2024 Assessment & Plan (05/04/2025 3:18 PM EDT): Last checked by Cardiology 02/15/2025 Assessment & Plan (06/30/2024 2:17 PM EDT): Last checked by Cardiology 06/14/2024 Assessment & Plan (03/31/2024 9:29 AM EDT): Patient here for a follow up after a recent hospitalization due to improper shock and RENA on 03/08/2024. ICD device reprogramming was scheduled and patient confirms was completed by sausage wrapper. Furosemide and Entresto doses were reduced due [...] Routine physical examination 11/21/2023 Assessment & Plan (05/04/2025 3:05 PM EDT): Physical exam today within normal limits. Assessment & Plan (11/21/2023 9:58 AM EST): Physical exam today within normal limits. Chronic systolic heart failure 10/10/2023 Assessment & Plan (05/04/2025 3:08 PM EDT): Pt here for a follow up Admitted to [facility] (09/15/23 - 09/18/23) with c/o shortness of [...] a LifeVest defibrillator Pt subsequently readmitted to [facility] (09/23/23 - 09/25/23) after he presented with worsening shortness of breath, dyspnea and lower abdominal pain. Also reported feeling like their heart was r acing , headache and blurry vision. Patient tachycardic to 106 bpm, tachypneic to 28 rpm. Labs significant for elevated creatinine to 1.29mg/dL. Continued on home medications and treated with IV Lasix for slight fluid overload. Cardio consulted who recommended transfer to [facility] for angiogram. Pt arrived at [facility] (09/25/23 - 09/27/23) Underwent Cardiac cath showed non ischemic disease and angiographically normal coronary arteries. Patient switched from [facility] to [facility] due to insurance requirements. TSH elevated to 6.22 uIU/mL and INR elevated to 1.3, both unclear etiology. He is now under the care of Dr. Voss seen 04/13/2024. Pt is now s/p ICD placement Under the care of Cardiology at [facility] Last seen 02/15/2025 they did a device interrogation and recommended to: ongoing use of Furosemide, carvedilol, entresto and jardiance. Follow-up echocardiography will be scheduled to reassess ventricular function. ICD functioning to be routinely interrogated. Routine follow-up in six months to evaluate clinical condition and update echocardiography. Assessment & Plan (06/30/2024 2:16 PM EDT): Pt here for a follow up Admitted to [facility] (09/15/23 - 09/18/23) with c/o shortness of [...] a LifeVest defibrillator Pt subsequently readmitted to [facility] (09/23/23 - 09/25/23) after he presented with worsening shortness of breath, dyspnea and lower abdominal pain. Also reported feeling like their heart was r acing , headache and blurry vision. Patient tachycardic to 106 bpm, tachypneic to 28 rpm. Labs significant for elevated creatinine to 1.29mg/dL. Continued on home medications and treated with IV Lasix for slight fluid overload. Cardio consulted who recommended transfer to [facility] for angiogram. Pt arrived at [facility] (09/25/23 - 09/27/23) Underwent Cardiac cath showed non ischemic disease and angiographically normal coronary arteries. Patient switched from [facility] to [facility] due to insurance requirements. TSH elevated to [...] for a follow up Initially admitted to [facility] (09/15/23 - 09/18/23) with c/o shortness of [...] a LifeVest defibrillator Pt subsequently readmitted to [facility] (09/23/23 - 09/25/23) after he presented with worsening shortness of breath, dyspnea and lower abdominal pain. Also reported feeling like their heart was r acing , headache and blurry vision. Patient tachycardic to 106 bpm, tachypneic to 28 rpm. Labs significant for elevated creatinine to 1.29mg/dL. Continued on home medications and treated with IV Lasix for slight fluid overload. Cardio consulted who recommended transfer to [facility] for angiogram. Pt arrived at [facility] (09/25/23 - 09/27/23) Underwent Cardiac cath showed non ischemic disease and angiographically normal coronary arteries. Patient switched from [facility] to [facility] due to insurance requirements. TSH elevated to 6.22 uIU/mL and INR elevated to 1.3, both unclear etiology. He is now under the care of Dr. Voss seen 03/05/2024. Pt is now s/p ICD placement Patient here for a follow up after a recent hospitalization due to improper shock and RENA on 03/08/2024. ICD device reprogramming was scheduled and patient confirms was completed by sausage wrapper. Furosemide and Entresto doses were reduced due to RENA and suspected reduced need for diuresis. Follow up cardiology visit scheduled for 05/22/2024. Patient reports he is doing well. Taking medications as directed Will repeat a BMP Assessment & Plan (12/24/2023 1:54 PM EDT): Pt here for a follow up Initially admitted to [facility] (09/15/23 - 09/18/23) with c/o shortness of [...] a LifeVest defibrillator Pt subsequently readmitted to [facility] (09/23/23 - 09/25/23) after he presented with worsening shortness of breath, dyspnea and lower abdominal pain. Also reported feeling like their heart was r acing , headache and blurry vision. Patient tachycardic to 106 bpm, tachypneic to 28 rpm. Labs significant for elevated creatinine to 1.29mg/dL. Continued on home medications and treated with IV Lasix for slight fluid overload. Cardio consulted who recommended transfer to [facility] for angiogram. Pt arrived at [facility] (09/25/23 - 09/27/23) Underwent Cardiac cath showed non ischemic disease and angiographically normal coronary arteries. Patient switched from [facility] to [facility] due to insurance requirements. TSH elevated to [...] for a follow up Initially admitted to [facility] (09/15/23 - 09/18/23) with c/o shortness of [...] a LifeVest defibrillator Pt subsequently readmitted to [facility] (09/23/23 - 09/25/23) after he presented with worsening shortness of breath, dyspnea and lower abdominal pain. Also reported feeling like their heart was r acing , headache and blurry vision. Patient tachycardic to 106 bpm, tachypneic to 28 rpm. Labs significant for elevated creatinine to 1.29mg/dL. Continued on home medications and treated with IV Lasix for slight fluid overload. Cardio consulted who recommended transfer to [facility] for angiogram. Pt arrived at [facility] (09/25/23 - 09/27/23) Underwent Cardiac cath showed non ischemic disease and angiographically normal coronary arteries. Patient switched from [facility] to [facility] due to insurance requirements. TSH elevated to 6.22 uIU/mL and INR elevated to 1.3, both unclear etiology. Patient discharged home, to follow- up with cardiology w/ possible cardiac MRI He is now under the care of Dr. Voss last seen 09/2023. In his note he mentioned he increased his Entresto to 107-93 and his Carvedilol to 6.25 BID. I contacted [facility] it appears they never received the scripts ( scripts were sent to [facility] Pharm[facility] instead ). Pharmacy will contact Dr. Voss to get both scripts sent to [facility] Pharmacy Assessment & Plan (10/10/2023 3:58 PM EST): Pt here for a HDF Initially admitted to [facility] (09/15/23 - 09/18/23) with c/o shortness of [...] a LifeVest defibrillator Pt subsequently readmitted to [facility] (09/23/23 - 09/25/23) after he presented with worsening shortness of breath, dyspnea and lower abdominal pain. Also reported feeling like their heart was r acing , headache and blurry vision. Patient tachycardic to 106 bpm, tachypneic to 28 rpm. Labs significant for elevated creatinine to 1.29mg/dL. Continued on home medications and treated with IV Lasix for slight fluid overload. Cardio consulted who recommended transfer to [facility] for angiogram. Pt arrived at [facility] (09/25/23 - 09/27/23) Underwent Cardiac cath showed non ischemic disease and angiographically normal coronary arteries. Patient switched from [facility] to [facility] due to insurance requirements. TSH elevated to 6.22 uIU/mL and INR elevated to 1.3, both unclear etiology. Patient discharged home, to follow- up with cardiology w/ possible cardiac MRI We had placed a referral to [facility] Cardiology but they do not have any appointments available until November 2023. We were able to get him an appointment with Dr. Saeed a lot sooner 10/23/2023. After his appointment sausage wrapper will decide if need for a cardiac MRI Primary insomnia 10/09/2022 Assessment & Plan (10/09/2022 2:13 PM EST): Pt c/o new onset of insomnia Denies any stressors, sleeping 4 to 5 hrs at best Plan: Melatonin PRN Sleep study to r/o DION Obesity (BMI 30-39.9) 10/04/2022 Assessment & Plan (05/04/2025 3:21 PM EDT): Patient has been counseled and educated about diet and exercise. Personal goal of weight loss discussedPatient has comorbidity of: HTN, CHF Assessment & Plan (08/15/2023 2:49 PM EST): Patient has been counseled and educated about diet and exercise. Personal goal of weight loss discussedPatient has comorbidity of: HTN Assessment & Plan (11/27/2022 2:10 PM EST): Discussed diet and exercise offered evaluation by our certified medical asst in the past, declined 10 lb personal weight loss goal between now and next visit Assessment & Plan (10/09/2022 2:10 PM EST): Discussed diet and exercise offered evaluation by our certified medical asst in the past Type 2 diabetes mellitus wit hout complication, without long-term current use of insulin 10/04/2022 Assessment & Plan (08/03/2025 1:15 PM EST): Pt here for a follow up for Newly diagnosed DM FBS 05/06/2025 : 169 A1c 06/15/2025 : 7.3 Referred to [facility] in the past, declined Patient tells me he stopped Jardiance 25 mg po daily. (Started for his heart) due to persistent max infections in his groin Discussed need to loose weight, exercise and adhere to a low carbohydrate diet Denies any family or personal Hx of MEN or Papillary thyroid CA or Pancreatitis Started on Trulicity last visit, pt tells me BG at home in the 130s to 160s did not bring his glucometer today Plan: Continue Trulicity 0/75 weekly Obtain Microalbumin, referred to eye doctor F/u 2 months to titrate up Assessment & Plan (06/15/2025 12:39 PM EDT): Pt here for a follow up for Newly diagnosed DM FBS 05/06/2025 : 169 A1c today 06/15/2025 : 7.3 Referred to [facility] in the past, declined Patient tells me he stopped Jardiance 25 mg po daily. (Started for his heart) due to persistent max infections in his groin Discussed need to loose weight, exercise and adhere to a low carbohydrate diet Denies any family or personal Hx of MEN or Papillary thyroid CA or Pancreatitis Plan: Glucometer given, Start Trulicity 0/75 weekly Obtain Microalbumin, referred to eye doctor F/u 1 month to titrate up Assessment & Plan (05/04/2025 3:21 PM EDT): FBS 10/26/2022 was 121 , last Hgb A1c 6.0 Pt has a strong family Hx of DM Referred to [facility] in the past, declined Discussed need to loose weight, exercise and adhere to a low carbohydrate diet He is currently on Jardiance primarily for his heart Will repeat FBS Assessment & Plan (06/30/2024 2:25 PM EDT): Repeat FBS 10/26/2022 was 121 , last Hgb A1c 6.0 Pt has a strong family Hx of DM Referred to [facility] in the past, declined Discussed need to loose weight, exercise and adhere to a low carbohydrate diet He was started on farxiga while in the Hospital Will repeat FBS Assessment & Plan (10/10/2023 3:56 PM EST): Repeat FBS 10/26/2022 was 121 , last Hgb A1c 6.0 Pt has a strong family Hx of DM Referred to [facility] in the past, declined Discussed need to loose weight, exercise and adhere to a low carbohydrate diet He was started on farxiga while in the Hospital Assessment & Plan (08/15/2023 2:50 PM EST): Repeat FBS 10/26/2022 was 121 , last Hgb A1c 6.1 Pt has a strong family Hx of DM Referred to [facility] in the past, declined Discussed need to loose weight, exercise and adhere to a low carbohydrate diet will continue to monitor Assessment & Plan (11/27/2022 2:10 PM EST): Repeat FBS 10/26/2022 was 121 , Hgb A1c 6.4 Pt has a strong family Hx of DM Referred to [facility] in the past, declined Today A1c down to 6.1 Discussed need to loose weight, exercise and adhere to a low carbohydrate diet will continue to monitor Assessment & Plan (10/09/2022 2:09 PM EST): FBS 108 Pt has a strong family Hx of DM Referred to [facility] in the past will continue to monitor BMP ordered today Assessment & Plan (10/04/2022 9:26 AM EST): 02/2021 FBS 116. Hgb A1c: 6 Pt has a strong family Hx of DM Pt referred to [facility] will continue to monitor will repeat BMP today Psoriasis 10/04/2022 Assessment & Plan (05/04/2025 3:22 PM EDT): Diagnosed with psoriasis in [place], mainly affecting his elbows and legs He is also c/o some sort of hypersensitivity to the sun, he describes becoming very itchy when under the sun Uses Clobetasol to apply to affected areas of body except face Pt was referred to outside Dermatology in the past, his insurance would not cover this per his report. Subsequently he was referred to our [facility] D[facility] Assessment & Plan (11/21/2023 10:03 AM EST): Diagnosed with psoriasis in [place], mainly affecting his elbows and legs He is also c/o some sort of hypersensitivity to the sun, he describes becoming very itchy when under the sun Uses Clobetasol to apply to affected areas of body except face Pt was referred to outside Dermatology in the past, his insurance would not cover this per his report. Will refer to our [facility] D[facility] Assessment & Plan (10/09/2022 2:08 PM EST): Diagnosed with psoriasis in [place], mainly affecting his elbows and legs He is also c/o some sort of hypersensitivity to the sun, he describes becoming very itchy when under the sun Uses Clobetasol to apply to affected areas of body except face Pt was referred to outside Dermatology in the past Assessment & Plan (10/04/2022 9:27 AM EST): Pt reports having been diagnosed with psoriasis in [place], mainly affecting his elbows and legs He is also c/o some sort of hypersensitivity to the sun, he describes becoming very itchy when under the sun Continue Clobetasol to apply to affected areas of body except face Pt was referred to outside dermatology Microscopic hematuria 10/04/2022 Assessment & Plan (05/04/2025 3:09 PM EDT): Previous U/A showed microscopic hematuria, Renal US 09/2022 showed: Normal renal ultrasound. No kidney stone or hydronephrosis, no renal mass, no ultrasound explanation for patient's hematuria Pt was seen by Urology, Previous Cystoscopy done showed trigonitis only Last seen 12/31/2024 Assessment & Plan (08/15/2023 2:48 PM EST): [...] Urology referral Hypertension 06/08/2021 Assessment & Plan (05/04/2025 3:20 PM EDT): Here for a follow up BP controlled On Carvedilol 6.25 BID, Entresto (prescribed by Cardiology ), Furosemide 3 times / week Spironolactone 25 mg daily Assessment & Plan (06/30/2024 2:16 PM EDT): [...] Encounters Date Type Department Care Team Description 08/03/2025 1:00 PM EST Office Visit [facility] [place] [address] Chance Adhikari MD Type 2 diabetes mellitus without complication, without long-term current use of insulin ([facility]) (Primary Dx); Psoriasis 08/03/2025 Telephone [facility] [address] [place] [id number] Chance Adhikari MD Appointment Request 08/03/2025 Travel 08/02/2025 Telephone [facility] [address] [place] [address] Daina [place]rieta [place] 07/06/2025 Telephone [facility] [address] [place] [id number] Chance Adhikari MD Nurse Triage 06/24/[address] [address] Chance Adhikari MD Prior Auth Prescription 06/15/2025 11:00 AM EDT Office Visit [facility] [place] [address] Chance Adhikari MD Type 2 diabetes mellitus without complication, without long-term current use of insulin (CMS/HCC) (Primary Dx) 06/15/[address] [facility] [place] [address] Imelda Bui RN Referral 06/15/2025 Travel 06/14/2025 Travel 06/14/[address] [facility] [address] Chance Adhikari MD chart prep 06/07/2025 Refill [facility] [address] [facility] [place] [address] Chance Adhikari MD Acute systolic heart failure (CMS/HCC) 05/26/2025 Telephone [facility] [address] [place] [address] Chance Adhikari MD Results from Last 3 Months Immunizations Immunization Administration [...] Answer Date Recorded Patient Health Questionnaire-9 Score 7 05/04/2025 Patient Health Questionnaire-9 Score 7 05/04/2025 Last PHQ-9: Questionnaire Data Not on file 0 05/04/2025 Housing Stability Answer Date Recorded What is your housing situation today? I have mirna mcclellan 04/08/[address] you li ve. Do you have problems with any of the following? None of the above 04/08/2025 Food Insecurity Answer Date Recorded Within the past 12 months, y ou worried that your food would run out before you got money to buy more: Never True 04/08/2025 Within the past 12 months,th e food you bought just didn't last and you didn't have enough money to get more: Never True 06/2025 Transportation Answer Date Recorded In the past 12 months, has l ack of transportation kept you from medical appts, meetings, work or from getting things needed for daily living? No 04/08/2025 Utilities Answer Date Recorded In the past 12 months, has t he electric, gas, oil or water company threatened to shut off services in your home? No 04/08/2025 Depression Answer Date Recorded Patient Health Questionnaire-2 Score 3 05/04/2025 Internet Access Answer Date Recorded Internet Access Q1 Yes 04/08/2025 Internet Access Q2 Not on file 04/08/2025 Sex and Gender Information Value Date Recorded Sex Assigned at Male 07/30/2022 10:38 AM EDT Legal Sex Male 10:38 AM EDT Gender Identity Male 07/30/2022 10:38 AM EDT Sexual Orientation Straight 07/30/2022 10 :38 AM EDT Last Filed Vital Signs Vital Sign Reading Time Taken Comments Blood Pressure 118/64 08/03/2025 1:07 PM EST Pulse 76 08/03/2025 1:07 PM EST Temperature 36.2 C (97.2 F) 08/03/2025 1:07 PM EST Respiratory Rate 20 08/03/2025 1:07 PM EST Oxygen Saturation 98% 08/03/2025 1:07 PM EST Inhaled Oxygen Concentration - - Weight 129 kg (285 lb) 08/03/2025 1:07 PM EST Height 188 cm (6' 2 ) 08/03/2025 1:07 PM EST Body Mass Index 36.59 08/03/2025 1:07 PM EST Plan of Treatment Health Maintenance Due Date Last Done Comments HIV Screening 1989 Diabetes: Foot Exam 1999 Eye Exam 1999 Family Planning (PISQ) 2004 HPV Vaccines (1 - Male 3-dose series) 2004 Diabetes: Urine Protein Screening 2008 COVID-19 Vaccine ( - season) 2025 02/20/2021, 01/30/2021 Influenza Vaccine (#1) 2025 Diabetes: Hemoglobin A1C 09/14/2025 025, 10/10/2023, 11/27/2022, Additional history exists SDOH Screening 04/08/2026 04/08/2025 Alcohol/Substance Use Screening 05/04/2026 05/04/2025 Depression Screening 05/04/2026 05/04/2025, 05/04/20 Disability Screening 05/04/2026 05/04/2025 Lipid Panel 05/06/2026 05/06/2025, 07/01, 02/21/2021 Tobacco Screening 06/15/2026 06/15/2025 DTaP/Tdap/Td Vaccines (2 - Td or Tdap) 03/30/2034 03/30/2024, 05/06/2009 Zoster Vaccines (1 of 2) 2039 RSV Patients and Patients Aged 60 years or older (1 - 1-dose 75+ series) 2064 Pneumococcal Vaccine: Pediatrics (0 to 5 Years) and At-Risk Patients (6 to 49) Years Completed 02/28/2024 Hepatitis B Vaccines Completed 03/30/2024, 02/28/20 Hepatitis C Screening Completed 05/06/2025 HIB Vaccines Aged Out No longer eligi [...] Author Blood Pressure < 140/90 Blood Pressure 118/64( 025 1:07 PM EST) No Urbano Mukherjee Procedures Procedure Name Priority Date/Time Associated Diagnosis Comments POCT GLYCATED HEMOGLOBIN, TOTAL Routine 06/15/2025 11:24 AM EDT Type 2 diabetes mellitus without complication, without long-term current use of insulin ([facility] [facility] POCT HEMOGLOBIN Routine 06/15/2025 11:23 AM EDT Type 2 diabetes mellitus without complication, without long-term current use of insulin ([facility] POCT GLUCOSE Routine 06/15/2025 11:23 AM EDT Type 2 diabetes mellitus without complication, without long-term current use of insulin ([facility] HEPATITIS C AB W/REFL TO HCV RNA, QN, PCR Routine 05/06/2025 8:02 AM EDT Routine physical examination LIPID PANEL, STANDARD Routine 05/06/2025 8:02 AM EDT Routine physical examination Chronic systolic heart failure (CMS/HCC) Primary hypertension from Last 3 Months or Most Recently Relevant to Health Maintenance Results * (ABNORMAL) POCT Hgb A1c (06/15/2025 11:24 AM EDT) Hemoglobin A1C 7.3(A) 4.0 - 5.7 % QC Media Lot # [id number] Lot# Expiration Date Blood 06/15/2025 11:2 4 AM EDT us Chance Dozier MD POINT OF CARE TEST EN TER/EDIT ORDERABLES Final Result * POCT Glucose (06/15/2025 11:23 AM EDT) Pathologist [facility] Glucose Blood, POC 128 60 - 200 mg/dL QC Media Lot # [id number] Lot# Expiration Date [id number] Blood Capillary blood specimen / Unknown 06/15/2025 11:23 AM EDT us Chance Dozier MD POINT OF CARE TEST EN TER/EDIT ORDERABLES Final Result * POCT Hemoglobin (06/15/2025 11:23 AM EDT) Pathologist [facility] Hemoglobin 14.4 13.0 - 17.0 QC Media Lot # [id number] Lot# Expiration Date 1,001, Blood 06/15/2025 11:2 3 AM EDT us Chance Dozier MD POINT OF CARE TEST EN TER/EDIT ORDERABLES Final Result * Hepatitis C Antibody with Reflex to HCV, RNA, Quantitative, Real-Time PCR (05/06/2025 8:02 AM EDT) Pathologist [facility] Hepatitis C Antibody Nonreactive Nonreactive [facility] Comment:Antibodies to HCV no t detected; does not exclude early acuteHCV infection. Blood Venous blood specimen / Unknown 05/06/2025 8:02 AM EDT 05/06/2025 11:29 AM EDT Chance Dozier MD LAB BLOOD ORDERABLES Final Result Performing Organization Address [facility] [[email or web address]] Co de Phone Number [facility] [address] [place] [address] [phone] * (ABNORMAL) Lipid Panel, Standard (05/06/2025 8:02 AM EDT) Triglycerides 209(H) <150 mg/dL [facility] Comment:Desirable Triglyceri de: less than 150 mg/dLBorderline High Triglyceride 150-199 mg/dLHigh Triglyceride: 200-499 mg/dLVery High Triglyceride: greater than or equal to 5OO mg/dL Cholesterol 198 <200 mg/dL [facility] Comment:Desirable Cholestero l: less than 200 mg/dLBorderline High Cholesterol: 200-239 mg/dLHigh Cholesterol: greater than 239 mg/dL LDL Cholesterol Calculated 115(H) <100 mg/dL [facility] Comment:Desirable LDL: less than 100 mg/dLNear Optimal/Above Optimal LDL: 110- 129 mg/dLBorderline High LDL: 130-159 mg/dLHigh LDL: 160-189 mg/dLVery High LDL: greater than or equal to 190 mg/dL HDL Cholesterol 42 >40 mg/dL [facility] Comment:Desirable HDL: great er than 40 mg/dL Note: This HDL assay may give artificially low results in patients with liver disease. Blood Venous blood specimen / Unknown 05/06/2025 8:02 AM EDT 05/06/2025 11:29 AM EDT Chance Dozier MD LAB BLOOD ORDERABLES Final Result Performing Organization Address [facility]/ZIP Co de Phone Number [facility] [address] [place] [address] [phone] from Last 3 Months or Most Recently Relevant to Health Maintenance Insurance [address] [place] [address] 3 Care Teams Gear Shaper Relationship Specialty Start Date End Date Chance Adhikari MD [address] [place] [phone] PCP - General Internal Medicine 02/14/21
--- OUTSIDE RECORDS SUMMARY | 2025-08-09 11:12 | XMS_ITS | Clinical Summary ---
Author Organization [facility] Address [address] [place] [address] Care Team Providers Care Hogshead Packer Name Role Phone Pcp, No Primary Care [...] - 19+ 3-dose series) 2008 Influenza Vaccine 04/30/2025 COVID-19 Vaccine (1 - 2023-2 5 season) 2025 HPV Vaccines (No Doses Required) Completed Pneumococcal Vaccine: Pediat nam (0-5 Years) and At-Risk Patients (6 to 49 Years) Aged Out No longer eligible b ased on patient's age to complete this topic Insurance [facility] Care Teams Hogshead Packer Relationship Specialty Start Date End Date Pcp, No PCP - General General Medicine 02/10/24
--- OUTSIDE RECORDS SUMMARY | 2025-08-09 11:12 | XMS_ITS | Encounter Summary ---
Author Organization [employer] Address [address] [place] [address] Care Team Providers Care Airport Baggage Screener Name Role Phone Chance Adhikari MD Primary Care Provide r Encounter Details Date Type Department Care Team ([facility] st Contact Info) Description 09/19/2023 Abstract [facility] [address] [place], [place] [phone] Chance Adhikari MD [address] [place], [place] [phone] Social History Tobacco Use Types Packs/Day Years [...] on filedocumented in this encounter Care Teams Airport Baggage Screener Relationship Specialty Start Date End Date Chance Adhikari MD [address] [place] [phone] PCP - General Internal Medicine 02/14/21 documented as of this encounter
--- OUTSIDE RECORDS SUMMARY | 2025-08-09 11:12 | XMS_ITS | Encounter Summary ---
Author Organization [employer] [facility] Address [address] [place] [address] Care Team Providers Care Breakfast Attendant Name Role Phone Chance Adhikari MD Primary Care Provide r Reason for Visit * Reason Onset Date Comments Nurse Triage 02/20/2024 Encounter Details Date Type Department Care Team ([facility] st Contact Info) Description 02/20/2024 Telephone [facility] [address] [place], [place] [phone] Chance Adhikari MD [address] [place] [phone] Nurse Triage Social History Tobacco Use Types [...] is your housing situation today? I have mirnaanne mcclellan 10/07/[address] [...] and his sister Amarily who was helping paint stock clerk who states that pt had a pacemaker placed at [facility] on 02/14/24. He has [...] that she will drive him back to [facility] ER. RN reiterates that these symptoms arevery concerning and RN is able to call an ambulance for pt, but pt and sister again decline. RN calls [facility] ED and spoke with [...] acuity questions The caller accepted this outcome Bahamian speaker documented in this encounter Plan of Treatment Not on file documented as of this encounter Visit Diagnoses Not on filedocumented in this encounter Additional Health Concerns Assessment Noted Time PHQ-9 Depression Total Score: 5 11/21/19 24 9:35 AM EST documented as of this encounter Care Teams Breakfast Attendant Relationship Specialty Start Date End Date Chance Adhikari MD [address] [place] [phone] PCP - General Internal Medicine 02/14/21 documented as of this encounter
--- OUTSIDE RECORDS SUMMARY | 2025-08-09 11:12 | XMS_ITS | Encounter Summary ---
Author Organization [employer] Address [address] [place] [address] Care Team Providers Care Senior Technical Program Manager Name Role Phone Chance Adhikari MD Primary Care Provide r Reason for Visit * Reason Comments Med Refill Encounter Details Date Type Department Care Team (Late st Contact Info) Description 06/07/2025 Refill [facility] [address] [place], [place] [phone] Chance Adhikari MD [address] [place], [place] [phone] Acute systolic heart failure (CMS/HCC) Social History Tobacco Use Types Packs/Day Years [...] on file documented as of this encounter Goals Goal Patient Goal Type Associated Problems Recent Progress Patient-Stated? Author Blood Pressure < 140/90 Blood Pressure 118/64( 025 1:07 PM EST) No Urbano Mukherjee documented as of this encounter Visit Diagnoses Diagnosis Acute systolic heart failure (HCC) Acute systolic heart failure documented in this encounter Additional Health Concerns Assessment Noted Time PHQ-9 Depression Total Score: 7 05/04/20 25 3:45 PM EDT documented as of this encounter Care Teams Senior Technical Program Manager Relationship Specialty Start Date End Date Chance Adhikari MD [address] [place] [phone] PCP - General Internal Medicine 02/14/21 documented as of this encounter
--- OUTSIDE RECORDS SUMMARY | 2025-08-09 11:12 | XMS_ITS | Clinical Summary ---
Author Organization [facility] Address [address] [place] [phone] Phone Care Team Providers Care Route Sales Associate Name Role Phone Chance Georges MD Primary [...] healing well. Patient can follow-up with primary manager assisted living. Chronic systolic heart failure 02/07/2024 Assessment & Plan (08/03/2024 3:34 PM EST): Continue GDMT. Assessment & Plan (02/07/2024 1:26 PM EDT): Patient is on GDMT for more than 3 months and ejection fraction continues to be low. Is currently wearing LifeVest. Will proceed with primary prevention ICD. Will check with [employer] rep's whether he is a candidate [...] years) (1 of 2 - PCV) 2008 SCREENING FOR DIABETES 2024 INFLUENZA VACCINE (#1) 2025 COVID-19 VACCINE (2024-2 6 season) 2025 LIPID PANEL 07/24/2029 07/24/2024 Adult Td,Tdap Booster 03/30/2034 03/30/2024 SMOKING STATUS SCREENING (On ce After 26 Yrs) Completed 08/03/2024 HEPATITIS A VACCINES Aged Out No long er eligible based on patient's age to complete this topic HIB VACCINES Aged Out No longer eligi ble based on patient's age to complete this topic IPV VACCINES Aged Out No longer eligi ble [...] ACO C3 ACO C3 ACO C[address] [place] [address] [address] C3 ACO Care Teams Route Sales Associate Relationship Specialty Start Date End Date Chance Georges MD [address] [place] [address] [address] [place] [phone] PCP - General Internal Medicine 12/09/23 Additional Source Comments The information contained in this document represents components of the legal health record. It is not the complete legal health record.[facility]
== END ==
LOC: HO.CARD 09:47
PROVIDERS: PCP Internal Medicine; Visit Provider Nurse Practitioner Family
DX: I50.20 Unspecified systolic (congestive) heart failure (principal); I42.9 Cardiomyopathy, unspecified
CPT/HCPCS: 93306

== ENCOUNTER → 2025-08-09 09:53 | Outpatient (BNV) | payer OTHER, SELFPAY | PROVIDERS: PCP Internal Medicine; Visit Provider Internal Medicine Cardiovascular Disease | DX: I50.20 Unspecified systolic (congestive) heart failure (principal) | CPT/HCPCS: 93306 ==

== ENCOUNTER 2025-08-16 13:54 | Outpatient (AMB) | payer MEDICAID, SELFPAY ==
[2025-08-16 14:12] VITALS: BP 118/72; PULSE 65; BMI 35.5
--- NOTE | 2025-08-16 14:12 | A.OFFVIS_ITS ---
Vital Signs 08/16/25 14:12 Height 6 ft 3 in Weight 284 lb BMI 35.5 BP 118/72 Blood Pressure Location Rt brachial Position Sitting Pulse 65 Pulse Source Pulse Oximeter Intake Visit Reasons: 6 mth f/up s/p echo after truro Oxyacetylene Burner Required: No Oxyacetylene Burner Services: Oxyacetylene Burner Offered & Declined Allergies empagliflozin (From Jardiance) Adverse Reaction (Intermediate, Verified 08/16/25 14:14) genital rash Medication List - Last Reconciled 08/16/25 by Betsy Clark NP-C carvedilol 25 mg PO BID dulaglutide (Trulicity) mg subcut QWEEK furosemide 20 mg PO QAM sacubitril-valsartan 97-103 mg (Entresto) 1 tab PO BID HPI HPI 6 mth f/up s/p echo after truro: Details: Angel is a 35-year-old male with past medical history of hypertension, chronic systolic heart failure, nonischemic cardiomyopathy, subcutaneous ICD who presents for follow-up. Today he reports he has been feeling generally well since his last visit in January. He still gets some random soreness in the left chest region that he notices more at rest. He has not had discomfort brought on or worsened by exertion. No shortness of breath, PND, orthopnea or edema. No heart palpitations, lightheadedness, presyncope, syncope. He has not had any ICD shocks. He is taking meds as directed. 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 He says he is tolerating his work well at this time. 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 Patient Tobacco Use Status: Never used Tobacco service: No Review of Systems Const All systems reviewed & are unremarkable except as noted in HPI and below ENT Denies dizziness Card Denies chest pain, Denies chest pain at rest, Denies chest pain with activity, Denies rapid heart rate, Denies pedal edema, Denies edema, Denies leg edema, Denies lightheadedness, Denies palpitations, Denies dyspnea, Denies dyspnea on exertion and Denies orthopnea Resp Denies cough, Denies dyspnea and Denies dyspnea on exertion GI Denies hematochezia and Denies change in stool character Musc Denies abnormal gait, Denies limited range of motion, Denies muscle cramps, Denies muscle weakness, Denies numbness, Denies radiating pain into limb, Denies stiffness and Denies tingling Neuro Denies abnormal gait, Denies dizziness, Denies numbness and Denies tingling Endo Denies palpitations Physical Exam Vital Signs: Last Vital Signs Pulse 65 08/16/25 14:12 BP 118/72 08/16/25 14:12 BMI result Body Mass Index 35.5 Const General: cooperative, healthy appearing, comfortable and no acute distress Orientation/consciousness: patient oriented x3 Neck Neck: Yes normal visual inspection Resp Effort & Inspection: normal respiratory effort Auscultation: clear to auscultation bilaterally, no rales, no rhonchi and no wheezes Cardio Rate: regular rate Rhythm: regular rhythm Heart sounds: S1 normal heart sound present, S2 normal heart sound present, no murmurs and no rubs Neuro General: patient oriented x3 Extrem General: Yes normal to inspection and No no pedal edema Psych Appearance: grossly normal Mental Status: mental status grossly normal Speech and movement: Normal speech and movement present Office Procedures Cardiac Device Check Cardiac Device Check Details: [employer] subcu ICD interrogation today shows device is functioning normally, no episodes, impedance 80 Ohms, battery status 83%, no alerts [id number] Device Interrogation, implantable defibrillator Procedure code (CPT) selection complete Assessment & Plan Assessment & Plan (1) Heart failure with reduced ejection fraction: Code(s): I50.20 - Unspecified systolic (congestive) heart failure Category: Medical Plan: Heart failure with reduced ejection fraction with significant nonischemic cardiomyopathy related LV systolic dysfunction. He has been on carvedilol, Entresto for neurohormonal modulation. Last echo 08/09/2025 shows EF 30-35%, grade 1 diastolic dysfunction. Prior echo had shown EF 15-20%. No signs of heart failure on examination. He continues on low-dose Lasix. Jardiance was stopped due to genital area rash. Labs from 05/06/2025 showed potassium 4.1, creatinine 1.05. No med changes made. Signs and symptoms of heart failure reviewed with him. Cardiology follow-up 6 months, sooner if needed. (2) ICD (implantable cardioverter-defibrillator) in place: Code(s): Z95.810 - Presence of automatic (implantable) cardiac defibrillator Category: Medical Plan: Subcutaneous ICD in place for primary prevention. Device interrogation today shows it is functioning normally. (3) Cardiomyopathy: Code(s): I42.9 - Cardiomyopathy, unspecified Category: Medical Plan: As above Plan Time spent on chart review, documentation, interview and assessment Coding Level of Care Code Est Pt Level 4 (86807) Complex EM visit Add On G2211 Diagnoses Heart failure with reduced ejection fraction I50.20 ICD (implantable cardioverter-defibrillator) in place Z95.810 Cardiomyopathy I42.9 CPT Codes Cardiac Device Check - Cardiac Device 9: [id number] Device Interrogation, implantable defibrillator ([id number]) Time Spent (min) 28
== END 2025-08-16 14:59 | disposition home or self-care (01) ==
LOC: HO.HCS 13:54
PROVIDERS: PCP Internal Medicine; Visit Provider Nurse Practitioner Family
DX: I50.20 Unspecified systolic (congestive) heart failure (principal); I42.9 Cardiomyopathy, unspecified; Z95.810 Presence of automatic (implantable) cardiac defibrillator
CPT/HCPCS: 93260; 99213

== ENCOUNTER → 2025-08-16 13:54 | Outpatient (BNVA) | payer MEDICAID, SELFPAY | PROVIDERS: PCP Internal Medicine; Visit Provider Nurse Practitioner Family | DX: I11.0 Hypertensive heart disease with heart failure (principal); I50.23 Acute on chronic systolic (congestive) heart failure; I42.8 Other cardiomyopathies; Z95.810 Presence of automatic (implantable) cardiac defibrillator | CPT/HCPCS: 99213 ==

== ENCOUNTER → 2025-09-15 15:02 | Outpatient (BNV) | payer MEDICAID, SELFPAY | PROVIDERS: PCP Internal Medicine; Visit Provider Internal Medicine Cardiovascular Disease | DX: Z45.02 Encounter for adjustment and management of automatic implantable cardiac defibrillator (principal) | CPT/HCPCS: 93295 ==